=== PATIENT | female | born 1940 | race Hispanic/Latino ===

== ENCOUNTER → 2017-08-22 | Day surgery (SDC) | payer OTHER ==
[~2017-08-22] MED LIST: NA CHLORIDE 0.9% 500 ML ONE
--- NOTE | 2017-08-22 13:12 | RAD REPORT ---
EXAM DESCRIPTION: US - Breast Core BX w/US Guidance - 08/22/2017 10:50 am CLINICAL HISTORY: ICD N63.14. COMPARISON: August 16, 2017 ultrasound. TECHNIQUE: The risks, benefits and alternatives to the procedure were explained to the patient and i nformed consent obtained. The skin and subcutaneous tissues were anesthetized with Lidocaine. Under sonographic guidance, three 14-gauge vacuum assisted core biopsies of the 18 mm mass within the upper inner right breast was per formed. 2 cm core specimens were obtained and given to pathology. Subsequently a localizing clip was placed into the mass. The patient experienced no immediate complication. IMPRESSION: Vacuum assisted core biopsies of a right breast mass.
== END ==
LOC: DS 09:59
PROVIDERS: ATTEND Surgery
DX: C50.911 Malignant neoplasm of unspecified site of right female breast (principal); Z17.0 Estrogen receptor positive status [ER+]
CPT/HCPCS: 19083; 88305

== ENCOUNTER 2017-09-04 08:00 | Day surgery (SDC) | payer OTHER ==
--- NOTE | 2017-09-03 16:11 | RAD REPORT ---
EXAM DESCRIPTION: RAD - Chest Pa And Lat (2 Views) - 09/03/2017 4:06 pm CLINICAL HISTORY: Preop chest, pending breast surgery COMPARISON: None. TECHNIQUE: PA and lateral views of the chest were obtained. FINDINGS: The lungs are fibrotic but clear of a focal infiltrate, mass or failure. Heart size is n ormal and central vasculature is within normal limits. No pleural effusion or pneumothorax seen. No acute bony finding noted. No aortic abnormality. IMPRESSION: Fibrotic lung change with no acute cardiopulmonary finding.
[2017-09-03 17:02] LABS: Absolute Lymphocytes (CBC) 2.2 K/uL (0.7-4.9); Absolute Monocytes 0.5 K/uL (0.1-1.3); Absolute Neutrophil 5.2 K/uL (1.8-8.0); Basophils % 0.5 % (0-1.3); Eosinophils % 1.8 % (0-4.4); Hematocrit 37.8 % (36.0-45.0); Lymphocytes % 26.8 % (15.3-44.8); MCH 31.3 pg (27.0-35.0); MCV 92.2 fL (80-100); MPV 10.6 fL (7.6-11.3); Monocytes % 6.6 % (3.3-12.3)
[2017-09-03 17:30] LABS: Potassium 3.5 mEq/L (3.6-5.0)
--- NOTE | 2017-09-03 22:36 | EKG ---
Test Date: 2017-09-03 Test Time: 15:54:46 Membership Advisor: SPIKE MEASUREMENT RESULTS: Intervals: Rate: 57 KS: 202 QRSD: 84 QT: 440 QTc: 428 [place]: P: 57 KS: 202 QRS: -2 T: 45 INTERPRETIVE STATEMENTS: Sinus bradycardia Otherwise normal ECG Compared to ECG 08/31/2016 11:42:24 No significant changes Electronically Signed On 09-03-17 22:35:54 CDT by Timi Farley
--- OUTSIDE RECORDS SUMMARY | 2017-09-04 08:02 | XMS REPORT ---
:1940 Author Organization [employer] Care Team Providers Name Role Phone Mary Goyal Provider Role Unavailable Allergies, Adverse Reactions, Alerts Substance Reaction Event Type MORPHINE hallucinations Drug Allergy Phenergan vomiting Drug Allergy Problems Problem Type Condition Code Onset Dates Condition Status Assessment Hypertension, unspecified type I10 Active Problem Hypertension, unspecified type I10 Active Problem Breast lump N63.0 Active Problem Depression F32.9 Active Problem Cancer C80.1 Active Problem Hypertension I10 Active Problem History of endometrial cancer Z85.42 Active Problem Insomnia, unspecified type G47.00 Active Problem Vaginal dryness N89.8 Active Problem Depression, unspecified depression F32.9 Active type Assessment Depression, unspecified depression F32.9 Active type Assessment Insomnia, unspecified type G47.00 Active Assessment History of endometrial cancer Z85.42 Active Medications Medication Code System Code Instructions Start Date End Date Status Dosage Zoloft [facility] 58551655594 50 MG Orally Once August 29, Active 1 tablet a day 2017 Lisinopril [facility] 25607654829 10 MG Orally Once Active 1 tablet a day Vitamin C [facility] 13717429603 1000 MG Orally Active 1 tablet Once a day Results No Known Results Summary Purpose [employer] Submission
--- OUTSIDE RECORDS SUMMARY | 2017-09-04 08:02 | XMS REPORT ---
:1940 Author Organization [employer] Care Team Providers Name Role Phone Mary Goyal Provider Role Unavailable Allergies No Known Allergies Problems Problem Type Condition Code Onset Dates Condition Status Problem Hypertension, unspecified type I10 Active Problem Breast lump N63.0 Active Problem Depression F32.9 Active Problem Cancer C80.1 Active Problem Hypertension I10 Active Problem History of endometrial cancer Z85.42 Active Problem Insomnia, unspecified type G47.00 Active Problem Vaginal dryness N89.8 Active Problem Depression, unspecified depression F32.9 Active type Medications No Known Medications Results No Known Results Summary Purpose [employer] Submission
[2017-09-04] MEDS ORDERED: Ringers Lactate 1,000 ML IV ONE ×2 (08:08→13:42)
[2017-09-04] MEDS ORDERED: CEFAZOLIN/SWI 1gm 1 GM/10 ML SYR ONE (08:08)
[2017-09-04] MEDS ORDERED: SCOPOLAMINE HYDROBROMIDE PATCH TD ONE (08:15)
[2017-09-04] MEDS ORDERED: PROPOFOL 200 MG/20 ML VIAL IV ONE (10:02)
[2017-09-04] MEDS ORDERED: MIDAZOLAM HCL 2 MG/2 ML INJ ONE (10:03)
[2017-09-04] MEDS ORDERED: LIDOCAINE 2% MPF 5 ML VIAL ONE (10:03)
[2017-09-04] MEDS ORDERED: ROCURONIUM 50 MG/5 ML VIAL IV ONE (10:04)
[2017-09-04] MEDS ORDERED: FENTANYL CITR 100 MCG/2 ML ONE ×2 (10:04→11:38)
[2017-09-04] MEDS ORDERED: ONDANSETRON 4 MG/2 ML VIAL ONE (10:04)
[2017-09-04] MEDS ORDERED: METHYLENE BLUE 0.5% 10 ML AMP ONE (10:10)
[2017-09-04] MEDS ORDERED: GLYCOPYRROLATE 0.2 MG/ML SYR ONE (11:26)
[2017-09-04] MEDS: MEPERIDINE HCL 50 MG/ML AMP ONE ×3 (13:10→13:28)
--- NOTE | 2017-09-04 13:31 | P.BOP ---
Preoperative diagnosis: right breast cancer Postoperative diagnosis: same Primary procedure: 1. Right mastectomy Secondary procedure: 2. right axillary sentinel lymphnode biopsy Cycle Analyst: [place] (Gregorio) Estimated blood loss: <100cc Specimen: breast, sentinel lymphnode Findings: sentinel Lymphnode neg per DR Whitaker Anesthesia: General Complications: None Drain(s): RICHARD drain Transferred to: Recovery Room Condition: Good
--- NOTE | 2017-09-08 19:01 | OP ---
Date of Procedure: 09/04/2017 Surgeon: Felix Daniels MD Nature Photographer: ERIC Solis Preoperative Diagnosis: Right breast cancer. Postoperative Diagnosis: Right breast cancer. Procedures: 1.Right mastectomy. 2.Right axillary sentinel lymph node biopsy. Estimated Blood Loss: Less than 100 cc. Specimen: Breast, sentinel lymph nodes. Findings: [place] lymph nodes negative for cancer by Dr. Tilley. Anesthesia: General. Intraoperative lymphatic mapping of the right axillary basin lymph node showed skin count of 2800, in vivo of 781, and ex vivo 815. Ex Vivo 908, background 0, and blue node yes. This is the case of a 77-year-old patient with a history of breast cancer on core biopsy. The benefi ts, alternatives, and risks of multiple options including breast conservative treatments, modified ra dical mastectomies, axillary dissection, sentinel lymph node, lumpectomies, and radiation fully expla ined to the patient with benefits, alternatives, and risks of each one of them. The family was prese nt. After considering all her options, she has elected right mastectomy with right axillary sentinel lymph node biopsy, possible axillary dissection, with benefits, alternatives, and risks fully explai [place] to the patient, which include but are not limited to infection, bleeding, damage to adjacent stru ctures, anesthesia complications, failure of the flap, failure to identify sentinel lymph node and th eir recurrence, flap failure, [place], or even . She also understands this may not relieve any sympt oms, she many need more than one surgical intervention. She also understands the chance of lymphedem a. She understands the importance of following up in the future with the Oncology. She signed a con sent. The patient went this morning and had a lymphoscintigram. After that, the patient came to the OR. Description Of Procedure: Then, the patient was brought into the OR. The right breast and axillary area were prepped and draped in the usual sterile fashion. We proceeded to outline the area of the b reast to be excised. At the same time, we made an incision in the inferior axillary fine. Before th at, we injected a blue over the area near the periareolar region and mass and massaged the area f or about 15 minutes. After the time-out was complete, we proceeded then to use a hand-held gamma pro be to identify the location of the hottest spot in the axilla. One incision was made. We obtained t he counts as described above. We noticed the lymph node to be positive for also for blue dye. The r ight axillary basin shows skin 2800, in vivo 781, and ex vivo 815. An ex vivo 10-second count is 908 with a background of none, and blue node to be of blue. The lymph node was sent to lee Velez, who confirmed the sentinel lymph node is negative for any cancer. At that moment, we proce eded to continue with the right mastectomy. The incision was made to encompass the nipple areolar co mplex and previous biopsy site. The flaps were raised into the vascular plane between the subcutaneo us tissue and the breast tissue from superiorly up to the clavicle, medially up to the sternum, anter ior rectus sheath inferiorly, and passing the lateral border of the pectoralis major muscle laterally and latissimus dorsi. After that, we proceeded to remove the breast issue with the fascia of the mu scle. We marked the area of orientation. We even marked the area over where the tumor is. I did no t see the tumor to the fatty tissue, but I took some extra tissue just underneath the skin since this tumor, although it is not touching the skin, is near by. Also, in the lower point in the area near the muscle, we took also an extra margin from that region, even though we do not see any tumor coming through, but it is not that far away. This was sent to the pathologist. The area was profusely irr igated. After that, I proceeded then to leave 2 RICHARD drains exiting through different sites and secure d in place with 3-0 nylon. Once again, checked for hemostasis. The flap looks intact with no cyanos is. Actually, the area looks intact too. At that moment, I proceeded then to close the subcutaneous tissue with 0 chromic and then the skin with isidro and sterile dressings on the top. Sponge count and instrument counts were correct. The patient tolerated the procedure well. The patient was sent to recovery in stable condition. At the end of the case, there was no swelling of the arm and there were good peripheral pulses. DISCHARGE SUMMARY Diagnosis: Right breast cancer. Procedure: Right mastectomy with right axillary sentinel lymph node biopsy. Disposition: Home. Activity: As tolerated. No heavy lifting. Followup: Follow up in my office in 1 week. Call for appointment at [phone]. Keep the dressings i ntact if possible. Also, family was explained on how to drain the RICHARD drain and record output q.24 ho urs. Discharge Medications: See orders. QUINCY/CRISTOPHER Voice ID: [id number] Report ID: [id number]
== END 2017-09-04 16:15 | disposition home or self-care (01) ==
LOC: OR 08:00
PROVIDERS: ATTEND Surgery
PROC: 07B50ZX Excision of Right Axillary Lymphatic, Open Approach, Diagnostic (ICD-10-PCS; 2017-09-04)
PROC: 0HTT0ZZ Resection of Right Breast, Open Approach (ICD-10-PCS; principal; 2017-09-04 11:15)
DX: C50.911 Malignant neoplasm of unspecified site of right female breast (principal)
CPT/HCPCS: 19303; 36415; 38525; 71046; 80048; 85025; 88305; 88307 ×2; 88333; 93005; J0690; J2175; J2250; J2405; J3010 ×2

== ENCOUNTER 2019-09-20 15:59 | Emergency (ER) | payer OTHER ==
--- OUTSIDE RECORDS SUMMARY | 2019-09-20 16:02 | XMS REPORT ---
:1940 Author Organization [facility] t Address [address] [place] [address] Care Team Providers Name Role Phone Dave Hou MD Attending Clinician Payers Payer Name Policy Type Policy Number Effective Date Expiration Date S ource Problems Condition Condition Condition Status Onset Resolution Last Treating Co mments Source Name Details Category Date Date Treatment Clinician Date Hypertensi Hypertensi Problem Active [facility] on, on, [facility]ie unspecifie Me moria d type d type [facility] Breast Breast Problem Active [facility] lump lump [facility]ics Depression Depression Problem Active [facility] , , [facility] - unspecifie unspecifie Me moria d d l depression depression Ou tpati type type ent Clinics History of History of Problem Active [facility] endometria endometria Yun kes - l cancer l cancer [facility] Insomnia, Insomnia, Problem Active [facility] unspecifie unspecifie Yun kes - d type d type [facility] Vaginal Vaginal Problem Active [facility] dryness dryness [facility] Malignant Malignant Problem Active [facility] neoplasm neoplasm [facility] - of right of right Memori a female female l breast, breast, Outpati unspecifie unspecifie en t d estrogen d estrogen Cl inics receptor receptor status, status, unspecifie unspecifie d site of d site of breast breast S/P right S/P right Problem Active [facility] mastectomy mastectomy Yun kes - [facility] Routine Routine Problem Active [facility] eye exam eye exam [facility] Vaginal Vaginal Problem Active [facility] pessary in pessary in Yun kes - situ situ [facility] Osteopenia Osteopenia Problem Active [facility] of of [facility] - multiple multiple Memori a sites sites [facility] History of History of Problem Active [facility] breast breast [facility] - cancer cancer [facility] Pain in Pain in Problem Active [facility] left left [facility] - shoulder shoulder Memori a l [facility] Pain in Pain in Problem Active [facility] right right [facility] - shoulder shoulder Memori a l [facility] Pain in Pain in Problem Active [facility] left [facility] Right hip Right hip Problem Active [facility] pain pain kes - [facility] Status Status Problem Active [facility] post fall post fall Luke s - [facility] Right knee Right knee Problem Active [facility] pain, pain, [facility] - unspecifie unspecifie Me moria d d l chronicity chronicity [facility] Skin Skin Problem Active [facility] irritation irritation [facility] Right leg Right leg Problem Active [facility] pain pain [facility] Allergies, Adverse Reactions, Alerts Allergy Allergy Status Severity Reaction(s) Onset Inactive Treating Comm ents Source Name Type Date Date Clinician promethcody DA Active HI 2011-05 [facility] zine HCl 05-17 [place] 00:00: d 00 [facility] Center some DA Active U 2011-05 [facility] antibiot 05-17 [place] ic 00:00: d 00 [facility] MORPHINE Adverse Active hallucinatio C [facility] Reaction ns [facility] Tramadol Adverse Active Hallucinatio C HI [facility] HCl Reaction ns [facility] Phenerga Adverse Active vomiting [facility] t n Reaction [facility] Medications Ordered Filled Start Stop Current Ordering Indication Dosage Frequency Signature Comments Components Source Medication Medication Date Date Medication? Clinician (SIG) Name Name Tylenol # 3 Tylenol # 3 2020- Yes Mary [address] [facility] 3-11 03-25 Mill[place] as needed Luke s - 00:00: 00:00 for pain; Memoria 00 :00 take with l food Outpati ent Clinics Alendronate Alendronate 2020- No Mary [address] [facility] Sodium Sodium 1-15 -06 Millender [facility] - 00:00: 00:00 Memoria 00 :00 l Outpati ent Clinics Zoloft Zoloft Yes Mary [address] [facility] 5-23 Millender [facility] - 00:[facility]: Memoria 00 l Outpati ent Clinics Zoloft Zoloft Yes Mary [address] [facility] 4-26 Millender [facility] - 00:[facility]: [facility]oria 00 l Outpati ent Clinics Lisinopril Lisinopril Yes Mary [address] [facility] Millender [facility] Vitamin D Vitamin D Yes Mary [address] [facility] [address] Millender (OTC) [facility] Vitamin C Vitamin C Yes Mary [address] [facility] Millender [facility] Calcium Calcium Yes Mary 500 mg--[address] [facility] Millender gummies [facility] - (OTC) [facility] l Outpati ent Clinics Procedures This patient has no known procedures. Encounters Start End Encounter Admission Attending Care Care Encounter Source Date/Time Date/Time Type Type Clinicians Facility Department ID 2019-07-15 2019-07-15 Outpatient Lucrecia Eng [id number] [facility] 15:00:00 15:00:00 [facility] Medicine Medicine Outpati ent [facility] 2019-07-14 2019-07-14 Office HouDavina [facility] [id number] 14:24:44 15:18:57 Visit Dave Beck [id number] Shailesh [id number] Zari [id number] [address] 2019-01-29 2019-01-29 Outpatient Lucrecia Eng [id number] [facility] 14:40:00 14:40:00 [facility] Medicine Medicine Outpati ent [facility] 2018-09-15 2018-09-15 [facility] [id number] 14:25:00 14:25:00 t [facility] Medicine Medicine Outpati ent Clinics 2018-09-15 2018-09-15 [facility] [id number] 11:40:00 11:40:00 t [facility] Medicine Outpati ent Clinics 2018-08-14 2018-08-14 [facility] [id number] [address] 15:00:00 15:00:00 t [facility] Medicine l Medicine Outpati ent Clinics 2018-05-20 2018-05-20 [facility] [id number] [facility] 16:00:00 16:00:00 [facility] Medicine Medicine Outpati ent Clinics 2018-02-03 2018-02-03 [facility] [id number] [address] 11:36:00 11:36:00 t [facility] Medicine Medicine Outpati ent Clinics 2018-02-03 2018-02-03 [facility] [id number] [address] 11:00:00 11:00:00 [facility] Medicine Medicine Outpati ent Clinics 2018 2018 [facility] [id number] 16:27:00 16:27:00 [facility] Medicine Medicine Outpati ent Clinics 2017-12-25 2017-12-25 [facility] [id number] [address] 15:22:00 15:22:00 t [facility] Medicine Medicine Outpati ent Clinics 2017-12-23 2017-12-23 [facility] [id number] [address] 23:12:00 23:12:00 [facility] Medicine Medicine Outpati ent Clinics 2017-12-23 2017-12-23 [facility] [id number] [address] 11:00:00 11:00:00 [facility] Medicine l Medicine Outpati ent Clinics 2017-11-19 2017-11-19 Outpatient Lucrecia Eng [id number] 10:30:00 10:30:00 [facility] 2017-09-24 2017-09-24 Outpatient Lucrecia Eng [id number] [address] 14:21:00 14:21:00 [facility] ent Clinics 2017-09-02 2017-09-02 Outpatient Lucrecia Velardehildajoanna [id number] 11:32:00 11:32:00 [facility] 2017-08-29 2017-08-29 Outpatient Lucrecia Velardehildajoanna [id number] 14:30:00 14:30:00 [facility] ent [facility] Results Test Description Test Time Test Comments Results Result Comments Source COMPREHENSIVE METABOLIC PANEL 2018-08-01 16:01:00 Test Item Value Reference Range Interpretation Comme nts SODIUM (test code = NA) 143 mmol/l 134.0-147.0 N POTASSIUM (test code = K) 3.4 mmol/L 3.6-5.2 L CHLORIDE (test code = CL) 106 mmol/l 98.0-107.0 N CARBON DIOXIDE (test code = CO2) 31.6 mmol/l 21.0-33.0 N ANION GAP (test code = GAP) 8.8 0-20 N GLUCOSE (test code = GLU) 131 mg/dl 70.0-110.0 H BLOOD UREA NITROGEN (test code = BUN) 20 mg/dl 7.0-18.0 H CREATININE (test code = CREAT) 0.75 mg/dL 0.60-1.30 N GFR NON BLACK (test code = GFRNONBLACK) 79 mL/min 70-80 N GFR BLACK (test code = GFRBLACK) 95 mL/min 85-97 N TOTAL PROTEIN (test code = PROT) 8.7 gm/dL 6.4-8.2 H ALBUMIN (test code = ALB) 3.6 gm/dl 3.2-4.7 N CALCIUM (test code = CA) 9.8 mg/dl 8.0-10.5 N BILIRUBIN TOTAL (test code = BILT) 0.4 mg/dl 0.0-1.0 N SGOT/AST (test code = AST) 24 Units/L 15.0-37.0 N SGPT/ALT (test code = ALT) 21 Units/L 12.0-78.0 N ALKALINE PHOSPHATASE TOTAL (test code = ALKP) 85 Units/L 50.0-136 .0 N [id number] 16:01:00 Test Item Value Reference Range Interpretation Comments TROPONIN-I (test <0.02 NG/ML 0.00-0.06 N REFERENCE R MALCOLM code = TROPI) TROPONIN I HEA LTHY INDIVIDUALS: < 0.06 ng/mL R/O ISCHE GREGORIO: 0.07 - 0.60 ng/ mL CUT-OFF RANGE F OR AMI: 0.60 - 1.5 ng/m L COMPREHENSIVE METABOLIC [id number] 15:50:00 Test Item Value Reference Range Interpretation Comments SODIUM (test code = NA) 143 mmol/l 134.0-147.0 N POTASSIUM (test code = K) 3.4 mmol/L 3.6-5.2 L CHLORIDE (test code = CL) 106 mmol/l 98.0-107.0 N CARBON DIOXIDE (test code = CO2) 31.6 mmol/l 21.0-33.0 N ANION GAP (test code = GAP) 8.8 0-20 N GLUCOSE (test code = GLU) mg/dl 70.0-110.0 BLOOD UREA NITROGEN (test code = mg/dl 7.0-18.0 BUN) CREATININE (test code = CREAT) mg/dL 0.60-1.30 GFR NON BLACK (test code = mL/min 70-80 GFRNONBLACK) GFR BLACK (test code = GFRBLACK) mL/min 85-97 TOTAL PROTEIN (test code = PROT) gm/dL 6.4-8.2 ALBUMIN (test code = ALB) gm/dl 3.2-4.7 CALCIUM (test code = CA) mg/dl 8.0-10.5 BILIRUBIN TOTAL (test code = mg/dl 0.0-1.0 BILT) SGOT/AST (test code = AST) Units/L 15.0-37.0 SGPT/ALT (test code = ALT) Units/L 12.0-78.0 ALKALINE PHOSPHATASE TOTAL (test Units/L 50.0-136.0 code = ALKP) [id number] 15:50:00 Test Item Value Reference Range Interpretation Comments TROPONIN-I (test code = TROPI) NG/ML 0.00-0.06 CBC W/AUTO [id number] 15:46:00 Test Item Value Reference Range Interpretation Comments WHITE BLOOD CELL (test code = 8.2 K/mm3 4.5-11.0 N WBC) RED BLOOD CELL (test code = 4.03 M/mm3 3.80-5.20 N RBC) HEMOGLOBIN (test code = HGB) 12.2 gm/dL 12.0-16.0 N HEMATOCRIT (test code = HCT) 38.8 % 36.0-48.0 N MEAN CELL VOLUME (test code = 96.3 UM3 82.0-99.0 N MCV) MEAN CELL HGB (test code = MCH) 30.3 UUG 25.5-32.5 N MEAN CELL HGB CONCETRATION 31.4 gm/dL 29.0-35.5 N (test code = MCHC) RED CELL DISTRIBUTION WIDTH 12.9 % 11.5-15.0 N (test code = RDW) RED CELL DISTRIBUTION WIDTH SD 45.4 fL 34.8-50.2 N (test code = RDW-SD) PLATELET COUNT (test code = 263 K/mm3 150-400 N PLT) MEAN PLATELET VOLUME (test code 11.2 fl 7.4-10.4 H = MPV) NEUTROPHIL % (test code = NT%) 66.7 % 49.0-76.0 N IMMATURE GRANULOCYTE % (test 0.5 % 0.0-0.4 H code = IG%) LYMPHOCYTE % (test code = LY%) 22.2 % 23.0-38.0 L MONOCYTE % (test code = MO%) 7.9 % 1.0-10.0 N EOSINOPHIL % (test code = EO%) 2.3 % 1.0-5.0 N BASOPHIL % (test code = BA%) 0.4 % 0.0-1.0 N NEUTROPHIL # (test code = NT#) 5.5 K/mm3 2.4-6.3 N IMMATURE GRANULOCYTE # (test 0.04 x10 3/uL 0.00-0.07 N code = IG#) LYMPHOCYTE # (test code = LY#) 1.8 K/mm3 1.2-4.0 N MONOCYTE # (test code = MO#) 0.7 K/mm3 0.0-0.6 H EOSINOPHIL # (test code = EO#) 0.2 K/MM3 0.0-0.7 N BASOPHIL # (test code = BA#) 0.0 K/mm3 0.0-0.2 N - XR ELBOW 3+V [id number] 15:44:00 FAX: Art Rodriguez MD [place]: St: REG Name: ERNESTO BALDWIN [facility] : 1940 Age/S: 78/F [address] [facility] Unit#: [id number] Loc: [place], [place]: [place] [address] Acct: [id number] Dis Date: Status: REG ER PHONE #: [phone] Exam Date: 08/01/2018 1526 FAX #: [phone] Reason: FALL - ELBOW INJURY EXAMS: CPT CODE: [id number] XR ELBOW 3+V [place] [address] Location: U19. RIGHT ELBOW 3 VIEWSHISTORY: FALL - ELBOW INJURY FINDINGS: No fracture, dislocation, soft tis alma swelling or joint effusion. Calcification seen along the lateral epicondyle. IMPRESSION: No fracture or dislocation. at 8493 Reported and signed by: Vincenzo Peters M.D. CC: Art Rodriguez MD Technologist: KODY MARIN Trnscrd Date/Time/By: 08/01/2018 (9449) : By: [email or web address] PAGE 1 Signed Report FAX: Art Rodriguez MD [place]: St: REG -- Name: ERNESTO BALDWIN [facility] : 1940 Age/S: 78/F[address] [facility] Unit #: [id number] Loc: [place], [place]: [place] [address] Acct: [id number] Dis Date: Status: REG ER PHONE #: [phone] Exam Date: 08/01/2018 [facility] FAX #: [phone] Reason: FALL - ELBOW INJURY EXAMS: CPT CODE: [id number] XR ELBOW 3+V RT 73370 <Continued> Orig Print D/T: S: 08/01/2018 (1547) PAGE 2 Signed Report- XR HAND 3 + V [id number] 15:33:00 FAX: Art Rodriguez MD [place]: St: REG Name: ERNESTO BALDWIN [facility] : 1940 Age/S: 78/F [address] [facility] Unit#: [id number] Loc: [place], [place]: [place] [address] Acct: [id number] Dis Date: Status: REG ER PHONE #: [phone] Exam Date: 08/01/2018 1526 FAX #: [phone] Reason: FALL HAND INJURY EXAMS: CPT CODE: [id number] XR HAND 3 + V LT 18787 LOCATION: T18 EXAM: LEFT HAND 3 VIEWS INDICATION: Left hand injury COMPARISON: None. TECHNIQUE: PA, lateral and oblique radiographs of the left hand FINDINGS: No acute fractures identified. Carpal bones are normal in alignment. Peripheral soft tissues are normal. IMPRESSION: No acute bony abnormality. at 1533 Reported and signed by: Jeffery Quintana M.D.CC: Art Rodriguez MD Technologist: [facility]IN [facility] Date/Time/By: 08/01/2018 (1533) : By: [email or web address] PAGE 1 Signed Report FAX: Art Rodriguez MD [place]: St: REG -- Name: DENNYERNESTO MONTEIRO [facility] : 1940 Age/S: 78/F [address] [facility] Unit #: [id number] Loc: [place], [place]: [place] [address] Acct: [id number] Dis Date: Status: REG ER PHONE #: [phone] Exam Date: 08/01/2018 1526 FAX #: [phone] Reason: FALL HANDINJURY EXAMS: CPT CODE: [id number] XR HAND 3 + [place] [address] <Continued> Orig Print D/T: S: 08/01/2018 (1532) PAGE 2 Signed Report- XR CHEST 1 V 2018-08-01 15:31:00 FAX: Art Rodriguez MD [place]: St: REG Name: ERNESTO BALDWIN [facility] : 1940 Age/S: 78/F [address] [facility] Unit#: [id number] Loc: [place], [place]: [place] [address] Acct: [id number] Dis Date: Status: REG ER PHONE #: [phone] Exam Date: 08/01/2018 1526 FAX #: [phone] Reason: FALL EXAMS: CPT CODE: [id number] XR CHEST 1 V 21571 LOCATION: T18 EXAM: CHEST 1 VIEW INDICATION: FALL COMPARISON: Chest x-ray February 28, 2013 TECHNIQUE: AP chest radiograph. FINDINGS: Lungs are clear bilaterally without effusion. Heart and mediastinum are normal in size and contour. Bones and peripheral soft tissues are unchanged. IMPRESSION: Lungs are clear. No acute abnormality. at 1531 Reported and signed by: Jeffery Quintana M.D. CC: Art Rodriguez MD Technologist: KODY MARIN Trnncrd Date/Time/By: 08/01/2018 (1531) : By: [email or web address] PAGE 1 Signed Report FAX: Art Rodriguez MD [place]: St: REG Name: ERNESTO BALDWIN [facility] : 1940 Age/S: 78/F [address] [facility] Unit #: [id number] Loc: [place], [place]: [place] [address] Acct: [id number] Dis Date: Status: REG ER PHONE #: [phone] Exam Date: 08/01/2018 1526 FAX #: [phone] Reason: FALL EXAMS: CPT CODE: [id number] XR CHEST 1 V 92424 <Continued> Orig Print D/T: S: 08/01/2018 (9874) PAGE 2 Signed Report- CT MAXIFAC W/O [id number] 15:20:00 FAX: Art Rodriguez MD [place]: St: REG Name: ERNESTO BALDWIN [facility] : 1940 Age/S: 78/F [address] [facility] Unit: [id number] Loc: [place], [place]: [place] [address] Acct: [id number] Dis Date: Status: REG ER PHONE #: [phone] Exam Date: 08/01/2018 145 FAX #: [phone] Reason: FALL - FACIAL INJURY EXAMS: CPT CODE: [id number] CT MAXIFAC W/O CONTRAST 93187 CT maxillofacial bones without contrast Location Code: B2 Clinical history: FALL - FACIAL INJURY Technique: Helical CT of the facial bones was performed without contrast. Thin section axial, coronal, and sagittal images were obtained. No prior study is available for comparison. Findings: The sinuses and orbits are intact. The globes are unremarkable. There is no retrobulbar hematoma. The temporo mandibular joints are intact. Mild soft tissue swelling is noted at the lower lip. Impression: No acute fracture or subluxation. at 1520 Reported and signed by: Alvarado Estrada M.D. CC: Art Rodriguez MD Technologist: ARSENIO VILLANUEVA Trnscrd Dt/Tm: 08/01/2018 (1520) [email or web address] Orig Print D/T: S: 08/01/2018 (1523 PAGE 1 Signed Report- CT C-SPINE W/O [id number] 15:18:00 FAX: Art Rodriguez MD [place]: St: REG Name: ERNESTO BALDWIN [facility] : 1940 Age/S: 78/F [address] [facility] Unit: [id number] Loc: [place], [place]: [place] [address] Acct: [id number] Dis Date: Status: REG ER PHONE #: [phone] Exam Date: 08/01/2018 1457 FAX #: [phone] Reason: FALL - HEAD INJURY EXAMS: CPT CODE: [id number] CT C-SPINE W/O CONT 05342 CT CERVICAL SPINE WITHOUT CONTRAST; SAGITTAL AND CORONAL REFORMATTED VIEWS. HISTORY: FALL - HEAD INJURY COMPARISON :None. TECHNIQUE: Axial CT images of the cervical spine were obtained with coronal and sagittal reformatted views. Automated exposure control, iterative reconstruction technique, and/or adjustment of mA and/or kV according to patient's size was utilized for radiation dose reduction. IV CONTRAST: None. Location: U19. FINDINGS: The cervical alignment is straightened. No evidence of a cervical spine fracture or subluxation. No prevertebral soft tissue swelling. Mild degenerative changes affect the cervical spine with facet 6-C7 with small anterior posterior osteophytes. Atherosclerotic calcifications affect both carotid bulbs. IMPRESSION: No cervical spine fracture or subluxation. at 1518 Reported and signed by: Vincenzo Peters M.D. CC: Art Rodriguez MD Technologist: ARSENIO VILLANUEVA Trnscrd Dt/Tm: 08/01/2018 (1518) [email or web address] Orig Print D/T: S: 08/01/2018 (1521 PAGE 1 Sign ed Report- CT HEAD/BRAIN W/O [id number] 15:14:00 FAX: Art Rodriguez MD [place]: St: REG Name: ERNESTO BALDWIN [facility] : 1940 Age/S: 78/F [address] [facility] Unit: [id number] Loc: [place], [place]: [place] [address] Acct: [id number] Dis Date: Status: REG ER PHONE #: [phone] Exam Date: 08/01/2018 1457 FAX #: [phone] Reason: FALL - HEAD INJURY EXAMS: CPT CODE: [id number] CT HEAD/BRAIN W/O CONT 46158 EXAM: CT Head without contrast Location code:J9 HISTORY: Trauma COMPARISON: None available. TECHNIQUE: Mult iple transaxial images of the brain were obtained without intravenous contrast using 5mm slices. FINDINGS: There is no acute intracranial hemorrhage. No midline shift.A CSF signal chronic appearing extra axial collection is noted in the bilateral frontal lobes measuring up to 16 mm. Brain parenchymal volume and ventricular caliber are within normal limits. Reaves-white differentiation is maintained. There is no evidence for acute major vesselinfarct. Paranasal sinuses, mastoid air cells and visualized orbital contents are within normal limits. Osseous structures are within normal limits. IMPRESSION: 1. No acute findings. 2. Chronic appearing fluid attenuation subdural collection is noted superior to the frontal lobes. at 6612 Reported and signed by: Alvarado Estrada M.D. CC: Art Rodriguez MD Technologist: ARSENIO VILLANUEVA Trnscrd Dt/Tm: 08/01/2018 (151) [email or web address] Orig Print D/T: S: 08/01/2018 (1518 PAGE1 Signed Report- XR KNEE 3 V [id number] 14:49:00 FAX: Art Rodriguez MD [place]: St: PRE Name: ERNESTO BALDWIN [facility] : 1940 Age/S: 78/F [address] [facility] Unit[facility] [id number] Loc: [place], [place]: [place] [address] Acct: [id number] Dis Date: Status: PRE ER PHONE #: [phone] Exam Date: 08/01/2018 1443 FAX #: [phone] Reason: KNEE PAIN EXAMS: CPT CODE: [id number] XR KNEE 3 [place] [address] Location: U19. RIGHT KNEE 3 VIEWS HISTORY: Right knee pain FINDINGS: Anterior soft tissue swelling. No fracture or dislocation. Mild osteophyte formation seen in the patellofemoral compartment. Vascular calcifications. No fracture or dislocation. IMPRESSION: Anterior soft tissue swelling without a fracture or dislocation. at 4582 Reported and signed by: Vincenzo Peters M.D. CC: Art Rodriguez MD Technologist: SHAN GAN Trnscrd Date/Time/By: 08/01/2018 (8429) : By: [email or web address] PAGE 1 Signed Report FAX: Art Rodriguez MD [place]: St: PRE -- Name: ERNESTO BALDWIN [facility] : 1940 Age/S: 78/F [address] [facility] Unit #: [id number] Loc: [place], [place]: [place] [address] Acct: [id number] Dis Date: Status: PRE ER PHONE #: [phone] Exam Date: 08/01/2018 1443 FAX #: [phone] Reason: KNEE PAIN EXAMS: CPT CODE: [id number] XR KNEE 3 V RT 55709 <Continued> Orig PrintD/T: S: 08/01/2018 (0172) PAGE 2 Signed Report
--- OUTSIDE RECORDS SUMMARY | 2019-09-20 16:02 | XMS REPORT ---
:1940 Author Organization eClinicalWorks Care Team Providers Name Role Phone Mary Goyal Provider Role Unavailable Allergies, Adverse Reactions, Alerts Substance Reaction Event Type MORPHINE hallucinations Drug Allergy Tramadol HCl Hallucinations Drug Allergy Phenergan vomiting Drug Allergy Problems Problem Type Condition Code Onset Dates Condition Statu s Assessment Depression F32.9 Active Assessment S/P right mastectomy Z90.11 Active Assessment History of breast cancer Z85.3 Act alfonso Assessment Right knee pain, unspecified M25.561 Active chronicity Assessment Osteopenia of multiple sites M85.89 Active Problem History of breast cancer Z85.3 Act alfonso Assessment Skin irritation R23.8 Active Problem 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 C50.911 Active breast, unspecified estrogen receptor status, unspecified site of breast Assessment Diarrhea, unspecified type R19.7 A ctive Problem S/P right mastectomy Z90.11 Active Problem Routine eye exam Z01.00 Active Problem Vaginal pessary in situ Z92.89 Acti ve Problem Pain in right hip M25.551 Active Problem Pain in right shoulder M25.511 Activ e Assessment Hypertension, unspecified type I10 Active Problem Skin irritation R23.8 Active Assessment Non-intractable vomiting with R11.2 Active nausea, unspecified vomiting type Problem Status post fall Z91.81 Active Problem Right knee pain, unspecified M25.561 Active chronicity Problem Pain in left shoulder M25.512 Active Problem Pain in left hip M25.552 Active Problem Breast lump N63.0 Active Problem Hypertension, unspecified type I10 Active Problem Osteopenia of multiple sites M85.89 Active Problem Depression F32.9 Active Problem Depression, unspecified depression F32.9 Active type Problem Vaginal dryness N89.8 Active Problem History of endometrial cancer Z85.42 Active Problem Insomnia, unspecified type G47.00 A ctive Medications Medication Code Code Instructions Start End Status Dosage System Date Date Alendronate [facility] 75177538230 35 MG Orally Active 1 t ablet Sodium Once a week for the bones Lisinopril ND 05856129721 10 MG Orally Active 1 ta blet Once a day Vitamin C [facility] 35436585004 1000 MG Orally Active 1 t ablet Once a day Zoloft [facility] 16849726186 25 mg Orally Active 1 table t Once a day Zoloft [facility] 29785997011 50 MG Orally Maryam Active 1 table t Once a day 2017 Vitamin D [facility] 39913893291 1000 UNIT Orally Active 2 gummies Once daily (OTC) Calcium NDC 0 Orally Once Active 500 mg--2 daily gummies (OTC) Results No Known Results Summary Purpose eClinicalWorks Submission
--- OUTSIDE RECORDS SUMMARY | 2019-09-20 16:03 | XMS REPORT | Summary of Care ---
:1940 Author Organization [facility] Address [address] [place] [address] Care Team Providers Name Role Phone Mary Goyal Primary Care Provider Reason for Visit Reason Comments New Medication Encounter Details Date Type Department Care Team Description 07/17/2019 Case Management [facility] Women's Davina Hou MD New Medication Healthcare- [address], [facility] [address] [place] [address] [address] [place] [address] [phone] Allergies Active Allergy Reactions Severity Noted Date Comments Promethazine Hcl Unknown - See comments 05/27/2006 S ees things per pt. Sulfatrim Ds Dizziness, Nausea and/or Medium 10/01/2012 Vomiting Tramadol Hallucinations 02/13/2018 documented as of this encounter (statuses as of 07/17/2019) Medications Medication Sig Dispensed Refills Start Date End Date Status ASPIRIN 81 MG ORAL 1 daily 0 01/12/2007 Active CHEW lisinopril 10 mg Take 1 tablet 30 tablet 6 11/09/2016 Active tabletIndications: by mouth daily. Essential hypertension, benign Cyanocobalamin Place 1 tablet 0 11/09/2016 Active (VITAMIN B-12) 1,000 under the mcg sublingual tongue daily. tabletIndications: Vitamin B12 deficiency multivit with Take by mouth. 0 Active minerals/lutein (MULTIVITAMIN 50 PLUS ORAL) ascorbate calcium Take by mouth. 0 Active (VITAMIN C ORAL) anastrozole 1 mg Take 1 mg by 0 Active tablet mouth daily. SERTraline (ZOLOFT) 25 Take 25 mg by 0 Active mg tablet mouth daily. alendronate 35 mg TK 1 T PO ONCE 0 04/23/2019 Active tablet A WEEK FOR THE BONES. Nitrofurantoin&Nit. Take 1 capsule 14 capsule 0 07/17/2019 Active Macrocryst (MACROBID) by mouth 2 100 mg (two) times capsuleIndications: daily for 7 Acute cystitis without days. hematuria documented as of this encounter (statuses as of 07/17/2019) Active Problems Patient Care Coordination Note Hypertension (High Blood Pressure) Plan of Care My Hypertension Goals are the following: ? Strive for a normal blood pressure of less than 140/90 ? Cholesterol- LDL ( Bad cholesterol )- less than 130 (if I have diabetes and heart disease goal is less than 70) ? Total Cholesterol- less than 200 ? Lose weight if overweight or obese and follow the Weight Loss Care Plan ? Stop smoking and avoid second hand smo ke My Hypertension Care Plan includes the f ollowing: ? Check and record blood pressure at [address] once a week and write results on blood pressure log ? Exercise at least 30 minutes a day 5 d ays a week. This can be in three 10 minute intervals ? Maintain a healthy weight ? Follow a DASH diet (Dietary Approaches to Stop Hypertension) o Eat a diet rich in fruits, vegetables, and low fat dairy products and low in saturated and total fat o Reduce dietary sodium to below 1500mg per day o Limit alcohol to two drinks per day fo r most men and one drink per day for most women and technology support analyst weight men ? If I am a smoker, stop smoking ? Manage stress by identifying three way s to reduce stress ? [employer] (www.[facility]/[employer]) is an online tool that will allow me to review lab results and portions of my health record, and to communicate with healthcare providers as needed. 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 HLD (hyperlipidemia) 06/13/2009 Overview: ICD10 Diagnosis Term Button Sewer Hand Utility Varicose vein of leg 06/10/2009 Symptomatic menopausal or female climacteric states Tobacco use disorder 06/23/2008 Chronic depressive personality disorder Generalized osteoarthrosis, unspecified site Insomnia Overview: ICD10 Diagnosis Term Button Sewer Hand Utility Esophageal reflux Essential hypertension, benign Recurrent UTI documented as of this encounter (statuses as of 07/17/2019) Resolved Problems Problem Noted Date Resolved Date Urinary tract infection, site not specified 07/22/2012 01/06/2013 Pain in limb 06/10/2009 01/06/2013 Influenza with respiratory manifestation other than 06/23/19 09 01/06/2013 pneumonia Overview: ICD10 Diagnosis Term Button Sewer Hand Utility Encounter for screening for osteoporosis 06/23/2008 01/06/2013 Overview: ICD10 Diagnosis Term Button Sewer Hand Utility 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 08/23/2013 Impaired glucose tolerance test 04/06/20 14 documented as of this encounter (statuses as of 07/17/2019) Immunizations Name Administration Dates Next Due Influenza High Dose 03/25/2015, 03/25/2014, 02/08/2012 Influenza Virus Vaccine 02/28/2013, 06/26/2010, 03/20/2008, 03/14/2007, 03/02/2006 Pneumococcal Polysaccharide, PPSV23 03/27/2004 (PNEUMOVAX) Tdap 08/29/2011 documented as of this encounter Social History Tobacco Use Types Packs/Day Years Used Date Current Every Day Smoker Cigarettes 0.5 40 Smokeless Tobacco: Never Used Comments: Has cut down from 1PPD in past Alcohol Use Drinks/Week oz/Week Comments Yes 0 Standard drinks or equivalent 0.0 occasional use Sex Assigned at Date Recorded Not on file Job Start Date Occupation Industry Not on file Not on file Not on file Travel History Travel Start Travel End No recent travel history available. documented as of this encounter Last Filed Vital Signs Not on filedocumented in this encounter Plan of Treatment Date Type Specialty Care Team Description 10/12/2019 Office Visit Obstetrics & Gynecology Eagle Hou MD [address] [place] [address] DR. Townsend [address] [place] [address] [phone] Health Maintenance Due Date Last Done Comments Zoster Recombinant Vaccine 1989 (SHINGRIX) (1 of 2) LUNG CANCER SCREEN: 1994 Recommended for age 55-80 with 30 + pack year history Medicare Wellness Visit 01/22/2004 INFLUENZA VACCINE (#1) 2019 03/25/2015, 03/25/2014, 02/28/2013, Additional history exists Osteoporosis Screening 02/29/2020 02/28/2010 DTaP,Tdap,and Td Vaccines 08/28/2021 08/29/2011 (2 - Td) PNEUMOCOCCAL VACCINES 65+ Addressed 07/22/2015 (Declined), Overridden with the 03/27/2004 intention of not completing the t opic documented as of this encounter Results Not on filedocumented in this encounter Visit Diagnoses Diagnosis Acute cystitis without hematuria - Prima ry Acute cystitis documented in this encounter Insurance Payer Benefit Plan / Subscriber ID Effective Dates Phone Addre ss Type Group MEDICARE MEDICARE PART xxxxxxxxxxx 2004-Sunil 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
--- OUTSIDE RECORDS SUMMARY | 2019-09-20 16:03 | XMS REPORT | Summary of Care ---
:1939 Author Organization [facility] - [facility] Address [address] [place] [address] Care Team Providers Name Role Phone Mary Goyal Primary Care Provider Reason for Visit Reason Comments Pessary No maintanance in over 1 yea r Encounter Details Date Type Department Care Team Description 07/14/2019 Office Visit [facility] Women's Cammy Xiao PA-C [address] [phone] Pessary maintenance (Primary Dx); Healthcare- Dyess Davina Hou MD [address] [place] [address]. [facility] [address] [place], [place] [id number] Dysuria [address] [facility], [address] [place] [address] Allergies Active Allergy Reactions Severity Noted Date Comments Promethazine Hcl Unknown - See comments 05/27/2006 S ees things per pt. Sulfatrim Ds Dizziness, Nausea and/or Medium 10/01/2012 Vomiting Tramadol Hallucinations 02/13/2018 documented as of this encounter (statuses as of 07/23/2019) Medications Medication Sig Dispensed Refills Start Date End Date Status ASPIRIN 81 MG ORAL CHEW 1 daily 0 01/12/2007 Active lisinopril 10 mg Take 1 tablet by 30 tablet 6 11/09/2016 Active tabletIndications: mouth daily. Essential hypertension, benign Cyanocobalamin (VITAMIN Place 1 tablet 0 11/09/2016 Active B-12) 1,000 mcg under the tongue sublingual daily. tabletIndications: Vitamin B12 deficiency multivit with Take by mouth. 0 Active minerals/lutein (MULTIVITAMIN 50 PLUS ORAL) ascorbate calcium Take by mouth. 0 Active (VITAMIN C ORAL) anastrozole 1 mg tablet Take 1 mg by 0 Active mouth daily. SERTraline (ZOLOFT) 25 Take 25 mg by 0 Active mg tablet mouth daily. alendronate 35 mg tablet TK 1 T PO ONCE A 0 04/23/20 19 Active WEEK FOR THE BONES. documented as of this encounter (statuses as of 07/23/2019) Active Problems Patient Care Coordination Note Hypertension [...] My Hypertension Care Plan includes the f александрing: ? Check and record blood pressure at [...] drink per day for most women and traveling engineer weight men ? If I am a smoker, stop smoking ? Manage stress by identifying three way s to reduce stress ? [employer] (www.[facility]/[employer]) is an online tool that will allow me to review lab results and portions of my health record, and to communicate with healthcare providers as needed. 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 HLD (hyperlipidemia) 06/13/2009 Overview: ICD10 Diagnosis Term Spareribs Trimmer Utility Varicose vein of leg 06/10/2009 Symptomatic menopausal or female climacteric states Tobacco use disorder 06/23/2008 Chronic depressive personality disorder Generalized osteoarthrosis, unspecified site Insomnia Overview: ICD10 Diagnosis Term Spareribs Trimmer Utility Esophageal reflux Essential hypertension, benign Recurrent UTI documented as of this encounter (statuses as of 07/23/2019) Resolved Problems Problem Noted Date Resolved Date Urinary tract infection, site not specified 07/22/2012 01/06/2013 Pain in limb 06/10/2009 01/06/2013 Influenza with respiratory manifestation other than 06/23/19 09 01/06/2013 pneumonia Overview: ICD10 Diagnosis Term Spareribs Trimmer Utility Encounter for screening for osteoporosis 06/23/2008 01/06/2013 Overview: ICD10 Diagnosis Term Spareribs Trimmer Utility 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 08/23/2013 Impaired glucose tolerance test 04/06/20 14 documented as of this encounter (statuses as of 07/23/2019) Immunizations Name Administration Dates Next Due Influenza [...] of this encounter Last Filed Vital Signs Vital Sign Reading Time Taken Comments Blood Pressure 121/63 07/14/2019 2:57 PM CDT Pulse 58 07/14/2019 2:57 PM CDT Temperature 36.4 C (97.5 F) 07/14/2019 2:57 PM CDT Respiratory Rate 18 07/14/2019 2:57 PM CDT Oxygen Saturation - - Inhaled Oxygen Concentration - - Weight 59.1 kg (130 lb 6.4 oz) 07/14/2019 2:57 PM CDT Height 160 cm (5' 3") 07/14/2019 2:57 PM CDT Body Mass Index 23.1 07/14/2019 2:57 PM CDT documented in this encounter Patient Instructions Patient InstructionsPiel, Dawood D - 07/14/2019 2:30 PM CDT Using a Hand Tree Trimmer Helper [id number]-Csm[employer] [place] reviewed this educational content on 09/30/201419993178-2722 [employer]. [address] [place] [address]. All rights reserved. This information is not intended as a substitute for professional medical care. Always follow your healthcare professional's instructions. Iqtn-bb-Gxiv: [employer] [place] reviewed this educational content on 02/03/201719995848-5825 [employer]. [address] [place] [address]. All rights reserved. This information is not intended as a substitute for professional medical care. Always follow your healthcare professional's instructions. documented in this encounter Progress Notes Davina Hou MD - 07/14/2019 2:30 PM CDT Pessary Recheck BP 121/63 (BP Location: Left arm, Patient Position: Sitting, BP CUFF SIZE: Adult Medium) | Pulse 58 | Temp 36.4 C (97.5 F) (Oral) | Resp 18 | Ht 5' 3" (1.6 m) | Wt 130 lb 6.4 oz (59.1 kg) | BMI 23.10 kg/m OB History Para Term AB Living 6 4 4 0 2 4 SAB TAB Ectopic Multiple Live Births 1 1 0 0 # Outcome Date GA Lbr Ruiz/2nd Weight Sex Delivery Anes PTL Lv 6 Term 5 Term 4 Term 3 Term 2 TAB 1 SAB Subjective: This 79 year old female is being followed with a # 6 ring with support pessary. She reports specifically: Difficulty with urination: No but has dysuria Bleeding: No Foul odor: No Her current regimen includes: Hormone / estrogen replacement therapy: No Vaginal estrogen twice weekly: No Douching twice weekly: No Objective: The pessary was removed and cleaned with soap and water. A speculum was placed in the vagina to allow inspection. There were not lacerations or abrasions noted. Assessment: Pessary maintenance (primary encounter diagnosis) Comment: Patient is accompanied by her daughter. Patient has not been seen for pessary check since 06/23/2018. Daughter was not aware that Patient has not return for follow-up. Educate importance of keeping follow-up appointment and daughter states she understands Plan: POCT URINALYSIS W/O SPECIFIC GRAVITY Dysuria Plan: URINE CULTURE Pelvic relaxation, well controlled with # 6 ring with support pessary. No significant problems, vaginal infection or trauma. Patient wishes to continue same. Patient instructions Plan: Continue the above regimen. Plan return visit in 3 months for recheck. Davina Hou MD 07/23/2019 2:58 PM documented in this encounter Plan of Treatment Date Type Specialty Care Team Description 10/12/2019 Office Visit Obstetrics & Gynecology Eagle Hou MD [address] [place] [address] [place] [address] [phone] Health Maintenance Due Date Last Done Comments [...] t opic documented as of this encounter Procedures Procedure Name Priority Date/Time Associated Diagnosis Comme nts URINE CULTURE Routine 07/14/2019 3:12 Dysuria Results fo r this PM CDT procedure are i n the results section. POCT URINALYSIS W/O Routine 07/14/2019 Pessary maintenance R esults for this SPECIFIC GRAVITY procedure a re in the results section. documented in this encounter Results URINE CULTURE (07/14/2019 3:12 PM CDT) Pathologist Sig nature URINE CULTURE >100,000 CFU/mL [facility] Klebsiella SERVICES pneumoniae Specimen Urine - URINE, CLEAN CATCH Organism Antibiotic Method Susceptibility Klebsiella Amoxacillin/Clavulanic SUSCEPTIBILITY TESTING <= 2: Susceptible pneumoniae acid Klebsiella Ampicillin SUSCEPTIBILITY TESTING >=32: Res istant pneumoniae Klebsiella Ampicillin/Sulbactam SUSCEPTIBILITY TESTING 4: S usceptible pneumoniae Klebsiella Cefazolin SUSCEPTIBILITY TESTING <=4: Susc eptible pneumoniae Klebsiella Ceftriaxone SUSCEPTIBILITY TESTING <=1: Susc eptible pneumoniae Klebsiella Ciprofloxacin SUSCEPTIBILITY TESTING <=0.25: S usceptible pneumoniae Klebsiella Ertapenem SUSCEPTIBILITY TESTING <=0.5: Drake sceptible pneumoniae Klebsiella Gentamicin SUSCEPTIBILITY TESTING <=1: Susc eptible pneumoniae Klebsiella Levofloxacin SUSCEPTIBILITY TESTING <=0.12: S usceptible pneumoniae Klebsiella Nitrofurantoin SUSCEPTIBILITY TESTING 32: Susce ptible pneumoniae Klebsiella Piperacillin/Tazobactam SUSCEPTIBILITY TESTING < =4: Susceptible pneumoniae Klebsiella Trimethoprim/Sulfametho SUSCEPTIBILITY TESTING > =320: Resistant pneumoniae xazole Comment: Nitrofurantoin is not recommended for us e in treating pyelonephritis or systemic disease. Performing Organization Address City/State/Zipcode Phone Number [facility] CLIA: [id number], [address] [place], [place] [address] [facility] POCT URINALYSIS W/O SPECIFIC GRAVITY (07/14/2019) Pathologist Sig nature POCT PH U 6 5 - 8 mg/dl POCT U LEUK EST 1+ Negative - Negative POCT U NIT positive Negative - Negative POCT U PROT neg Negative - Negative POCT U GLU neg Negative - Negative POCT U KETONE neg Negative - Negative POCT U BLD trace Negative - Negative Specimen Urine - URINE, CLEAN CATCH documented in this encounter Visit Diagnoses Diagnosis Pessary maintenance - Primary Fitting and adjustment of other device Dysuria documented in this encounter Insurance Payer Benefit Plan / Subscriber ID Effective Dates Phone Addre ss Type Group MEDICARE MEDICARE PART xxxxxxxxxxx 2004-Sunil 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
--- OUTSIDE RECORDS SUMMARY | 2019-09-20 16:03 | XMS REPORT | Summary of Care ---
:1939 Author Organization [facility] - Health Address [address] [place] [address] Care Team Providers Name Role Phone Mary Goyal Primary Care Provider Encounter Details Date Type Department Care Team Description 07/14/2019 Orders Only [facility] Doctor Unassigned, No [address] [facility] [place] [address] [address] [place] [address] Allergies Active Allergy Reactions Severity Noted Date Comments Promethazine Hcl Unknown - See comments 05/27/2006 S ees things per pt. Sulfatrim Ds Dizziness, Nausea and/or Medium 10/01/2012 Vomiting Tramadol Hallucinations 02/13/2018 documented as of this encounter (statuses as of 07/14/2019) Medications Medication Sig Dispensed Refills Start Date [...] by 0 Active mg tablet mouth daily. documented as of this encounter (statuses as of 07/14/2019) Active Problems Patient Care Coordination Note Hypertension [...] My Hypertension Care Plan includes the f freda: ? Check and record blood pressure at [...] drink per day for most women and assistant dean weight men ? If I am a smoker, stop smoking ? Manage stress by identifying three way s to reduce stress ? [employer] (www.[facility]/[employer]) is an online tool that will allow me to review lab results and portions of my health record, and to communicate with healthcare providers as needed. 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 HLD (hyperlipidemia) 06/13/2009 Overview: ICD10 Diagnosis Term Tobacco Sieve Operator Utility Varicose vein of leg 06/10/2009 Symptomatic menopausal or female climacteric states Tobacco use disorder 06/23/2008 Chronic depressive personality disorder Generalized osteoarthrosis, unspecified site Insomnia Overview: ICD10 Diagnosis Term Tobacco Sieve Operator Utility Esophageal reflux Essential hypertension, benign Recurrent UTI documented as of this encounter (statuses as of 07/14/2019) Resolved Problems Problem Noted Date Resolved Date Urinary tract infection, site not specified 07/22/2012 01/06/2013 Pain in limb 06/10/2009 01/06/2013 Influenza with respiratory manifestation other than 06/23/1901/06/2013 pneumonia Overview: ICD10 Diagnosis Term Tobacco Sieve Operator Utility Encounter for screening for osteoporosis 06/23/2008 01/06/2013 Overview: ICD10 Diagnosis Term Tobacco Sieve Operator Utility 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 08/23/2013 Impaired glucose tolerance test 12/02/20 14 documented as of this encounter (statuses as of 07/14/2019) Immunizations Name Administration Dates Next Due Influenza [...] Treatment Date Type Specialty Care Team Description 07/14/2019 Office Visit Obstetrics & Gynecology Rivka Xiao PA-C [address] [place] [address] [phone] Health Maintenance Due Date Last Done Comments [...] Name Priority Date/Time Associated Diagnosis Comme nts ASSIGNMENT OF BENEFITS Routine 07/14/2019 2:24 PM CDT documented in this encounter Results Not on filedocumented in this encounter Insurance Payer Benefit Plan / Subscriber ID Effective Dates Phone Addre ss Type Group MEDICARE MEDICARE PART xxxxxxxxxxx 2004-Sunil [phone] Medicare A & B t 2 [id number] [place] [id number] documented as of this encounter Advance Directives Type Date Recorded Patient Collections Officer Explanati on Advance Directives and Living 02/02/2013 8:00 AM Will Power of Compliance Coordinator 10/01/2012 12:23 PM
--- OUTSIDE RECORDS SUMMARY | 2019-09-20 16:04 | XMS REPORT | Summary of Care ---
:1940 Author Organization [facility] - Health Address [address] [place] [id number] Care Team Providers Name Role Phone Mary Goyal Primary Care Provider Reason for Visit Reason Comments Pessary No maintanance in over 1 yea r Encounter Details Date Type Department Care Team Description 07/14/2019 Office Visit [facility] Women's Cammy Xiao PA-C [address] [phone] Pessary maintenance (Primary Dx); [facility] [place] Davina Hou MD [address] [place] [address]. [facility] [address] [place], [place] [id number] Dysuria [address] [facility], [address] [place] [address] Allergies Active Allergy Reactions Severity [...] drink per day for most women and car chaser weight men ? If I am a smoker, stop smoking ? Manage stress by identifying three way s to reduce stress ? [employer] ([email or web address]) is an online tool that will allow me to review lab results and portions of my health record, and to communicate with healthcare providers as needed. If I do not have a [employer] account, I will discuss this wi th my healthcare team Problem Noted Date Vitamin B12 deficiency 07/22/2015 Prediabetes 04/06/2014 Vaginal atrophy 06/11/2011 Prolapse of vaginal vault after hysterectomy 1 HLD (hyperlipidemia) 06/13/2009 Overview: ICD10 Diagnosis Term Psychiatry Physician Utility Varicose vein of leg 06/10/2009 Symptomatic menopausal or female climacteric states Tobacco use disorder 06/23/2008 Chronic depressive personality disorder Generalized osteoarthrosis, unspecified site Insomnia Overview: ICD10 Diagnosis Term Psychiatry Physician Utility Esophageal reflux Essential hypertension, benign Recurrent UTI documented as of this encounter (statuses as of 07/23/2019) Resolved Problems Problem Noted Date Resolved Date Urinary tract infection, site not specified 07/22/2012 01/06/2013 Pain in limb 06/10/2009 01/06/2013 Influenza with respiratory manifestation other than 06/23/19 09 01/06/2013 pneumonia Overview: ICD10 Diagnosis Term Psychiatry Physician Utility Encounter for screening for osteoporosis 06/23/2008 01/06/2013 Overview: ICD10 Diagnosis Term Psychiatry Physician Utility Genetic susceptibility to malignant neoplasm of [...] 07/14/2019 2:30 PM CDT Using a Hand Hearing Aid Fitter [employer] [place] reviewed this educational content on 09/30/201419996404-5569 [employer]. [address] [place] [address]. All rights reserved. This information is not intended as a substitute for professional medical care. Always follow your healthcare professional's instructions. [employer]wlh[employer]lj[employer]: Washing Your Hands [employer] [place] reviewed this educational content on 02/03/201719992710-6366 [employer]. [address] [address]. All rights reserved. This information is not [...] Visit Obstetrics & Gynecology Eagle Hou MD [address] [place] [address] [place] [address] [phone] Health Maintenance Due Date Last Done Comments [...] Pathologist Sig nature URINE CULTURE >100,000 CFU/mL [facility] Klebsiella SERVICES pneumoniae Specimen Urine - [...] disease. 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
--- OUTSIDE RECORDS SUMMARY | 2019-09-20 16:04 | XMS REPORT ---
[...] of breast cancer Z85.3 Act alfonso Assessment Osteopenia of multiple sites M85.89 Active Problem 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 C50.911 Active breast, unspecified estrogen receptor status, unspecified site of breast Assessment Right hip pain M25.551 Active Problem S/P right mastectomy Z90.11 Active Assessment Right leg pain M79.604 Active Problem Vaginal pessary in situ Z92.89 Acti ve Problem Status post fall Z91.81 Active Problem Routine eye exam Z01.00 Active Problem Right hip pain M25.551 Active Problem Skin irritation R23.8 Active Problem Osteopenia of multiple sites M85.89 Active Problem Right leg pain M79.604 Active Assessment Hypertension, unspecified type I10 Active Problem Pain in left hip M25.552 Active Problem Right knee pain, unspecified M25.561 Active chronicity Problem Pain in right shoulder M25.511 Activ e Problem Pain in left shoulder M25.512 Active Problem Depression F32.9 Active Problem Depression, unspecified depression F32.9 Active type Problem Breast lump N63.0 Active Problem Hypertension, unspecified type I10 Active Problem Vaginal dryness N89.8 Active Problem History of breast cancer Z85.3 Act alfonso Problem History of endometrial cancer Z85.42 Active Problem Insomnia, unspecified type G47.00 A ctive Medications Medication Code Code Instructions Start End Date Status Dosage System Date Zoloft ND 84434876903 50 MG Orally August Active 1 table t Once a day 2017 Zoloft ND 27217485684 25 mg Orally Active 1 table t Once a day Lisinopril ND 34264782968 10 MG Orally Active 1 ta blet Once a day Tylenol # 3 NDC 0 300/30mg Orally July Active 1 ta blet Twice daily 2019 as needed for pain; take with food Alendronate [facility] 60908204258 35 MG Orally Active 1 t ablet Sodium Once a week for the bones Vitamin D [facility] 02193344551 1000 UNIT Active 2 gummie s Orally Once (OTC) daily Calcium NDC 0 Orally Once Active 500 mg--2 daily gummies (OTC) Vitamin C [facility] 93793822730 1000 MG Orally Active 1 t ablet Once a day Results No Known Results Summary Purpose eClinicalWorks Submission
[2019-09-20 16:27] LABS: Basophils % 0.7 % (0-1.3); Lymphocytes % 12.9 % (15.3-44.8); MPV 9.7 fL (7.6-11.3); RBC Red Blood Cell Count 4.09 M/uL (3.86-4.86)
[2019-09-20 16:45] LABS: Albumin 3.4 g/dL (3.4-5.0); Bilirubin Direct 0.1 mg/dL (0-0.2); Bilirubin Total 0.5 mg/dL (0.2-1.0); Potassium 3.7 mmol/L (3.5-5.1); Protein, Total 8.7 g/dL (6.4-8.2)
[2019-09-20] MEDS ORDERED: MEPERIDINE HCL 25 MG/0.5 ML ONE (16:48)
[2019-09-20] MEDS ORDERED: ONDANSETRON 4 MG/2 ML VIAL ONE (16:48)
--- NOTE | 2019-09-20 17:12 | RAD REPORT ---
EXAM DESCRIPTION: CT - Abdomen Pelvis W Contrast - 09/20/2019 4:50 pm CLINICAL HISTORY: Abdominal pain/back pain COMPARISON: none. TECHNIQUE: Computed axial tomography of the abdomen pelvis was obtained. 100 cc Isovue-300 was admin istered intravenously. Oral contrast was not requested which limits evaluation of bowel. All CT scans are performed using dose optimization technique as appropriate and may include automated exposure control or mA/KV adjustment according to patient size. FINDINGS: The liver, spleen, pancreas, adrenal and kidneys appear unremarkable. 4.4 centimeter a diverticulum stems from the third portion of the duodenum. Right posterolateral bladder diverticulum. A pessary is present within the pelvis. Large number of probably sigmoid diverticulum without evidence of diverticulitis A right ventral hernia contains fat within the pelvis. The neck measures 2 centimeters. The herniated sac measures 8.4 centimeters IMPRESSION: A right ventral hernia within the pelvis Diverticulosis without diverticulitis
[2019-09-20] MEDS ORDERED: NA CHLORIDE 0.9% 500 ML ONE (18:03)
--- NOTE | 2019-09-20 18:21 | EDPHYS ---
Physician Documentation [facility] Name: Marilin Leblanc Age: 79 yrs Sex: Female : 1940 Arrival Date: 09/20/2019 Time: 16:03 Bed 8 Private MD: ED Physician Alvarado Calvo HPI: 09/19 16:13 This 79 yrs old Female presents to ER via Unassigned with complaints of Back rn Pain. 16:13 The patient presents with pain that is acute. The symptoms are located in the low back. rn Onset: The symptoms/episode began/occurred just prior to arrival. The pain does not radiate. Modifying factors: The patient symptoms are alleviated by remaining still, the patient symptoms are aggravated by any movement, bending. Severity of symptoms: At their worst the symptoms were moderate, in the emergency department the symptoms are unchanged. The patient has not experienced similar symptoms in the past. Reports dropped something, bent over to pick it up, had immediate lower back pain, hurts to twist and move, better when laying still but still hurts. reports felt fine prior to this happening, no fever, no urinary symptoms. Does report mild suprapubic pain with palpation. Reports feels like having cramps of back and right posterior leg. . Historical: - Allergies: 16:00 Morphine; rb1 16:00 Promethazine; rb1 16:00 Sulfa (Sulfonamide Antibiotics); rb1 17:15 Tramadol HCl; rb1 - Home Meds: 16:00 sertraline 25 mg oral tab 1 tab once daily [Active]; Vitamin D3 oral oral [Active]; rb1 lisinopril 10 mg Oral tab 1 tab once daily [Active]; anastrozole 1 mg oral tab 1 tab once daily [Active]; - PMHx: 16:00 Hypertension; Breast Cancer Right side; rb1 - PSHx: 16:00 Hysterectomy; rb1 - Immunization history:: Adult Immunizations up to date. - Social history:: Smoking status: Patient reports the use of cigarette tobacco products, smokes one pack cigarettes per day. - Family history:: not pertinent. - Hospitalizations: : No recent hospitalization is reported. ROS: 16:13 Constitutional: Negative for fever, chills, and weight loss, Neck: Negative for injury, rn pain, and swelling, Cardiovascular: Negative for chest pain, palpitations, and edema, Respiratory: Negative for shortness of breath, cough, wheezing, and pleuritic chest pain, Abdomen/GI: Negative for nausea, vomiting, diarrhea, and constipation, Back: Negative for injury MS/Extremity: Negative for injury and deformity, Skin: Negative for injury, rash, and discoloration, Neuro: Negative for headache, weakness, numbness, tingling, and seizure. Exam: 16:13 Constitutional: This is a well developed, well nourished patient who is awake, alert, rn crying Head/Face: Normocephalic, atraumatic. ENT: dry MM Cardiovascular: Regular rate and rhythm. No pulse deficits. Respiratory: No increased work of breathing, no retractions or nasal flaring. Abdomen/GI: Soft, mild suprapubic tenderness, no rebound or masses, no pulsatile masses Back: No spinal tenderness. MS/ Extremity: Pulses equal, no cyanosis. Neurovascular intact. Painful leg elevation RLE, mild pain when lifting LLE. Neuro: Awake and alert, GCS 15, oriented to person, place, time, and situation. Cranial nerves II-XII grossly intact. Motor strength 5/5 in all extremities. Sensory grossly intact. Vital Signs: 16:00 BP 150 / 69; Pulse 63; Resp 17; Temp 98.6; Pulse Ox 100% ; Weight 59.42 kg (R); Height rb1 5 ft. 2 in. (157.48 cm) (R); Pain 10/10; 17:00 BP 150 / 69; Pulse 62; Resp 16; Pulse Ox 99% on R/A; rb1 18:00 BP 143 / 70; Pulse 66; Resp 17; Pulse Ox 100% ; Pain 5/10; rb1 19:00 BP 161 / 77; Pulse 72; Resp 16; Pulse Ox 100% ; rb1 16:00 Body Mass Index 23.96 (59.42 kg, 157.48 cm) rb1 MDM: 16:03 Patient medically screened. rn 18:19 Differential diagnosis: muscle spasm, UTI, disc bulge, muscle strain. Data reviewed: rn vital signs, nurses notes, lab test result(s), radiologic studies, CT scan, and as a result, I will discharge patient. Counseling: I had a detailed discussion with the patient and/or guardian regarding: the historical points, exam findings, and any diagnostic results supporting the discharge/admit diagnosis, lab results, radiology results, the need for outpatient follow up, to return to the emergency department if symptoms worsen or persist or if there are any questions or concerns that arise at home. Response to treatment: the patient's symptoms have mildly improved after treatment, and as a result, I will admit patient. Admission orders: after a detailed discussion of the patient's condition and case, the admit orders are written by me. Special discussion: I discussed with the patient/guardian in detail that at this point there is no indication for admission to the hospital. It is understood, however, that if the symptoms persist or worsen the patient needs to return immediately for re-evaluation. ED course: No acute findings on Ct abdomen/pelvis, + UTI, feels better, states pain is gone, will dc home with abx and return precautions.. 09/19 16:04 Order name: Basic Metabolic Panel; Complete Time: 16:57 09/19 16:04 Order name: CBC with Diff; Complete Time: 16:31 09/19 16:04 Order name: Hepatic Function; Complete Time: 16:57 09/19 16:04 Order name: Lipase; Complete Time: 16:57 09/19 16:54 Order name: CREATININE WHOLE BLOOD; Complete Time: 16:57 [facility] 09/19 18:07 Order name: Urine Dipstick--Ancillary (enter results) tt3 09/19 16:04 Order name: CT Abd/Pelvis - IV Contrast Only; Complete Time: 17:18 09/19 18:23 Order name: Urine Microscopic Only 09/19 18:23 Order name: Urine Culture 09/19 18:24 Order name: Urine Microscopic Only [facility] 09/19 16:04 Order name: IV Saline Lock; Complete Time: 18:12 rn 09/19 16:04 Order name: Labs collected and sent; Complete Time: 18:12 09/19 17:06 Order name: Urine Dipstick-Ancillary (obtain specimen); Complete Time: 18:11 rn Administered Medications: 16:06 CANCELLED (Duplicate Order): Demerol 25 mg IVP once; RASS on ADMIN: Combtv4, Very rn Agttd3, Agttd2, Rstlss1, AlertClm0, Drwsy-1, Lt Sdtn-2, Mod Sdtn-3, Dp Sdtn-4, UnArsble-5 17:05 Drug: Zofran (Ondansetron) 4 mg Route: IVP; Site: left antecubital; ca1 17:19 Follow up: Response: No adverse reaction rb1 17:07 Drug: Demerol - Meperidine 12.5 mg {Note: RASS - 0\E\.} Route: IVP; Site: left ca1 antecubital; 17:19 Follow up: Response: No adverse reaction; Pain is decreased rb1 17:56 Drug: NS 0.9% 500 ml Route: IV; Rate: bolus; Site: left antecubital; rb1 18:43 Follow up: Response: No adverse reaction; IV Status: Completed infusion ca1 19:00 Drug: Macrobid 100 mg Route: PO; ca1 19:27 Follow up: Response: No adverse reaction; Medication administered at discharge. ca1 Disposition: 09/20/19 18:21 Discharged to Home. Impression: Low back pain, Muscle spasm of back, Urinary tract infection, site not specified. - Condition is Stable. - Discharge Instructions: Back Pain, Adult, Muscle Cramps and Spasms, Urinary Tract Infection, Adult. - Prescriptions for Macrobid 100 mg Oral Capsule - take 1 capsule by ORAL route every 12 hours for 10 days; 20 capsule. Cyclobenzaprine 5 mg Oral Tablet - take 1 tablet by ORAL route 3 times per day As needed; 15 tablet. - Medication Reconciliation Form, Thank You Letter, Antibiotic Education, Prescription Opioid Use form. - Follow up: Private Physician; When: As needed; Reason: Recheck today's complaints, Re-evaluation by your physician. - Problem is new. - Symptoms have improved. Signatures: Dispatcher [employer] EDMS Alvarado Calvo MD MD rn Barber, Rebecca RN RN rb1 Aubrey Nuñez RN RN mg2 Yarely Tariq RN RN ca1 Corrections: (The following items were deleted from the chart) 16:06 16:05 Demerol 25 mg IVP once; RASS on ADMIN: Combtv4, Very Agttd3, Agttd2, Rstlss1, rn AlertClm0, Drwsy-1, Lt Sdtn-2, Mod Sdtn-3, Dp Sdtn-4, UnArsble-5 ordered. rn 19:32 18:21 09/20/2019 18:21 Discharged to Home. Impression: Low back pain; Muscle spasm of mg2 back; Urinary tract infection, site not specified. Condition is Stable. Forms are Medication Reconciliation Form, Thank You Letter, Antibiotic Education, Prescription Opioid Use. Follow up: Private Physician; When: As needed; Reason: Recheck today's complaints, Re-evaluation by your physician. Problem is new. Symptoms have improved. rn
--- NOTE | 2019-09-20 18:21 | ER ---
Nurse's Notes [facility] Name: Marilin Leblanc Age: 79 yrs Sex: Female : 1940 Arrival Date: 09/20/2019 Time: 16:03 Bed 8 Private MD: Diagnosis: Low back pain;Muscle spasm of back;Urinary tract infection, site not specified Presentation: 09/19 16:00 Chief complaint: EMS states: Pt. A \T\ O x 4, bent over to pick something up off the rb1 floor when she felt a tearing sensation in her back. Pain 10/10, pt is crying because she is scared. History of breast cancer on the right side. BP 160/80, P 66, O2 98% BS 119. Coronavirus screen: Proceed with normal triage. Ebola Screen: Patient denies travel to an Ebola-affected area in the 21 days before illness onset. Initial Sepsis Screen: Does the patient meet any 2 criteria? No. Patient's initial sepsis screen is negative. Does the patient have a suspected source of infection? No. Patient's initial sepsis screen is negative. Risk Assessment: Do you want to hurt yourself or someone else? Patient reports no desire to harm self or others. Onset of symptoms was September 20, 2019 at 15:30. 16:00 Method Of Arrival: EMS: [facility] rb1 16:00 Acuity: BUNNY 3 rb1 Triage Assessment: 16:00 General: Appears distressed, uncomfortable, Behavior is crying, Denies fever, feeling rb1 ill. Pain: Complains of pain in low back Pain does not radiate. Pain currently is 10 out of 10 on a pain scale. Neuro: Level of Consciousness is awake, alert, obeys commands, Oriented to person, place, time, situation. Cardiovascular: Capillary refill < 3 seconds is brisk in bilateral fingers. Respiratory: Airway is patent Respiratory effort is even, unlabored, Respiratory pattern is regular, symmetrical. GI: No signs and/or symptoms were reported involving the gastrointestinal system. : No signs and/or symptoms were reported regarding the genitourinary system. Derm: Skin is pink, warm \T\ dry. Musculoskeletal: Range of motion: intact in all extremities. Historical: - Allergies: 16:00 Morphine; rb1 16:00 Promethazine; rb1 16:00 Sulfa (Sulfonamide Antibiotics); rb1 17:15 Tramadol HCl; rb1 - Home Meds: 16:00 sertraline 25 mg oral tab 1 tab once daily [Active]; Vitamin D3 oral oral [Active]; rb1 lisinopril 10 mg Oral tab 1 tab once daily [Active]; anastrozole 1 mg oral tab 1 tab once daily [Active]; - PMHx: 16:00 Hypertension; Breast Cancer Right side; rb1 - PSHx: 16:00 Hysterectomy; rb1 - Immunization history:: Adult Immunizations up to date. - Social history:: Smoking status: Patient reports the use of cigarette tobacco products, smokes one pack cigarettes per day. - Family history:: not pertinent. - Hospitalizations: : No recent hospitalization is reported. Screenin:00 Abuse screen: Denies threats or abuse. Nutritional screening: No deficits noted. rb1 Tuberculosis screening: No symptoms or risk factors identified. Fall Risk None identified. Assessment: 16:00 General: See triage assessment. rb1 17:00 Reassessment: Patient appears in no apparent distress at this time. Patient and/or rb1 family updated on plan of care and expected duration. Pain level reassessed. Patient is alert, oriented x 3, equal unlabored respirations, skin warm/dry/pink. 18:00 Reassessment: Patient appears in no apparent distress at this time. Patient states rb1 feeling better. Patient states symptoms have improved. 18:48 Reassessment: Son's numberBlake Jaimes [phone]. He is waiting outside. ca1 19:00 Reassessment: Patient appears in no apparent distress at this time. Patient and/or rb1 family updated on plan of care and expected duration. Pain level reassessed. Patient is alert, oriented x 3, equal unlabored respirations, skin warm/dry/pink. Pt. ambulated to the bathroom without difficulty. Vital Signs: 16:00 BP 150 / 69; Pulse 63; Resp 17; Temp 98.6; Pulse Ox 100% ; Weight 59.42 kg (R); Height rb1 5 ft. 2 in. (157.48 cm) (R); Pain 10/10; 17:00 BP 150 / 69; Pulse 62; Resp 16; Pulse Ox 99% on R/A; rb1 18:00 BP 143 / 70; Pulse 66; Resp 17; Pulse Ox 100% ; Pain 5/10; rb1 19:00 BP 161 / 77; Pulse 72; Resp 16; Pulse Ox 100% ; rb1 16:00 Body Mass Index 23.96 (59.42 kg, 157.48 cm) rb1 ED Course: 16:00 Arm band placed on right wrist. rb1 16:00 Patient has correct armband on for positive identification. Bed in low position. Call rb1 light in reach. Side rails up X 1. Pulse ox on. NIBP on. Warm blanket given. 16:03 Patient arrived in ED. rn 16:03 Alvarado Calvo MD is Attending Physician. rn 16:09 Justine Sanchez, SUNDEEP is Primary Nurse. rb1 16:50 CT completed. Patient moved back from CT. mw3 16:51 CT Abd/Pelvis - IV Contrast Only In Process Unspecified. EDMS 17:03 daughter Lashay called and left her number [phone]/ to call with any question or eb updates/ also to make sure tramadol and sulfa was added to her allergy list/ nurse notified. 17:40 Inserted saline lock: 20 gauge in left antecubital area, using aseptic technique. dh4 18:18 Triage completed. rb1 19:31 No provider procedures requiring assistance completed. IV discontinued, intact, mg2 bleeding controlled, No redness/swelling at site. Pressure dressing applied. Administered Medications: 16:06 CANCELLED (Duplicate Order): Demerol 25 mg IVP once; RASS on ADMIN: Combtv4, Very rn Agttd3, Agttd2, Rstlss1, AlertClm0, Drwsy-1, Lt Sdtn-2, Mod Sdtn-3, Dp Sdtn-4, UnArsble-5 17:05 Drug: Zofran (Ondansetron) 4 mg Route: IVP; Site: left antecubital; ca1 17:19 Follow up: Response: No adverse reaction rb1 17:07 Drug: Demerol - Meperidine 12.5 mg {Note: RASS - 0\E\.} Route: IVP; Site: left ca1 antecubital; 17:19 Follow up: Response: No adverse reaction; Pain is decreased rb1 17:56 Drug: NS 0.9% 500 ml Route: IV; Rate: bolus; Site: left antecubital; rb1 18:43 Follow up: Response: No adverse reaction; IV Status: Completed infusion ca1 19:00 Drug: Macrobid 100 mg Route: PO; ca1 19:27 Follow up: Response: No adverse reaction; Medication administered at discharge. ca1 Outcome: 18:21 Discharge ordered by . rn 19:31 Discharged to home via wheelchair. mg2 19:31 Condition: stable 19:31 Discharge instructions given to patient, Instructed on discharge instructions, follow up and referral plans. medication usage, Demonstrated understanding of instructions, follow-up care, medications, Prescriptions given X 2. 19:32 Patient left the ED. mg2 Signatures: Dispatcher [employer] EDMS Alvarado Calvo MD MD rn Barber, Rebecca RN RN rb1 Neeta Guzman Michele, RN RN mg2 Ashley Lopez 3 Yarely Tariq RN RN ca1 Harrison Wild 4
[2019-09-20 18:24] LABS: Urine Blood NEGATIVE (NEG); Urine Glucose NEGATIVE (NEG); Urine Protein NEGATIVE (NEG); Urine Specific Gravity 1.015 (1.005-1.030)
[2019-09-20 18:46] LABS: Urine Bacteria >50 /HPF (<20); Urine RBC NONE SEEN /HPF (NONE SEEN)
[2019-09-20 18:47] LABS: Urine Culture Reflex Order NOT NEEDED
[2019-09-20] MEDS ORDERED: NITROFURAN MACRO 100 MG CAP PO ONE (19:13)
[2019-09-20 19:40] VITALS: TEMP 98.6
[2019-09-20 19:44] VITALS: O2SAT 100
[2019-09-20 19:45] VITALS: BP 161/77
== END 2019-09-20 19:32 | disposition home or self-care (01) ==
LOC: ER 15:59
DX: M62.830 Muscle spasm of back (principal); N39.0 Urinary tract infection, site not specified; I10 Essential (primary) hypertension; F17.210 Nicotine dependence, cigarettes, uncomplicated; Z85.3 Personal history of malignant neoplasm of breast; Z88.2 Allergy status to sulfonamides; Z88.5 Allergy status to narcotic agent; Z88.6 Allergy status to analgesic agent; Z88.8 Allergy status to other drugs, medicaments and biological substances
CPT/HCPCS: 96361; 87088; 85025; 87086; 80048; 36415; 82565; 80076; 87077; 87186; 83690; 74177; 96375; 96374; 99284; Q9967; J2175; J7040; J2405; 81003; 81015

== ENCOUNTER 2020-01-11 20:49 | Emergency (ER) | payer OTHER ==
--- OUTSIDE RECORDS SUMMARY | 2020-01-11 21:13 | XMS REPORT | Continuity of Care Document ---
:1940 Author Organization [facility] t Address [address] [place] [address] Care Team Providers Name Role Phone Davon MCDONNELLP Attending Clinician Lab, Fam Pob I Attending Clinician Unavailable Ameya PATTON, Cam Attending Clinician Payers Payer Name Policy Type Policy Number Effective Date Expiration Date S ource Problems Condition Condition Condition Status Onset Resolution Last Treating Co mments Source Name Details Category Date Date Treatment Clinician Date Hypertensi Hypertensi Problem Active [facility], on, [facility]ifie Me moria d type [facility] Breast Breast Problem Active [facility] lump [facility] Depression Depression Problem Active [facility] , , [facility] unspecifie unspecifie Me moria d d l depression depression Ou tpati type type ent Clinics History of History of Problem Active [facility] endometria endometria [facility] - l cancer l cancer [facility] Insomnia, Insomnia, Problem Active [facility] unspecifie unspecifie [facility] - d type d type [facility] Vaginal Vaginal Problem Active [facility] dryness dryness [facility] Malignant Malignant Problem [...] St mastectomy mastectomy [facility] - [facility] Routine Routine Problem Active [facility] eye exam eye exam [facility] Vaginal Vaginal Problem Active [facility] pessary in pessary in [facility] - situ situ [facility] Osteopenia Osteopenia Problem Active [facility] of of [facility] multiple multiple [facility] sites sites [facility] History of History of Problem Active [facility] breast breast [facility] - cancer cancer [facility] Clin[facility] Pain in Pain in Problem Active [facility] left left [facility] shoulder shoulder [facility] Pain in Pain in Problem Active [facility] right right [facility] shoulder [facility] Pain in Pain in Problem Active [facility] left hip left hip [facility] Right hip Right hip Problem Active [facility] pain pain [facility] Status Status Problem Active [facility] post fall post fall [facility] Right knee Right knee Problem Active [facility] pain, pain, [facility] unspecifie unspecifie Me moria d d l chronicity chronicity Ou [facility] Clin[facility] Skin Skin Problem Active [facility] irritation irritation [facility] - [facility] Right leg Right leg Problem Active [facility] pain pain [facility] Other Other Problem Active [facility] chronic chronic [facility] pain pain [facility] Low back Low back Problem Active [facility] Allergic Allergic Problem Active [facility] rhinitis rhinitis [facility] Allergies, Adverse Reactions, Alerts Allergy Allergy Status Severity Reaction(s) Onset Inactive Treating Comm ents Source Name Type Date Date Clinician prometha DA Active [place] 2011-05 [facility] zine HCl 05-17 [facility] some DA Active U 2011-05 [facility] antibiot 05-17 [facility] MORPHINE Adverse Active hallucinatio C [facility] Reaction ns [facility] Tramadol Adverse Active Hallucinatio C HI [facility] HCl Reaction ns [facility] Phenerga Adverse Active vomiting [facility] n Reaction [facility] Medications Ordered Filled Start Stop Current Ordering Indication Dosage Frequency Signature Comments Components Source Medication Medication Date Date Medication? Clinician (SIG) Name Name Augmentin Augmentin 2020- Yes Mary [address] [facility] 10-28 07- Millender [facility] Ciprofloxac Ciprofloxac 2019- No Mary [address] in HCl in HCl 09-15 05- Millender [facility] 00:[facility]: 00:00 [facility] 00 :00 [facility] ent Clinics Procedures This patient has no known procedures. Encounters Start End Encounter Admission Attending Care Care Encounter Source Date/Time Date/Time Type Type Clinicians Facility Department ID 2019-12-03 2019-12-03 Outpatient Lucrecia Eng [id number] [facility]:10[facility]00 [facility] 2019-11-25 2019-11-25 Telephone Anene, [facility] [id number] 00:00:00 00:00:00 [facility] [id number] [place] [id number] Professio [phone] nal 044 Office [address] One 2019-11-24 2019-11-24 Laboratory Lab, [facility] [id number] 16:22:36 16:42:36 Only Fam Pob I Health [id number] [place] [id number] Professio [phone] nal 044 Office [address] One 2019-10-30 2019-10-30 Outpatient Lucrecia Eng [id number] [address] 17:45:00 17:45:00 POINT 3 [employer] [facility] 2019-10-29 2019-10-29 Outpatient Lucrecia Eng [id number] [address] 11:01:00 11:01:00 [facility] Medicine Outpati ent Clinics 2019-10-16 2019-10-16 [facility] [id number] [address] 11:00:00 11:00:00 [facility] Medicine Outpati ent Clinics 2019-09-29 2019-09-29 [facility] [id number] [address] 16:42:00 16:42:00 [facility] Medicine Outpati ent Clinics 2019-07-15 2019-07-15 [facility] [id number] [facility] 15:00:00 15:00:00 [facility] Medicine Outpati ent Clinics 2019-07-14 2019-07-14 Office Davina Hou [facility] [id number] 14:24:44 15:18:57 Visit Dave Beck [id number] [place] 4.2.7.2.686 [facility] [id number] [address] 2019-01-29 2019-01-29 [facility] [id number] [address] 14:40:00 14:40:00 [facility] Medicine Outpati ent Clinics 2018-09-15 2018-09-15 [facility] [id number] [facility] [address] 14:25:00 14:25:00 [facility] Medicine Outpati ent Clinics 2018-09-15 2018-09-15 [facility] [id number] 11:40:00 11:40:00 [facility] Medicine Outpati ent Clinics 2018-08-14 2018-08-14 [facility] [id number] [facility] [address] 15:00:00 15:00:00 [facility] Medicine Outpati ent Clinics 2018-05-20 2018-05-20 [facility] [id number] [facility] 16:00:00 16:00:00 [facility] Medicine Outpati ent Clinics 2018-02-03 2018-02-03 [facility] [id number] 11:36:00 11:36:00 t [facility] Medicine l Medicine Outpati ent Clinics 2018-02-03 2018-02-03 [facility] [id number] 11:00:00 11:00:00 t [facility] Medicine l Medicine Outpati ent Clinics 2018 2018 [facility] [id number] 16:27:00 16:27:00 t [facility] Medicine l Medicine Outpati ent Clinics 2017-12-25 2017-12-25 [facility] [id number] 15:22:00 15:22:00 t [facility] Medicine l Medicine Outpati ent Clinics 2017-12-23 2017-12-23 [facility] [id number] 23:12:00 23:12:00 t [facility] Medicine l Medicine Outpati ent Clinics 2017-12-23 2017-12-23 [facility] [id number] [address] 11:00:00 11:00:00 t [facility] Medicine l Medicine Outpati ent Clinics 2017-11-19 2017-11-19 [facility] [id number] 10:30:00 10:30:00 t [facility] Medicine l Medicine Outpati ent Clinics 2017-09-24 2017-09-24 [facility] [id number] 14:21:00 14:21:00 t [facility] Medicine l Medicine Outpati ent Clinics 2017-09-02 2017-09-02 [facility] [id number] 11:32:00 11:32:00 t [facility] Medicine l Medicine Outpati ent Clinics 2017-08-29 2017-08-29 [facility] [id number] 14:30:00 14:30:00 [facility] Medicine Outpat[facility] Clinics Results Test Description Test Time Test Comments [...] = ALKP) 85 Units/L 50.0-136 .0 N [id number] 16:01:00 Test Item Value Reference Range Interpretation Comments TROPONIN-I (test <0.02 NG/ML 0.00-0.06 N REFERENCE R MALCOLM code = TROPI) TROPONIN I HEA LTHY INDIVIDUALS: < 0.06 ng/mL R/O ISCHE GREGORIO: 0.07 - 0.60 ng/ mL CUT-OFF RANGE F OR AMI: 0.60 - 1.5 ng/m L COMPREHENSIVE METABOLIC [id number] 15:50:00 Test Item Value Reference Range Interpretation [...] TOTAL (test Units/L 50.0-136.0 code = ALKP) [id number] 15:50:00 Test Item Value Reference Range Interpretation Comments TROPONIN-I (test code = TROPI) NG/ML 0.00-0.06 CBC W/AUTO [id number] 15:46:00 Test Item Value Reference Range Interpretation [...] K/mm3 0.0-0.2 N - XR ELBOW 3+V [id number] 15:44:00 FAX: Art Rodriguez MD Hugo: SUE St: [facility] 1940 Age[facility]S: 78[facility]F [address] [facility] Unit[facility] [id number] Loc: [place], [place]: [place] [address] Acct: [id number] Dis Date: Status: REG ER PHONE #: [phone] Exam Date: 08/01/2018 1526 FAX #: [phone] Reason: FALL - ELBOW INJURY EXAMS: CPT CODE: [id number] XR ELBOW 3+V RT [address] Location: U19. RIGHT ELBOW 3 VIEWSHISTORY: FALL - ELBOW INJURY FINDINGS: No fracture, dislocation, soft tis alma swelling or joint effusion. Calcification seen along the lateral epicondyle. IMPRESSION: No fracture or dislocation. at 9679 Reported and signed by: Vincenzo Peters M.D. CC: Art Rodriguez MD Technologist: KODY MARIN Trnrird Date/Time/By: 08/01/2018 (1545) : By: [email or web address] PAGE 1 Signed Report FAX: Art Rodriguez MD [place]: St: REG -- [facility] 1940 Age/S: 78/F[address] [facility] Unit #: [id number] Loc: [place], [place]: [place] [address] Acct: [id number] Dis Date: Status: REG ER PHONE #: [phone] Exam Date: 08/01/2018 1526 FAX #: [phone] Reason: FALL - ELBOW INJURY EXAMS: CPT CODE: [id number] XR ELBOW 3+V RT 45751 <Continued> Orig Print D/T: S: 08/01/2018 (1547) PAGE 2 Signed Report- XR HAND 3 + V [id number] 15:33:00 FAX: Art Rodriguez MD [place]: St: REG Name: ERNESTO BALDWIN [facility] : 1940 Age/S: 78/F [address] [facility] Unit#: [id number] Loc: [place], [place]: [place] [address] Acct: [id number] Dis Date: Status: REG ER PHONE #: [phone] Exam Date: 08/01/2018 1526 FAX #: [phone] Reason: FALL HAND INJURY EXAMS: CPT CODE: [id number] XR HAND 3 + [place] [address] LOCATION: T18 EXAM: LEFT HAND 3 VIEWS INDICATION: Left hand injury COMPARISON: None. TECHNIQUE: PA, lateral and oblique radiographs of the left hand FINDINGS: No acute fractures identified. Carpal bones are normal in alignment. Peripheral soft tissues are normal. IMPRESSION: No acute bony abnormality. at 1533 Reported and signed by: Jeffery Quintana M.D.CC: Art Rodriguez MD Technologist: KODY MARIN Trnscrd Date/Time/By: 08/01/2018 (1533) : By: [email or web address] PAGE 1 Signed Report FAX: Art Rodriguez MD [place]: St: REG -- Name: ERNESTO BALDWIN [facility] : 1940 Age/S: 78/F [address] [facility] [employer] Unit #: [id number] Loc: [place], [place]: [place] [address] Acct: [id number] Dis Date: Status: REG ER PHONE #: [phone] Exam Date: 08/01/2018 1526 FAX #: [phone] Reason: FALL HANDINJURY EXAMS: CPT CODE: [id number] XR HAND 3 + [place] [address] <Continued> Orig Print D/T: S: 08/01/2018 (1536) PAGE 2 Signed Report- XR CHEST 1 V 2018-08-01 15:31:00 FAX: Art Rodriguez MD [place]: St: REG Name: ERNESTO BALDWIN [facility] : 1940 Age/S: 78/F [address] [facility] Unit#: [id number] Loc: [place], [place]: [place] [address] Acct: [id number] Dis Date: Status: REG ER PHONE #: [phone] Exam Date: 08/01/2018 1526 FAX #: [phone] Reason: FALL EXAMS: CPT CODE: [id number] XR CHEST 1 V 63762 LOCATION: T18 EXAM: CHEST 1 VIEW INDICATION: FALL COMPARISON: Chest x-ray February 28, 2013 TECHNIQUE: AP chest radiograph. FINDINGS: Lungs are clear bilaterally without effusion. Heart and mediastinum are normal in size and contour. Bones and peripheral soft tissues are unchanged. IMPRESSION: Lungs are clear. No acute abnormality. at 1531 Reported and signed by: Jeffery Quintana M.D. CC: Atr Rodriguez MD Technologist: KODY Price Date/Time/By: 08/01/2018 (9441) : By: [email or web address] PAGE 1 Signed Report FAX: Art Rodriguez MD [place]: St: REG Name: ERNESTO BALDWIN [facility] : 1940 Age/S: 78/F [address] Unit #: [id number] Loc: [place], [place]: [place] [address] Acct: [id number] Dis Date: Status: REG ER PHONE #: [phone] Exam Date: 08/01/2018 1526 FAX #: [phone] Reason: FALL EXAMS: CPT CODE: [id number] XR CHEST 1 V 77856 <Continued> Orig Print D/T: S: 08/01/2018 (2867) PAGE 2 Signed Report- CT MAXIFAC W/O [id number] 15:20:00 FAX: Art Rodriguez MD [place]: St: REG Name: ERNESTO BALDWIN [facility] : 1940 Age/S: 78/F [address] Unit: [id number] Loc: [place], [place]: [place] [address] Acct: [id number] Dis Date: Status: REG ER PHONE #: [phone] Exam Date: 08/01/2018 1457 FAX #: [phone] Reason: FALL - FACIAL INJURY EXAMS: CPT CODE: [id number] CT MAXIFAC W/O CONTRAST 24577 CT maxillofacial bones without contrast Location Code: [...] Technologist: ARSENIO VILLANUEVA Trnscrd Dt/Tm: 08/01/2018 (1520) [email or web address] Orig Print D/T: S: 08/01/2018 (1523 PAGE 1 Signed Report- CT C-SPINE W/O [id number] 15:18:00 FAX: Art Rodriguez MD [place]: St: REG Name: ERNESTO BALDWIN [facility] : 1940 Age/S: 78/F [address] [facility] Unit: [id number] Loc: [place], [place]: [place] [address] Acct: [id number] Dis Date: Status: REG ER PHONE #: [phone] Exam Date: 08/01/2018 1457 FAX #: [phone] Reason: FALL - HEAD INJURY EXAMS: CPT CODE: [id number] CT C-SPINE W/O CONT 13798 CT CERVICAL SPINE WITHOUT CONTRAST; SAGITTAL AND [...] Technologist: ARSENIO VILLANUEVA Trnscrd Dt/Tm: 08/01/2018 (1518) [email or web address] Orig Print D/T: S: 08/01/2018 (1521 PAGE 1 Sign ed Report- CT HEAD/BRAIN W/O [id number] 15:14:00 FAX: Art Rodriguez MD [place]: St: REG Name: ERNESTO BALDWIN [facility] : 1940 Age/S: 78/F [address] [facility] [address] Unit: [id number] Loc: [place], [place]: [place] [address] Acct: [id number] Dis Date: Status: REG ER PHONE #: [phone] Exam Date: 08/01/2018 1457 FAX #: [phone] Reason: FALL - HEAD INJURY EXAMS: CPT CODE: [id number] CT HEAD/BRAIN W/O CONT 52455 EXAM: CT Head without contrast Location code:J9 [...] noted superior to the frontal lobes. at 3114 Reported and signed by: Alvarado Estrada M.D. CC: Art Rodriguez MD Technologist: ARSENIO VILLANUEVA Trnscrd Dt/Tm: 08/01/2018 (1511) [email or web address] Orig Print D/T: S: 08/01/2018 (1518 PAGE1 Signed Report- XR KNEE 3 V [id number] 14:49:00 FAX: Art Rodriguez MD [place]: St: PRE Name: ERNESTO BALDWIN [facility] : 1940 Age/S: 78/F [address] [facility] Unit#: [id number] Loc: [place], [place]: [place] [address] Acct: [id number] Dis Date: Status: PRE ER PHONE #: [phone] Exam Date: 08/01/2018 1443 FAX #: [phone] Reason: KNEE PAIN EXAMS: CPT CODE: [id number] XR KNEE 3 V RT 93066 Location: U19. RIGHT KNEE 3 VIEWS HISTORY: Right knee pain FINDINGS: Anterior soft tissue swelling. No fracture or dislocation. Mild osteophyte formation seen in the patellofemoral compartment. Vascular calcifications. No fracture or dislocation. IMPRESSION: Anterior soft tissue swelling without a fracture or dislocation. at 3307 Reported and signed by: Vincenzo Peters M.D. CC: Art Rodriguez MD Technologist: SHAN GAN Trnscrd Date/Time/By: 08/01/2018 (8341) : By: [email or web address] PAGE 1 Signed Report FAX: Art Rodriguez MD Hugo: St: PRE -- Name: ERNESTO BALDWIN [facility] : 1940 Age/S: 78/F [address] [facility] Unit #: [id number] Loc: [place], [place] [address] Acct: [id number] Dis Date: Status: PRE ER PHONE #: [phone] Exam Date: 08/01/2018 1443 FAX #: [phone] Reason: KNEE PAIN EXAMS: CPT CODE: [id number] XR KNEE 3 V RT 69942 <Continued> Orig PrintD/T: S: 08/01/2018 (0911) PAGE 2 Signed Report
--- OUTSIDE RECORDS SUMMARY | 2020-01-11 21:13 | XMS REPORT ---
:1940 Author Organization [employer] Care Team Providers Name Role Phone Mary Goyal Provider Role Unavailable Allergies No Known Allergies Problems Problem Type Condition Code Onset Dates Condition Statu s Assessment Acute urinary tract infection N39.0 Active Problem Osteopenia of multiple sites M85.89 Active Problem Right knee pain, unspecified M25.561 Active chronicity Problem Status post fall Z91.81 Active Problem Breast lump N63.0 Active Problem Pain in left hip M25.552 Active Problem Pain in right shoulder M25.511 Activ e Problem Pain in left shoulder M25.512 Active Problem Hypertension I10 Active Problem Low back pain M54.5 Active Problem Depression F32.9 Active Problem History of endometrial cancer Z85.42 Active Problem Allergic rhinitis J30.9 Active Problem Hypertension, unspecified type I10 Active Problem Right hip pain M25.551 Active Problem Skin irritation R23.8 Active Problem Other chronic pain G89.29 Active Problem Right leg pain M79.604 Active Problem Vaginal dryness N89.8 Active Problem History of breast cancer Z85.3 Act alfonso Problem Insomnia, unspecified type G47.00 A ctive Problem Depression, unspecified depression F32.9 Active type Problem Vaginal pessary in situ Z92.89 Acti ve Problem Routine eye exam Z01.00 Active Problem 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 C50.911 Active breast, unspecified estrogen receptor status, unspecified site of breast Problem S/P right mastectomy Z90.11 Active Medications Medication Code Code Instructions Start End Status Dosage System Date Date Ciprofloxacin ND 54356109097 500 MG Orally September 15September 22, Active 1 tablet HCl every 12 hrs 2018 2018 Augmentin [facility] 30073896375 500-125 MG October 28November Inactive 1 tab let Orally bid 2019 Results No Known Results Summary Purpose eClinicalWorks Submission
--- OUTSIDE RECORDS SUMMARY | 2020-01-11 21:13 | XMS REPORT ---
:1940 Author Organization [employer] Care Team Providers Name Role Phone Mary Goyal Provider Role Unavailable Allergies, Adverse Reactions, Alerts Substance Reaction Event Type MORPHINE hallucinations Drug Allergy Tramadol HCl Hallucinations Drug Allergy Phenergan vomiting Drug Allergy Problems Problem Type Condition Code Onset Dates Condition Statu s Assessment Follow-up exam Z09 Active Assessment Right leg pain M79.604 Active Assessment Other chronic pain G89.29 Active Assessment Low back pain M54.5 Active Assessment Generalized abdominal pain R10.84 A ctive Assessment Acute UTI N39.0 Active Problem Osteopenia of multiple sites [...] Start End Status Dosage System Date Date Zoloft [facility] 76127785121 25 mg Orally Active 1 table t Once a day Alendronate [facility] 52503883722 35 MG Orally Active 1 t ablet Sodium Once a week for the bones Vitamin D [facility] 29637109534 1000 UNIT Orally Active 2 gummies Once daily (OTC) Calcium NDC 0 Orally Once Active 500 mg--2 daily gummies (OTC) Vitamin C [facility] 48493191672 1000 MG Orally Active 1 t ablet Once a day Zoloft ND 15129905171 50 MG Orally August table t Once a day 2017 Lisinopril [facility] 24989446783 10 MG Orally Active 1 ta blet Once a day Tylenol # 3 NDC 0 300/30mg Orally July Active 1 ta blet Twice daily 2019, as needed 2019 for pain; take with food Results Name Result Date Reference Range Unit Abnormali ty Flag Urine Dip Stick ----Appearance Yellow & Cloudy 20191016 ----SP. Gr 1.015 20191016 ----pH 5.5 20191016 ----Ketone Negative 20191016 ----Glucose Negative 20191016 ----Blood 1+ 20191016 ----Protein Negative 20191016 ----Nitrite Negative 20191016 ----Leukocytes 2+ 20191016 Summary Purpose eClinicalWorks Submission
--- OUTSIDE RECORDS SUMMARY | 2020-01-11 21:13 | XMS REPORT ---
:1940 Author Organization [employer] Care Team Providers Name Role Phone Mary Goyal Provider Role Unavailable Allergies No Known Allergies Problems Problem Type Condition Code Onset Dates Condition Statu s Problem Osteopenia of multiple sites M85.89 Active [...] right mastectomy Z90.11 Active Medications Medication Code System Code Instructions Start Date End Date Status Dosage Augmentin [facility] 35148563543 500-125 MG Orally October 28November 07, Active 1 tablet bid 2019 2019 Results No Known Results Summary Purpose eClinicalWorks Submission
--- OUTSIDE RECORDS SUMMARY | 2020-01-11 21:14 | XMS REPORT | Summary of Care ---
:1940 Author Organization [facility] Address [address] [place] [id number] Care Team Providers Name Role Phone Mary Goyal Primary Care Provider Reason for Visit Reason Comments Results Encounter Details Date Type Department Care Team Description 11/25/2019 Telephone [facility] Family Medicine Maryann Fan FNP Results - [address] alfonso Townsend[address] [place] [id number] [address] [place] [address] [phone] Allergies Active Allergy Reactions Severity Noted Date Comments Promethazine Hcl Unknown - See comments 05/27/2006 S ees things per pt. 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 If I am a smoker, stop smoking ? Manage stress by identifying three way s to reduce stress ? [employer] ([email or web address]) is an online tool that will allow me to review lab results and portions of my health record, and to communicate with healthcare providers as needed. If I do not have a [employer] account, I will discuss this wi th my healthcare team Problem Noted Date Vitamin B12 deficiency 07/22/2015 Prediabetes 04/06/2014 Vaginal atrophy 06/11/2011 Prolapse of vaginal vault after hysterectomy 1 HLD (hyperlipidemia) 06/13/2009 Overview: ICD10 Diagnosis Term Outpatient Admitting Clerk Utility Varicose vein of leg 06/10/2009 Symptomatic menopausal or female climacteric states Tobacco use disorder 06/23/2008 Chronic depressive personality disorder Generalized osteoarthrosis, unspecified site Insomnia Overview: ICD10 Diagnosis Term Outpatient Admitting Clerk Utility Esophageal reflux Essential hypertension, benign Recurrent UTI documented as of this encounter (statuses as of 11/25/2019) Resolved Problems Problem Noted Date Resolved Date Urinary tract infection, site not specified 07/22/2012 01/06/2013 Pain in limb 06/10/2009 01/06/2013 Influenza with respiratory manifestation other than 06/23/19 09 01/06/2013 pneumonia Overview: ICD10 Diagnosis Term Outpatient Admitting Clerk Utility Encounter for screening for osteoporosis 06/23/2008 01/06/2013 Overview: ICD10 Diagnosis Term Outpatient Admitting Clerk Utility 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 08/23/2013 Impaired glucose tolerance test 04/06/20 14 documented as of this encounter (statuses as of 11/25/2019) Immunizations Name Administration Dates Next Due Influenza High Dose 03/25/2015, 03/25/2014, 02/08/2012 Influenza Virus Vaccine 02/28/2013, 06/26/2010, 03/20/2008, 03/14/2007, 03/02/2006 Pneumococcal Polysaccharide, PPSV23 03/27/2004 (PNEUMOVAX) TDAP 08/29/2011 documented as of this encounter Social [...] filedocumented in this encounter Plan of Treatment Health Maintenance Due Date Last Done Comments Depression Screening 1952 Zoster Recombinant Vaccine 1989 (SHINGRIX) (1 of 2) LUNG CANCER SCREEN: 1994 Recommended for age 55-80 with 30 + pack year history Medicare Wellness Visit 01/22/2004 INFLUENZA VACCINE (#1) 2020 03/25/2015, 03/25/2014, 02/28/2013, Additional history exists Osteoporosis Screening 02/29/2020 02/28/2010 DTaP,Tdap,and Td Vaccines 08/28/2021 08/29/2011 (2 - Td) PNEUMOCOCCAL VACCINES 65+ Addressed 07/22/2015 (Declined), Overridden with the 03/27/2004 intention of not completing the t opic documented as of this encounter Results Not on filedocumented in this encounter Additional Health Concerns Infection Onset Date Last Indicated Resolved Time COVID-19 Rule Out 11/24/2019 11/24/2019 11/25/2019 4: 30 PM CDT COVID-19 Confirmed 11/24/2019 11/24/2019 documented as of this encounter Insurance Payer Benefit Plan / Subscriber ID Effective Dates Phone Addre ss Type Group MEDICARE MEDICARE PART xxxxxxxxxxx 2004-Sunil [phone] Medicare A & B t 2 [id number] WU OLIVO [phone] documented as of this encounter Advance Directives Type Date Recorded Patient Case Supervisor Explanati on Advance Directives and Living 02/02/2013 8:00 AM Will Power of Police Judge 10/01/2012 12:23 PM
--- OUTSIDE RECORDS SUMMARY | 2020-01-11 21:14 | XMS REPORT | Summary of Care ---
:1940 Author Organization [facility] - Health Address [address] [place] [address] Care Team Providers Name Role Phone Mary Goyal Primary Care Provider Reason for Visit Reason Comments Exposure Encounter Details Date Type Department Care Team Description 11/24/2019 Laboratory Only [facility] Family Joe Mays, BEREAVEMENT PROGRAM COORDINATOR [address] [place] [id number] Suspected Covid-19 Medicine - [facility], Adc Fam Pob I Virus Infection [address] [place] [address] (Primary D x) [place] [address] Allergies Active Allergy Reactions Severity Noted Date Comments Promethazine Hcl Unknown - See comments 05/27/2006 S ees things per pt. Sulfatrim Ds Dizziness, Nausea and/or Medium 10/01/2012 Vomiting Tramadol Hallucinations 02/13/2018 documented as of this encounter (statuses as of 11/24/2019) Medications Medication Sig Dispensed Refills Start Date [...] as of this encounter (statuses as of 11/24/2019) Active Problems Patient Care Coordination Note Hypertension [...] My Hypertension Care Plan includes the f glorialowing: ? 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 If I am a smoker, stop smoking ? Manage stress by identifying three way s to reduce stress ? [employer] ([email or web address]) is an online tool that will allow me to review lab results and portions of my health record, and to communicate with healthcare providers as needed. 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 Esophageal reflux Essential hypertension, benign Recurrent UTI documented as of this encounter (statuses as of 11/24/2019) Resolved Problems Problem Noted Date Resolved Date Urinary tract infection, site not specified 07/22/2012 01/06/2013 Pain in limb 06/10/2009 01/06/2013 Influenza with respiratory manifestation other than 06/23/1901/06/2013 pneumonia Overview: ICD10 Diagnosis 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 Utility Encounter for screening for osteoporosis 06/23/2008 01/06/2013 Overview: ICD10 Diagnosis 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 Utility 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 08/23/2013 Impaired glucose tolerance test 04/06/20 14 documented as of this encounter (statuses as of 11/24/2019) Immunizations Name Administration Dates Next Due Influenza [...] filedocumented in this encounter Plan of Treatment Name Type Priority Associated Diagnoses Order S chedule COVID-19 (PCR MOLECULAR LAB Routine Suspected Covid-1 9 Virus Expected: 11/24/2019, TESTING) Infection Expires: 2020 Health Maintenance Due Date Last Done Comments [...] filedocumented in this encounter Visit Diagnoses Diagnosis Suspected Covid-19 Virus Infection - Fanta florentino documented in this encounter Additional Health Concerns Infection Onset Date Last Indicated Resolved Time COVID-19 Rule Out 11/24/2019 11/24/2019 documented as of this encounter Insurance Payer Benefit Plan / Subscriber ID Effective Dates Phone Addre ss Type Group MEDICARE MEDICARE PART xxxxxxxxxxx 2004-Sunil 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
--- OUTSIDE RECORDS SUMMARY | 2020-01-11 21:14 | XMS REPORT ---
[...] Problem S/P right mastectomy Z90.11 Active Medications No Known Medications Results No Known Results Summary Purpose [employer] Submission
[2020-01-11] MEDS ORDERED: FENTANYL CITR 100 MCG/2 ML ONE (22:22)
[2020-01-11] MEDS ORDERED: ONDANSETRON 4 MG/2 ML VIAL ONE (22:29)
[2020-01-11 23:16] LABS: Absolute Lymphocytes (CBC) 1.8 K/uL (0.7-4.9); Basophils % 0.4 % (0-1.3); Hematocrit 36.3 % (36.0-45.0); Lymphocytes % 17.1 % (15.3-44.8); MPV 10.2 fL (7.6-11.3); RBC Red Blood Cell Count 3.97 M/uL (3.86-4.86)
[2020-01-11 23:24] LABS: Albumin 3.4 g/dL (3.4-5.0); Bilirubin Total 0.5 mg/dL (0.2-1.0); Potassium 4.1 mmol/L (3.5-5.1); Protein, Total 8.4 g/dL (6.4-8.2)
[2020-01-12] MEDS ORDERED: FENTANYL CITR 100 MCG/2 ML ONE ×2 (00:03→01:15)
--- NOTE | 2020-01-12 00:13 | ER ---
Nurse's Notes [facility] Name: Marilin Leblanc Age: 79 yrs Sex: Female : 1940 Arrival Date: 01/11/2020 Time: 20:52 Bed 3 Private MD: Diagnosis: Displaced fracture of base of neck of left femur Presentation: 01/10 20:50 Chief complaint: EMS states: complaining of pain on her back of the head, left shoulder rr5 and left leg area tender on palpation. she slipped and fell down from standing position at home. negative LOC , dizziness, and blood thinner. 20:50 Coronavirus screen: Client denies travel out of the [place] in the last 14 days. At this rr5 time, the client does not indicate any symptoms associated with coronavirus-19. Client reports previous positive COVID test result. Date of collection: November 2019. Ebola Screen: Patient negative for fever greater than or equal to 101.5 degrees Fahrenheit, and additional compatible Ebola Virus Disease symptoms Patient denies exposure to infectious person. Patient denies travel to an Ebola-affected area in the 21 days before illness onset. Initial Sepsis Screen: Does the patient meet any 2 criteria? No. Patient's initial sepsis screen is negative. Does the patient have a suspected source of infection? No. Patient's initial sepsis screen is negative. Risk Assessment: Do you want to hurt yourself or someone else? Patient reports no desire to harm self or others. Onset of symptoms was January 11, 2020. 20:50 Method Of Arrival: EMS: [facility] rr5 20:50 Acuity: BUNNY 2 rr5 20:50 Care prior to arrival: None. Mechanism of Injury: Fall from standing position. Trauma rr5 event details: Injury occurred in the [facility], Injury occurred: at home. Injury occurred: January 11, 2020. Trauma Activation: Alert Physician: ED Physician; Name: dr. hoffman; Notified At: 19:50; Arrived At: 20:00 Physician: General Surgeon; Name: ; Notified At: ; Arrived At: Physician: Radiology; Name: radiology staff came; Notified At: 19:50; Arrived At: 19:57 Physician: Respiratory; Name: ; Notified At: ; Arrived At: Physician: Lab; Name: ; Notified At: ; Arrived At: Historical: - Allergies: 20:54 Morphine; mt2 20:54 Promethazine; mt2 20:54 Sulfa (Sulfonamide Antibiotics); mt2 20:54 Tramadol HCl; mt2 - Home Meds: 20:54 lisinopril 10 mg Oral tab 1 tab once daily for Hypertension [Active]; mt2 - PMHx: 20:54 Breast Cancer Right side; Hypertension; mt2 - Social history:: Smoking status: Patient reports the use of cigarette tobacco products, smokes two packs cigarettes per day. - Immunization history: Last tetanus immunization: unknown. Screenin:00 Fall Risk Fall in past 12 months (25 points). IV access (20 points). Gait- Impaired (20 rr5 pts.). Total Moore Fall Scale indicates High Risk Score (45 or more points). Fall prevention measures have been instituted. Side Rails Up X 2 Placed Close to Nursing Station Frequent Obs/Assessments Occuring As available patient and family educated on Fall Prevention Program and Strategies. 21:01 Abuse screen: Denies threats or abuse. Denies injuries from another. Nutritional rr5 screening: No deficits noted. Tuberculosis screening: No symptoms or risk factors identified. Fall risk At risk due to injury, age, immobility, Intervention for positive screen: ED Physician notified, side rails up. Primary Survey: 20:54 NO uncontrolled hemorrhage observed. A: The patient is alert. Airway: patent, No rr5 supplemental oxygen in use on arrival. Oral cavity: clear, gag reflex present, Trachea midline. Breathing/Chest: Respiratory pattern: regular, Respiratory effort: spontaneous, unlabored, Breath sounds: clear, bilaterally. Chest inspection: symmetrical rise and fall of the chest. Circulation: Pulses: palpable right radial artery and left radial artery. Skin temperature: warm, dry. Disability Alert. Exposure/Environment: All clothing and personal items were removed. There is no evidence of uncontrolled external bleeding. No obvious injuries are noted at this time. A warming method has been applied: A warm blanket has been provided to the patient. 22:00 Reassessment Airway Airway Patent Breathing/Chest Respiratory pattern Regular rr5 Respiratory effort Spontaneous Unlabored Breath sounds Clear Chest inspection Symmetrical Circulation Heart tones Present Pulses Palpable Color Alleman Temperature Warm Dry Disability Alert. Secondary Survey: 20:54 HEENT: Head Other pain back of the head left side. Gastrointestinal: Abdomen is soft. rr5 : No signs and/or symptoms were reported regarding the genitourinary system. Musculoskeletal: Capillary refill < 3 seconds, Reports pain in scalp, pelvis, left arm and left leg. Assessment: 21:00 General: Appears in no apparent distress. uncomfortable, Behavior is calm, cooperative, rr5 appropriate for age. 21:00 Pain: Complains of pain in left leg and left arm and pelvis and scalp Pain currently is rr5 10 out of 10 on a pain scale. Quality of pain is described as aching, Pain began suddenly, Is intermittent. Neuro: Level of Consciousness is awake, alert, obeys commands, Oriented to person, place. Cardiovascular: Capillary refill < 3 seconds Patient's skin is warm and dry. Respiratory: Airway is patent Respiratory effort is even, unlabored, Respiratory pattern is regular, symmetrical. GI: No signs and/or symptoms were reported involving the gastrointestinal system. : No signs and/or symptoms were reported regarding the genitourinary system. EENT: No signs and/or symptoms were reported regarding the EENT system. Derm: Skin is fragile, is thin, Skin temperature is warm. Musculoskeletal: Circulation, motion, and sensation intact. Capillary refill < 3 seconds, Reports pain in scalp, pelvis, left arm and left leg. 22:35 Reassessment: Patient appears in no apparent distress at this time. back from CT scan. rr5 22:42 Reassessment: Patient appears in no apparent distress at this time. Neuro: Level of rr5 Consciousness is awake, alert, Oriented to person, place. 23:55 Reassessment: Patient and/or family updated on plan of care and expected duration. Pain mt2 level reassessed. Patient is alert, oriented x 3, equal unlabored respirations, skin warm/dry/pink. General: Appears uncomfortable. 01/11 00:15 Reassessment: Melanie URBANO updated the family member thru phone that she is going to be rr5 transfer to [facility]. 00:20 Reassessment: REPORT GIVEN TO BOOM GIRON RN AT [facility]. mt2 01:05 Reassessment: Patient appears in no apparent distress at this time. Patient is alert, rr5 oriented x 3, equal unlabored respirations, skin warm/dry/pink. report given to MIGUELITO awake alert not in distress, fentanyl 25mcg/IV given as stat dose prior to transfer ordered by ED provider. Vital Signs: 01/10 20:50 BP 169 / 70; Pulse 62; Resp 16; Temp 98; Pulse Ox 99% ; Weight 51.71 kg; Height 5 ft. 3 rr5 in. (160.02 cm); Pain 10/10; 21:00 BP 157 / 94; Pulse 56; Resp 16; Pulse Ox 97% on R/A; Pain 8/10; mt2 22:00 BP 148 / 62; Pulse 65; Resp 19; Pulse Ox 99% ; rr5 22:00 BP 164 / 92; Pulse 57; Resp 16; Pulse Ox 98% on R/A; Pain 4/10; mt2 23:55 BP 167 / 67; Pulse 65; Resp 16; Pulse Ox 100% ; Pain 10/10; mt2 01/11 00:20 BP 142 / 58; Pulse 65; Resp 19; Pulse Ox 98% ; rr5 01:00 BP 148 / 62; Pulse 60; Resp 17; Pulse Ox 100% ; rr5 01/10 20:50 Body Mass Index 20.19 (51.71 kg, 160.02 cm) rr5 Ivet Coma Score: 01/10 20:54 Eye Response: spontaneous(4). Verbal Response: oriented(5). Motor Response: obeys rr5 commands(6). Total: 15. 22:00 Eye Response: spontaneous(4). Verbal Response: oriented(5). Motor Response: obeys rr5 commands(6). Total: 15. Trauma Score (Adult): 21:01 Eye Response: spontaneous(1); Verbal Response: oriented(1); Motor Response: obeys rr5 commands(2); Systolic BP: > 89 mm Hg(4); Respiratory Rate: 10 to 29 per min(4); Ivet Score: 15; Trauma Score: 12 22:00 Eye Response: spontaneous(1); Verbal Response: oriented(1); Motor Response: obeys rr5 commands(2); Systolic BP: > 89 mm Hg(4); Respiratory Rate: 10 to 29 per min(4); Ivet Score: 15; Trauma Score: 12 ED Course: 20:52 Patient arrived in ED. mt2 20:52 Melanie Laura, SUNDEEP is Primary Nurse. mt2 20:54 Arm band placed on right wrist. rr5 20:57 You Hoffman MD is Attending Physician. tw4 20:59 Triage completed. rr5 21:00 Patient maintains SpO2 saturation greater than 95% on room air. rr5 21:01 Patient has correct armband on for positive identification. Placed in gown. Bed in low rr5 position. Call light in reach. Side rails up X2. Pulse ox on. NIBP on. 21:05 Thermoregulation: warm blanket given to patient. rr5 21:36 Hip Left 2 View XRAY In Process Unspecified. EDMS 21:36 Shoulder Left (2 View) XRAY In Process Unspecified. EDMS 21:51 CT Head Brain wo Cont In Process Unspecified. EDMS 22:00 No provider procedures requiring assistance completed. Inserted saline lock: 20 gauge rr5 in left antecubital area, using aseptic technique. ,using aseptic technique. inserted by melanie URBANO Blood collected. 22:46 CT Pelvis wo Cont In Process Unspecified. EDMS 23:37 initiated a transfer with Jc Hooker to [facility]. [facility] 01/11 00:02 administrative approval given by Jc Hooker/ patient has been accepted to [address] Emergency Department/ Dr. Ervin accepted the patient in transfer/ report to be call to [phone]. 01:12 Patient transferred, IV remains in place. intact, No redness/swelling at site. rr5 Administered Medications: 01/10 22:14 Drug: fentaNYL (PF) 25 mcg Route: IVP; Site: left antecubital; mt2 22:56 Follow up: Response: No adverse reaction; Pain is decreased mt2 22:20 Drug: Zofran (Ondansetron) 4 mg Route: IVP; Site: left forearm; rr5 22:55 Follow up: Response: No adverse reaction; Pain is decreased mt2 23:54 Drug: fentaNYL (PF) 25 mcg Route: IVP; Site: left antecubital; mt2 01/11 00:15 Follow up: Response: No adverse reaction; Pain is decreased mt2 01:07 Drug: fentaNYL (PF) 25 mcg {Note: rass 0.} Route: IVP; Site: left antecubital; rr5 01:13 Follow up: medication administered upon transfer rr5 Intake: 01/10 22:48 PO: 0ml; Total: 0ml. mt2 Outcome: 23:[address] pelvis procedurePatient's length of stay extended due to rr5 01/11 00:12 ER care complete, transfer ordered by . tw4 01:12 Transferred by ground EMS to [facility], Transfer form completed. rr5 01:12 Condition: stable 01:12 Instructed on the need for transfer. 01:14 Patient left the ED. rr5 Signatures: Dispatcher [employer] You Bah MD MD tw4 Lyle Rossi mw2 Abdiel Ji RN RN rr5 Melanie Laura RN RN mt2
--- NOTE | 2020-01-12 00:13 | EDPHYS ---
Physician Documentation [facility] [place] Name: Marilin Leblanc Age: 79 yrs Sex: Female : 1940 Arrival Date: 01/11/2020 Time: 20:52 Bed 3 Private MD: ED Physician You Allen HPI: 01/11 01:06 This 79 yrs old Female presents to ER via EMS with complaints of Fall Injury. tw4 01:06 Details of fall: The patient fell from an upright position. Onset: The symptoms/episode tw4 began/occurred today. Associated injuries: The patient sustained left upper thigh, obvious fracture. Severity of symptoms: At their worst the symptoms were moderate. The patient has not experienced similar symptoms in the past. Historical: - Allergies: 01/10 20:54 Morphine; mt2 20:54 Promethazine; mt2 20:54 Sulfa (Sulfonamide Antibiotics); mt2 20:54 Tramadol HCl; mt2 - Home Meds: 20:54 lisinopril 10 mg Oral tab 1 tab once daily for Hypertension [Active]; mt2 - PMHx: 20:54 Breast Cancer Right side; Hypertension; mt2 - Social history:: Smoking status: Patient reports the use of cigarette tobacco products, smokes two packs cigarettes per day. - Immunization history: Last tetanus immunization: unknown. ROS: 01/11 01:06 Constitutional: Negative for fever, chills, and weight loss, Eyes: Negative for injury, tw4 pain, redness, and discharge, Cardiovascular: Negative for chest pain, palpitations, and edema, Respiratory: Negative for shortness of breath, cough, wheezing, and pleuritic chest pain, Abdomen/GI: Negative for abdominal pain, nausea, vomiting, diarrhea, and constipation, Back: Negative for injury and pain, Skin: Negative for injury, rash, and discoloration. MS/extremity: Positive for injury or acute deformity, decreased range of motion, pain, swelling, tenderness, of the left upper thigh. Exam: 01:06 Constitutional: This is a well developed, well nourished patient who is awake, alert, tw4 and in no acute distress. Head/Face: Normocephalic, atraumatic. Chest/axilla: Normal chest wall appearance and motion. Nontender with no deformity. No lesions are appreciated. Cardiovascular: Regular rate and rhythm with a normal S1 and S2. No gallops, murmurs, or rubs. Normal PMI, no JVD. No pulse deficits. Respiratory: Lungs have equal breath sounds bilaterally, clear to auscultation and percussion. No rales, rhonchi or wheezes noted. No increased work of breathing, no retractions or nasal flaring. Abdomen/GI: Soft, non-tender, with normal bowel sounds. No distension or tympany. No guarding or rebound. No evidence of tenderness throughout. Back: No spinal tenderness. No costovertebral tenderness. Full range of motion. MS/ Extremity: Pulses equal, no cyanosis. Neurovascular intact. Full, normal range of motion. Neuro: Awake and alert, GCS 15, oriented to person, place, time, and situation. Cranial nerves II-XII grossly intact. Motor strength 5/5 in all extremities. Sensory grossly intact. Cerebellar exam normal. Normal gait. Vital Signs: 01/10 20:50 BP 169 / 70; Pulse 62; Resp 16; Temp 98; Pulse Ox 99% ; Weight 51.71 kg; Height 5 ft. 3 rr5 in. (160.02 cm); Pain 10/10; 21:00 BP 157 / 94; Pulse 56; Resp 16; Pulse Ox 97% on R/A; Pain 8/10; mt2 22:00 BP 148 / 62; Pulse 65; Resp 19; Pulse Ox 99% ; rr5 22:00 BP 164 / 92; Pulse 57; Resp 16; Pulse Ox 98% on R/A; Pain 4/10; mt2 23:55 BP 167 / 67; Pulse 65; Resp 16; Pulse Ox 100% ; Pain 10/10; mt2 01/11 00:20 BP 142 / 58; Pulse 65; Resp 19; Pulse Ox 98% ; rr5 01:00 BP 148 / 62; Pulse 60; Resp 17; Pulse Ox 100% ; rr5 01/10 20:50 Body Mass Index 20.19 (51.71 kg, 160.02 cm) rr5 Ivet Coma Score: 01/10 20:54 Eye Response: spontaneous(4). Verbal Response: oriented(5). Motor Response: obeys rr5 commands(6). Total: 15. 22:00 Eye Response: spontaneous(4). Verbal Response: oriented(5). Motor Response: obeys rr5 commands(6). Total: 15. Trauma Score (Adult): 21:01 Eye Response: spontaneous(1); Verbal Response: oriented(1); Motor Response: obeys rr5 commands(2); Systolic BP: > 89 mm Hg(4); Respiratory Rate: 10 to 29 per min(4); Katy Score: 15; Trauma Score: 12 22:00 Eye Response: spontaneous(1); Verbal Response: oriented(1); Motor Response: obeys rr5 commands(2); Systolic BP: > 89 mm Hg(4); Respiratory Rate: 10 to 29 per min(4); Katy Score: 15; Trauma Score: 12 MDM: 21:12 Patient medically screened. 01/11 01:06 Data reviewed: vital signs, nurses notes. Data reviewed: lab test result(s), CBC, tw4 electrolytes, radiologic studies, CT scan, plain films. Data interpreted: Pulse oximetry: Interpretation:. Test interpretation: by ED physician or midlevel provider: plain radiologic studies. Counseling: I had a detailed discussion with the patient and/or guardian regarding: the historical points, exam findings, and any diagnostic results supporting the discharge/admit diagnosis, lab results. 01/10 22:10 Order name: CBC with Diff; Complete Time: 01:05 01/11 01:05 Interpretation: Normal except: ERLINDA% 75.1. 01/10 22:10 Order name: CMP; Complete Time: 01:05 01/11 01:05 Interpretation: Normal except: BUN 19; GFR 59. 01/10 21:15 Order name: CT Head Brain wo Cont 4 01/10 21:15 Order name: Hip Left 2 View XRAY 01/10 21:15 Order name: Shoulder Left (2 View) XRAY 01/10 22:01 Order name: CT Pelvis wo Cont tw4 Administered Medications: 01/10 22:14 Drug: fentaNYL (PF) 25 mcg Route: IVP; Site: left antecubital; mt2 22:56 Follow up: Response: No adverse reaction; Pain is decreased mt2 22:20 Drug: Zofran (Ondansetron) 4 mg Route: IVP; Site: left forearm; rr5 22:55 Follow up: Response: No adverse reaction; Pain is decreased mt2 23:54 Drug: fentaNYL (PF) 25 mcg Route: IVP; Site: left antecubital; mt2 01/11 00:15 Follow up: Response: No adverse reaction; Pain is decreased mt2 01:07 Drug: fentaNYL (PF) 25 mcg {Note: rass 0.} Route: IVP; Site: left antecubital; rr5 01:13 Follow up: medication administered upon transfer rr5 Disposition: 01/12/20 00:12 Transfer ordered to [facility]. Diagnosis is Displaced fracture of base of neck of left femur. - Reason for transfer: Higher level of care. - Accepting physician is Dr Ann. - Condition is Stable. - Problem is new. - Symptoms are unchanged. Signatures: Dispatcher [employer] You Bah MD MD tw4 Abdiel Ji, RN RN rr5 Melanie Laura RN RN mt2 Corrections: (The following items were deleted from the chart) 01:14 00:12 01/12/2020 00:12 Transfer ordered to [facility]. Diagnosis is rr5 Displaced fracture of base of neck of left femur. Reason for transfer: Higher level of care. Accepting physician is Dr Ann. Condition is Stable. Problem is new. Symptoms are unchanged. tw4
--- NOTE | 2020-01-12 08:26 | RAD REPORT ---
EXAM DESCRIPTION: RAD - Hip Left 2 View - 01/11/2020 9:39 pm CLINICAL HISTORY: PAIN COMPARISON: Pelvis Wo Cont dated 01/11/2020 FINDINGS: Subcapital fracture of the proximal left femur is seen with valgus angulation. No dislocat ion evident.
--- NOTE | 2020-01-12 08:31 | RAD REPORT ---
EXAM DESCRIPTION: RAD - Shoulder Left 2 View - 01/11/2020 9:37 pm CLINICAL HISTORY: PAIN Fall, trauma, pain COMPARISON: No comparisons FINDINGS: No acute fracture or dislocation is seen.
--- NOTE | 2020-01-12 10:40 | RAD REPORT ---
EXAM DESCRIPTION: CT HEAD WITHOUT IV CONTRAST CLINICAL HISTORY: TRAUMA TECHNIQUE: Contiguous axial CT images obtained through the brain without IV contrast. Coronal and sa gittal reformatted images were provided. This exam was performed according to our departmental dose-optimization program, which includes autom ated exposure control, adjustment of the mA and/or kV according to patient size and/or use of iterati ve reconstruction technique. COMPARISON: 05/22/2017 FINDINGS: Brain: Mild cerebral atrophy and mild bilateral periventricular and subcortical white kristen er low-attenuation most compatible with chronic microvascular angiopathy without significant interval change. No focal mass effect. Reaves-white matter differentiation is within normal limits. No hemorrha ge. Ventricles: No ventriculomegaly or midline shift. Extra-axial spaces: No extra-axial collection or hemorrhage. Paranasal sinuses and mastoid air cells: Mild bilateral ethmoid sinus mucosal thickening. Vessels: There is atherosclerotic disease of the internal carotid arteries bilaterally. Bones: Unremarkable Soft tissues: Unremarkable IMPRESSION: 1. No acute intracranial or extra-axial abnormality. 2. Other findings as above. Electronically signed by: Ethan Nelson MD 01/11/2020 9:59 PM CDT Due to temporary technical issues with the PACS/Fluency reporting system, reports are being signed by the in house radiologist without review as a courtesy to ensure prompt reporting. The interpreting r adiologist is fully responsible for the content of the report.
--- NOTE | 2020-01-12 10:41 | RAD REPORT ---
EXAM DESCRIPTION: Pelvis Wo Cont CLINICAL HISTORY: Fall TECHNIQUE: Contiguous axial images obtained through the pelvis without IV contrast. Sagittal and cor onal reformatted images were provided. This exam was performed according to our departmental dose-optimization program, which includes autom ated exposure control, adjustment of the mA and/or kV according to patient size and/or use of iterati ve reconstruction technique. COMPARISON: None available for comparison. FINDINGS: Bone: Osseous structures are diffusely osteopenic. Mildly impacted, mildly angulated left femoral neck fracture. Probable right femoral head bone island. Joints: No dislocation. Mild degenerative changes at the hip joints bilaterally. Moderate degenerativ e changes at the lower lumbar spine. Soft tissues: Lobulated hematoma within the lateral subcutaneous soft tissues on the left measuring a pproximately 7.3 x 4 x 5.4 cm. Bowel: Moderate stool. Colonic diverticula without adjacent inflammatory change. Urinary bladder: Distended Reproductive: Prior hysterectomy. Vaginal pessary in place. Vessels: Mild atherosclerotic disease. Abdominal wall: Small to moderate fat-containing right ventral abdominal wall hernia. IMPRESSION: Left femoral neck fracture. Subcutaneous soft tissue hematoma along the lateral aspect o f the left hip. Electronically signed by: Ethan Nelson MD 01/11/2020 10:58 PM CDT Due to temporary technical issues with the PACS/Fluency reporting system, reports are being signed by the in house radiologist without review as a courtesy to ensure prompt reporting. The interpreting r adiologist is fully responsible for the content of the report.
[2020-01-12 11:37] VITALS: TEMP 98
[2020-01-12 11:44] VITALS: BP 148/62; O2SAT 100
== END 2020-01-12 01:14 | disposition short-term general hospital (02) ==
LOC: ER 20:49
DX: S72.042A Displaced fracture of base of neck of left femur, initial encounter for closed fracture (principal); W19.XXXA Unspecified fall, initial encounter; Y93.9 Activity, unspecified; Y92.9 Unspecified place or not applicable; I10 Essential (primary) hypertension; F17.210 Nicotine dependence, cigarettes, uncomplicated; Z85.3 Personal history of malignant neoplasm of breast; Z88.2 Allergy status to sulfonamides; Z88.5 Allergy status to narcotic agent; Z88.6 Allergy status to analgesic agent; Z88.8 Allergy status to other drugs, medicaments and biological substances
CPT/HCPCS: 85025; 36415; 80053; 70450; 72192; 73502; 73030; 99285; J3010 ×2; J2405; G0390

== ENCOUNTER 2020-02-17 14:03 | Emergency (ER) | payer OTHER ==
--- OUTSIDE RECORDS SUMMARY | 2020-02-17 14:08 | XMS REPORT | Continuity of Care Document ---
:1940 Author Organization [facility] t Address [address] [place] [address] Care Team Providers Name Role Phone Davon KRUEGER Attending Clinician Lab, Fam Pob I Attending Clinician Unavailable Ameya PATTON, Dave Attending Clinician Payers Payer Name Policy Type Policy Number Effective Date Expiration Date S ource Problems This patient has no known problems. Allergies, Adverse Reactions, Alerts Allergy Allergy Status Severity Reaction(s) Onset Inactive Treating Comm ents Source Name Type Date Date Clinician morphine DA Active U 2019- [facility] 9[facility]12 Clear 00:00: Niño 00 [facility] oxycodon DA [place] [facility] e 9-12 Clear 00:00: Niño 00 [facility] tramadol DA Active [place] [facility] 9-12 Clear 00:00: Niño 00 [facility] prometha DA Active [place] 2011-05 [facility] zine HCl 1-12 Clear 00:00: Niño 00 [facility] some DA Active U 2011-05 [facility] antibiot 1-12 Clear ic 00:00: Niño 00 [facility] MORPHINE Adverse Active hallucinatio C HI St Reaction ns [facility] ent Clinics Tramadol Adverse Active Hallucinatio C HI St HCl Reaction ns [facility] Phenerga Adverse Active vomiting [facility] Reaction [facility] ent Clinics Medications Ordered Filled Start Stop Current Ordering Indication Dosage Frequency Signature Comments Components Source Medication Medication Date Date Medication? Clinician (SIG) Name Name Augmentin Augmentin 2019- Mary [address] [facility] 10-28 07-05 [facility] - 00:00: 00:00 Memoria 00 :00 [facility] ent Clinics Ciprofloxac Ciprofloxac 2018- No Mary [address] [facility] in HCl in HCl 09-15 05-20 [facility] - 00:00: 00:00 Memoria 00 :00 [facility] ent [facility] Procedures This patient has no known procedures. Encounters Start End Encounter Admission Attending Care Care Encounter Source Date/Time Date/Time Type Type Clinicians Facility Department ID 2020-02-09 2020-02-09 Outpatient [facility] [id number] [facility]00 [facility] ent [facility] 2019-12-03 2019-12-03 [facility] [id number] [facility] 14:10:00 14:10:00 [facility] Medicine [facility] 2019-11-25 2019-11-25 Telephone Davon, [facility] [id number] 00:00:00 00:00:00 [facility] [id number] [place] [id number] Professio [phone] nal 0[address] 2019-11-24 2019-11-24 Laboratory Lab, Adc [facility] [id number] 16:22:36 16:42:36 Only Fam Pob I Health [id number] [place] [id number] Professio [phone] nal 044 [address] 2019-10-30 2019-10-30 [facility] [id number] 17:45:00 17:45:[address] Luke s - Drive [facility] Medicine Outpati ent Clinics 2019-10-29 2019-10-29 [facility] [id number] 11:01:00 11:01:00 [facility] Medicine Outpati ent Clinics 2019-10-16 2019-10-16 [facility] [id number] 11:00:00 11:00:00 [facility] Medicine Outpati ent Clinics 2019-09-29 2019-09-29 [facility] [id number] [facility] 16:42:00 16:42:00 [facility] Medicine Outpati ent Clinics 2019-07-15 2019-07-15 [facility] [id number] [facility] 15:00:00 15:00:00 [facility] Medicine Outpati ent Clinics 2019-07-14 2019-07-14 Office Ameya Davina [facility] [id number] 14:24:44 15:18:57 Visit Dave Beck [id number] [place] [id number] [facility] [phone] [address] 2019-01-29 2019-01-29 [facility] [id number] [facility] 14:40:00 14:40:00 [facility] Medicine Outpati ent Clinics 2018-09-15 2018-09-15 [facility] [id number] [facility] 14:25:00 14:25:00 [facility] Medicine Outpati ent Clinics 2018-09-15 2018-09-15 [facility] [id number] [facility] 11:40:00 11:40:00 [facility] Medicine Outpati ent Clinics 2018-08-14 2018-08-14 [facility] [id number] [address] 15:00:00 15:00:00 [facility] Medicine Outpati ent Clinics 2018-05-20 2018-05-20 [facility] [id number] [facility] 16:00:00 16:00:00 t [facility] Medicine l Medicine Outpati ent Clinics 2018-02-03 2018-02-03 [facility] [id number] 11:36:00 11:36:00 t [facility] Medicine l Medicine Outpati ent Clinics 2018-02-03 2018-02-03 [facility] [id number] 11:00:00 11:00:00 t [facility] Medicine l Medicine Outpati ent Clinics 2018 2018 [facility] [id number] [address] 16:27:00 16:27:00 t [facility] Medicine l Medicine Outpati ent Clinics 2017-12-25 2017-12-25 [facility] [id number] [facility] 15:22:00 15:22:00 t [facility] Medicine l Medicine Outpati ent Clinics 2017-12-23 2017-12-23 [facility] [id number] [facility] 23:12:00 23:12:00 t [facility] Medicine l Medicine Outpati ent Clinics 2017-12-23 2017-12-23 [facility] [id number] [facility] 11:00:00 11:00:00 t [facility] Medicine l Medicine Outpati ent Clinics 2017-11-19 2017-11-19 [facility] [id number] 10:30:00 10:30:00 t [facility] Medicine l Medicine Outpati ent Clinics 2017-09-24 2017-09-24 [facility] [id number] [facility] 14:21:00 14:21:00 t [facility] Medicine Medicine Outpati ent Clinics 2017-09-02 2017-09-02 [facility] [id number] 11:32:00 11:32:00 t [facility] ent [facility] 2017-08-29 2017-08-29 [facility] [id number] 14:30:00 14:30:00 [facility] ent Clinics Results Test Description Test Time Test Comments Results Result Comments Source COMPREHENSIVE METABOLIC PANEL 2020-02-01 08:42:00 Test Item Value Reference Range Interpretation Comme nts SODIUM (test code = NA) 139 mmol/l 134.0-147.0 N POTASSIUM (test code = K) 3.9 mmol/L 3.6-5.2 N CHLORIDE (test code = CL) 105 mmol/l 98.0-107.0 N CARBON DIOXIDE (test code = CO2) 24.7 mmol/l 21.0-33.0 N ANION GAP (test code = GAP) 13.2 0-20 N GLUCOSE (test code = GLU) 89 mg/dl 70.0-110.0 N BLOOD UREA NITROGEN (test code = BUN) 25 mg/dl 7.0-18.0 H CREATININE (test code = CREAT) 0.70 mg/dL 0.60-1.30 N GFR NON BLACK (test code = GFRNONBLACK) 85 mL/min 70-80 H GFR BLACK (test code = GFRBLACK) 103 mL/min 85-97 H TOTAL PROTEIN (test code = PROT) 8.0 gm/dL 6.4-8.2 N ALBUMIN (test code = ALB) 2.8 gm/dl 3.2-4.7 L CALCIUM (test code = CA) 8.8 mg/dl 8.0-10.5 N BILIRUBIN TOTAL (test code = BILT) 0.4 mg/dl 0.0-1.0 N SGOT/AST (test code = AST) 18 Units/L 15.0-37.0 N SGPT/ALT (test code = ALT) 19 Units/L 12.0-78.0 N ALKALINE PHOSPHATASE TOTAL (test code = ALKP) 85 Units/L 50.0-136 .0 N [id number] 08:42:00 Test Item Value Reference Range Interpretation Comments MAGNESIUM (test code = MAG) 2.4 mg/dl 1.8-2.4 N CBC W/AUTO [id number] 08:11:00 Test Item Value Reference Range Interpretation Comments WHITE BLOOD CELL (test code = 8.8 K/mm3 4.5-11.0 N WBC) RED BLOOD CELL (test code = 3.01 M/mm3 3.80-5.20 L RBC) HEMOGLOBIN (test code = HGB) 9.0 gm/dL 12.0-16.0 L HEMATOCRIT (test code = HCT) 28.7 % 36.0-48.0 L MEAN CELL VOLUME (test code = 95.3 UM3 82.0-99.0 N MCV) MEAN CELL HGB (test code = MCH) 29.9 UUG 25.5-32.5 N MEAN CELL HGB CONCETRATION 31.4 gm/dL 29.0-35.5 N (test code = MCHC) RED CELL DISTRIBUTION WIDTH 13.4 % 11.5-15.0 N (test code = RDW) RED CELL DISTRIBUTION WIDTH SD 46.9 fL 34.8-50.2 N (test code = RDW-SD) PLATELET COUNT (test code = 476 K/mm3 150-400 H PLT) MEAN PLATELET VOLUME (test code 9.8 fl 7.4-10.4 N = MPV) NEUTROPHIL % (test code = NT%) 65.8 % 49.0-76.0 N IMMATURE GRANULOCYTE % (test 0.3 % 0.0-0.4 N code = IG%) LYMPHOCYTE % (test code = LY%) 22.2 % 23.0-38.0 L MONOCYTE % (test code = MO%) 8.1 % 1.0-10.0 N EOSINOPHIL % (test code = EO%) 3.4 % 1.0-5.0 N BASOPHIL % (test code = BA%) 0.2 % 0.0-1.0 N NUCLEATED RBC % (test code = 0.0 % 0.0-0.1 N NRBC%) NEUTROPHIL # (test code = NT#) 5.8 K/mm3 2.4-6.3 N IMMATURE GRANULOCYTE # (test 0.03 x10 3/uL 0.00-0.07 N code = IG#) LYMPHOCYTE # (test code = LY#) 1.9 K/mm3 1.2-4.0 N MONOCYTE # (test code = MO#) 0.7 K/mm3 0.0-0.6 H EOSINOPHIL # (test code = EO#) 0.3 K/MM3 0.0-0.7 N BASOPHIL # (test code = BA#) 0.0 K/mm3 0.0-0.2 N NUCLEATED RBC # (test code = 0.00 X10 3uL 0.00-0.01 N NRBC#) UA RFLX MICR CULT IF [id number] 10:19:00 Test Item Value Reference Range Interpretation Comments UA GLUCOSE DIPSTICK NORMAL mg/dl NORMAL (test code = DGLUU) UA BILIRUBIN DIPSTICK NEGATIVE mg/dL NEGATIVE (test code = BILU) UA KETONE DIPSTICK NEGATIVE mg/dl NEGATIVE (test code = KETU) UA SPECIFIC GRAVITY 1.010 1.000-1.030 (test code = SGU) UA BLOOD DIPSTICK 25 [place]/micL NEGATIVE A (test code = NASEEM) Bonifacio/micL UA PH DIPSTICK (test 7.0 5.0-9.0 code = CHRISTINA) UA PROTEIN DIPSTICK 15 mg/dl mg/dl NEGATIVE A (test code = PROU) UA UROBILINIOGEN 4.0 mg/dl mg/dl NORMAL A DIPSTICK (test code = URO) UA NITRITE DIPSTICK NEGATIVE NEGATIVE (test code = LIZZIE) UA LEUKOCYTE ESTERASE 500 [place]/micL NEGATIVE A DIPSTICK (test code = Mary[place]/micL LEUU) UA WBC (test code = 10-15 WBC/HPF NONE A WBCU) UA CULTURE NEEDED? YES,WBC>10 & Culture Chk Criteria met, (test code = UACULT) EPI<=15 Criteria Uri ne Culture in-process. Indication for culture: Delirium-if no other srcSpecimen Description: CLEAN CATCHUA RFLX MICR CULT IF [id number] 10:15:00 Test Item Value Reference Range Interpretation Comments UA GLUCOSE DIPSTICK (test NORMAL mg/dl NORMAL code = DGLUU) UA BILIRUBIN DIPSTICK NEGATIVE mg/dL NEGATIVE (test code = BILU) UA KETONE DIPSTICK (test NEGATIVE mg/dl NEGATIVE code = KETU) UA SPECIFIC GRAVITY (test 1.010 1.000-1.030 code = SGU) UA BLOOD DIPSTICK (test 25 [place]/micL Bonifacio/micL NEGATIVE A code = NASEEM) UA PH DIPSTICK (test code 7.0 5.0-9.0 = CHRISTINA) UA PROTEIN DIPSTICK (test 15 mg/dl mg/dl NEGATIVE A code = PROU) UA UROBILINIOGEN DIPSTICK 4.0 mg/dl mg/dl NORMAL A (test code = URO) UA NITRITE DIPSTICK (test NEGATIVE NEGATIVE code = LIZZIE) UA LEUKOCYTE ESTERASE 500 [place]/micL NEGATIVE A DIPSTICK (test code = Mary[place]/micL LEUU) UA WBC (test code = WBCU) WBC/HPF NONE UA CULTURE NEEDED? (test Criteria Culture Chk code = UACULT) Indication for culture: Delirium-if no other srcSpecimen Description: CLEAN CATCHCBC W/O [id number] 07:08:00 Test Item Value Reference Range Interpretation Comments WHITE BLOOD CELL (test code = WBC) 9.6 K/mm3 4.5-11.0 N RED BLOOD CELL (test code = RBC) 2.83 M/mm3 3.80-5.20 L HEMOGLOBIN (test code = HGB) 8.8 gm/dL 12.0-16.0 L HEMATOCRIT (test code = HCT) 27.4 % 36.0-48.0 L MEAN CELL VOLUME (test code = MCV) 96.8 UM3 82.0-99.0 N MEAN CELL HGB (test code = MCH) 31.1 UUG 25.5-32.5 N MEAN CELL HGB CONCETRATION (test 32.1 gm/dL 29.0-35.5 N code = MCHC) RED CELL DISTRIBUTION WIDTH (test 13.0 % 11.5-15.0 N code = RDW) PLATELET COUNT (test code = PLT) 515 K/mm3 150-400 H MEAN PLATELET VOLUME (test code = 10.2 fl 7.4-10.4 N MPV) CBC W/AUTO [id number] 00:43:00 Test Item Value Reference Range Interpretation Comments WHITE BLOOD CELL (test code = 13.0 K/mm3 4.5-11.0 H WBC) RED BLOOD CELL (test code = 3.06 M/mm3 3.80-5.20 L RBC) HEMOGLOBIN (test code = HGB) 9.4 gm/dL 12.0-16.0 L HEMATOCRIT (test code = HCT) 29.6 % 36.0-48.0 L MEAN CELL VOLUME (test code = 96.7 UM3 82.0-99.0 N MCV) MEAN CELL HGB (test code = MCH) 30.7 UUG 25.5-32.5 N MEAN CELL HGB CONCETRATION 31.8 gm/dL 29.0-35.5 N (test code = MCHC) RED CELL DISTRIBUTION WIDTH 13.0 % 11.5-15.0 N (test code = RDW) RED CELL DISTRIBUTION WIDTH SD 46.3 fL 34.8-50.2 N (test code = RDW-SD) PLATELET COUNT (test code = 583 K/mm3 150-400 H PLT) MEAN PLATELET VOLUME (test code 9.8 fl 7.4-10.4 N = MPV) NEUTROPHIL % (test code = NT%) 74.1 % 49.0-76.0 N IMMATURE GRANULOCYTE % (test 0.6 % 0.0-0.4 H code = IG%) LYMPHOCYTE % (test code = LY%) 17.2 % 23.0-38.0 L MONOCYTE % (test code = MO%) 6.9 % 1.0-10.0 N EOSINOPHIL % (test code = EO%) 1.0 % 1.0-5.0 N BASOPHIL % (test code = BA%) 0.2 % 0.0-1.0 N NUCLEATED RBC % (test code = 0.0 % 0.0-0.1 N NRBC%) NEUTROPHIL # (test code = NT#) 9.6 K/mm3 2.4-6.3 H IMMATURE GRANULOCYTE # (test 0.08 x10 3/uL 0.00-0.07 H code = IG#) LYMPHOCYTE # (test code = LY#) 2.2 K/mm3 1.2-4.0 N MONOCYTE # (test code = MO#) 0.9 K/mm3 0.0-0.6 H EOSINOPHIL # (test code = EO#) 0.1 K/MM3 0.0-0.7 N BASOPHIL # (test code = BA#) 0.0 K/mm3 0.0-0.2 N NUCLEATED RBC # (test code = 0.00 X10 3uL 0.00-0.01 N NRBC#) MORPHOLOGY COMMENT (test code = NM MOC) PLATELET ESTIMATE (test code = INCREASED PLTEST) BASIC METABOLIC [id number] 19:31:00 Test Item Value Reference Range Interpretation Comments SODIUM (test code = NA) 134 mmol/l 134.0-147.0 N POTASSIUM (test code = K) 4.2 mmol/L 3.6-5.2 N CHLORIDE (test code = CL) 99 mmol/l 98.0-107.0 N CARBON DIOXIDE (test code = CO2) 28.2 mmol/l 21.0-33.0 N ANION GAP (test code = GAP) 11.0 0-20 N GLUCOSE (test code = GLU) 122 mg/dl 70.0-110.0 H BLOOD UREA NITROGEN (test code = 21 mg/dl 7.0-18.0 H BUN) CREATININE (test code = CREAT) 0.85 mg/dL 0.60-1.30 N GFR NON BLACK (test code = 68 mL/min 70-80 L GFRNONBLACK) GFR BLACK (test code = GFRBLACK) 82 mL/min 85-97 L CALCIUM (test code = CA) 8.7 mg/dl 8.0-10.5 N CBC W/AUTO [id number] 19:21:00 Test Item Value Reference Range Interpretation Comments WHITE BLOOD CELL (test code = 13.0 K/mm3 4.5-11.0 H WBC) RED BLOOD CELL (test code = 3.06 M/mm3 3.80-5.20 L RBC) HEMOGLOBIN (test code = HGB) 9.4 gm/dL 12.0-16.0 L HEMATOCRIT (test code = HCT) 29.6 % 36.0-48.0 L MEAN CELL VOLUME (test code = 96.7 UM3 82.0-99.0 N MCV) MEAN CELL HGB (test code = MCH) 30.7 UUG 25.5-32.5 N MEAN CELL HGB CONCETRATION 31.8 gm/dL 29.0-35.5 N (test code = MCHC) RED CELL DISTRIBUTION WIDTH 13.0 % 11.5-15.0 N (test code = RDW) RED CELL DISTRIBUTION WIDTH SD 46.3 fL 34.8-50.2 N (test code = RDW-SD) PLATELET COUNT (test code = 583 K/mm3 150-400 H PLT) MEAN PLATELET VOLUME (test code 9.8 fl 7.4-10.4 N = MPV) NEUTROPHIL % (test code = NT%) 74.1 % 49.0-76.0 N IMMATURE GRANULOCYTE % (test 0.6 % 0.0-0.4 H code = IG%) LYMPHOCYTE % (test code = LY%) 17.2 % 23.0-38.0 L MONOCYTE % (test code = MO%) 6.9 % 1.0-10.0 N EOSINOPHIL % (test code = EO%) 1.0 % 1.0-5.0 N BASOPHIL % (test code = BA%) 0.2 % 0.0-1.0 N NUCLEATED RBC % (test code = 0.0 % 0.0-0.1 N NRBC%) NEUTROPHIL # (test code = NT#) 9.6 K/mm3 2.4-6.3 H IMMATURE GRANULOCYTE # (test 0.08 x10 3/uL 0.00-0.07 H code = IG#) LYMPHOCYTE # (test code = LY#) 2.2 K/mm3 1.2-4.0 N MONOCYTE # (test code = MO#) 0.9 K/mm3 0.0-0.6 H EOSINOPHIL # (test code = EO#) 0.1 K/MM3 0.0-0.7 N BASOPHIL # (test code = BA#) 0.0 K/mm3 0.0-0.2 N NUCLEATED RBC # (test code = 0.00 X10 3uL 0.00-0.01 N NRBC#) CBC W/AUTO [id number] 07:44:00 Test Item Value Reference Range Interpretation Comments WHITE BLOOD CELL (test code = 9.1 K/mm3 4.5-11.0 N WBC) RED BLOOD CELL (test code = 3.03 M/mm3 3.80-5.20 L RBC) HEMOGLOBIN (test code = HGB) 9.5 gm/dL 12.0-16.0 L HEMATOCRIT (test code = HCT) 29.5 % 36.0-48.0 L MEAN CELL VOLUME (test code = 97.4 UM3 82.0-99.0 N MCV) MEAN CELL HGB (test code = MCH) 31.4 UUG 25.5-32.5 N MEAN CELL HGB CONCETRATION 32.2 gm/dL 29.0-35.5 N (test code = MCHC) RED CELL DISTRIBUTION WIDTH 13.0 % 11.5-15.0 N (test code = RDW) RED CELL DISTRIBUTION WIDTH SD 46.5 fL 34.8-50.2 N (test code = RDW-SD) PLATELET COUNT (test code = 384 K/mm3 150-400 N PLT) MEAN PLATELET VOLUME (test code 10.5 fl 7.4-10.4 H = MPV) NEUTROPHIL % (test code = NT%) 74.5 % 49.0-76.0 N IMMATURE GRANULOCYTE % (test 0.9 % 0.0-0.4 H code = IG%) LYMPHOCYTE % (test code = LY%) 11.8 % 23.0-38.0 L MONOCYTE % (test code = MO%) 10.5 % 1.0-10.0 H EOSINOPHIL % (test code = EO%) 2.0 % 1.0-5.0 N BASOPHIL % (test code = BA%) 0.3 % 0.0-1.0 N NUCLEATED RBC % (test code = 0.0 % 0.0-0.1 N NRBC%) NEUTROPHIL # (test code = NT#) 6.8 K/mm3 2.4-6.3 H IMMATURE GRANULOCYTE # (test 0.08 x10 3/uL 0.00-0.07 H code = IG#) LYMPHOCYTE # (test code = LY#) 1.1 K/mm3 1.2-4.0 L MONOCYTE # (test code = MO#) 1.0 K/mm3 0.0-0.6 H EOSINOPHIL # (test code = EO#) 0.2 K/MM3 0.0-0.7 N BASOPHIL # (test code = BA#) 0.0 K/mm3 0.0-0.2 N NUCLEATED RBC # (test code = 0.00 X10 3uL 0.00-0.01 N NRBC#) COMPREHENSIVE METABOLIC [id number] 07:18:00 Test Item Value Reference Range Interpretation Comments SODIUM (test code = NA) 137 mmol/l 134.0-147.0 N POTASSIUM (test code = K) 4.8 mmol/L 3.6-5.2 N CHLORIDE (test code = CL) 100 mmol/l 98.0-107.0 N CARBON DIOXIDE (test code = CO2) 30.9 mmol/l 21.0-33.0 N ANION GAP (test code = GAP) 10.9 0-20 N GLUCOSE (test code = GLU) 115 mg/dl 70.0-110.0 H BLOOD UREA NITROGEN (test code = 17 mg/dl 7.0-18.0 N BUN) CREATININE (test code = CREAT) 0.65 mg/dL 0.60-1.30 N GFR NON BLACK (test code = 93 mL/min 70-80 H GFRNONBLACK) GFR BLACK (test code = GFRBLACK) 112 mL/min 85-97 H TOTAL PROTEIN (test code = PROT) 7.2 GM/DL 6.0-8.1 N ALBUMIN (test code = ALB) 2.2 gm/dL 3.2-4.7 L CALCIUM (test code = CA) 8.8 mg/dl 8.0-10.5 N BILIRUBIN TOTAL (test code = 0.7 mg/dl 0.0-1.0 N BILT) SGOT/AST (test code = AST) 24 Units/L 15.0-37.0 N SGPT/ALT (test code = ALT) 19 Units/L 12.0-78.0 N ALKALINE PHOSPHATASE TOTAL (test 87 Units/L 50.0-136.0 N code = ALKP) [id number] 00:49:00 Test Item Value Reference Range Interpretation Comments GLUBED (test code = GLUBED) 145 mg/dL 70-110 H VITAMIN [id number] 08:28:00 Test Item Value Reference Range Interpretation Comments VITAMIN B12 (test code = VITB12) 393 pg/mL 193-986 N THYROID STIMULATING [id number] 08:28:00 Test Item Value Reference Range Interpretation Comments THYROID STIMULATING 1.39 IU/ML 0.47-5.01 N Result i s in HORMONE (test code = Interna tional TSH) Units/millilite r COMPREHENSIVE METABOLIC [id number] 07:59:00 Test Item Value Reference Range Interpretation Comments SODIUM (test code = NA) 137 mmol/l 134.0-147.0 N POTASSIUM (test code = K) 3.3 mmol/L 3.6-5.2 L CHLORIDE (test code = CL) 102 mmol/l 98.0-107.0 N CARBON DIOXIDE (test code = CO2) 23.8 mmol/l 21.0-33.0 N ANION GAP (test code = GAP) 14.5 0-20 N GLUCOSE (test code = GLU) 82 mg/dl 70.0-110.0 N BLOOD UREA NITROGEN (test code = 13 mg/dl 7.0-18.0 N BUN) CREATININE (test code = CREAT) 0.72 mg/dL 0.60-1.30 N GFR NON BLACK (test code = 82 mL/min 70-80 H GFRNONBLACK) GFR BLACK (test code = GFRBLACK) 100 mL/min 85-97 H TOTAL PROTEIN (test code = PROT) 6.9 gm/dL 6.4-8.2 N ALBUMIN (test code = ALB) 2.2 gm/dl 3.2-4.7 L CALCIUM (test code = CA) 8.3 mg/dl 8.0-10.5 N BILIRUBIN TOTAL (test code = 1.3 mg/dl 0.0-1.0 H BILT) SGOT/AST (test code = AST) 35 Units/L 15.0-37.0 N SGPT/ALT (test code = ALT) 18 Units/L 12.0-78.0 N ALKALINE PHOSPHATASE TOTAL (test 70 Units/L 50.0-136.0 N code = ALKP) Specimen comments: .[id number] 07:59:00 Test Item Value Reference Range Interpretation Comments MAGNESIUM (test code = MAG) 2.2 mg/dl 1.8-2.4 N Specimen comments: .[id number] 07:49:00 Test Item Value Reference Range Interpretation Comments AMMONIA (test code = AMM) 7.0 MCMOL/L 11.0-32.0 L CBC W/AUTO [id number] 07:26:00 Test Item Value Reference Range Interpretation Comments WHITE BLOOD CELL (test code = 10.7 K/mm3 4.5-11.0 N WBC) RED BLOOD CELL (test code = 3.11 M/mm3 3.80-5.20 L RBC) HEMOGLOBIN (test code = HGB) 9.8 gm/dL 12.0-16.0 L HEMATOCRIT (test code = HCT) 29.9 % 36.0-48.0 L MEAN CELL VOLUME (test code = 96.1 UM3 82.0-99.0 N MCV) MEAN CELL HGB (test code = MCH) 31.5 UUG 25.5-32.5 N MEAN CELL HGB CONCETRATION 32.8 gm/dL 29.0-35.5 N (test code = MCHC) RED CELL DISTRIBUTION WIDTH 13.1 % 11.5-15.0 N (test code = RDW) RED CELL DISTRIBUTION WIDTH SD 45.9 fL 34.8-50.2 N (test code = RDW-SD) PLATELET COUNT (test code = 234 K/mm3 150-400 N PLT) MEAN PLATELET VOLUME (test code 11.1 fl 7.4-10.4 H = MPV) NEUTROPHIL % (test code = NT%) 80.9 % 49.0-76.0 H IMMATURE GRANULOCYTE % (test 0.7 % 0.0-0.4 H code = IG%) LYMPHOCYTE % (test code = LY%) 8.1 % 23.0-38.0 L MONOCYTE % (test code = MO%) 8.6 % 1.0-10.0 N EOSINOPHIL % (test code = EO%) 1.4 % 1.0-5.0 N BASOPHIL % (test code = BA%) 0.3 % 0.0-1.0 N NUCLEATED RBC % (test code = 0.0 % 0.0-0.1 N NRBC%) NEUTROPHIL # (test code = NT#) 8.7 K/mm3 2.4-6.3 H IMMATURE GRANULOCYTE # (test 0.07 x10 3/uL 0.00-0.07 N code = IG#) LYMPHOCYTE # (test code = LY#) 0.9 K/mm3 1.2-4.0 L MONOCYTE # (test code = MO#) 0.9 K/mm3 0.0-0.6 H EOSINOPHIL # (test code = EO#) 0.2 K/MM3 0.0-0.7 N BASOPHIL # (test code = BA#) 0.0 K/mm3 0.0-0.2 N NUCLEATED RBC # (test code = 0.00 X10 3uL 0.00-0.01 N NRBC#) URINALYSIS [id number] 23:44:00 Test Item Value Reference Range Interpretation Comments UA COLOR (test code = YELLOW COLU) UA APPEARANCE (test code HAZY = APPU) UA GLUCOSE DIPSTICK (test NORMAL mg/dl NORMAL code = DGLUU) UA BILIRUBIN DIPSTICK NEGATIVE mg/dL NEGATIVE (test code = BILU) UA KETONE DIPSTICK (test 15 mg/dl mg/dl NEGATIVE A code = KETU) UA SPECIFIC GRAVITY (test 1.015 1.000-1.030 code = SGU) UA BLOOD DIPSTICK (test 150 Bonifacio/micL NEGATIVE A code = NASEEM) Bonfiacio/micL UA PH DIPSTICK (test code 5.0 5.0-9.0 = CHRISTINA) UA PROTEIN DIPSTICK (test 30 mg/dl NEGATIVE A code = PROU) UA UROBILINIOGEN DIPSTICK 1.0 mg/dl mg/dl NORMAL A (test code = URO) UA NITRITE DIPSTICK (test NEGATIVE NEGATIVE code = LIZZIE) UA LEUKOCYTE ESTERASE 100 Marysol/micL NEGATIVE A DIPSTICK (test code = Marysol/micL LEUU) UA WBC (test code = WBCU) 10-15 WBC/HPF NONE A UA RBC (test code = RBCU) 25-50 RBC/HPF 0-3 A UA EPITHELIAL CELLS (test 15-25 EPI/HPF 0-3 A code = EPIU) UA BACTERIA (test code = MANY NONE A BACU) UA RENAL CELLS (test code FEW = CHELSEA) UA MUCUS (test code = 1+ MUCU) UA AMORPHOUS SEDIMENT FEW NONE (test code = AMORU) Specimen comments: Straight cath if unable to obtain Clean CatchURINALYSIS [id number] 23:20:00 Test Item Value Reference Range Interpretation Comments UA COLOR (test code = YELLOW COLU) UA APPEARANCE (test code HAZY = APPU) UA GLUCOSE DIPSTICK (test NORMAL mg/dl NORMAL code = DGLUU) UA BILIRUBIN DIPSTICK NEGATIVE mg/dL NEGATIVE (test code = BILU) UA KETONE DIPSTICK (test 15 mg/dl mg/dl NEGATIVE A code = KETU) UA SPECIFIC GRAVITY (test 1.015 1.000-1.030 code = SGU) UA BLOOD DIPSTICK (test 150 Bonifacio/micL NEGATIVE A code = NASEEM) Bonifacio/micL UA PH DIPSTICK (test code 5.0 5.0-9.0 = CHRISTINA) UA PROTEIN DIPSTICK (test 30 mg/dl NEGATIVE A code = PROU) UA UROBILINIOGEN DIPSTICK 1.0 mg/dl mg/dl NORMAL A (test code = URO) UA NITRITE DIPSTICK (test NEGATIVE NEGATIVE code = LIZZIE) UA LEUKOCYTE ESTERASE 100 Marysol/micL NEGATIVE A DIPSTICK (test code = Marysol/micL LEUU) UA WBC (test code = WBCU) WBC/HPF NONE UA RBC (test code = RBCU) RBC/HPF 0-3 UA EPITHELIAL CELLS (test EPI/HPF 0-3 code = EPIU) UA BACTERIA (test code = NONE BACU) Specimen comments: Straight cath if unable to obtain Clean CatchCOMPREHENSIVE METABOLIC [id number] 16:01:00 Test Item Value Reference Range Interpretation [...] H BLOOD UREA NITROGEN (test code = 20 mg/dl 7.0-18.0 H BUN) CREATININE (test code = CREAT) 0.75 mg/dL 0.60-1.30 N GFR NON BLACK (test code = 79 mL/min 70-80 N GFRNONBLACK) GFR BLACK (test code = GFRBLACK) 95 mL/min 85-97 N TOTAL PROTEIN (test code = PROT) 8.7 gm/dL 6.4-8.2 H ALBUMIN (test code = ALB) 3.6 gm/dl 3.2-4.7 N CALCIUM (test code = CA) 9.8 mg/dl 8.0-10.5 N BILIRUBIN TOTAL (test code = 0.4 mg/dl 0.0-1.0 N BILT) SGOT/AST (test code = AST) 24 Units/L 15.0-37.0 N SGPT/ALT (test code = ALT) 21 Units/L 12.0-78.0 N ALKALINE PHOSPHATASE TOTAL (test 85 Units/L 50.0-136.0 N code = ALKP) [id number] 16:01:00 Test Item Value Reference Range Interpretation Comments TROPONIN-I (test <0.02 NG/ML 0.00-0.06 N REFERENCE R MALCOLM code = TROPI) TROPONIN I HEA LTHY INDIVIDUALS: < 0.06 ng/mL R/O ISCHE GREGORIO: 0.07 - 0.60 ng/ mL CUT-OFF RANGE F OR AMI: 0.60 - 1.5 ng/m L COMPREHENSIVE METABOLIC [id number] 15:50:00 Test Item Value Reference Range Interpretation [...] TOTAL (test Units/L 50.0-136.0 code = ALKP) [id number] 15:50:00 Test Item Value Reference Range Interpretation Comments TROPONIN-I (test code = TROPI) NG/ML 0.00-0.06 CBC W/AUTO [id number] 15:46:00 Test Item Value Reference Range Interpretation [...] K/mm3 0.0-0.2 N - XR ELBOW 3+V [id number] 15:44:00 FAX: Art Rodriguez MD [place]: St: REG Name: ERNESTO BALDWIN [facility] : 1940 Age/S: 78/F [address] [facility] Unit#: [id number] Loc: [place], [place]: [place] [address] Acct: [id number] Dis Date: Status: REG ER PHONE #: [phone] Exam Date: 08/01/2018 1526 FAX #: [phone] Reason: FALL - ELBOW INJURY EXAMS: CPT CODE: [id number] XR ELBOW 3+V RT [address] Location: U19. RIGHT ELBOW 3 VIEWSHISTORY: FALL - ELBOW INJURY FINDINGS: No fracture, dislocation, soft tis alma swelling or joint effusion. Calcification seen along the lateral epicondyle. IMPRESSION: No fracture or dislocation. at 8180 Reported and signed by: Vincenzo Peters M.D. CC: Art Rodriguez MD Technologist: KODY MARIN Trnscrd Date/Time/By: 08/01/2018 (154) : By: [email or web address] PAGE 1 Signed Report FAX: Art Rodriguez MD [place]: St: REG -- Name: ERNESTO BALDWIN [facility] 1940 Age/S: 78/F[address] [facility] Unit #: [id number] Loc: [place], [place] Phys: [place] [address] Acct: [id number] Dis Date: Status: REG ER PHONE #: [phone] Exam Date: 08/01/2018 1526 FAX #: [phone] Reason: FALL - ELBOW INJURY EXAMS: CPT CODE: [id number] XR ELBOW 3+V RT 0[address]42 <Continued> Orig Print D/T: S: 08/01/2018 (0838) PAGE 2 Signed Report- XR HAND 3 + V [id number] 15:33:00 FAX: Art Rodriguez MD [place]: St: REG Name: ERNESTO BALDWIN [facility] : 1940 Age/S: 78/F [address] [facility] Unit[facility] [id number] Loc: [place], [place] Phys: [place] [address] Acct: [id number] Dis Date: Status: REG ER PHONE #: [phone] Exam Date: 08/01/2018 1526 FAX #: [phone] Reason: FALL HAND INJURY EXAMS: CPT CODE: [id number] XR HAND 3 + [place] [address] LOCATION: T18 EXAM: LEFT HAND 3 VIEWS INDICATION: Left hand injury COMPARISON: None. TECHNIQUE: PA, lateral and oblique radiographs of the left hand FINDINGS: No acute fractures identified. Carpal bones are normal in alignment. Peripheral soft tissues are normal. IMPRESSION: No acute bony abnormality. at 1533 Reported and signed by: Jeffery Quintana M.D.CC: Art Rodriguez MD Technologist: KODY Cottohird Date/Time/By: 08/01/2018 (1538) : By: [email or web address] PAGE 1 Signed Report FAX: Art Rodriguez MD [place]: St: REG -- Name: ERNESTO BALDWIN [facility] : 1940 Age/S: 78/F [address] [employer] Unit #: [id number] Loc: [place], [place]: [place] [address] Acct: [id number] Dis Date: Status: REG ER PHONE #: [phone] Exam Date: 08/01/2018 [facility] FAX #: [phone] Reason: FALL HANDINJURY EXAMS: CPT CODE: [id number] XR HAND 3 + V LT [address]44 <Continued> Orig Print D/T: S: 08/01/2018 (1533) PAGE 2 Signed Report- XR CHEST 1 V 2018-08-01 15:31:00 FAX: Art Rodriguez MD [place]: St: REG Name: ERNESTO BALDWIN [facility] : 1940 Age/S: 78/F [address] [employer] Unit#: [id number] Loc: [place], [place]: [place] [address] Acct: [id number] Dis Date: Status: REG ER PHONE #: [phone] Exam Date: 08/01/2018 1526 FAX #: [phone] Reason: FALL EXAMS: CPT CODE: [id number] XR CHEST 1 V 30881 LOCATION: T18 EXAM: CHEST 1 VIEW INDICATION: [...] CC: Art Rodriguez MD Technologist: [facility]ODY MARIN [facility] Date/Time/By: 08/01/2018 (7877) : By: [email or web address] PAGE 1 Signed Report FAX: Art Rodriguez MD [place]: St: REG Name: ERNESTO BALDWIN [facility] : 1940 Age/S: 78/F [address] [facility] Unit #: [id number] Loc: [place], [place]: [place] [address] Acct: [id number] Dis Date: Status: REG ER PHONE #: [phone] Exam Date: 08/01/2018 1526 FAX #: [phone] Reason: FALL EXAMS: CPT CODE: [id number] XR CHEST 1 V 54068 <Continued> Orig Print D/T: S: 08/01/2018 (7416) PAGE 2 Signed Report- CT MAXIFAC W/O [id number] 15:20:00 FAX: Art Rodriguez MD [place]: St: REG Name: ERNESTO BALDWIN [facility] : 1940 Age/S: 78/F [address] [facility] [address] Unit: [id number] Loc: [place], [place]: [place] [address] Acct: [id number] Dis Date: Status: REG ER PHONE #: [phone] Exam Date: 08/01/2018 5872 FAX #: [phone] Reason: FALL - FACIAL INJURY EXAMS: CPT CODE: [id number] CT MAXIFAC W/O CONTRAST 48594 CT maxillofacial bones without contrast Location Code: [...] Technologist: ARSENIO VILLANUEVA Trnscrd Dt/Tm: 08/01/2018 (1520) [email or web address] Orig Print D/T: S: 08/01/2018 (1523 PAGE 1 Signed Report- CT C-SPINE W/O [id number] 15:18:00 FAX: Art Rodriguez MD [place]: St: REG Name: ERNESTO BALDWIN [facility] : 1940 Age/S: 78/F [address] [facility] [address] Unit: [id number] Loc: [place], [place]: [place] [address] Acct: [id number] Dis Date: Status: REG ER PHONE #: [phone] Exam Date: 08/01/2018 1455 FAX #: [phone] Reason: FALL - HEAD INJURY EXAMS: CPT CODE: [id number] CT C-SPINE W/O CONT 21148 CT CERVICAL SPINE WITHOUT CONTRAST; SAGITTAL AND [...] Technologist: ARSENIO VILLANUEVA Trnscrd Dt/Tm: 08/01/2018 (1518) [email or web address] Orig Print D/T: S: 08/01/2018 (1521 PAGE 1 Sign ed Report- CT HEAD/BRAIN W/O [id number] 15:14:00 FAX: Art Rodriguez MD [place]: St: REG Name: ERNESTO BALDWIN [facility] : 1940 Age/S: 78/F [address] Unit: [id number] Loc: [place], [place] Phys: [place] [address] Acct: [id number] Dis Date: Status: REG ER PHONE #: [phone] Exam Date: 08/01/2018 1457 FAX #: [phone] Reason: FALL - HEAD INJURY EXAMS: CPT CODE: [id number] CT HEAD/BRAIN W/O CONT 03872 EXAM: CT Head without contrast Location code:J9 [...] noted superior to the frontal lobes. at 1514 Reported and signed by: Alvarado Estrada M.D. CC: Art Rodriguez MD Technologist: ARSENIO VILLANUEVA Trnscrd Dt/Tm: 08/01/2018 (1514) [email or web address] Orig Print D/T: S: 08/01/2018 (1518 PAGE1 Signed Report- XR KNEE 3 V [id number] 14:49:00 FAX: Art Rodriguez MD [place]: St: PRE Name: ERNESTO BALDWIN [facility] : 1940 Age/S: 78/F [address] [facility] [email or web address] Unit#: [id number] Loc: [place], [place]: [place] [address] Acct: [id number] Dis Date: Status: PRE ER PHONE #: [phone] Exam Date: 08/01/2018 1443 FAX #: [phone] Reason: KNEE PAIN EXAMS: CPT CODE: [id number] XR KNEE 3 V RT 89347 Location: U19. RIGHT KNEE 3 VIEWS HISTORY: Right knee pain FINDINGS: Anterior soft tissue swelling. No fracture or dislocation. Mild osteophyte formation seen in the patellofemoral compartment. Vascular calcifications. No fracture or dislocation. IMPRESSION: Anterior soft tissue swelling without a fracture or dislocation. at 1449 Reported and signed by: Vincenzo Peters M.D. CC: Art Rodriguez MD Technologist: SHAN GAN Trnhird Date/Time/By: 08/01/2018 (2392) : By: [email or web address] PAGE 1 Signed Report FAX: Art Rodriguez MD [place]: St: PRE -- Name: ERNESTO BALDWIN [facility] : 1940 Age/S: 78/F [address] [facility] [email or web address] Unit #: [id number] Loc: [place], [place]: [place] [address] Acct: [id number] Dis Date: Status: PRE ER PHONE #: [phone] Exam Date: 08/01/2018 9727 FAX #: [phone] Reason: KNEE PAIN EXAMS: CPT CODE: [id number] XR KNEE 3 V RT 67481 <Continued> Orig PrintD/T: S: 08/01/2018 (1563) PAGE 2 Signed Report
--- OUTSIDE RECORDS SUMMARY | 2020-02-17 14:09 | XMS REPORT ---
[...] Medications Results No Known Results Summary Purpose [facility] Submission
--- OUTSIDE RECORDS SUMMARY | 2020-02-17 14:09 | XMS REPORT ---
:1940 Author Organization [facility] Address [address] [place] [address] Care Team Providers Name Role Phone Julio Unavailable [phone] PROBLEMS Type Condition ICD9-CM MQN37-DS Onset Condition SNOMED Code Notes Code Code Dates Status Problem Osteopenia of M85.89 Active 153124385 multiple sites Problem Hypertension, I10 Active 42717546 unspecified type Problem Breast lump N63.0 Active 08722159 Problem Depression, F32.9 Active 35297347 unspecified depression type Problem History of Z85.42 Active 571658758 endometrial cancer Problem Pain in right M25.511 Active 19918983 shoulder Problem Pain in left M25.512 Active 19039446 shoulder Problem Malignant C50.911 Active 975259041 neoplasm of right female breast, unspecified estrogen receptor status, unspecified site of breast Problem History of Z85.3 Active 630946547 breast cancer Problem Vaginal Z92.89 Active 8779947223954 pessary in situ Problem S/P right Z90.11 Active 780409316 mastectomy Problem Right knee M25.561 Active 60057849 Acute of pain, chronic. unspecified chronicity Problem Routine eye Z01.00 Active 043067769 exam Problem Pain in left M25.552 Active 05730220 hip Problem Status post Z91.81 Active 246134259 1 week ago . fall Problem Skin R23.8 Active 129569060 With irritation itching located at right mastectomy scar. Problem Right hip pain M25.551 Active 464751795534375 Problem Right leg pain M79.604 Active 140946942 Problem Status post Z96.642 Active 199554783 left hip replacement Problem Depression F32.9 Active 193569882 Problem Dementia with F03.91 Active 9316426140188 behavioral disturbance, unspecified dementia type Problem Insomnia, G47.00 Active 377639268 unspecified type Problem Vaginal N89.8 Active 04141548 dryness Problem Other chronic G89.29 Active 48545024 pain Problem Low back pain M54.5 Active 225360380 Problem Hypertension I10 Active 75401850 Problem Allergic J30.9 Active 24099421 rhinitis ALLERGIES Allergen (clinical Drug/Non Drug Reaction Allergy Type Onset Date S tatus drug ingredient) Allergy documented on EMR tramadol Tramadol HCl([facility] Hallucinations Drug Allergy Ac tive Code:[address]-90 ) promethazine Phenergan([facility] vomiting Drug Allergy Active Code:[address]-38 ) morphine MORPHINE hallucinations Drug Allergy Active ENCOUNTERS from 1940 to 2020-02-09 Encounter Location Date Provider Diagnosis [facility] [address] [facility] [address] 06 Feb, 2020 Alberto Julio Dementia with Family [place] [address] disturbance, unspecified dem entia type F03.91 ; F all, subsequent enco unter W19.XXXD ; Stat us post left hip replac ement Z96.[address] ght loss R63.4 IMMUNIZATIONS Vaccine Route Administration Date Status FLUZONE HIGH DOSE OVER 65 IM Intramuscular Feb 27, 2018 Admin istered SOCIAL HISTORY Tobacco Use: Social History Observation Description Date Details (start date - stop date) Current Smoker Sex Assigned At : Social History Observation Description Sex Assigned At Unknown PHQ9 Question Answer Notes Little interest or pleasure in doing things Several days Feeling down, depressed, or hopeless Several days Trouble falling or staying asleep or sleeping too much Sever al days Feeling tired or having little energy More than half the day s Poor appetite or overeating More than half the days Feeling bad about yourself, or that you are a failure, Sever al days or have let yourself or your family down Trouble concentrating on things, such as reading the Not at all newspaper or watching television Moving or speaking so slowly that other people could Not at all have noticed; or the opposite, being so fidgety or restless that you have been moving around a lot more than usual Total Score 8 Interpretation Mild Depression Thoughts that you would be better off or of Not at all hurting yourself in some way Alcohol Screen Question Answer Notes Did you have a drink containing alcohol in the past year? No Points 0 Interpretation Negative Tobacco Use/Smoking Question Answer Notes Additional Findings: Tobacco User Moderate cigarette smoker (10-19 cigs/day) Are you a current smoker How many cigarettes a day do you smoke? 11-20 How soon after you wake up do you smoke 6-30 minutes your first cigarette? How often do you smoke cigarettes? every day REASON FOR REFERRAL No Information VITAL SIGNS Height 62 in Feb, Weight 112 lbs Feb, BMI 20.48 kg/m2 Feb, Blood pressure systolic 112 mm Hg Feb, Blood pressure diastolic 66 mm Hg Feb, MEDICATIONS Medication SIG (Take, Route, Start Date End Date Status Frequency, Duration) Vitamin D 1000 UNIT 5 gummies (OTC) Orally Once Active daily Alendronate Sodium 35 MG 1 tablet Orally Once a week Active for the bones for 90 days Zoloft 25 mg 1 tablet Orally Once a day A ctive for 90 days Calcium 500 mg--2 gummies (OTC) Not- Taking Orally Once daily Anastrozole 1 MG 1 tablet Orally Once a day Active Vitamin C 1000 MG 1 tablet Orally Once a day Not-Taking Zoloft 50 MG 1 tablet Orally Once a day Aug, N ot-Taking for 30 day(s) PROCEDURES No Information RESULTS No Results REASON FOR VISIT [facility] pt-Hosp f/u, broken hip MEDICAL (GENERAL) HISTORY Type Description Date Medical History Allergic rhinitis Medical History Hypertension Medical History History of endometrial cancer Medical History Depression, unspecified depression type Medical History Insomnia, unspecified type Medical History Breast lump Medical History Vaginal dryness Medical History S/P right mastectomy Medical History 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 breas t, unspecified estrogen receptor status, unspecified site of breast Surgical History Appendectomy 1950 or 1951 Surgical History hysterectomy with ovaries removed second vanesa to 2005 endometrial cancer Surgical History Pessary placement per [facility] in [facility] Surgical History Right breast bx. prior to right mastecto 2017 Surgical History Right mastectomy per general sx. Dr. Hattie riggs 09/2017 Surgical History neck of left femur fracture repair (left 01/2020 hemiarthroplasty) s/p fall at [facility] in [place], [place] Hospitalization History neck of left femur fracture repair s /p fall at 01/2020 [facility] in [place], [place] Goals Section No Information Health Concerns No Information MEDICAL EQUIPMENT No Information MENTAL STATUS No Information FUNCTIONAL STATUS No Information ASSESSMENTS Encounter Date Diagnosis Notes Feb, Weight loss (ICD-10 - R63.4) Feb, Fall, subsequent encounter (ICD-10 - W19 .XXXD) Feb, Dementia with behavioral disturbance, un specified dementia type (ICD-10 - F03.91) Feb, Status post left hip replacement (ICD-10 - Z96.642) PLAN OF TREATMENT Treatment Notes Assessment Notes Clinical Notes Dementia with behavioral 80 F hx breast ca sp masectomy, disturbance, unspecified dementia dementia, left hip fx sp l eft hip type replacement presents for hospital f/u following d/c from [facility] last week. Pt requires 24 hour care from family members given fall risk and dementia. Pt needs assistance with ADL and fall precautions at home. currently receiving PT, OT and visiting nurse. ortho f/u tomorrow.-will refer for home health aide for dementia and gait instability with hx of fall, however requiring face to face visit with PCM. Referral entered, however likely need visit with PCM.-f/u with pcm Weight loss daughter reports weight loss of about 15-20 Lb since july. pt currently eating 3 meals a day with assistance, but low intake. Unclear if 2/2 recent hospitalization vs depression vs worsening of dementia. Daughter however hasn't notice affect changes or changes in sleep pattern. Will monitor weight with 1 mo f/u for weight check given likely weight loss 2/2 recent hospitalization and surgery.-f/u 1 mo for weight check. Treatment Notes Test Name Order Date ADMIT TO HOME HEALTH 2020-02-09 Next Appt Details 4 Weeks Reason:weight Follow Up:4 Weeksweight Insurance Providers Payer Name Payer Address Payer Insured Patient Coverage Cover age Phone Name Relationship to Start Date End Date Insured MEDICARE Attn Part B [id number] Curtis Leblanc self 2005 [employer] Claims [address] [facility] [address] [place] [address]
--- NOTE | 2020-02-17 15:02 | RAD REPORT ---
EXAM DESCRIPTION: USExtrem Venous W Compress Bil02/17/2020 2:53 pm CLINICAL HISTORY: Bilateral leg swelling COMPARISON: none FINDINGS: The common femoral, superficial femoral, popliteal and posterior tibial veins bilaterally are compressible and demonstrate augmentation. Doppler demonstrates good flow. IMPRESSION: No evidence of deep venous thrombosis involving either lower extremity.
[2020-02-17 15:25] LABS: Absolute Lymphocytes (CBC) 2.1 K/uL (0.7-4.9); Basophils % 0.7 % (0-1.3); Hematocrit 28.4 % (36.0-45.0); Lymphocytes % 28.7 % (15.3-44.8); MPV 9.1 fL (7.6-11.3); RBC Red Blood Cell Count 3.13 M/uL (3.86-4.86)
--- NOTE | 2020-02-17 16:01 | EDPHYS ---
Physician Documentation [facility] Name: Marilin Leblanc Age: 80 yrs Sex: Female : 1940 Arrival Date: 02/17/2020 Time: 14:08 Bed 20 Private MD: Mary Goyal ED Physician Patel Ortiz HPI: 02/16 14:36 This 80 yrs old Female presents to ER via Wheelchair with complaints of Leg cp Swelling. 14:36 The patient presents with swelling. The complaints affect the left leg. Onset: The cp symptoms/episode began/occurred yesterday, and improved today. Associated signs and symptoms: Pertinent negatives calf tenderness, numbness, warmth, weakness, chest pain, shortness of breath. Treatment prior to arrival includes: no previous treatment. 14:36 Granddaughter reports patient had left hip replacement surgery approximately 3 weeks cp ago without complications. Swelling was noted to left leg yesterday and has improved today. Patient reportedly had walked more than usual prior to noticing swelling. Historical: - Allergies: 14:36 Morphine; ca1 14:36 Promethazine; ca1 14:36 Sulfa (Sulfonamide Antibiotics); ca1 14:36 Tramadol HCl; ca1 14:36 Vicodin; ca1 14:36 Oxycodone HCl; ca1 - Home Meds: 14:36 lisinopril 10 mg Oral tab 1 tab once daily for Hypertension [Active]; Tylenol #3 Oral ca1 [Active]; anastrozole 1 mg oral tab 1 tab once daily [Active]; sertraline 25 mg oral tab 1 tab once daily [Active]; - PMHx: 14:36 Breast Cancer Right side; Hypertension; Dementia; Alzheimers; ca1 - PSHx: 14:36 L hip raplacement; Mastectomy, Right; ca1 - Immunization history:: Adult Immunizations up to date. - Social history:: Smoking status: Patient reports the use of cigarette tobacco products, denies chronic smoking, but will smoke occasionally. ROS: 14:40 Constitutional: Negative for body aches, chills, fever, poor PO intake. cp 14:40 Eyes: Negative for injury, pain, redness, and discharge. cp 14:40 ENT: Negative for ear pain, sore throat, difficulty swallowing, difficulty handling secretions. 14:40 Cardiovascular: Negative for chest pain, palpitations. 14:40 Respiratory: Negative for cough, dyspnea on exertion, shortness of breath, wheezing. 14:40 Abdomen/GI: Negative for abdominal pain, nausea, vomiting, and diarrhea. 14:40 Back: Negative for pain at rest, pain with movement. 14:40 MS/extremity: Positive for swelling, of the left leg, Negative for pain, paresthesias, tenderness, warmth. 14:40 Skin: Negative for rash. 14:40 Neuro: Negative for altered mental status, dizziness, syncope, weakness. 14:40 All other systems are negative. Exam: 14:45 Constitutional: The patient appears in no acute distress, alert, awake, cp non-diaphoretic, non-toxic, well developed, well nourished. 14:45 Head/Face: Normocephalic, atraumatic. cp 14:45 Eyes: Periorbital structures: appear normal, Conjunctiva: normal, no exudate, no injection, Sclera: no appreciated abnormality, Lids and lashes: appear normal, bilaterally. 14:45 ENT: External ear(s): are unremarkable, Nose: is normal, Posterior pharynx: Airway: no evidence of obstruction, patent. 14:45 Chest/axilla: Inspection: normal, Palpation: is normal, no crepitus, no tenderness. 14:45 Cardiovascular: Rate: normal, Rhythm: regular, Edema: pedal edema, that is mild, ankle edema, that is mild. 14:45 Respiratory: the patient does not display signs of respiratory distress, Respirations: normal, no use of accessory muscles, no retractions, labored breathing, is not present, Breath sounds: are clear throughout, no decreased breath sounds, no stridor, no wheezing. 14:45 Abdomen/GI: Inspection: abdomen appears normal, Palpation: abdomen is soft and non-tender, in all quadrants. 14:45 Back: pain, is absent, ROM is normal. 14:45 Skin: left hip surgical scar appears to be healing well with no erythema or dehiscence . 14:45 Neuro: Orientation: to person, place \T\ time. Mentation: is normal, Motor: moves all fours, strength is normal, Sensation: no obvious gross deficits. 15:10 ECG was reviewed by the Attending Physician. cp Vital Signs: 14:30 BP 137 / 65; Pulse 70; Resp 17 S; Temp 98.1(TE); Pulse Ox 100% on R/A; Weight 54.43 kg ca1 (R); Height 5 ft. 3 in. (160.02 cm) (R); Pain 0/10; 15:00 BP 121 / 62 LA (auto/reg); Pulse 63; Pulse Ox 100% on R/A; jp3 16:00 BP 126 / 52; Pulse 63; Resp 13; Pulse Ox 99% on R/A; em 14:30 Body Mass Index 21.26 (54.43 kg, 160.02 cm) ca1 MDM: 14:24 Patient medically screened. cp 15:00 Differential diagnosis: cellulitis, infected surgical wound, DVT. cp 15:03 ED course: US tech reports US negative for DVT. cp 16:00 Data reviewed: vital signs, nurses notes, lab test result(s), EKG, radiologic studies, cp ultrasound. 16:00 Test interpretation: by ED physician or midlevel provider: ECG. Counseling: I had a cp detailed discussion with the patient and/or guardian regarding: the historical points, exam findings, and any diagnostic results supporting the discharge/admit diagnosis, lab results, radiology results, to return to the emergency department if symptoms worsen or persist or if there are any questions or concerns that arise at home. 16:01 ED course: Spoke with DR Lema orthopedist who performed left hip replacement, as cp requested by family to inform him of exam, labs and results of negative US. Will discharge patient to home for continued monitoring. 02/16 14:44 Order name: CBC with Diff; Complete Time: 15:39 cp 02/16 15:39 Interpretation: Normal except: RBC 3.13; HGB 9.4; HCT 28.4; EOSINOPHIL % 4.6. cp 02/16 14:44 Order name: BMP; Complete Time: 15:52 cp 02/16 15:52 Interpretation: Normal except: GLUC 108; GFR 78. cp 02/16 14:29 Order name: US Extremity Venous W Compression Mariano; Complete Time: 15:06 cp 02/16 15:06 Interpretation: Report reviewed. cp 02/16 14:44 Order name: EKG; Complete Time: 14:45 cp 02/16 14:44 Order name: EKG - Nurse/Tech; Complete Time: 15:12 cp 02/16 14:44 Order name: BNP; Complete Time: 15:52 cp 02/16 15:52 Interpretation: NT PRO-BNP 470; Reviewed. cp EC:10 Rate is 64 beats/min. Rhythm is regular. PA interval is normal. QRS interval is normal. cp QT interval is normal. Interpreted by me. Reviewed by me. Administered Medications: No medications were administered Disposition: 16:28 Co-signature as Attending Physician, Patel Ortiz MD I agree with the assessment and kdr plan of care. Disposition: 02/17/20 16:01 Discharged to Home. Impression: Edema, unspecified - left lower extremity, Anemia. - Condition is Stable. - Discharge Instructions: Anemia, Nonspecific, Edema. - Medication Reconciliation Form, Thank You Letter, Antibiotic Education, Prescription Opioid Use form. - Follow up: Private Physician; When: 2 - 3 days; Reason: Recheck today's complaints. - Problem is new. - Symptoms have improved. Signatures: Dispatcher [employer] EDPatel Perera MD MD [facility] Uriel Trevino RN RN em Jimmy Medina PA PA Yarely Tariq RN RN ca1 Corrections: (The following items were deleted from the chart) 16:13 16:01 02/17/2020 16:01 Discharged to Home. Impression: Edema, unspecified - left lower em extremity; Anemia. Condition is Stable. Forms are Medication Reconciliation Form, Thank You Letter, Antibiotic Education, Prescription Opioid Use. Follow up: Private Physician; When: 2 - 3 days; Reason: Recheck today's complaints. Problem is new. Symptoms have improved. cp
--- NOTE | 2020-02-17 16:01 | ER ---
Nurse's Notes [facility] Name: Marilin Leblanc Age: 80 yrs Sex: Female : 1940 Arrival Date: 02/17/2020 Time: 14:08 Bed 20 Private MD: Mary Goyal Diagnosis: Edema, unspecified-left lower extremity;Anemia Presentation: 02/16 14:30 Chief complaint: Patient's son or daughter states: Grand daughter: She had L hip ca1 replacement 2-3 weeks ago, then yesterday he L leg was swollen from thigh to foot. Swelling has resolved at this time. Denies pain. Denies SOB. Denies CP. Coronavirus screen: Client denies travel out of the [place] in the last 14 days. At this time, the client does not indicate any symptoms associated with coronavirus-19. Ebola Screen: Patient negative for fever greater than or equal to 101.5 degrees Fahrenheit, and additional compatible Ebola Virus Disease symptoms Patient denies exposure to infectious person. Patient denies travel to an Ebola-affected area in the 21 days before illness onset. No symptoms or risks identified at this time. Initial Sepsis Screen: Does the patient meet any 2 criteria? No. Patient's initial sepsis screen is negative. Does the patient have a suspected source of infection? No. Patient's initial sepsis screen is negative. Risk Assessment: Do you want to hurt yourself or someone else? Patient reports no desire to harm self or others. Onset of symptoms was February 17, 2020. 14:30 Method Of Arrival: Wheelchair ca1 14:30 Acuity: BUNNY 3 ca1 Historical: - Allergies: 14:36 Morphine; ca1 14:36 Promethazine; ca1 14:36 Sulfa (Sulfonamide Antibiotics); ca1 14:36 Tramadol HCl; ca1 14:36 Vicodin; ca1 14:36 Oxycodone HCl; ca1 - Home Meds: 14:36 lisinopril 10 mg Oral tab 1 tab once daily for Hypertension [Active]; Tylenol #3 Oral ca1 [Active]; anastrozole 1 mg oral tab 1 tab once daily [Active]; sertraline 25 mg oral tab 1 tab once daily [Active]; - PMHx: 14:36 Breast Cancer Right side; Hypertension; Dementia; Alzheimers; ca1 - PSHx: 14:36 L hip raplacement; Mastectomy, Right; ca1 - Immunization history:: Adult Immunizations up to date. - Social history:: Smoking status: Patient reports the use of cigarette tobacco products, denies chronic smoking, but will smoke occasionally. Screenin:02 Abuse screen: Denies threats or abuse. Nutritional screening: No deficits noted. em Tuberculosis screening: No symptoms or risk factors identified. Fall Risk None identified. Assessment: 15:05 General: Appears in no apparent distress. comfortable, Behavior is calm, cooperative, em appropriate for age, Denies fever. Pain: Denies pain. Neuro: Level of Consciousness is awake, alert, obeys commands, Oriented to person, place, time, situation, Appropriate for age. Cardiovascular: Capillary refill < 3 seconds Patient's skin is warm and dry. Respiratory: Airway is patent Respiratory effort is even, unlabored, Respiratory pattern is regular, symmetrical. GI: Abdomen is flat, Patient currently denies nausea, vomiting. Derm: Skin is intact, is healthy with good turgor, Skin is pink, warm \T\ dry. Musculoskeletal: Capillary refill < 3 seconds, Range of motion: intact in all extremities, Swelling present in left leg. Vital Signs: 14:30 BP 137 / 65; Pulse 70; Resp 17 S; Temp 98.1(TE); Pulse Ox 100% on R/A; Weight 54.43 kg ca1 (R); Height 5 ft. 3 in. (160.02 cm) (R); Pain 0/10; 15:00 BP 121 / 62 LA (auto/reg); Pulse 63; Pulse Ox 100% on R/A; jp3 16:00 BP 126 / 52; Pulse 63; Resp 13; Pulse Ox 99% on R/A; em 14:30 Body Mass Index 21.26 (54.43 kg, 160.02 cm) ca1 ED Course: 14:08 Patient arrived in ED. mr 14:09 Mary Goyal MD is Private Physician. mr 14:16 Jimmy Medina PA is PHCP. cp 14:16 Patel Ortiz MD is Attending Physician. cp 14:19 Jackie Mccormack, SUNDEEP is Primary Nurse. ss 14:20 Warm blanket given. Pillow given. Verbal reassurance given. jp3 14:33 Triage completed. ca1 14:36 Arm band placed on right wrist. ca1 14:53 US Extremity Venous W Compression Mariano In Process Unspecified. EDMS 15:02 Patient has correct armband on for positive identification. Placed in gown. Bed in low em position. Call light in reach. Pulse ox on. NIBP on. 15:10 Inserted saline lock: 20 gauge in left antecubital area, using aseptic technique. Blood em collected. 15:11 EKG done, by ED staff, reviewed by Jimmy WASHBURN. Patient maintains SpO2 saturation jp3 greater than 95% on room air. 16:11 No provider procedures requiring assistance completed. IV discontinued, intact, em bleeding controlled, No redness/swelling at site. Pressure dressing applied. Administered Medications: No medications were administered Outcome: 16:01 Discharge ordered by . cp 16:11 Discharged to home via wheelchair, with family. em 16:11 Condition: good 16:11 Discharge instructions given to patient, family, Instructed on discharge instructions, follow up and referral plans. medication usage, Demonstrated understanding of instructions, follow-up care. 16:13 Patient left the ED. em Signatures: Dispatcher [employer] EDAL Shaniqua Fernando Uriel Trevino, RN RN em Jackie Mccormack RN RN Jimmy Villarreal PA PA cp Pisarski, Jacob jp3 Yarely Tariq RN RN ca1
[2020-02-17 16:43] VITALS: TEMP 98.1
[2020-02-17 16:46] VITALS: BP 126/52; O2SAT 99
--- NOTE | 2020-02-18 07:05 | EKG ---
Test Date: 2020-02-17 Test Time: 15:07:08 Draw Furnace Tender: RASHID MEASUREMENT RESULTS: Intervals: Rate: 64 [place]: 180 QRSD: 74 QT: 420 QTc: 433 [place]: P: 41 [place]: 180 QRS: 24 T: 48 INTERPRETIVE STATEMENTS: Normal sinus rhythm Normal ECG Compared to ECG 09/03/2017 15:54:46 Sinus bradycardia no longer present Electronically Signed On 02-18-20 07:03:54 CDT by Junior Rajan
== END 2020-02-17 16:13 | disposition home or self-care (01) ==
LOC: ER 14:03
DX: D64.9 Anemia, unspecified (principal); I10 Essential (primary) hypertension; G30.9 Alzheimer's disease, unspecified; F02.80 Dementia in other diseases classified elsewhere, unspecified severity, without behavioral disturbance, psychotic disturbance, mood disturbance, and anxiety; F17.210 Nicotine dependence, cigarettes, uncomplicated; Z85.3 Personal history of malignant neoplasm of breast; Z88.2 Allergy status to sulfonamides; Z88.5 Allergy status to narcotic agent; Z88.8 Allergy status to other drugs, medicaments and biological substances
CPT/HCPCS: 36415; 80048; 83880; 85025; 93005; 93970; 99284

== ENCOUNTER 2020-02-29 12:55 | Emergency (ER) | payer OTHER ==
--- OUTSIDE RECORDS SUMMARY | 2020-02-29 12:59 | XMS REPORT | Continuity of Care Document ---
:1940 Author Organization [facility] t Address [address] [place] [address] Care Team Providers Name Role Phone Davon [...] 2019- [facility] 9-12 Clear 00:00: Niño 00 [facility] oxycodon DA Active [place] [facility] e 9-12 Clear 00:00: [facility]ño [facility] tramadol DA Active [place] [facility] 9-12 Clear 00:00: Niño 00 [facility] prometha DA Active [place] 2011-05 [facility] zine HCl 1-12 Clear 00:00: Niño [facility] some DA Active U 2011-05 [facility] antibiot 1-12 Clear ic 00:00: [facility] MORPHINE Adverse Active hallucinatio C [facility] Reaction [facility] Tramadol Adverse Active Hallucinatio C HI St HCl Reaction ns [facility] Phenerga Adverse Active vomiting [facility] Medications Ordered Filled Start Stop Current Ordering Indication Dosage Frequency Signature Comments Components Source Medication Medication Date Date Medication? Clinician (SIG) Name Name Augmentin Augmentin 2019- Mary [address] [facility] 10-28 07-05 [facility] Ciprofloxac Ciprofloxac 2018- No Mary [address] [facility] in HCl in HCl 09-15 05- [facility]00 [facility] Procedures This patient has no known procedures. Encounters Start End Encounter Admission Attending Care Care Encounter Source Date/Time Date/Time Type Type Clinicians Facility Department ID 2020-02-17 2020-02-17 [facility] [id number] 2020-02-09 2020-02-09 Outpatient [facility] [id number] [facility] 2019-12-03 2019-12-03 [facility] [id number] 14:10:00 14:10:00 [facility] Medicine [facility] 2019-11-25 2019-11-25 Telephone Davon, [facility] 1..[id number] 00:00:00 00:00:00 [facility] [id number] [place] 4.2.7.2.686 Professio [phone] nal 0[address] One 2019-11-24 2019-11-24 Laboratory Lab, [facility] [id number] 16:22:36 16:42:36 Only Fam Pob I Health [id number] [place] 4.2.7.2.686 Professio [phone] nal 044 Office [address] One 2019-10-30 2019-10-30 [facility] [id number] 17:45:00 17:45:[address] [place] [address] - Drive [facility] Medicine Outpati ent Clinics 2019-10-29 2019-10-29 [facility] [id number] 11:01:00 11:01:00 [facility] Medicine Outpati ent Clinics 2019-10-16 2019-10-16 [facility] [id number] 11:00:00 11:00:00 [facility] Medicine Outpati ent Clinics 2019-09-29 2019-09-29 [facility] [id number] 16:42:00 16:42:00 [facility] Medicine Outpati ent Clinics 2019-07-15 2019-07-15 [facility] [id number] 15:00:00 15:00:00 [facility] Medicine Outpati ent Clinics 2019-07-14 2019-07-14 Office Davina Hou [facility] [id number] 14:24:44 15:18:57 Visit Dave Beck 350.1.13.10 [place] 4.2.7.2.686 Zari [phone] [address] 2019-01-29 2019-01-29 [facility] [id number] 14:40:00 14:40:00 t [facility] Medicine Outpati ent Clinics 2018-09-15 2018-09-15 [facility] [id number] 14:25:00 14:25:00 t [facility] Medicine Outpati ent Clinics 2018-09-15 2018-09-15 [facility] [id number] 11:40:00 11:40:00 t [facility] Medicine Outpati ent Clinics 2018-08-14 2018-08-14 [facility] [id number] 15:00:00 15:00:00 t [facility] Medicine Medicine Outpati ent Clinics 2018-05-20 2018-05-20 [facility] [id number] [address] 16:00:00 16:00:00 t [facility] Medicine Medicine Outpati ent Clinics 2018-02-03 2018-02-03 [facility] [id number] 11:36:00 11:36:00 t [facility] Medicine l Medicine Outpati ent Clinics 2018-02-03 2018-02-03 [facility] [id number] 11:00:00 11:00:00 [facility] Medicine Medicine Outpati ent Clinics 2018 2018 [facility] [id number] 16:27:00 16:27:00 [facility] Medicine Medicine Outpati ent Clinics 2017-12-25 2017-12-25 [facility] [id number] 15:22:00 15:22:00 t [facility] Medicine Medicine Outpati ent Clinics 2017-12-23 2017-12-23 [facility] [id number] 23:12:00 23:12:00 [facility] Medicine Medicine Outpati ent Clinics 2017-12-23 2017-12-23 [facility] [id number] 11:00:00 11:00:00 [facility] Medicine Medicine Outpati ent Clinics 2017-11-19 2017-11-19 [facility] [id number] 10:30:00 10:30:00 [facility] Medicine l Medicine Outpati ent Clinics 2017-09-24 2017-09-24 [facility] [id number] 14:21:00 14:21:00 t [facility] 2017-09-02 2017-09-02 Outpatient Lucrecia Eng [id number] 11:32:00 11:32:00 [facility] 2017-08-29 2017-08-29 Outpatient Lucrecia Eng [id number] 14:30:00 14:30:00 [facility] Results Test Description Test Time Test Comments [...] = ALKP) 85 Units/L 50.0-136 .0 N [id number] 08:42:00 Test Item Value Reference Range Interpretation Comments MAGNESIUM (test code = MAG) 2.4 mg/dl 1.8-2.4 N CBC W/AUTO [id number] 08:11:00 Test Item Value Reference Range Interpretation [...] N NRBC#) UA RFLX MICR CULT IF [id number] 10:19:00 Test Item Value Reference Range Interpretation [...] Description: CLEAN CATCHUA RFLX MICR CULT IF [id number] 10:15:00 Test Item Value Reference Range Interpretation [...] no other srcSpecimen Description: CLEAN CATCHCBC W/O [id number] 07:08:00 Test Item Value Reference Range Interpretation [...] 10.2 fl 7.4-10.4 N MPV) CBC W/AUTO [id number] 00:43:00 Test Item Value Reference Range Interpretation [...] (test code = INCREASED PLTEST) BASIC METABOLIC [id number] 19:31:00 Test Item Value Reference Range Interpretation [...] CA) 8.7 mg/dl 8.0-10.5 N CBC W/AUTO [id number] 19:21:00 Test Item Value Reference Range Interpretation [...] X10 3uL 0.00-0.01 N NRBC#) CBC W/AUTO [id number] 07:44:00 Test Item Value Reference Range Interpretation [...] X10 3uL 0.00-0.01 N NRBC#) COMPREHENSIVE METABOLIC [id number] 07:18:00 Test Item Value Reference Range Interpretation [...] 87 Units/L 50.0-136.0 N code = ALKP) [id number] 00:49:00 Test Item Value Reference Range Interpretation Comments GLUBED (test code = GLUBED) 145 mg/dL 70-110 H VITAMIN [id number] 08:28:00 Test Item Value Reference Range Interpretation Comments VITAMIN B12 (test code = VITB12) 393 pg/mL 193-986 N THYROID STIMULATING [id number] 08:28:00 Test Item Value Reference Range Interpretation Comments THYROID STIMULATING 1.39 IU/ML 0.47-5.01 N Result i s in HORMONE (test code = Interna tional TSH) Units/millilite r COMPREHENSIVE METABOLIC [id number] 07:59:00 Test Item Value Reference Range Interpretation [...] 50.0-136.0 N code = ALKP) Specimen comments: .[id number] 07:59:00 Test Item Value Reference Range Interpretation Comments MAGNESIUM (test code = MAG) 2.2 mg/dl 1.8-2.4 N Specimen comments: .[id number] 07:49:00 Test Item Value Reference Range Interpretation Comments AMMONIA (test code = AMM) 7.0 MCMOL/L 11.0-32.0 L CBC W/AUTO [id number] 07:26:00 Test Item Value Reference Range Interpretation [...] 0.00 X10 3uL 0.00-0.01 N NRBC#) URINALYSIS [id number] 23:44:00 Test Item Value Reference Range Interpretation [...] cath if unable to obtain Clean CatchURINALYSIS [id number] 23:20:00 Test Item Value Reference Range Interpretation [...] if unable to obtain Clean CatchCOMPREHENSIVE METABOLIC [id number] 16:01:00 Test Item Value Reference Range Interpretation [...] 85 Units/L 50.0-136.0 N code = ALKP) [id number] 16:01:00 Test Item Value Reference Range Interpretation Comments TROPONIN-I (test <0.02 NG/ML 0.00-0.06 N REFERENCE R MALCOLM code = TROPI) TROPONIN I HEA LTHY INDIVIDUALS: < 0.06 ng/mL R/O ISCHE GREGORIO: 0.07 - 0.60 ng/ mL CUT-OFF RANGE F OR AMI: 0.60 - 1.5 ng/m L COMPREHENSIVE METABOLIC [id number] 15:50:00 Test Item Value Reference Range Interpretation [...] TOTAL (test Units/L 50.0-136.0 code = ALKP) [id number] 15:50:00 Test Item Value Reference Range Interpretation Comments TROPONIN-I (test code = TROPI) NG/ML 0.00-0.06 CBC W/AUTO [id number] 15:46:00 Test Item Value Reference Range Interpretation [...] K/mm3 0.0-0.2 N - XR ELBOW 3+V [id number] 15:44:00 FAX: Art Rodriguez MD [place]: St: REG Name: ERNESTO [facility]DWIN [facility] : 1940 Age/S: 78/F [address] [facility] Unit#: [id number] Loc: [place], [place]: [place] [address] Acct: [id number] Dis Date: Status: REG ER PHONE #: [phone] Exam Date: 08/01/2018 1526 FAX #: [phone] Reason: FALL - ELBOW INJURY EXAMS: CPT CODE: [id number] XR ELBOW 3+[place] [address] Location: U19. RIGHT ELBOW 3 VIEWSHISTORY: FALL - ELBOW INJURY FINDINGS: No fracture, dislocation, soft tis alma swelling or joint effusion. Calcification seen along the lateral epicondyle. IMPRESSION: No fracture or dislocation. at 1544 Reported and signed by: Vincenzo Peters M.D. CC: Art Rodriguez MD Technologist: KODY MARIN Trnscrd Date/Time/By: 08/01/2018 (1547) : By: [email or web address] PAGE 1 Signed Report FAX: Art Rodriguez MD [place]: St: REG -- Name: ERNESTO BALDWIN [facility] : 1940 Age/S: 78/F[address] Unit #: [id number] Loc: [place], [place]: [place] [address] Acct: [id number] Dis Date: Status: REG ER PHONE #: [phone] Exam Date: 08/01/2018 1526 FAX #: [phone] Reason: FALL - ELBOW INJURY EXAMS: CPT CODE: [id number] XR ELBOW 3+V [place] [address] <Continued> Orig Print D/T: S: 08/01/2018 (1545) PAGE 2 Signed Report- XR HAND 3 + V [id number] 15:33:00 FAX: Art Rodriguez MD [place]: St: REG Name: ERNESTO BALDWIN [facility] : 1940 Age/S: 78/F [address] Unit#: [id number] Loc: [place], [place]: [place] [address] Acct: [id number] Dis Date: Status: REG ER PHONE #: [phone] Exam Date: 08/01/2018 1526 FAX #: [phone] Reason: FALL HAND INJURY EXAMS: CPT CODE: [id number] XR HAND 3 + V LT [address] LOCATION: T18 EXAM: LEFT HAND 3 VIEWS INDICATION: Left hand injury COMPARISON: None. TECHNIQUE: PA, lateral and oblique radiographs of the left hand FINDINGS: No acute fractures identified. Carpal bones are normal in alignment. Peripheral soft tissues are normal. IMPRESSION: No acute bony abnormality. at 1533 Reported and signed by: Jeffery Quintana M.D.CC: Art Rodriguez MD Technologist: KODY Castillord Date/Time/By: 08/01/2018 (1533) : By: [email or web address] PAGE 1 Signed Report FAX: Art Rodriguez MD [place]: St: REG -- Name: ERNESTO BALDWIN [facility] : 1940 Age/S: 78/F [address] Unit #: [id number] Loc: [place], [place]: [place] [address] Acct: [id number] Dis Date: Status: REG ER PHONE #: [phone] Exam Date: 08/01/2018 [facility] FAX #: [phone] Reason: FALL HANDINJURY EXAMS: CPT CODE: [id number] XR HAND 3 + V LT [address]18 <Continued> Orig Print D/T: S: 08/01/2018 (7734) PAGE 2 Signed Report- XR CHEST 1 V 2018-08-01 15:31:00 FAX: Art Rodriguez MD [place]: St: REG Name: ERNESTO BALDWIN [facility] : 1940 Age/S: 78/F [address] Unit#: [id number] Loc: [place], [place]: [place] [address] Acct: [id number] Dis Date: Status: REG ER PHONE #: [phone] Exam Date: 08/01/2018 1526 FAX #: [phone] Reason: FALL EXAMS: CPT CODE: [id number] XR CHEST 1 V 40322 LOCATION: T18 EXAM: CHEST 1 VIEW INDICATION: [...] CC: Art Rodriguez MD Technologist: KODY MARIN [facility] Date/Time/By: 08/01/2018 (6961) : By: [email or web address] PAGE 1 Signed Report FAX: Art Rodirguez MD [place]: St: REG Name: ERNESTO BALDWIN [facility] : 1940 Age/S: 78/F [address] Unit #: [id number] Loc: [place], [place]: [place] [address] Acct: [id number] Dis Date: Status: REG ER PHONE #: [phone] Exam Date: 08/01/2018 1526 FAX #: [phone] Reason: FALL EXAMS: CPT CODE: [id number] XR CHEST 1 V 78446 <Continued> Orig Print D/T: S: 08/01/2018 (4558) PAGE 2 Signed Report- CT MAXIFAC W/O [id number] 15:20:00 FAX: Art Rodriguez MD [place]: St: REG Name: ERNESTO BALDWIN [facility] : 1940 Age/S: 78/F [address] Unit: [id number] Loc: [place], [place]: [place] [address] Acct: [id number] Dis Date: Status: REG ER PHONE #: [phone] Exam Date: 08/01/2018 2711 FAX #: [phone] Reason: FALL - FACIAL INJURY EXAMS: CPT CODE: [id number] CT MAXIFAC W/O CONTRAST 406[address] CT maxillofacial bones without contrast Location Code: [...] Technologist: ARSENIO VILLANUEVA Trnscrd Dt/Tm: 08/01/2018 (1520) [email or web address] Orig Print D/T: S: 08/01/2018 (1523 PAGE 1 Signed Report- CT C-SPINE W/O [id number] 15:18:00 FAX: Art Rodriguez MD [place]: St: REG Name: ERNESTO BALDWIN [facility] : 1940 Age/S: 78/F [address] [facility] [address] Unit: [id number] Loc: [place], [place]: [place] [address] Acct: [id number] Dis Date: Status: REG ER PHONE #: [phone] Exam Date: 08/01/2018 1459 FAX #: [phone] Reason: FALL - HEAD INJURY EXAMS: CPT CODE: [id number] CT C-SPINE W/O CONT 57886 CT CERVICAL SPINE WITHOUT CONTRAST; SAGITTAL AND [...] 1 Sign ed Report- CT HEAD/BRAIN W/O [id number] 15:14:00 FAX: Art oRdriguez MD [place]: St: REG Name: ERNESTO BALDWIN [facility] : 1940 Age/S: 78/F [address] [facility] [address] Unit: [id number] Loc: [place], [place]: [place] [address] Acct: [id number] Dis Date: Status: REG ER PHONE #: [phone] Exam Date: 08/01/2018 1457 FAX #: [phone] Reason: FALL - HEAD INJURY EXAMS: CPT CODE: [id number] CT HEAD/BRAIN W/O CONT 97858 EXAM: CT Head without contrast Location code:J9 [...] Technologist: ARSENIO VILLANUEVA Trnscrd Dt/Tm: 08/01/2018 (1514) [email or web address] Orig Print D/T: S: 08/01/2018 (1518 PAGE1 Signed Report- XR KNEE 3 V [id number] 14:49:00 FAX: Art Rodriguez MD [place]: St: PRE Name: ERNESTO BALDWIN [facility] : 1940 Age/S: 78/F [address] [facility] [address] Unit#: [id number] Loc: [place], [place]: [place] [address] Acct: [id number] Dis Date: Status: PRE ER PHONE #: [phone] Exam Date: 08/01/2018 1443 FAX #: [phone] Reason: KNEE PAIN EXAMS: CPT CODE: [id number] XR KNEE 3 [place] [address] Location: U19. RIGHT KNEE 3 VIEWS HISTORY: Right knee pain FINDINGS: Anterior soft tissue swelling. No fracture or dislocation. Mild osteophyte formation seen in the patellofemoral compartment. Vascular calcifications. No fracture or dislocation. IMPRESSION: Anterior soft tissue swelling without a fracture or dislocation. at 1449 Reported and signed by: Vincenzo Peters M.D. CC: Art Rodriguez MD Technologist: SHAN GAN Trnscrd Date/Time/By: 08/01/2018 (3407) : By: [email or web address] PAGE 1 Signed Report FAX: Art Rodriguez MD [place]: St: PRE -- Name: ERNESTO BALDWIN [facility] : 1940 Age/S: 78/F [address] [facility] ERN Unit #: [id number] Loc: [place], [place]: [place] [address] Acct: [id number] Dis Date: Status: PRE ER PHONE #: [phone] Exam Date: 08/01/2018 1443 FAX #: [phone] Reason: KNEE PAIN EXAMS: CPT CODE: [id number] XR KNEE 3 V RT 6[address]40 <Continued> Orig PrintD/T: S: 08/01/2018 (0522) PAGE 2 Signed Report
--- OUTSIDE RECORDS SUMMARY | 2020-02-29 12:59 | XMS REPORT ---
:1940 Author Organization [facility] Address [address] [facility] [address] [place] [address] Care Team Providers Name Role Phone Julio Unavailable [phone] PROBLEMS Type Condition ICD9-CM ZEN89-VI Onset Condition SNOMED Code Notes Code Code Dates Status Problem Osteopenia of M85.89 Active 094050674 multiple sites Problem Hypertension, I10 Active 02442419 unspecified type Problem Breast lump N63.0 Active 77088124 Problem Depression, F32.9 Active 03865031 unspecified depression type Problem History of Z85.42 Active 182044506 endometrial cancer Problem Pain in right M25.511 Active 19775907 shoulder Problem Pain in left M25.512 Active 11809014 shoulder Problem Malignant C50.911 Active 657975249 neoplasm of right female breast, unspecified estrogen receptor status, unspecified site of breast Problem History of Z85.3 Active 274198945 breast cancer Problem Vaginal Z92.89 Active 7653065493541 pessary in situ Problem S/P right Z90.11 Active 384785203 mastectomy Problem Right knee M25.561 Active 63215390 Acute of pain, chronic. unspecified chronicity Problem Routine eye Z01.00 Active 412534181 exam Problem Pain in left M25.552 Active 37617482 hip Problem Status post Z91.81 Active 855159521 1 week ago . fall Problem Skin R23.8 Active 732683155 With irritation itching located at right mastectomy scar. 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 53718422 rhinitis ALLERGIES Allergen (clinical Drug/Non Drug Reaction Allergy Type Onset Date S tatus drug ingredient) Allergy documented on EMR tramadol Tramadol HCl([facility][NOTE 3] Hallucinations Drug Allergy Ac tive Code:[address]-32 ) promethazine Phenergan([facility][NOTE 3] vomiting Drug Allergy Active Code:[address]-27 ) morphine MORPHINE hallucinations Drug Allergy Active ENCOUNTERS from 1940 to 2020-02-09 Encounter Location Date Provider Diagnosis [facility] [address] [facility] [address] 06 Feb, 2020 Alberto Julio Dementia with Family Medicine [place] [address] disturbance, unspecified dem entia type F03.91 ; [...] endometrial cancer Surgical History Pessary placement per [employer] [facility]ISTANT [facility] in [facility] Surgical History Right breast bx. prior to right mastecto 2017 Surgical History Right mastectomy per general sx. Dr. Hattie riggs 09/2017 Surgical History neck of left femur fracture repair (left 01/2020 hemiarthroplasty) s/p fall at [facility] in [place], [place] Hospitalization History neck of left femur fracture repair s /p fall at 01/2020 [facility] in [place], [place] Goals Section No Information Health Concerns No [...] presents for hospital f/u following d/c from [facility] last week. Pt requires 24 hour [...] self 2004 [employer] Claims [address] [facility] [address] [place] [address]
--- OUTSIDE RECORDS SUMMARY | 2020-02-29 12:59 | XMS REPORT ---
[...] Medications Results No Known Results Summary Purpose Box JumpinicalProduce Run Submission
--- OUTSIDE RECORDS SUMMARY | 2020-02-29 13:00 | XMS REPORT ---
:1940 Author Organization [facility] Address [address] [facility] [place] [address] Care Team Providers Name Role Phone Millender Unavailable [phone] PROBLEMS Type Condition ICD9-CM [id number] Onset Condition SNOMED Code Notes Code Code Dates Status Problem Osteopenia of M85.89 Active 014441807 multiple sites Problem Hypertension, I10 Active 21139009 unspecified type Problem Breast lump N63.0 Active 98390690 Problem Depression, F32.9 Active 46407506 unspecified depression type Problem History of Z85.42 Active 611013751 endometrial cancer Problem Pain in right M25.511 Active 84438174 shoulder Problem Pain in left M25.512 Active 99021697 shoulder Problem Malignant C50.911 Active 346880676 neoplasm of right female breast, unspecified estrogen receptor status, unspecified site of breast Problem History of Z85.3 Active 234707295 breast cancer Problem Vaginal Z92.89 Active 5456559332713 pessary in situ Problem S/P right Z90.11 Active 913201644 mastectomy Problem Right knee M25.561 Active 99569621 Acute of pain, chronic. unspecified chronicity Problem Routine eye Z01.00 Active 807594620 exam Problem Pain in left M25.552 Active 42634175 hip Problem Status post Z91.81 Active 929941964 1 week ago . fall Problem Skin R23.8 Active 712286828 With irritation itching located at right mastectomy scar. 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 93749150 rhinitis ALLERGIES Allergen (clinical Drug/Non Drug Reaction Allergy Type Onset Date S tatus drug ingredient) Allergy documented on EMR morphine MORPHINE hallucinations Drug Allergy Active promethazine Phenergan(MAC vomiting Drug Allergy Active Code:[address]-19 ) tramadol Tramadol HCl([facility] Hallucinations Drug Allergy Ac tive Code:[address]-31 ) ENCOUNTERS from 1940 to 2020-02-19 Encounter Location Date Provider Diagnosis [place] [address] Feb, 2020 [facility] [address] IMMUNIZATIONS Vaccine Route Administration Date Status FLUZONE [...] REASON FOR REFERRAL No Information VITAL SIGNS No information MEDICATIONS Medication SIG (Take, Route, Start Date End Date Status Frequency, Duration) Calcium 500 mg--2 gummies (OTC) Not- Taking Orally Once daily Zoloft 50 MG 1 tablet Orally Once a day Aug, N ot-Taking for 30 day(s) Anastrozole 1 MG 1 tablet Orally Once a day Active Vitamin C 1000 MG 1 tablet Orally Once a day Not-Taking Vitamin D 1000 UNIT 5 gummies (OTC) Orally Once Active daily Zoloft 25 mg 1 tablet Orally Once a day A ctive for 90 days Alendronate Sodium 35 MG 1 tablet Orally Once a week Active for the bones for 90 days PROCEDURES No Information RESULTS No Results REASON FOR VISIT FYI - Leg is still swelling MEDICAL (GENERAL) HISTORY Type Description Date Medical [...] endometrial cancer Surgical History Pessary placement per [facility] [address] [facility] Surgical History Right breast bx. prior to right mastecto my 2017 Surgical History Right mastectomy per general sx. Dr. Hattie riggs 09/2017 Surgical History neck of left femur fracture repair (left 01/2020 hemiarthroplasty) s/p fall at [facility] in [place], [place] Hospitalization History neck of left femur fracture repair s /p fall at 01/2020 [facility] in [place], [place] Goals Section No Information Health Concerns No Information MEDICAL EQUIPMENT No Information MENTAL STATUS No Information FUNCTIONAL STATUS No Information ASSESSMENTS No Information PLAN OF TREATMENT No Information Insurance Providers Payer Name Payer Address Payer Insured Patient Coverage Cover age Phone Name Relationship to Start Date End Date Insured MEDICARE Attn Part B [id number] Curtis Leblanc self 2004 [employer] Claims [id number] [facility] [address]
[2020-02-29] MEDS ORDERED: TETANUS & DIPHTHERIA TOX,ADULT 0.5 ML VIAL ONE (13:32)
--- NOTE | 2020-02-29 13:55 | RAD REPORT ---
EXAM DESCRIPTION: CT - CTHCSPWOC - 02/29/2020 1:40 pm CLINICAL HISTORY: Fall Injury, headache, head and neck injury, facial injury COMPARISON: Head C Spine Mpr Wo Con dated 05/22/2017; Head Brain Wo Cont dated 01/11/2020 TECHNIQUE: Axial 5 mm thick images of the head were obtained. Axial 2 mm thick images of the cervic al spine were obtained with sagittal and coronal reconstruction images generated and reviewed. All CT scans are performed using dose optimization technique as appropriate and may include automated exposure control or mA/KV adjustment according to patient size. FINDINGS: No intracranial hemorrhage, mass, edema or acute intracranial finding. No suspicion for ac [place] infarction. No cortical edema or sulcal effacement. The bifrontal increased CSF matches the debra rison. Atrophy and chronic ischemic changes are mild and stable. Ventricles are normal. Mastoid air c ells are clear. Globes, sinuses and facial bones are separately detailed. Cervical body height and alignment are normal. C6-7 disc space narrowing with endplate spurring noted . No fracture or acute bony abnormality. Central canal detail is inherently limited. No paraspinal mass or hematoma. IMPRESSION: Negative CT head examination for acute or significant finding. No change from January 10. Negative CT cervical spine examination for acute finding. C6-7 degenerative disc disease present. Fi ndings are stable from May 2017. Facial bones, orbits and sinuses are separately detailed.
--- NOTE | 2020-02-29 13:58 | RAD REPORT ---
EXAM DESCRIPTION: CT - Facial Bones W/ Mpr - 02/29/2020 1:40 pm CLINICAL HISTORY: Trip and fall, facial trauma COMPARISON: CT May 2017 TECHNIQUE: Axial 2 millimeter thick images of the facial bones were obtained with sagittal and coron al reconstruction imaging. All CT scans are performed using dose optimization technique as appropriate and may include automated exposure control or mA/KV adjustment according to patient size. FINDINGS: Intracranial findings are detailed on separate CT head report. No globe or orbital content abnormality. Mastoid air cells are clear. Minimally depressed fractures are present along the right side of the nasal bone. 1.5 millimeter depression of a right-sided nasal bone fracture fragments seen . No fracture of the nasal septum which remains midline. Soft tissue edema and contusion changes are present along right side of the nose and frontal nasal junction. No other facial fracture identified. Maxillary sinuses and sphenoid sinus clear. There is patchy mucosal thickening in the anterior aspect of each of the ethmoid air cells. Frontal sinus is clear. IMPRESSION: Minimally depressed right-sided nasal bone fracture. Overlying contusion and edema mustafa es are present.
--- NOTE | 2020-02-29 14:11 | EDPHYS ---
Physician Documentation [facility] Name: Marilin Leblanc Age: 80 yrs Sex: Female : 1940 Arrival Date: 02/29/2020 Time: 12:57 Bed 20 Private MD: ED Physician Jimmy Ness HPI: 02/28 13:11 This 80 yrs old Female presents to ER via EMS with complaints of Fall Injury. pm1 13:11 Details of fall: The patient fell from an upright position, while walking. Onset: The pm1 symptoms/episode began/occurred just prior to arrival. Associated injuries: The patient sustained injury to the head, pain, back of head and nose. The patient has not experienced similar symptoms in the past. Patient was walking to her house and tripped on the edge of the ramp and she fell forward. Presenting with pain to bridge of her nose on the right side and headache to the back of her head. No neck pain present. No LOC. Historical: - Allergies: 13:02 Morphine; bp 13:02 Oxycodone HCl; bp 13:02 Promethazine; bp 13:02 Sulfa (Sulfonamide Antibiotics); bp 13:02 Tramadol HCl; bp 13:02 Vicodin; bp - Home Meds: 13:02 anastrozole 1 mg Oral tab 1 tab once daily [Active]; lisinopril 10 mg Oral tab 1 tab bp once daily for Hypertension [Active]; sertraline 25 mg Oral tab 1 tab once daily [Active]; acetaminophen-codeine 300-30 mg oral tab 1 tab every 4-6 hours [Active]; - PMHx: 13:02 Alzheimers; Breast Cancer Right side; Dementia; Hypertension; bp - Immunization history:: Adult Immunizations up to date. - Social history:: Smoking status: Patient denies any tobacco usage or history of. ROS: 13:11 Constitutional: Negative for fever, chills, and weight loss, Eyes: Negative for injury, pm1 pain, redness, and discharge, Neck: Negative for injury, pain, and swelling. 13:11 Cardiovascular: Negative for chest pain, palpitations, and edema, Respiratory: Negative for shortness of breath, cough, wheezing, and pleuritic chest pain, Abdomen/GI: Negative for abdominal pain, nausea, vomiting, diarrhea, and constipation, Back: Negative for injury and pain, MS/Extremity: Negative for injury and deformity. 13:11 Neuro: Negative for headache, weakness, numbness, tingling, and seizure. 13:11 ENT: Positive for Nose bled that has resolved and nasal pain, Negative for sinus congestion, sinus pain. 13:11 Skin: Positive for abrasion(s), of the bridge of nose, Negative for laceration(s). Exam: 13:11 Constitutional: This is a well developed, well nourished patient who is awake, alert, pm1 and in no acute distress. 13:11 Neck: Trachea midline, no thyromegaly or masses palpated, and no cervical lymphadenopathy. Supple, full range of motion without nuchal rigidity, or vertebral point tenderness. No Meningismus. Chest/axilla: Normal chest wall appearance and motion. Nontender with no deformity. No lesions are appreciated. 13:11 Back: No spinal tenderness. No costovertebral tenderness. Full range of motion. Skin: Warm, dry with normal turgor. Normal color with no rashes, no lesions, and no evidence of cellulitis. MS/ Extremity: Pulses equal, no cyanosis. Neurovascular intact. Full, normal range of motion. 13:11 Head/face: Exam is negative for deformity, Noted is no obvious of injury or deformity except abrasion(s), that are mild, swelling, of the bridge of nose. 13:11 Cardiovascular: Exam negative for acute changes, Rate: normal, Rhythm: regular, Pulses: no pulse deficits are appreciated. 13:11 Respiratory: Exam negative for acute changes, respiratory distress, shortness of breath. 13:11 Abdomen/GI: Exam negative for acute changes, Inspection: abdomen appears normal, Palpation: abdomen is soft and non-tender, in all quadrants, mass, is not appreciated, rebound tenderness, is not appreciated. 13:11 Neuro: Exam negative for acute changes, Orientation: is normal, Mentation: is normal, Motor: is normal, moves all fours, Sensation: is normal, no obvious gross deficits. Vital Signs: 12:57 BP 150 / 70; Pulse 62; Resp 17; Temp 98; Pulse Ox 100% ; bp 13:33 BP 157 / 68; Pulse 60; Resp 16; Pulse Ox 100% ; bp 14:29 BP 150 / 70; Pulse 60; Resp 16; Temp 98; Pulse Ox 100% ; bp MDM: 13:05 Patient medically screened. [facility] 14:08 Data reviewed: vital signs. Data interpreted: Pulse oximetry: on room air is 100 %. pm1 Interpretation: normal. Counseling: I had a detailed discussion with the patient and/or guardian regarding: the historical points, exam findings, and any diagnostic results supporting the discharge/admit diagnosis, radiology results, the need for outpatient follow up, for definitive care, an ENT specialist, a plastic surgeon, to return to the emergency department if symptoms worsen or persist or if there are any questions or concerns that arise at home. 14:08 ED course: Nasal fracture present with patchy mucosal thickening in bilateral ethmoid pm1 sinuses. Will discharge home with antibiotic therapy. 02/28 13:11 Order name: CT Head C Spine; Complete Time: 14:07 pm1 02/28 13:11 Order name: Facial Bones W/O Con CT; Complete Time: 14:07 pm1 02/28 13:11 Order name: Ice pack; Complete Time: 13:13 pm1 Administered Medications: 13:15 Drug: Tetanus-Diphtheria Toxoid Adult 0.5 ml {[employer]: [employer]. Exp: bp 07/17/2021. Lot #: [id number]. } Route: IM; Site: right deltoid; 13:35 Follow up: Response: No adverse reaction bp Disposition: 15:58 Co-signature as Attending Physician, Jimmy Ness MD I agree with the assessment and [facility] plan of care. Disposition: 02/29/20 14:10 Discharged to Home. Impression: Fracture of nasal bones. - Condition is Stable. - Discharge Instructions: Nasal Fracture. - Prescriptions for Augmentin 875- 125 mg Oral Tablet - take 1 tablet by ORAL route every 12 hours for 10 days; 20 tablet. - Medication Reconciliation Form, Thank You Letter, Antibiotic Education, Prescription Opioid Use form. - Follow up: Emergency Department; When: As needed; Reason: Worsening of condition. Follow up: Sis Lorenzo MD; When: 2 - 3 days; Reason: Recheck today's complaints, Continuance of care, Re-evaluation by your physician. Follow up: Clint Bennett MD; When: 2 - 3 days; Reason: Recheck today's complaints, Continuance of care, Re-evaluation by your physician. - Problem is new. - Symptoms have improved. Signatures: Dispatcher [employer] EDMS Jimmy Ness MD MD cha Marinas, Patrick, RENEWABLE ENERGY CONSULTANT RENEWABLE ENERGY CONSULTANT pm1 Kennedy Dumont, RN RN bp Corrections: (The following items were deleted from the chart) 14:10 14:10 02/29/2020 14:10 Discharged to Home. Impression: Fracture of nasal bones. pm1 Condition is Stable. Forms are Medication Reconciliation Form, Thank You Letter, Antibiotic Education, Prescription Opioid Use. Follow up: Emergency Department; When: As needed; Reason: Worsening of condition. Follow up: Sis Lorenzo; When: 2 - 3 days; Reason: Recheck today's complaints, Continuance of care, Re-evaluation by your physician. Follow up: Clint Bennett; When: 2 - 3 days; Reason: Recheck today's complaints, Continuance of care, Re-evaluation by your physician. pm1 14:34 14:10 02/29/2020 14:10 Discharged to Home. Impression: Fracture of nasal bones. bp Condition is Stable. Forms are Medication Reconciliation Form, Thank You Letter, Antibiotic Education, Prescription Opioid Use. Follow up: Emergency Department; When: As needed; Reason: Worsening of condition. Follow up: Sis Lorenzo; When: 2 - 3 days; Reason: Recheck today's complaints, Continuance of care, Re-evaluation by your physician. Follow up: Clint Bennett; When: 2 - 3 days; Reason: Recheck today's complaints, Continuance of care, Re-evaluation by your physician. Problem is new. Symptoms have improved. pm1
--- NOTE | 2020-02-29 14:11 | ER ---
Nurse's Notes [facility] Name: Marilin Leblanc Age: 80 yrs Sex: Female : 1940 Arrival Date: 02/29/2020 Time: 12:57 Bed 20 Private MD: Diagnosis: Fracture of nasal bones Presentation: 02/28 12:57 Chief complaint: EMS states: MECHANICAL TRIP AND FALL AT HOME, NO LOC. Coronavirus bp screen: At this time, the client does not indicate any symptoms associated with coronavirus-19. Ebola Screen: No symptoms or risks identified at this time. Initial Sepsis Screen: Does the patient meet any 2 criteria? No. Patient's initial sepsis screen is negative. Does the patient have a suspected source of infection? No. Patient's initial sepsis screen is negative. Risk Assessment: Do you want to hurt yourself or someone else? Patient reports no desire to harm self or others. Onset of symptoms was February 29, 2020 at 12:00. 12:57 Method Of Arrival: EMS: [facility] bp 12:57 Acuity: BUNNY 3 bp Triage Assessment: 13:02 General: Appears in no apparent distress. uncomfortable, Behavior is cooperative, bp anxious. Pain: Complains of pain in face Pain does not radiate. EENT: Parent/caregiver reports the patient having blurred vision NASAL SWELLING/PAIN. Neuro: Level of Consciousness is awake, alert, obeys commands, Oriented to person, place, time, situation, Appropriate for age. Cardiovascular: No deficits noted. Respiratory: Airway is patent Respiratory effort is even, unlabored, Respiratory pattern is regular, symmetrical. GI: No signs and/or symptoms were reported involving the gastrointestinal system. : No signs and/or symptoms were reported regarding the genitourinary system. Derm: No deficits noted. Musculoskeletal: Circulation, motion, and sensation intact. Range of motion: intact in all extremities. Historical: - Allergies: 13:02 Morphine; bp 13:02 Oxycodone HCl; bp 13:02 Promethazine; bp 13:02 Sulfa (Sulfonamide Antibiotics); bp 13:02 Tramadol HCl; bp 13:02 Vicodin; bp - Home Meds: 13:02 anastrozole 1 mg Oral tab 1 tab once daily [Active]; lisinopril 10 mg Oral tab 1 tab bp once daily for Hypertension [Active]; sertraline 25 mg Oral tab 1 tab once daily [Active]; acetaminophen-codeine 300-30 mg oral tab 1 tab every 4-6 hours [Active]; - PMHx: 13:02 Alzheimers; Breast Cancer Right side; Dementia; Hypertension; bp - Immunization history:: Adult Immunizations up to date. - Social history:: Smoking status: Patient denies any tobacco usage or history of. Screenin:03 Abuse screen: Denies threats or abuse. Denies injuries from another. Nutritional bp screening: No deficits noted. Tuberculosis screening: No symptoms or risk factors identified. Fall Risk Fall in past 12 months (25 points). Secondary diagnosis (15 points) Alzheimer's, No IV (0 pts). Ambulatory Aid- None/Bed Rest/Nurse Assist (0 pts). Gait- Normal/Bed Rest/Wheelchair (0 pts) Mental Status- Oriented to own ability (0 pts). Total Moore Fall Scale indicates Low Risk Score (25-44 pts). Fall prevention measures have been instituted. Side Rails Up X 2 Placed close to Nursing Station Frequent Obs/Assesments occuring As available Patient and Family Educated on Fall Prevention Program and strategies. Assessment: 13:03 General: SEE TRIAGE NOTE. bp 13:34 Reassessment: Patient appears in no apparent distress at this time. No changes from bp previously documented assessment. PT TO CT. 14:29 Reassessment: PT D/C HOME AMBULATORY WITH FAMILY, DX WITH NASAL BONE FX. bp Vital Signs: 12:57 BP 150 / 70; Pulse 62; Resp 17; Temp 98; Pulse Ox 100% ; bp 13:33 BP 157 / 68; Pulse 60; Resp 16; Pulse Ox 100% ; bp 14:29 BP 150 / 70; Pulse 60; Resp 16; Temp 98; Pulse Ox 100% ; bp ED Course: 12:57 Patient arrived in ED. bp 13:01 Triage completed. bp 13:02 Arm band placed on. bp 13:03 Patient has correct armband on for positive identification. Bed in low position. Call bp light in reach. Side rails up X2. 13:04 Antonio Monge NP is PHCP. pm1 13:04 Jimmy Ness MD is Attending Physician. pm1 13:13 Kennedy Dumont, SUNDEEP is Primary Nurse. bp 13:40 CT Head C Spine In Process Unspecified. EDMS 13:40 Facial Bones W/O Con CT In Process Unspecified. EDMS 14:09 Sis Lorenzo MD is Referral Physician. pm1 14:10 Clint Bennett MD is Referral Physician. pm1 14:30 No provider procedures requiring assistance completed. Patient did not have IV access bp during this emergency room visit. Administered Medications: 13:15 Drug: Tetanus-Diphtheria Toxoid Adult 0.5 ml {Pathology Collector: [employer]. Exp: bp 07/17/2021. Lot #: [id number]. } Route: IM; Site: right deltoid; 13:35 Follow up: Response: No adverse reaction bp Outcome: 14:10 Discharge ordered by MD. pm1 14:30 Discharged to home ambulatory, with family. bp 14:30 Condition: stable 14:30 Discharge instructions given to patient, Instructed on discharge instructions, follow up and referral plans. medication usage, Demonstrated understanding of instructions, follow-up care, medications, Prescriptions given X 1. 14:34 Patient left the ED. bp Signatures: Dispatcher [employer] EDRI Antonio Monge, MARBLE SETTER HELPER MARBLE SETTER HELPER pm1 Kennedy Dumont, RN RN bp
[2020-02-29 14:56] VITALS: TEMP 98; O2SAT 100
[2020-02-29 14:59] VITALS: BP 150/70
== END 2020-02-29 14:34 | disposition home or self-care (01) ==
LOC: ER 12:55
DX: S02.2XXA Fracture of nasal bones, initial encounter for closed fracture (principal); W01.0XXA Fall on same level from slipping, tripping and stumbling without subsequent striking against object, initial encounter; Y93.01 Activity, walking, marching and hiking; Y92.009 Unspecified place in unspecified non-institutional (private) residence as the place of occurrence of the external cause; Z23 Encounter for immunization; Z85.3 Personal history of malignant neoplasm of breast; Z88.2 Allergy status to sulfonamides; Z88.5 Allergy status to narcotic agent; I10 Essential (primary) hypertension; G30.9 Alzheimer's disease, unspecified; F02.80 Dementia in other diseases classified elsewhere, unspecified severity, without behavioral disturbance, psychotic disturbance, mood disturbance, and anxiety
CPT/HCPCS: 70450; 70486; 72125; 76377; 90471; 90714; 99284

== ENCOUNTER 2021-04-08 10:53 | Emergency (ER) | payer OTHER ==
--- OUTSIDE RECORDS SUMMARY | 2021-04-08 10:57 | XMS REPORT | Continuity of Care Document ---
:1940 Author Organization [facility] t Address [address] [place] [address] Care Team Providers Name Role Phone Curtis SHARPE Primary Care Physician Unavailable Eulalio Pollack Attending Clinician Unavailable Curtis ALBERT Attending Clinician Unavailable PATRICK ROBLERO Attending Clinician Unavailable Patrick Roblero MD Attending Clinician AIRAM Attending Clinician Unavailable Davon KRUEGER Attending Clinician Lab, Fam Pob I Attending Clinician Unavailable DAVON Attending Clinician Unavailable BLAINE Attending Clinician Unavailable Curtis Sharpe Admitting Clinician Unavailable Eulalio Pollack Admitting Clinician Unavailable Payers Payer Name Policy Type Policy Number Effective Date Expiration Date S bryce MEDICARE PART A [id number] 2004 \T\ B 00:00:00 Problems Condition Condition Condition Status Onset Resolution Last Treating Co mments Source Name Details Category Date Date Treatment Clinician Date Vitamin Vitamin Disease Active Univers B12 B12 3-18 ity of deficiency [place] [facility] Prediabete Prediabete Disease Active 2013-05 U nivers s s 2-02 ity of 00:00: [place] [address] [place] [address] Branch Vaginal Vaginal Disease Active Univers atrophy atrophy 2-06 ity of 00:00: [place] [facility] 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 Varicose Varicose Disease Active Unive rs vein of vein of 2-05 ity of leg leg 00:00: [place] [facility] Symptomati Symptomati Disease Active U nivers c c 3-20 ity of menopausal menopausal 00:[place] or female or female 00 Medi nely climacteri climacteri Br anch c states c states Tobacco Tobacco Disease Active Univers use use 2-18 ity of disorder disorder 00:00: [place] [facility] Pain of Pain of Problem Active Univers left femur left femur it y of [place] [facility] ans Closed Closed Problem Active Univers fracture fracture ity of of neck of [place] of [place] left left Physici femur, femur, ans initial initial encounter encounter Chronic Chronic Disease Active Univers depressive depressive it y of personalit personalit [place] y disorder y disorder Me dical Branch Generalize Generalize Disease Active U nivers d d ity of osteoarthr osteoarthr [place] osis, osis, Medical unspecifie unspecifie Br anch d site d site Insomnia Insomnia Disease Active Overview: Un chevy Formattin ity of g of this [place] note Medical might be Branch different from the original. 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 Esophageal Esophageal Disease Active U nivers reflux reflux ity of [facility] Essential Essential Disease Active Uni vers hypertensi hypertensi it y of on, benign on, benign [place] [facility] Recurrent Recurrent Disease Active Uni vers UTI UTI ity of [facility] Allergies, Adverse Reactions, Alerts Allergy Allergy Status Severity Reaction(s) Onset Inactive Treating Comm ents Source Name Type Date Date Clinician morphine DA Active U [facility] 912 Clear 00:00: Niño [facility] oxycodon DA Active SD [facility] e 9-12 Clear 00:00: Niño 00 [facility] tramadol DA Active SD 0 [facility] 9-12 Clear 00:00: Niño 00 [facility] morphine DA Active U DELIRIUM 2019- [facility] 9-12 Clear 00:00: Niño 00 [facility] oxycodon DA Active SD DELIRIUM 0 [facility] e 9-12 Clear 00:00: Niño 00 [facility] tramadol DA Active SD DELIRIUM [facility] 9-12 Clear 00:00: Niño 00 [facility] Tramadol Propensi Active Hallucinatio 2017-05 Univers ty to ns 0-11 ity of adverse 00:00: [place] reaction 00 Medical s Branch TRAMADOL DRUG Active Hallucinates 2017-05 Un chevy INGREDI 0-11 ity of 00:00: [place] [facility] Sulfatri Propensi Active Nausea 0 Univer s m Ds ty to and/or 10-01 ity of adverse Vomiting 00:00: [place] reaction Medical to Branch drug SULFATRI DRUG Active Med Dizziness Unive rs M DS 5- ity of 00:00: [place] 00 Medical Branch prometha DA Active SD 2011-05 [facility] zine HCl 1-12 Clear 00:00: Niño 00 [facility] some DA Active U lips swell 2011-05 [facility] antibiot 1-12 Clear ic 00:00: Niño 00 [facility] prometha DA Active SD AMS 2011-05 [facility] zine HCl 1-12 Clear 00:00: Niño 00 [facility] Prometha Propensi Active Unknown - Sees Uni vers zine Hcl ty to See comments 1-22 things it y of adverse 00:00: per pt. [place] reaction 00 Medical s Branch PROMETHA DRUG Active Unknown-Cmnt Un chevy ZINE HCL INGREDI - ity of 00:00: [place] 00 Medical Branch MORPHINE Adverse Active hallucinatio C [facility] Reaction [facility] Tramadol Adverse Active Hallucinatio C [facility] HCl Reaction ns [facility] Phenerga Adverse Active vomiting [facility] Social History Social Habit Start Date Stop Date Quantity Comments Source Exposure to Not sure University SARS-CoV-2 [place] [facility] (event) Branch History of Cigarette Smoker Universi ty of tobacco use [place] [facility] History [facility] University o f Alcohol Frequency [place] [facility] ed[facility] History [facility] o f Alcohol Std [place] Medical Drinks Branch History [facility] o f Alcohol Binge [place] [facility] al [facility] Alcohol intake 2021-03-02 2021-03-02 0 /d University of 00:00:00 00:00:00 [facility] Tobacco Comment 2006-05-27 2006-05-27 Has cut down from Un iversity of 00:00:00 00:00:00 1PPD in past [place] [facility] l [facility] Alcohol Comment 2006-05-27 2006-05-27 occasional use Unive rsity of 00:00:00 00:00:00 [facility] Sex [birth year] At [birth year] Universit y of 00:00:00 00:00:00 [facility] Smoking Status Start Date Stop Date Source Current every day smoker 2020-09-01 00:00:00 Uni versity of [facility] Medications Ordered Filled Start Stop Current Ordering Indication Dosage Frequency Signature Comments Components Source Medication Medication Date Date Medication? Clinician (SIG) Name Name SERTraline 2020-05 Yes 25mg Take 25 mg U nivers (ZOLOFT) 25 0-28 by mouth ity of mg tablet 10:49: daily. [address] SERTraline 2020-05 Yes 25mg Take 25 mg U nivers (ZOLOFT) 25 0-28 by mouth ity of mg tablet 10:49: daily. [address] Nitrofurant 2020- No [id number] 100mg Take 1 Univers oin&Nit. 5-03 10-28 capsule by ity of Macrocryst 00:00: 00:00 mouth 2 Sanya as (MACROBID) 00 :00 (two) Medical 100 mg times Branch capsule daily. Nitrofurant 2020- No [id number] 100mg Take 1 Univers oin&Nit. 5-03 10-28 capsule by ity of Macrocryst 00:00: 00:00 mouth 2 Sanya as (MACROBID) 00 :00 (two) Medical 100 mg times Branch capsule daily. memantine Yes 10mg Take 10 mg Un chevy HCl 4-29 by mouth 2 ity of (NAMENDA 16:39: (two) [place] ORAL) 15 times Medical daily. Branch quetiapine Yes 75mg Take 75 mg U nivers fumarate 4-29 by mouth ity of (SEROQUEL 16:39: at [place] ORAL) 15 bedtime. Medical Branch memantine Yes 10mg Take 10 mg Un chevy HCl 4-29 by mouth 2 ity of (NAMENDA 16:39: (two) [place] ORAL) 15 times Medical daily. Branch quetiapine Yes 75mg Take 75 mg U nivers fumarate 4-29 by mouth ity of (SEROQUEL 16:39: at [place] ORAL) 15 bedtime. Medical Branch Augmentin Augmentin 2020- No Mary [address] [facility] 6 07-05 [facility] multivit Yes Take by Unive rs with 3-10 mouth. ity of minerals/sanket 14:58: [place] teny 20 Medical (MULTIVITAM Branch IN 50 PLUS ORAL) ascorbate 0 Yes Take by Univ ers calcium 3-10 mouth. ity of (VITAMIN C 14:58: [place] ORAL) 20 Medical Branch anastrozole Yes 1mg Take 1 mg U nivers 1 mg tablet 3-10 by mouth ity of 14:58: daily. [place] [address] Medical Branch multivit Yes Take by Unive rs with 3-10 mouth. ity of minerals/sanket 14:58: [place] tein 20 Medical (MULTIVITAM Branch IN 50 PLUS ORAL) ascorbate 2019-0 Yes Take by Univ ers calcium 3-10 mouth. ity of (VITAMIN C 14:58: [place] ORAL) 20 Medical Branch anastrozole Yes 1mg Take 1 mg U nivers 1 mg tablet 3-10 by mouth ity of 14:58: daily. [place] [address] Medical Branch alendronate 2018-05 Yes TK 1 T PO U nivers 35 mg 2-19 ONCE A ity of tablet 00:00: WEEK FOR [place] [employer]ONES. Medical Branch alendronate 2018-05 Yes TK 1 T PO U nivers 35 mg 2-19 ONCE A ity of tablet 00:00: WEEK FOR [place] THE BONES. Medical Branch Ciprofloxac Ciprofloxac 2019- No Mary [address] in HCl in HCl 5-13 05-20 [facility] lisinopril Yes [id number] 10mg Take 1 Un chevy 10 mg 7-07 tablet by ity of tablet 00:00: mouth daily. [facility] Cyanocobala Yes [id number] 1{tbl} Place 1 Univers min 7-07 tablet ity of (VITAMIN 00:00: under the [employer] B-12) 1,000 00 tongue Medica l mcg daily. Branch sublingual tablet lisinopril Yes [id number] 10mg Take 1 Un chevy 10 mg 7-07 tablet by ity of tablet 00:00: mouth daily. [facility] Cyanocobala Yes [id number] 1{tbl} Place 1 Univers min 7-07 tablet ity of (VITAMIN 00:00: under the [employer] B-12) 1,000 00 tongue Medica l mcg daily. Branch sublingual tablet ASPIRIN 81 Yes 1 daily Univ ers MG ORAL 9-09 ity of CHEW 00:00: [facility] ASPIRIN 81 Yes 1 daily Univ ers MG ORAL 9-09 ity of CHEW 00:00: [place] [facility] Immunizations Ordered Filled Immunization Date Status Comments [facility] e Immunization Name Name Influenza High Dose 2015-03-25 Completed Unive rsity of 00:00:00 [facility] Influenza High Dose 2015-03-25 Completed Unive rsity of 00:00:00 [facility] Influenza High Dose 2014-03-25 Completed Unive rsity of 00:00:00 [facility] Influenza High Dose 2014-03-25 Completed Unive rsity of 00:00:00 [facility] Influenza Virus 2013-02-28 Completed Universit y of Vaccine 00:00:00 [facility] Influenza Virus 2013-02-28 Completed Universit y of Vaccine 00:00:00 [facility] Influenza High Dose 2012-02-08 Completed Unive rsity of 00:00:00 [facility] Influenza High Dose 2012-02-08 Completed Unive rsity of 00:00:00 [facility] TDAP 2011-08-29 Completed University of 00:00:00 [facility] TDAP 2011-08-29 Completed University of 00:00:00 [facility] Influenza Virus 2010-06-26 Completed Universit y of Vaccine 00:00:00 [facility] Influenza Virus 2010-06-26 Completed Universit y of Vaccine 00:00:00 [facility] Influenza Virus 2008-03-20 Completed Universit y of Vaccine 00:00:00 [facility] Influenza Virus 2008-03-20 Completed Universit y of Vaccine 00:00:00 [facility] Influenza Virus 2007-03-14 Completed Universit y of Vaccine 00:00:00 [facility] Influenza Virus 2007-03-14 Completed Universit y of Vaccine 00:00:00 [facility] Influenza Virus 2006-03-02 Completed Universit y of Vaccine 00:00:00 [facility] Influenza Virus 2006-03-02 Completed Universit y of Vaccine 00:00:00 [facility] Pneumococcal 2004-03-27 Completed University o f Polysaccharide, 00:00:00 [place] [facility] ical PPSV23 (PNEUMOVAX) [place] Pneumococcal 2004-03-27 Completed University o f Polysaccharide, 00:00:00 [place] Med ical PPSV23 (PNEUMOVAX) [place] Vital Signs Vital Name Observation Time Observation Value Comments Source Systolic blood 2021-03-02 17:06:00 152 mm[Hg] Univer sity of pressure [facility] Diastolic blood 2021-03-02 17:06:00 81 mm[Hg] Unive rsity of pressure [facility] Heart rate 2021-03-02 17:06:00 54 /min [facility] Body temperature 2021-03-02 15:42:00 37 Loni [facility] Respiratory rate 2021-03-02 15:42:00 16 /min [facility] Body weight 2021-03-02 15:42:00 53.933 kg [facility] BMI 2021-03-02 15:42:00 21.06 kg/m2 [facility] Procedures Procedure Date / Time Performed Performing Clinician Ronald johnson [id number] 2020-01-16 00:00:00 WHEED [facility] [id number] 2020-01-16 00:00:00 WHEED [facility] [id number] 2020-01-16 00:00:00 WHEED [facility] Encounters Start End Encounter Admission Attending Care Care Encounter Source Date/Time Date/Time Type Type Clinicians Facility Department ID 2020-01-30 Inpatient PRASHANT Pollack [facility] 08:45:00 Edward [id number] [facility] 2020-01-15 Inpatient RICH AbbottMN REHA [id number] [facility] 18:07:00 Edward [id number] [facility] 2021-03-03 2021-03-03 Outpatient R BETY [facility] [id number] Univers 14:00:00 14:00:00 REBEKAH [id number] [facility] 2021-03-03 2021-03-03 Outpatient Ezekiel ALBERT [facility] [id number] Univers 14:00:00 14:00:00 REBEKAH [facility] 2021-03-02 2021-03-02 Outpatient R RADHAMES ROBLERO [facility] [id number] Univers 10:30:00 12:10:59 [facility] 2021-03-02 2021-03-02 [facility] [id number] Univers 10:01:22 12:10:59 Visit Patrick VAN [id number] i ty [facility] [id number] Adolfo kapadia PROFESSIO [phone] Ca dical [address] 2021-03-02 2021-03-02 Outpatient RADHAMES DURAN [facility] [id number] Univers 10:30:00 10:30:00 [id number] [facility] 2020-11-17 2020-11-17 Outpatient STLMLC [facility] [id number] [facility]00 [facility] 2020-09-01 2020-09-01 Outpatient Ezekiel ALBERT [facility] [id number] Univers 15:30:00 15:30:00 REBEKAH [id number] [facility] 2020-09-01 2020-09-01 Outpatient Ezekiel ALBERT [facility] [id number] Univers 15:30:00 15:30:00 REBEKAH [facility] 2020-08-15 2020-08-15 Outpatient [facility]LMLC [facility] [id number] [facility] 2020-07-07 2020-07-07 Outpatient Ezekiel ROBLERO RADHAMES [facility] [id number] Univers 08:00:00 08:00:00 [facility] 2020-07-07 2020-07-07 Outpatient Ezekiel ROBLERO [facility] [id number] Univers 08:00:00 08:00:00 [id number] [facility] 2020-07-05 2020-07-05 Outpatient [facility] [id number] [facility] 2020-04-08 2020-04-08 Outpatient STLMLC [facility] [id number] [facility] 2020-04-08 2020-04-08 Outpatient [facility] [id number] [facility] 2020-03-25 2020-03-25 Outpatient [facility] [id number] [facility] 2020-03-10 2020-03-10 Outpatient [facility]LMLC [facility] [id number] [facility] 2020-03-02 2020-03-02 Outpatient [facility]LMLC [facility] [id number] [facility] 2020-02-26 2020-02-26 Outpatient [facility] [id number] [facility] 2020-02-17 2020-02-17 Outpatient [facility] [id number] [facility] 2020-02-11 2020-02-11 ALIA Zavala [id number] Univers 13:15:00 13:15:00 t; JUAN ALEGRIA it y of [place], M.D. [place] M.D. Physici ans 2020-02-09 2020-02-09 Outpatient [facility] [id number] [facility] 00:[facility]:00 [facility] 2020-01-16 2020-01-16 Outpatient JORGE Pollack [id number] [facility] 18:44:00 18:44:00 Ewing [id number] [facility] 2020-01-13 2020-01-13 Appointmen ALIA ALEGRIA [id number] Univers 12:30:00 12:30:00 t; JUAN ALEGRIA it y of [place], M.D. [place] M.D. Physici ans 2019-12-03 2019-12-03 [facility] [id number] [facility] 14:10:00 14:10:00 [facility] ent [facility] 2019-11-25 2019-11-25 [facility] [id number] 00:00:00 00:00:00 [facility] [id number] [place] [id number] Professio [phone] nal [facility] Office [address] [facility] 2019-11-24 2019-11-24 Laboratory Lab, [place] [id number] 16:22:36 16:42:36 Only Fam Pob I Health [id number] [place] [id number] Professio [phone] nal [facility] Office [facility] 2019-11-24 2019-11-24 Outpatient R DAVON [facility] [id number] Univers 16:40:00 16:40:00 MARYANN nikky [facility] 2019-11-24 2019-11-24 Outpatient R [facility] [id number] Univers 11:00:00 11:00:00 [id number] ity [facility] 2019-10-30 2019-10-30 [facility] [id number] 17:45:00 17:45:00 [facility] ent Clinics 2019-10-29 2019-10-29 [facility] [id number] 11:01:00 11:01:00 [facility] Outpati ent Clinics 2019-10-16 2019-10-16 [facility] [id number] 11:00:00 11:00:00 [facility] Outpati ent Clinics 2019-10-12 2019-10-12 Outpatient R RADHAMES ROBLERO [facility] [id number] Univers 09:30:00 09:30:00 [id number] [facility] 2019-10-12 2019-10-12 Outpatient R OSBALDO RADHAMES [facility] [id number] Univers 09:30:00 09:30:00 [facility] 2019-09-29 2019-09-29 [facility] [id number] [facility] 16:42:00 16:42:00 [facility] Outpati ent Clinics 2019-07-15 2019-07-15 [facility] [id number] [facility] 15:00:00 15:00:00 [facility] Outpati ent [facility] 2019-07-14 2019-07-14 Office Radhames Roblero [facility] [id number] 14:24:44 15:18:57 Visit Patrick Van [id number] [employer] [id number] [facility] [id number] [address] 2019-07-14 2019-07-14 Outpatient Ezekiel VALLADARES [facility] [id number] Univers 14:30:00 14:30:00 PANCHO [facility] 2019-01-29 2019-01-29 [facility] [id number] [facility] 14:40:00 14:40:00 [facility] Medicine Outpati ent Clinics 2018-09-15 2018-09-15 [facility] [id number] [facility] 14:25:00 14:25:00 t [facility] Medicine Outpati ent Clinics 2018-09-15 2018-09-15 [facility] [id number] 11:40:00 11:40:00 t [facility] Medicine Outpati ent Clinics 2018-08-14 2018-08-14 [facility] [id number] [facility] 15:00:00 15:00:00 t [facility] Medicine Outpati ent Clinics 2018-05-20 2018-05-20 [facility] [id number] 16:00:00 16:00:00 t [facility] Medicine Outpati ent Clinics 2018-02-03 2018-02-03 [facility] [id number] [facility] 11:36:00 11:36:00 t [facility] Medicine Outpati ent Clinics 2018-02-03 2018-02-03 [facility] [id number] [facility] 11:00:00 11:00:00 t [facility] Medicine Medicine Outpati ent Clinics 2018 2018 [facility] [id number] [facility] 16:27:00 16:27:00 t [facility] Medicine Outpati ent Clinics 2017-12-25 2017-12-25 [facility] [id number] [facility] 15:22:00 15:22:00 t [facility] Medicine Medicine Outpati ent Clinics 2017-12-23 2017-12-23 [facility] [id number] [facility] 23:12:00 23:12:00 t [facility] Medicine Outpati ent Clinics 2017-12-23 2017-12-23 [facility] [id number] 11:00:00 11:00:00 [facility] Medicine Outpati ent Clinics 2017-11-19 2017-11-19 [facility] [id number] 10:30:00 10:30:00 [facility] ent [facility] 2017-09-24 2017-09-24 Outpatient Lucrecia Albertina [id number] [facility] 14:21:00 14:21:00 [facility] ent [facility] 2017-09-02 2017-09-02 Outpatient Prachihilda Albertina [id number] [facility] 11:32:00 11:32:00 [facility] 2017-08-29 2017-08-29 Outpatient Prachihilda Albertina [id number] 14:30:00 14:30:00 [facility] ent [facility] Results Test [...] = ALKP) 85 Units/L 50.0-136 .0 N [id number] 08:42:00 Test Item Value Reference Range Interpretation Comments MAGNESIUM (test code = MAG) 2.4 mg/dl 1.8-2.4 N CBC W/AUTO [id number] 08:11:00 Test Item Value Reference Range Interpretation [...] N NRBC#) UA RFLX MICR CULT IF [id number] 10:19:00 Test Item Value Reference Range Interpretation [...] Description: CLEAN CATCHUA RFLX MICR CULT IF [id number] 10:15:00 Test Item Value Reference Range Interpretation [...] no other srcSpecimen Description: CLEAN CATCHCBC W/O [id number] 07:08:00 Test Item Value Reference Range Interpretation [...] 10.2 fl 7.4-10.4 N MPV) CBC W/AUTO [id number] 00:43:00 Test Item Value Reference Range Interpretation [...] (test code = INCREASED PLTEST) BASIC METABOLIC [id number] 19:31:00 Test Item Value Reference Range Interpretation [...] CA) 8.7 mg/dl 8.0-10.5 N CBC W/AUTO [id number] 19:21:00 Test Item Value Reference Range Interpretation [...] X10 3uL 0.00-0.01 N NRBC#) CBC W/AUTO [id number] 07:44:00 Test Item Value Reference Range Interpretation [...] X10 3uL 0.00-0.01 N NRBC#) COMPREHENSIVE METABOLIC [id number] 07:18:00 Test Item Value Reference Range Interpretation [...] 87 Units/L 50.0-136.0 N code = ALKP) [id number] 00:49:00 Test Item Value Reference Range Interpretation Comments GLUBED (test code = GLUBED) 145 mg/dL 70-110 H VITAMIN [id number] 08:28:00 Test Item Value Reference Range Interpretation Comments VITAMIN B12 (test code = VITB12) 393 pg/mL 193-986 N THYROID STIMULATING [id number] 08:28:00 Test Item Value Reference Range Interpretation Comments THYROID STIMULATING 1.39 IU/ML 0.47-5.01 N Result i s in HORMONE (test code = Interna tional TSH) Units/millilite r COMPREHENSIVE METABOLIC [id number] 07:59:00 Test Item Value Reference Range Interpretation [...] 50.0-136.0 N code = ALKP) Specimen comments: .[id number] 07:59:00 Test Item Value Reference Range Interpretation Comments MAGNESIUM (test code = MAG) 2.2 mg/dl 1.8-2.4 N Specimen comments: .[id number] 07:49:00 Test Item Value Reference Range Interpretation Comments AMMONIA (test code = AMM) 7.0 MCMOL/L 11.0-32.0 L CBC W/AUTO [id number] 07:26:00 Test Item Value Reference Range Interpretation [...] 0.00 X10 3uL 0.00-0.01 N NRBC#) URINALYSIS [id number] 23:44:00 Test Item Value Reference Range Interpretation [...] cath if unable to obtain Clean CatchURINALYSIS [id number] 23:20:00 Test Item Value Reference Range Interpretation [...] if unable to obtain Clean CatchCOMPREHENSIVE METABOLIC [id number] 16:01:00 Test Item Value Reference Range Interpretation [...] 85 Units/L 50.0-136.0 N code = ALKP) [id number] 16:01:00 Test Item Value Reference Range Interpretation Comments TROPONIN-I (test <0.02 NG/ML 0.00-0.06 N REFERENCE R MALCOLM code = TROPI) TROPONIN I HEA LTHY INDIVIDUALS: < 0.06 ng/mL R/O ISCHE GREGORIO: 0.07 - 0.60 ng/ mL CUT-OFF RANGE F OR AMI: 0.60 - 1.5 ng/m L COMPREHENSIVE METABOLIC [id number] 15:50:00 Test Item Value Reference Range Interpretation [...] TOTAL (test Units/L 50.0-136.0 code = ALKP) [id number] 15:50:00 Test Item Value Reference Range Interpretation Comments TROPONIN-I (test code = TROPI) NG/ML 0.00-0.06 CBC W/AUTO [id number] 15:46:00 Test Item Value Reference Range Interpretation [...] K/mm3 0.0-0.2 N - XR ELBOW 3+V [id number] 15:44:00 FAX: Art Rodriguez MD [place]: St: REG Name: ERNESTO BALDWIN [facility] : 1940 Age/S: 78/F [address] [facility] Unit#: [id number] Loc: [place], [place]: [place] [address] Acct: [id number] Dis Date: Status: REG ER PHONE #: [phone] Exam Date: 08/01/2018 1526 FAX #: [phone] Reason: FALL - ELBOW INJURY EXAMS: CPT CODE: [id number] XR ELBOW 3+V RT 9[address] Location: U19. RIGHT ELBOW 3 VIEWSHISTORY: FALL - ELBOW INJURY FINDINGS: No fracture, dislocation, soft tis alma swelling or joint effusion. Calcification seen along the lateral epicondyle. IMPRESSION: No fracture or dislocation. at 1544 Reported and signed by: Vincenzo Peters M.D. CC: Art Rodriguez MD Technologist: KODY MARIN [facility] Date/Time/By: 08/01/2018 (1544) : By: [email or web address] PAGE 1 Signed Report FAX: Art Rodriguez MD [place]: St: REG -- Name: ERNESTO BALDWIN [facility] : 1940 Age/S: 78/F[address] Unit #: [id number] Loc: [place], [place]: [place] [address] Acct: [id number] Dis Date: Status: REG ER PHONE #: [phone] Exam Date: 08/01/2018 152 FAX #: [phone] Reason: FALL - ELBOW INJURY EXAMS: CPT CODE: [id number] XR ELBOW 3+V RT 31713 <Continued> Orig Print D/T: S: 08/01/2018 (9594) PAGE 2 Signed Report- XR HAND 3 + V [id number] 15:33:00 FAX: Art Rodriguez MD [place]: St: REG Name: ERNESTO BALDWIN [facility] : 1940 Age/S: 78/F [address] Unit#: [id number] Loc: [place], [place]: [place] [address] Acct: [id number] Dis Date: Status: REG ER PHONE #: [phone] Exam Date: 08/01/2018 1526 FAX #: [phone] Reason: FALL HAND INJURY EXAMS: CPT CODE: [id number] XR HAND 3 + [place] [address] LOCATION: T18 EXAM: LEFT HAND 3 VIEWS [...] MARIN Trnscrd Date/Time/By: 08/01/2018 (1533) : By: [email or web address] PAGE 1 Signed Report FAX: Art Rodriguez MD [place]: St: REG -- Name: ERNESTO BALDWIN [facility] : 1940 Age/S: 78/F [address] [facility] Unit #: [id number] Loc: [place], [place]: [place] [address] Acct: [id number] Dis Date: Status: REG ER PHONE #: [phone] Exam Date: 08/01/2018 1526 FAX #: [phone] Reason: FALL HANDINJURY EXAMS: CPT CODE: [id number] XR HAND 3 + V LT [address] <Continued> Orig Print D/T: S: 08/01/2018 (6765) PAGE 2 Signed Report- XR CHEST 1 V 2018-08-01 15:31:00 FAX: Art Rodriguez MD [place]: St: REG [facility] 1940 Age/S: 78/F [address] [facility] Unit#: [id number] Loc: [place], [place]: [place] [address] Acct: [id number] Dis Date: Status: REG ER PHONE #: [phone] Exam Date: 08/01/2018 1526 FAX #: [phone] Reason: FALL EXAMS: CPT CODE: [id number] XR CHEST 1 V 02850 LOCATION: T18 EXAM: CHEST 1 VIEW INDICATION: [...] CC: Art Rodriguez MD Technologist: KODY MARIN [facility] Date/Time/By: 08/01/2018 (1531) : By: [email or web address] PAGE 1 Signed Report FAX: Art Rodriguez MD [place]: St: REG [facility] 1940 Age/S: 78/F [address] [facility] Unit #: [id number] Loc: [place], [place]: [place] [address] Acct: [id number] Dis Date: Status: REG ER PHONE #: [phone] Exam Date: 08/01/2018 1526 FAX #: [phone] Reason: FALL EXAMS: CPT CODE: [id number] XR CHEST 1 V 42142 <Continued> Orig Print D/T: S: 08/01/2018 (5910) PAGE 2 Signed Report- CT MAXIFAC W/O [id number] 15:20:00 FAX: Art Rodriguez MD [place]: St: REG Name: ERNESTO BALDWIN [facility] : 1940 Age/S: 78/F [address] [facility] [address] Unit: [id number] Loc: [place], [place]: [place] [address] Acct: [id number] Dis Date: Status: REG E R PHONE #: [phone] Exam Date: 08/01/2018 1457 FAX #: [phone] Reason: FALL - FACIAL INJURY EXAMS: CPT CODE: [id number] CT MAXIFAC W/O CONTRAST 19287 CT maxillofacial bones without contrast Location Code: [...] MD Technologist: ARSENIO VILLANUEVA Trnscrd Dt/Tm: 08/01/2018 (2116) [email or web address] Orig Print D/T: S: 08/01/2018 (1523 PAGE 1 Signed Report- CT C-SPINE W/O [id number] 15:18:00 FAX: Art Rodriguez MD [place]: St: REG Name: ERNESTO BALDWIN [facility] : 1940 Age/S: 78/F [address] [facility] Unit: [id number] Loc: [place], [place]: [place] [address] Acct: [id number] Dis Date: Status: REG E R PHONE #: [phone] Exam Date: 08/01/2018 1457 FAX #: [phone] Reason: FALL - HEAD INJURY EXAMS: CPT CODE: [id number] CT C-SPINE W/O CONT 59363 CT CERVICAL SPINE WITHOUT CONTRAST; SAGITTAL AND [...] CC: Art Rodriguez MD Technologist: ARSENIO VILLANUEVA Trndavidson Dt/Tm: 08/01/2018 (1514) [email or web address] Orig Print D/T: S: 08/01/2018 (1521 PAGE 1 Sign ed Report- CT HEAD/BRAIN W/O [id number] 15:14:00 FAX: Art Rodriguez MD [place]: St: REG Name: ERNESTO BALDWIN [facility] : 1940 Age/S: 78/F [address] [facility] Unit: [id number] Loc: [place], [place]: [place] [address] Acct: [id number] Dis Date: Status: REG E R PHONE #: [phone] Exam Date: 08/01/2018 1457 FAX #: [phone] Reason: FALL - HEAD INJURY EXAMS: CPT CODE: [id number] CT HEAD/BRAIN W/O CONT 65515 EXAM: CT Head without contrast Location code:J9 HISTORY: Trauma COMPARISON: None available. TECHNIQUE: Multiple transaxial images of the brain were obtained [...] Alvarado Estrada M.D. CC: Art Rodriguez MD Techno logist: ARSENIO VILLANUEVA Trndavidson Dt/Tm: 08/01/2018 (1514) [email or web address] Orig Print D/T: S: 08/01/2018 (1518 PAGE1 Signed Report- XR KNEE 3 V [id number] 14:49:00 FAX: Art Rodriguez MD [place]: St: PRE Name: ERNESTO BALDWIN [facility] : 1940 Age/S: 78/F [address] [facility] [id number] Loc: [place], [place]: [place] [address] Acct: [id number] Dis Date: Status: PRE ER PHONE #: [phone] Exam Date: 08/01/2018 1443 FAX #: [phone] Reason: KNEE PAIN EXAMS: CPT CODE: [id number] XR KNEE 3 V RT 66791 Location: U19. RIGHT KNEE 3 VIEWS HISTORY: Right knee pain FINDINGS: Anterior soft tissue swelling. No fracture or dislocation. Mild osteophyte formation seen in the patellofemoral compartment. Vascular calcifications. No fracture or dislocation. IMPRESSION: Anterior soft tissue swelling without a fracture or dislocation. at 1449 Reported and signed by: Vincenzo Peters M.D. CC: Art Rodriguez MD Technologist: SHAN GAN Trnscrd Date/Time/By: 08/01/2018 (0995) : By: [email or web address] PAGE 1 Signed Report FAX: Art Rodriguez MD [place]: St: PRE -- Name: ERNESTO BALDWIN [facility] : 1940 Age/S: 78/F [address] [facility] Unit #: [id number] Loc: [place], [place]: [place] [address] Acct: [id number] Dis Date: Status: PRE ER PHONE #: [phone] Exam Date: 08/01/2018 1443 FAX #: [phone] Reason: KNEE PAIN EXAMS: CPT CODE: [id number] XR KNEE 3 V RT 57415 <Continued> Orig PrintD/T: S: 08/01/2018 (3451) PAGE 2 Signed Report
[2021-04-08] MEDS ORDERED: FENTANYL CITR 100 MCG/2 ML ONE ×3 (11:30→17:26)
--- NOTE | 2021-04-08 11:37 | RAD REPORT ---
EXAM DESCRIPTION: CT - Head C Spine Mpr Wo Con - 04/08/2021 11:12 am CLINICAL HISTORY: Head and neck injury status post fall. Head and neck pain COMPARISON: 2019 TECHNIQUE: Computed axial tomography of the head and cervical spine was obtained. Sagittal and coronal reconstruction was performed. All CT scans are performed using dose optimization technique as appropriate and may include automated exposure control or mA/KV adjustment according to patient size. FINDINGS: A left frontal scalp hematoma. An intracranial bleed is not seen. The ventricles are normal in caliber. An extra-axial fluid collect ion is not noted. A cervical fracture is not visualized. No dislocation is noted. IMPRESSION: No acute intracranial abnormality is seen. A cervical fracture is not visualized. If the patient continues to have symptoms to suggest intracra nial /spinal cord pathology then MRI would be recommended
--- NOTE | 2021-04-08 11:40 | RAD REPORT ---
EXAM DESCRIPTION: CT - Facial Bones W/ Mpr - 04/08/2021 11:12 am CLINICAL HISTORY: Facial injury COMPARISON: 2018 TECHNIQUE: Computed axial tomography of the face was obtained. Coronal and sagittal reconstruction w as performed. All CT scans are performed using dose optimization technique as appropriate and may include automated exposure control or mA/KV adjustment according to patient size. FINDINGS: Left supraorbital hematoma. A fracture is not seen. A TMJ dislocation is not noted. The globes are intact. Fluid within the sinuses is not seen. IMPRESSION: Negative for a facial fracture.
[2021-04-08 11:53] LABS: Absolute Lymphocytes (CBC) 2.1 K/uL (0.7-4.9); Basophils % 0.6 % (0-1.3); Hematocrit 39.3 % (36.0-45.0); MPV 9.8 fL (7.6-11.3); RBC Red Blood Cell Count 4.16 M/uL (3.86-4.86)
[2021-04-08 11:58] LABS: Protime INR 0.94
[2021-04-08 12:19] LABS: ALT/SGPT 17 U/L (12-78); AST/SGOT 21 U/L (15-37); Albumin 3.4 g/dL (3.4-5.0); Alkaline Phosphatase 65 U/L (45-117); BUN Blood Urea Nitrogen 13 mg/dL (7-18); Bicarbonate 29 mmol/L (21-32); Bilirubin Direct 0.2 mg/dL (0-0.2); Bilirubin Total 0.6 mg/dL (0.2-1.0); Glucose Level 95 mg/dL (74-106); Magnesium 2.5 mg/dL (1.8-2.4); NT PRO-BNP 337 pg/mL (<450); Potassium 3.9 mmol/L (3.5-5.1); Protein, Total 8.6 g/dL (6.4-8.2); Sodium Level 143 mmol/L (136-145); Troponin (Emerg Dept Use Only) < 0.02 ng/mL (0.0-0.045)
--- NOTE | 2021-04-08 12:38 | RAD REPORT ---
EXAM DESCRIPTION: Marcie Single View04/08/2021 12:16 pm CLINICAL HISTORY: Chest pain COMPARISON: 2017 FINDINGS: The lungs appear clear of acute infiltrate. The heart is normal size IMPRESSION: No acute abnormalities displayed
--- NOTE | 2021-04-08 12:40 | RAD REPORT ---
EXAM DESCRIPTION: RAD - Knee Right 3 View - 04/08/2021 12:17 pm CLINICAL HISTORY: Right knee pain status post injury FINDINGS: No fracture or dislocation is seen.
[2021-04-08] MEDS ORDERED: lisinopriL 10 MG TAB ONE (13:32)
--- NOTE | 2021-04-08 15:23 | EDPHYS ---
Physician Documentation [facility] Name: Marilin Leblanc Age: 81 yrs Sex: Female : 1940 Arrival Date: 04/08/2021 Time: 10:55 Bed 5 Private MD: ED Physician Alvarado Calvo HPI: 04/08 12:41 This 81 yrs old Female presents to ER via EMS with complaints of Fall Injury. kb 12:41 Details of fall: The patient fell from an upright position, while walking. Onset: The kb symptoms/episode began/occurred just prior to arrival. Associated injuries: The patient sustained injury to the head, hematoma, pain, neck injury, pain. Severity of symptoms: At their worst the symptoms were moderate, in the emergency department the symptoms are unchanged. The patient has not experienced similar symptoms in the past. The patient has not recently seen a physician. Pt tripped and fell hitting head on the hardwood floor. Denies loc. Family reports pt was able to answer date of correctly at home. Pt unable to recall , events, year. Pt oriented to name and able to follow commands. EMS reports pt kept repeating herself in the ambulance . Historical: - Allergies: 11:09 Morphine; jl7 11:09 Oxycodone HCl; jl7 11:09 Promethazine; jl7 11:09 Sulfa (Sulfonamide Antibiotics); jl7 11:09 Tramadol HCl; jl7 11:09 Vicodin; jl7 - PMHx: 11:09 Alzheimers; Breast Cancer Right side; Dementia; Hypertension; jl7 - Immunization history:: Adult Immunizations unknown. - Social history:: Smoking status: unknown. - Immunization history: Last tetanus immunization: unknown. ROS: 12:40 Constitutional: Negative for fever, chills, and weight loss. kb 12:40 Neck: Positive for pain with movement, pain at rest. 12:40 Skin: Positive for hematoma, of the left side of forehead. 12:40 Neuro: Positive for altered mental status, headache. 12:40 All other systems are negative. Exam: 12:39 ECG was reviewed by the Attending Physician. kb 12:39 Constitutional: This is a well developed, well nourished patient who is awake, alert, kb and in no acute distress. ENT: Moist Mucous membranes Neck: Trachea midline, no thyromegaly or masses palpated, and no cervical lymphadenopathy. Supple, full range of motion without nuchal rigidity, or vertebral point tenderness. No Meningismus. Cardiovascular: Regular rate and rhythm with a normal S1 and S2. No gallops, murmurs, or rubs. No pulse deficits. Respiratory: Respirations even and unlabored. No increased work of breathing, no retractions or nasal flaring. MS/ Extremity: Pulses equal, no cyanosis. Neurovascular intact. Full, normal range of motion. Psych: Awake, alert, with orientation to person, place and time. Behavior, mood, and affect are within normal limits. 12:39 Skin: large hematoma to left forehead. 12:39 Neuro: Orientation: to person, place, Not oriented to time, situation, Mentation: able to follow commands, Motor: moves all fours. Vital Signs: 10:55 BP 190 / 73; Pulse 60; Resp 15 S; Temp 97.8(TE); Pulse Ox 98% on R/A; Weight 58.97 kg; jl7 11:30 BP 191 / 79; Pulse 62; Resp 15; Pulse Ox 99% ; jl7 12:15 BP 188 / 70; Pulse 61; Resp 17; Pulse Ox 99% ; jl7 12:58 BP 196 / 80; Pulse 60; Resp 15; Pulse Ox 100% ; jl7 13:45 BP 191 / 82; Pulse 59; Resp 14; Pulse Ox 99% ; jl7 14:30 BP 181 / 71; Pulse 61; Resp 14; Pulse Ox 100% ; jl7 15:05 BP 166 / 76; Pulse 61; Resp 14; Pulse Ox 99% ; jl7 16:00 BP 167 / 72; Pulse 62; Resp 15; Pulse Ox 100% ; jl7 16:45 BP 159 / 75; Pulse 66; Resp 16; Pulse Ox 99% ; jl7 17:30 BP 141 / 60; Pulse 68; Resp 15; Pulse Ox 98% ; jl7 [place] Coma Score: 10:55 Eye Response: spontaneous(4). Verbal Response: confused(4). Motor Response: obeys jl7 commands(6). Total: 14. 11:30 Eye Response: spontaneous(4). Verbal Response: confused(4). Motor Response: obeys jl7 commands(6). Total: 14. 12:15 Eye Response: spontaneous(4). Verbal Response: oriented(5). Motor Response: obeys jl7 commands(6). Total: 15. 12:58 Eye Response: spontaneous(4). Verbal Response: oriented(5). Motor Response: obeys jl7 commands(6). Total: 15. 13:45 Eye Response: spontaneous(4). Verbal Response: confused(4). Motor Response: obeys jl7 commands(6). Total: 14. 14:30 Eye Response: spontaneous(4). Verbal Response: oriented(5). Motor Response: obeys jl7 commands(6). Total: 15. 15:05 Eye Response: spontaneous(4). Verbal Response: oriented(5). Motor Response: obeys jl7 commands(6). Total: 15. 16:00 Eye Response: spontaneous(4). Verbal Response: oriented(5). Motor Response: obeys jl7 commands(6). Total: 15. 16:45 Eye Response: spontaneous(4). Verbal Response: oriented(5). Motor Response: obeys jl7 commands(6). Total: 15. 17:30 Eye Response: spontaneous(4). Verbal Response: oriented(5). Motor Response: obeys jl7 commands(6). Total: 15. Trauma Score (Adult): 10:55 Eye Response: spontaneous(1); Verbal Response: confused(1); Motor Response: obeys jl7 commands(2); Systolic BP: > 89 mm Hg(4); Respiratory Rate: 10 to 29 per min(4); Ivet Score: 14; Trauma Score: 12 MDM: 10:59 Patient medically screened. 12:39 Data reviewed: vital signs, nurses notes. Data interpreted: Pulse oximetry: on room air kb is 98 %. Interpretation: normal. 13:31 Data reviewed: I have discussed the patient's presentation/case with the attending Emergency Department Physician;. Counseling: I had a detailed discussion with the patient and/or guardian regarding: the historical points, exam findings, and any diagnostic results supporting the discharge/admit diagnosis, lab results, radiology results, the need for outpatient follow up, a family practitioner, to return to the emergency department if symptoms worsen or persist or if there are any questions or concerns that arise at home. ED course: Daughters report pt is acting normally. Pt follows all commands, holding conversation with family. Family given strict return precautions and educated on outpatient follow up. Verbal understanding received. . 13:59 ED course: Pt got up to bedside commode with max assist. Family states pt normally gets kb up and does ADLs on her own. Family requests admission/transfer for observation. 14:01 ED course: Dr Kline contacted about admission. Requests transfer for head injury. kb States if pt needs any intervention she needs to be at a facility that has specialists to do those interventions. . 15:20 ED course: Pt accepted for consult by neuro at [facility]. Pt accepted for transfer by hospitalist, Dr weiss, at [facility]. 12 11:04 Order name: Basic Metabolic Panel; Complete Time: 12:21 kb 04/08 11:04 Order name: CBC with Diff; Complete Time: 11:55 kb 04/08 11:04 Order name: LFT's; Complete Time: 12:21 kb 04/08 11:04 Order name: Magnesium; Complete Time: 12:21 kb 04/08 11:04 Order name: NT PRO-BNP; Complete Time: 12:21 kb 04/08 11:04 Order name: PT-INR; Complete Time: 12:04 kb 04/08 10:59 Order name: CT Head C Spine; Complete Time: 11:37 kb 04/08 10:59 Order name: CT Facial Bones W/O Con; Complete Time: 11:40 kb 04/08 11:04 Order name: Troponin (emerg Dept Use Only); Complete Time: 12:21 kb 04/08 11:04 Order name: XRAY Chest (1 view); Complete Time: 12:45 kb 04/08 11:36 Order name: COVID-19 SARS RT PCR (Document "Date of Onset" if Symptomatic); Complete kb Time: 13:22 12 16:01 Order name: Urine Dipstick-Ancillary; Complete Time: 16:04 EDMS 04/08 16:04 Order name: Urine Microscopic Only; Complete Time: 16:32 kb 04/08 16:33 Order name: Urine Culture EDMS 04/08 11:04 Order name: EKG; Complete Time: 11:05 kb 04/08 11:04 Order name: Cardiac monitoring; Complete Time: 11:11 kb 04/08 11:04 Order name: EKG - Nurse/Tech; Complete Time: 12:06 kb 04/08 11:04 Order name: IV Saline Lock; Complete Time: 11:11 kb 04/08 11:04 Order name: Labs collected and sent; Complete Time: 11:59 kb 04/08 11:04 Order name: O2 Per Protocol; Complete Time: 11:11 kb 04/08 11:04 Order name: O2 Sat Monitoring; Complete Time: 11:11 kb 04/08 11:25 Order name: Knee Right 3 View XRAY; Complete Time: 12:45 kb 04/08 14:41 Order name: Urine Dipstick-Ancillary (obtain specimen); Complete Time: 17:34 ss EC:39 Rate is 60 beats/min. Rhythm is regular. QRS [place] is Normal. ME interval is normal at kb 180 msec. QRS interval is normal at 72 msec. QT interval is normal at 452 msec. Administered Medications: 11:40 Drug: fentaNYL (PF) 25 mcg Route: IVP; Site: left hand; jl7 12:00 Follow up: Response: No adverse reaction; Pain is decreased jl7 13:41 Drug: fentaNYL (PF) 25 mcg Route: IVP; Site: left hand; jl7 14:00 Follow up: Response: No adverse reaction; Pain is decreased jl7 13:41 Drug: Lisinopril 10 mg Route: PO; jl7 15:06 Follow up: Response: No adverse reaction; Blood pressure is lowered jl7 17:25 Drug: fentaNYL (PF) 25 mcg Route: IVP; Site: left hand; ll3 17:34 Follow up: Response: Medication administered at discharge. ll3 Disposition: 17:58 Co-signature as Attending Physician, Alvarado Calvo MD. Co-signature as Attending rn Physician, Alvarado Calvo MD I agree with the assessment and plan of care. Attestation: The patient's history, exam findings, diagnostics, and a summary of any interventions or procedures was reviewed in detail with Mandy HINES. Disposition Summary: 04/08/21 15:22 Transfer Ordered Transfer Location: [facility] kb Reason: Higher level of care kb Condition: Stable kb Problem: new kb Symptoms: are unchanged kb Accepting Physician: Dr Weiss(04/08/21 17:41) jl7 Diagnosis - Unspecified injury of head, initial encounter kb - Altered mental status, unspecified kb Forms: - Medication Reconciliation Form kb - SBAR form Signatures: Dispatcher [employer] EDMandy Olvera, DESIGNER ARCHITECT-C DESIGNER ARCHITECT-CkAlvarado Ramos MD MD rn Smirch, Shelby RN RN ss Thomas Smith RN RN jl7 Temo Ugalde RN RN ll3 Corrections: (The following items were deleted from the chart) 13:32 12:39 Counseling: I had a detailed discussion with the patient and/or guardian roly regarding: the historical points, exam findings, and any diagnostic results supporting the discharge/admit diagnosis, lab results, radiology results, the need for further work-up and treatment in the hospital, 17:41 15:22 Dr Yan dunham jl7
--- NOTE | 2021-04-08 15:23 | ER ---
Nurse's Notes [facility] Name: Marilin Leblanc Age: 81 yrs Sex: Female : 1940 Arrival Date: 04/08/2021 Time: 10:55 Bed 5 Private MD: Diagnosis: Unspecified injury of head, initial encounter;Altered mental status, unspecified Presentation: 04/08 10:55 Chief complaint: EMS states: Pt walking, tripped and fell, hitting head on hardwood jl7 floor. Baseball sized hematoma noted to left side of forehead, pt oriented to self and place, reports inability to remember what happened. 10:55 Care prior to arrival: Cervical collar in place. Placed on backboard. Mechanism of jl7 Injury: Fall from standing position. Trauma event details: Injury occurred in the [facility], Injury occurred: at home. Injury occurred: April 08, 2021 Injury occurred at: 10:10. 10:55 Acuity: BUNNY 2 jl7 10:55 Method Of Arrival: EMS: [facility] jl7 11:08 Coronavirus screen: At this time, the client does not indicate any symptoms associated jl7 with coronavirus-19. Ebola Screen: No symptoms or risks identified at this time. Initial Sepsis Screen: Does the patient meet any 2 criteria? No. Patient's initial sepsis screen is negative. Does the patient have a suspected source of infection? No. Patient's initial sepsis screen is negative. Risk Assessment: Do you want to hurt yourself or someone else? Patient reports no desire to harm self or others. Onset of symptoms was April 08, 2021 at 10:10. Trauma Activation: Alert Physician: ED Physician; Name: Lubna; Notified At: 10:55; Arrived At: 10:55 Physician: General Surgeon; Name: ; Notified At: 10:55; Arrived At: Physician: Radiology; Name: Kristine; Notified At: 10:55; Arrived At: 10:58 Physician: Respiratory; Name: ; Notified At: 10:55; Arrived At: Physician: Lab; Name: ; Notified At: 10:55; Arrived At: Historical: - Allergies: 11:09 Morphine; jl7 11:09 Oxycodone HCl; jl7 11:09 Promethazine; jl7 11:09 Sulfa (Sulfonamide Antibiotics); jl7 11:09 Tramadol HCl; jl7 11:09 Vicodin; jl7 - PMHx: 11:09 Alzheimers; Breast Cancer Right side; Dementia; Hypertension; jl7 - Immunization history:: Adult Immunizations unknown. - Social history:: Smoking status: unknown. - Immunization history: Last tetanus immunization: unknown. Screenin:55 Abuse screen: Denies threats or abuse. Denies injuries from another. Tuberculosis jl7 screening: No symptoms or risk factors identified. 11:11 Nutritional screening: No deficits noted. Fall Risk Fall in past 12 months (25 points). jl7 Secondary diagnosis (15 points) Alzheimer's, dementia, IV access (20 points). Ambulatory Aid- Furniture (30 pts.). Gait- Weak (10 pts.). Mental Status- Overestimates/Forgets Limitations (15 pts.). Total Moore Fall Scale indicates High Risk Score (45 or more points). Fall prevention measures have been instituted. Side Rails Up X 2 Placed Close to Nursing Station Frequent Obs/Assessments Occuring Family Present and informed to notify staff if the need to leave the bedside As available patient and family educated on Fall Prevention Program and Strategies. Primary Survey: 10:55 NO uncontrolled hemorrhage observed. A: The patient is alert. Airway: patent, No jl7 supplemental oxygen in use on arrival. Breathing/Chest: Respiratory pattern: regular, Respiratory effort: spontaneous, unlabored, Breath sounds: clear, bilaterally. Chest inspection: symmetrical rise and fall of the chest. Circulation: Cardiac rhythm: sinus rhythm Heart tones present. Pulses: palpable right radial artery, right dorsalis pedis artery, left radial artery and left dorsalis pedis artery. Skin color: pink, Skin temperature: warm. Disability Alert. Exposure/Environment: There is no evidence of uncontrolled external bleeding. Obvious injury(ies) are noted at this time: Baseball sized hematoma noted to forehead A warming method has been applied: A warm blanket has been provided to the patient. 11:30 Reassessment Airway Airway Patent Breathing/Chest Respiratory pattern Regular jl7 Respiratory effort Spontaneous Unlabored Chest inspection Symmetrical Circulation Color [place] Temperature Warm Disability Alert. Secondary Survey: 10:55 HEENT: Head Other Hematoma noted to left side of forehead. jl7 10:55 Musculoskeletal: Swelling present in bilateral knees Bruising to bilateral knees. jl7 Assessment: 11:00 General: Appears in no apparent distress. uncomfortable, Behavior is calm, cooperative, jl7 appropriate for age. Pain: Complains of pain in left side of forehead Pain currently is 8 out of 10 on a pain scale. Quality of pain is described as throbbing. Neuro: Level of Consciousness is awake, alert, obeys commands, confused, Oriented to person, place, situation. Cardiovascular: Patient's skin is warm and dry. Respiratory: Airway is patent Respiratory effort is even, unlabored, Respiratory pattern is regular, symmetrical. Derm: Skin is pink, warm \T\ dry. Bruising that is dark purple, on bilateral knees. Musculoskeletal: Swelling present in right knee and left knee and left side of forehead. 11:06 Reassessment: Pt to CT via stretcher with MERISSA Carmona. jl7 11:30 Reassessment: Pt's daughter's at bedside. jl7 13:00 Reassessment: Patient appears in no apparent distress at this time. No changes from jl7 previously documented assessment. Patient and/or family updated on plan of care and expected duration. Pain level reassessed. Patient is alert, oriented x 3, equal unlabored respirations, skin warm/dry/pink. 14:00 Reassessment: Patient appears in no apparent distress at this time. No changes from jl7 previously documented assessment. Patient and/or family updated on plan of care and expected duration. Pain level reassessed. Patient is alert, oriented x 3, equal unlabored respirations, skin warm/dry/pink. 15:05 Reassessment: Patient appears in no apparent distress at this time. No changes from jl7 previously documented assessment. Patient and/or family updated on plan of care and expected duration. Pain level reassessed. Patient is alert, oriented x 3, equal unlabored respirations, skin warm/dry/pink. Awaiting transfer. Vital Signs: 10:55 BP 190 / 73; Pulse 60; Resp 15 S; Temp 97.8(TE); Pulse Ox 98% on R/A; Weight 58.97 kg; jl7 11:30 BP 191 / 79; Pulse 62; Resp 15; Pulse Ox 99% ; jl7 12:15 BP 188 / 70; Pulse 61; Resp 17; Pulse Ox 99% ; jl7 12:58 BP 196 / 80; Pulse 60; Resp 15; Pulse Ox 100% ; jl7 13:45 BP 191 / 82; Pulse 59; Resp 14; Pulse Ox 99% ; jl7 14:30 BP 181 / 71; Pulse 61; Resp 14; Pulse Ox 100% ; jl7 15:05 BP 166 / 76; Pulse 61; Resp 14; Pulse Ox 99% ; jl7 16:00 BP 167 / 72; Pulse 62; Resp 15; Pulse Ox 100% ; jl7 16:45 BP 159 / 75; Pulse 66; Resp 16; Pulse Ox 99% ; jl7 17:30 BP 141 / 60; Pulse 68; Resp 15; Pulse Ox 98% ; jl7 Ivet Coma Score: 10:55 Eye Response: spontaneous(4). Verbal Response: confused(4). Motor Response: obeys jl7 commands(6). Total: 14. 11:30 Eye Response: spontaneous(4). Verbal Response: confused(4). Motor Response: obeys jl7 commands(6). Total: 14. 12:15 Eye Response: spontaneous(4). Verbal Response: oriented(5). Motor Response: obeys jl7 commands(6). Total: 15. 12:58 Eye Response: spontaneous(4). Verbal Response: oriented(5). Motor Response: obeys jl7 commands(6). Total: 15. 13:45 Eye Response: spontaneous(4). Verbal Response: confused(4). Motor Response: obeys jl7 commands(6). Total: 14. 14:30 Eye Response: spontaneous(4). Verbal Response: oriented(5). Motor Response: obeys jl7 commands(6). Total: 15. 15:05 Eye Response: spontaneous(4). Verbal Response: oriented(5). Motor Response: obeys jl7 commands(6). Total: 15. 16:00 Eye Response: spontaneous(4). Verbal Response: oriented(5). Motor Response: obeys jl7 commands(6). Total: 15. 16:45 Eye Response: spontaneous(4). Verbal Response: oriented(5). Motor Response: obeys jl7 commands(6). Total: 15. 17:30 Eye Response: spontaneous(4). Verbal Response: oriented(5). Motor Response: obeys jl7 commands(6). Total: 15. Trauma Score (Adult): 10:55 Eye Response: spontaneous(1); Verbal Response: confused(1); Motor Response: obeys jl7 commands(2); Systolic BP: > 89 mm Hg(4); Respiratory Rate: 10 to 29 per min(4); Ivet Score: 14; Trauma Score: 12 ED Course: 10:55 Patient arrived in ED. eb 10:55 Patient has correct armband on for positive identification. Bed in low position. Call jl7 light in reach. Side rails up X2. 10:55 fuel cell builder on. Pulse ox on. NIBP on. jl7 10:55 Patient maintains SpO2 saturation greater than 95% on room air. Thermoregulation: warm jl7 blanket given to patient. 10:59 Mandy Sung FNP-C [facility]. kb 10:59 Alvarado Calvo MD is Attending Physician. kb 11:02 Thomas Smith RN is Primary Nurse. jl7 11:05 Triage completed. jl7 11:09 Arm band placed on right wrist. jl7 11:11 CT Head C Spine In Process Unspecified. EDMS 11:11 CT Facial Bones W/O Con In Process Unspecified. EDMS 11:40 Initial lab(s) drawn, by de, sent to lab. Inserted saline lock: 22 gauge in left hand, jl7 using aseptic technique. Blood collected. 12:06 EKG done, by ED staff, reviewed by Mandy HINES. [facility] 12:09 COVID swab sent to lab. jl7 12:16 XRAY Chest (1 view) In Process Unspecified. EDMS 12:16 Knee Right 3 View XRAY In Process Unspecified. EDMS 14:26 initiated a transfer with Casandra from the [facility] at the eb request of the family. 14:42 connected the trauma team human resources professional for [facility] with Mandy Brooke fo patient eb transfer consultation. 14:58 per Casandra from the [facility] Transfer [place] they will have to decline the eb patient in transfer due to being at capacity. 15:01 initiated a transfer with BOAZ Valentin from the [facility]. eb 15:[address] Barksdale the neuro human resources professional for [facility] with Mandy Tucking Machine Operator for patient eb transfer consultation. 15:[address] Mayfield the hospitalist human resources professional for [facility] with Mandy Tucking Machine Operator for eb patient transfer consultation. 16:07 administrative approval given by BOAZ Valentin/ patient has been accepted to [facility] eb 9t RM 915/ Dr. Edyta Heredia has accepted the patient in transfer/ report to be called to the transfer center at [phone]. 17:39 No provider procedures requiring assistance completed. jl7 17:40 Patient transferred, IV remains in place. intact, No redness/swelling at site. jl7 Administered Medications: 11:40 Drug: fentaNYL (PF) 25 mcg Route: IVP; Site: left hand; jl7 12:00 Follow up: Response: No adverse reaction; Pain is decreased jl7 13:41 Drug: fentaNYL (PF) 25 mcg Route: IVP; Site: left hand; jl7 14:00 Follow up: Response: No adverse reaction; Pain is decreased jl7 13:41 Drug: Lisinopril 10 mg Route: PO; jl7 15:06 Follow up: Response: No adverse reaction; Blood pressure is lowered jl7 17:25 Drug: fentaNYL (PF) 25 mcg Route: IVP; Site: left hand; ll3 17:34 Follow up: Response: Medication administered at discharge. ll3 Intake: 17:30 PO: 50ml; Total: 50ml. jl7 Output: 17:30 Urine: 400ml (Voided); Total: 400ml. jl7 Outcome: 15:22 ER care complete, transfer ordered by MD. dunham 17:30 Transferred by ground EMS to [facility], Transfer form completed. jl7 X-rays sent w/ patient. 17:30 Condition: stable 17:30 Patient's length of stay was not longer than 2 hours. 17:41 Patient left the ED. jl7 Signatures: Dispatcher [employer] EDMS Mandy Sung, FLORA KRUEGER-Isha Montejo [facility] Thomas Smith RN RN jl7 Neeta Guzman Lynsea, RN RN 3
[2021-04-08 16:01] LABS: Urine Blood Trace-intact (Negative); Urine Glucose Negative (Negative); Urine Protein Negative (Negative); Urine Specific Gravity 1.025 (1.005-1.030)
[2021-04-08 16:30] LABS: Urine Bacteria 20-50 /HPF (<20); Urine RBC <5 /HPF (NONE SEEN)
[2021-04-08 17:49] VITALS: TEMP 97.8
[2021-04-08 18:02] VITALS: BP 141/60; O2SAT 98
== END 2021-04-08 17:41 | disposition short-term general hospital (02) ==
LOC: ER 10:53
DX: S00.03XA Contusion of scalp, initial encounter (principal); I10 Essential (primary) hypertension; G30.9 Alzheimer's disease, unspecified; F02.80 Dementia in other diseases classified elsewhere, unspecified severity, without behavioral disturbance, psychotic disturbance, mood disturbance, and anxiety; W01.0XXA Fall on same level from slipping, tripping and stumbling without subsequent striking against object, initial encounter; Y92.009 Unspecified place in unspecified non-institutional (private) residence as the place of occurrence of the external cause; Z85.3 Personal history of malignant neoplasm of breast; Z88.2 Allergy status to sulfonamides; Z20.822 Contact with and (suspected) exposure to COVID-19
CPT/HCPCS: 93005; 87088; 85025; 87086; 80048; 36415; 83735; 85610; 80076; 84484; 83880; 70450; 72125; 70486; 76377; 71045; 73562; 96374; 99285; U0003; J3010 ×2; 81003; 81015

== ENCOUNTER 2021-09-13 18:18 | Emergency (ER) | payer OTHER ==
--- OUTSIDE RECORDS SUMMARY | 2021-09-13 18:22 | XMS REPORT | Continuity of Care Document ---
:[address] [facility] t Address [address] [place] [address] Care Team Providers Name Role Phone Curtis SHARPE Primary Care Physician Unavailable [id number] Attending Clinician Unavailable Kortney Attending Clinician Unavailable Sumanth Attending Clinician Unavailable Jay Jay Attending Clinician Unavailable Eulalio Pollack Attending Clinician Unavailable Patrick Roblero MD Attending Clinician PATRICK ROBLERO Attending Clinician Unavailable MUSA KEARNEY Attending Clinician Unavailable ADENIKE Attending Clinician Unavailable AIRAM Attending Clinician Unavailable Davon KRUEGER Attending Clinician Lab, Fam Pob I Attending Clinician Unavailable [id number] Admitting Clinician Unavailable Curtis Sharpe Admitting Clinician Unavailable Eulalio Pollack Admitting Clinician Unavailable ELLIOT NASH Admitting Clinician Unavailable Payers Payer Name Policy Type Policy Number Effective Date Expiration Date S bryce [facility] [id number] MEDICARE A B [id number] 2004 00:00:00 Problems Condition Condition Condition Status Onset Resolution Last Treating Co mments Source Name Details Category Date Date Treatment Clinician Date Vitamin Vitamin Disease Active Univers B12 B12 3-18 ity of deficiency [place] [facility] Prediabete Prediabete Disease Active 2013-05 U nivers s s 2-02 ity of 00:00: [place] [facility] 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 Varicose Varicose Disease Active Unive rs vein of vein of 2-05 ity of leg leg 00:00: [place] [facility] Symptomati Symptomati Disease Active U nivers c c 3-20 ity of menopausal menopausal [place] female or female 00 Medi nely climacteri climacteri Br anch c states c states Tobacco Tobacco Disease Active Univers use use 2-18 ity of disorder disorder 00:00: [place] [facility] Chronic Chronic Disease Active Univers depressive depressive it y of personalit personalit [place] y disorder y disorder Me dical Branch Generalize Generalize Disease Active U nivers d d ity of osteoarthr osteoarthr [place] osis, osis, Medical unspecifie unspecifie Br anch d site d site Insomnia Insomnia Disease Active Overview: Un chevy Formattin ity of g of this [place] note Medical might be Branch different from the original. 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 Essential Essential Disease Active Uni vers hypertensi hypertensi it y of on, benign on, benign [place] [facility] Recurrent Recurrent Disease Active Uni vers UTI UTI ity of [facility] Pain of Pain of Problem Active [place] left femur left femur Ph ysici ans Closed Closed Problem Active [place] fracture fracture Physic i of neck of of neck of an s left left femur, femur, initial initial encounter encounter Allergies, Adverse Reactions, Alerts Allergy Allergy Status Severity Reaction(s) Onset Inactive Treating Comm ents Source Name Type Date Date Clinician MORPHINE Allergy Active Med Other 2020-05 [facility] 2-04 00:00: 00 TRAMADOL Allergy Active Med Photosens 2020-05 [facility] 2-04 00:00: 00 PROMETHA Allergy Active Med Other 2020-05 [facility] ZINE HCL 2-04 00:00: 00 SULFA Allergy Active Med Itching 2020-05 [facility] (SULFONA 2-04 MIDE 00:00: ANTIBIOT 00 ICS) morphine DA Active U 2020-0 [facility] 9-12 Clear 00:00: Niño 00 [facility] oxycodon DA Active ND 2020-0 [facility] e 9-12 Clear 00:00: Niño 00 [facility] tramadol DA Active ND 2020-0 [facility] 9-12 Clear 00:00: Niño 00 [facility] morphine DA Active U DELIRIUM 2019-0 [facility] 9-12 Clear 00:00: Niño 00 [facility] oxycodon DA Active ND DELIRIUM 2019-0 [facility] e 9-12 Clear 00:00: Niño 00 [facility] tramadol DA Active ND DELIRIUM 2019-0 [facility] 9-12 Clear 00:00: Niño 00 [facility] Tramadol Propensi Active Hallucinatio 2017-05 Univers ty to ns 0-11 ity of adverse 00:00: [place] reaction 00 Medical s Branch TRAMADOL DRUG Active Hallucinates 2017-05 Un chevy INGREDI 0-11 ity of 00:00: [place] 00 Medical Branch Sulfatri Propensi Active Nausea 0 Univer s m Ds ty to and/or 5-29 ity of adverse Vomiting 00:00: [place] reaction 00 Medical s to Branch drug SULFATRI DRUG Active Med Dizziness 0 Unive rs M DS 5-29 ity of 00:00: [place] 00 Medical Branch prometha DA Active ND 2011-05 [facility] zine HCl 1-12 Clear 00:00: Niño 00 [facility] some DA Active U lips swell 2011-05 [facility] antibiot 1-12 Clear ic 00:00: Niño 00 [facility] prometha DA Active ND AMS 2011-05 [facility] zine HCl 1-12 Clear 00:00: Niño 00 [facility] Prometha Propensi Active Unknown - 2006- Sees Uni vers zine Hcl ty to See comments 1-22 things it y of adverse 00:00: per pt. [place] reaction 00 Medical s Branch PROMETHA DRUG Active Unknown-Cmnt Un chevy ZINE HCL INGRED05-27 ity of 00:00: [address] MORPHINE Adverse Active hallucinatio C ommon Reaction ns [facility] Tramadol Adverse Active Hallucinatio C ommon HCl Reaction ns [facility] Phenerga Adverse Active vomiting Commo n n Reaction [facility] Social History Social Habit Start Date Stop Date Quantity Comments Source History of Cigarette Smoker Universi ty of tobacco use [place] [facility] [place] History SDOH University o f Alcohol Frequency [facility] edical Branch History [facility] o f Alcohol Std [place] [facility] Drinks Branch History [facility] o f Alcohol Binge [place] [facility] [place] Alcohol intake 2021-08-31 2021-08-31 0 /d University of 00:00:00 00:00:00 [facility] Tobacco Comment 2006-05-27 2006-05-27 Has cut down from Un iversity of 00:00:00 00:00:00 1PPD in past [facility] [place] Alcohol Comment 2006-05-27 2006-05-27 occasional use Unive rsity of 00:00:00 00:00:00 [facility] Sex [birth year] Universit y of 00:00:00 00:00:00 [facility] Smoking Status Start Date Stop Date Source Current every day smoker 2020-09-01 00:00:00 Uni versity of [facility] Medications Ordered Filled Start Stop Current Ordering Indication Dosage Frequency Signature Comments Components Source Medication Medication Date Date Medication? Clinician (SIG) Name Name SERTraline 2020-05 Yes 25mg Take 25 mg U nivers (ZOLOFT) 25 0-28 by mouth ity of mg tablet 10:49: daily. [address] SERTraline 2020-05 Yes 25mg Take 25 mg U nivers (ZOLOFT) 25 0-28 by mouth ity of mg tablet 10:49: daily. [address] memantine Yes 10mg Take 10 mg Un chevy HCl -29 by mouth 2 ity of (NAMENDA 16:39: [...] Augmentin Augmentin 2020- No Mary 1 tablet Common 10-28 07-05 [facility] 00:00: 00:00 - [facility] 00 :00 [facility] ascorbate Yes Take by Univ ers calcium 3-10 mouth. ity of (VITAMIN C 14:58: [place] ORAL) 20 Medical Branch anastrozole Yes 1mg Take 1 mg U nivers 1 mg tablet 3-10 by mouth ity of 14:58: daily. Medical Branch multivit Yes Take by Unive rs with 3-10 mouth. ity of minerals/sanket 14:58: [place] tein 20 Medical (MULTIVITAM Branch IN 50 PLUS ORAL) ascorbate Yes Take by Univ ers calcium 3-10 mouth. ity of (VITAMIN C 14:58: [place] ORAL) 20 Medical Branch anastrozole Yes 1mg Take 1 mg U nivers 1 mg tablet 3-10 by mouth ity of 14:58: daily. [place] [facility] multivit Yes Take by Unive rs with 3-10 mouth. ity of minerals/sanket 14:58: [place] tein 20 Medical (MULTIVITAM Branch IN 50 PLUS ORAL) alendronate 2018-05 Yes TK 1 T PO U nivers 35 mg 2-19 ONCE A ity of tablet 00:00: WEEK FOR [place] [facility]. Medical Branch alendronate 2018-05 Yes TK 1 T PO U nivers 35 mg 2-19 ONCE A ity of tablet 00:00: WEEK FOR [place]. Medical Branch Ciprofloxac Ciprofloxac 2019- No Mary 1 tablet Common in HCl in HCl 5-13 05-20 [facility] t 00:00: 00:00 - [facility]I 00 :00 [facility] lisinopril 2017-0 Yes [id number] 10mg Take 1 Un chevy 10 mg 7-07 tablet by ity of tablet 00:00: mouth 00 daily. Medical Branch Cyanocobala Yes [id number] 1{tbl} Place 1 Univers min 7-07 tablet ity of (VITAMIN 00:00: under the [facility] B-12) 1,000 00 tongue Medica l mcg daily. Branch sublingual tablet lisinopril Yes [id number] 10mg Take 1 Un chevy 10 mg 7-07 tablet by ity of tablet 00:00: mouth [place] 00 daily. Medical Branch Cyanocobala Yes [id number] 1{tbl} Place 1 Univers min 7-07 tablet ity of (VITAMIN 00:00: under the [facility]12) 1,000 00 tongue Medica l mcg daily. Branch sublingual tablet ASPIRIN 81 Yes 1 daily Univ ers MG ORAL 9-09 ity of CHEW 00:00: [place] [facility] ASPIRIN 81 Yes 1 daily Univ ers MG ORAL 9-09 ity of CHEW 00:00: [place] 00 [facility] Immunizations Ordered Filled Immunization Date Status Comments [facility] e Immunization Name Name Influenza High Dose 2015-03-25 Completed Unive rsity of 00:00:00 [facility] Influenza High Dose 2015-03-25 Completed Unive rsity of 00:00:00 [facility] Influenza High Dose 2014-03-25 Completed Unive rsity of 00:00:00 [facility] Influenza High Dose 2014-03-25 Completed Unive rsity of 00:00:00 [facility] Influenza Virus 2013-02-28 Completed Universit y of Vaccine 00:00:00 [facility] Influenza Virus 2013-02-28 Completed Universit y of Vaccine 00:00:00 [facility] Influenza High Dose 2012-02-08 Completed Unive rsity of 00:00:00 [facility] Influenza High Dose 2012-02-08 Completed Unive rsity of 00:00:00 [facility] TDAP 2011-08-29 Completed University of 00:00:00 [facility] TDAP 2011-08-29 Completed University of 00:00:00 [facility] Influenza Virus 2010-06-26 Completed Universit y of Vaccine 00:00:00 [facility] Influenza Virus 2010-06-26 Completed Universit y of Vaccine 00:00:00 [facility] Influenza Virus 2008-03-20 Completed Universit y of Vaccine 00:00:00 [facility] Influenza Virus 2008-03-20 Completed Universit y of Vaccine 00:00:00 [facility] Influenza Virus 2007-03-14 Completed Universit y of Vaccine 00:00:00 [facility] Influenza Virus 2007-03-14 Completed Universit y of Vaccine 00:00:00 [facility] Influenza Virus 2006-03-02 Completed Universit y of Vaccine 00:00:00 [facility] Influenza Virus 2006-03-02 Completed Universit y of Vaccine 00:00:00 [facility] Pneumococcal 2004-03-27 Completed University o f Polysaccharide, 00:00:00 [place] [facility] ical PPSV23 (PNEUMOVAX) Branch Pneumococcal 2004-03-27 Completed University o f Polysaccharide, 00:00:00 [place] [facility] ical PPSV23 (PNEUMOVAX) [place] Vital Signs Vital Name Observation Time Observation Value Comments Source Systolic blood 2021-08-31 18:51:00 147 mm[Hg] Univer sity of pressure [facility] Diastolic blood 2021-08-31 18:51:00 75 mm[Hg] Unive rsity of [facility] Heart rate 2021-08-31 18:50:00 86 /min [facility] Body temperature 2021-08-31 18:50:[address] [facility] rate 2021-08-31 18:50:00 18 /min [facility] Body height 2021-08-31 18:50:00 160 cm [facility] Body weight 2021-08-31 18:50:00 57.607 kg [facility] BMI 2021-08-31 18:50:00 22.50 kg/m2 [facility] WEIGHT 2021-04-08 19:45:00 56.609 kg WEIGHT 2021-04-08 19:45:00 56.609 kg Procedures Procedure Date / Time Performed Performing Clinician Ronald johnson [id number] 2020-01-16 00:00:00 [facility] [id number] 2020-01-16 00:00:00 [facility] [id number] 2020-01-16 00:00:00 [facility] Encounters Start End Encounter Admission Attending Care Care Encounter Source Date/Time Date/Time Type Type Clinicians Facility Department ID 2021-06-01 Outpatient [id number] ENCWO OT [id number] ENC[facility] 11:14:30 [id number] 2021-06-01 Outpatient [id number] E[facility] REF [id number] E[facility] 11:06:40 [id number] 2021-05-31 Out[place], STLMLC STLMLC [id number] Common 14:35:16 Miriam [facility] 2021-05-31 Outpatient [place], STLMLC STLMLC [id number] Common 14:00:49 Miriam 88522 [facility] 2021-05-31 Outpatient [place], STLMLC STLMLC [id number] Common 13:59:47 Miriam [id number] [facility] 2021-05-31 Outpatient [place], STLMLC STLMLC [id number] Common 13:21:54 Miriam 27588 [facility] 2021-05-31 Outpatient [place], STLMLC STLMLC [id number] Common 12:38:19 Miriam 82217 [facility] 2021-05-31 Outpatient [place], STLMLC STLMLC [id number] Common 12:16:42 Miriam 09833 [facility] 2021-05-31 Outpatient Alberto Julio STLMLC STLMLC [id number] Common 12:06:37 [id number] [facility] 2021-05-31 Outpatient Alberto Julio STLMLC STLMLC [id number] Common 11:59:53 [id number] [facility] 2021-05-31 Outpatient Alberto Julio STLMLC STLMLC [id number] Common 11:59:34 [id number] [facility] 2021-05-31 Outpatient [place], STLMLC STLMLC [id number] Common 11:46:31 Mary 03951 [facility] 2021-05-31 Outpatient [place], STLMLC STLMLC [id number] Common 11:13:20 Mary [id number] [facility] 2021-05-31 Outpatient Rolanender, STLMLC STLMLC [id number] Common 11:12:41 Mary 55056 [facility] 2021-05-31 Outpatient Rolan[place], STLMLC STLMLC [id number] Common 11:09:10 Mary 97716 [facility] 2020-01-30 Inpatient Pollack, HCAMN HCAMN [id number] [facility] 08:45:00 Edward [address]25 [facility] 2020-01-15 Inpatient EL Pollack, HCAMN REHA [id number] [facility] 18:07:00 Edward 78865 [facility] 2021-08-31 2021-08-31 Office Radhames Roblero [facility] [id number] Univers 13:30:00 14:11:54 Visit Patrick VAN [id number] [facility] [id number] Adolfo WHITE [id number] Ri [address] 2021-08-31 2021-08-31 Outpatient R RADHAMES ROBLERO [facility] [id number] Univers 13:30:00 14:11:54 ity [facility] 2021-07-31 2021-07-31 ambulatory STLMLC STLMLC [id number] Common 00:00:00 00:00:00 [facility] 2021-06-27 2021-06-27 ambulatory STLMLC STLMLC [id number] Common 00:00:00 00:00:00 [facility] 2021-06-21 2021-06-21 ambulatory STLMLC STLMLC [id number] Common 00:00:00 00:00:00 [facility] 2021-05-30 2021-05-30 ambulatory STLMLC STLMLC [id number] Common 00:00:00 00:00:00 [facility] 2021-05-08 2021-05-08 ambulatory STLMLC STLMLC [id number] Common 00:00:00 00:00:00 [facility] 2021-04-21 2021-04-21 ambulatory STLMLC STLMLC [id number] Common 00:00:00 00:00:00 [facility] 2021-04-19 2021-04-19 ambulatory STLMLC STLMLC [id number] Common 00:00:00 00:00:00 [facility] 2021-04-19 2021-04-19 ambulatory STLMLC STLMLC [id number] Common 00:00:00 00:00:00 [facility] 2021-04-08 2021-04-10 Inpatient ER ADENIKE, SLE Neurology [id number] [facility] 18:40:00 11:20:00 NAJAMUS 2020-11-17 2020-11-17 Outpatient STLMLC STLMLC [id number] Common 00:00:00 00:00:00 [facility] 2020-08-15 2020-08-15 Outpatient STLMLC STLMLC [id number] Common 00:00:00 00:00:00 [facility] 2020-07-05 2020-07-05 Outpatient STLMLC STLMLC [id number] Common 00:00:00 00:00:00 [facility] 2020-04-08 2020-04-08 Outpatient STLMLC STLMLC [id number] Common 00:00:00 00:00:00 [facility] 2020-04-08 2020-04-08 Outpatient STLMLC STLMLC [id number] Common 00:00:00 00:00:00 [facility] 2020-03-25 2020-03-25 Outpatient STLMLC STLMLC [id number] Common 00:00:00 00:00:00 [facility] 2020-03-10 2020-03-10 Outpatient STLMLC STLMLC [id number] Common 00:00:00 00:00:00 [facility] 2020-03-02 2020-03-02 Outpatient STLMLC STLMLC [id number] Common 00:00:00 00:00:00 [facility] 2020-02-26 2020-02-26 Outpatient STLMLC STLMLC [id number] Common 00:00:00 00:00:00 [facility] 2020-02-17 2020-02-17 Outpatient STLMLC STLMLC [id number] Common 00:00:00 00:00:00 [facility] 2020-02-11 2020-02-11 Appointmen ALIA ALEGRIA UTP [id number] [place] 13:15:00 13:15:00 t; JUAN ALEGRIA, Ph Susan Sosa M.D. 2020-02-09 2020-02-09 Outpatient STLMLC STLMLC [id number] Common 00:00:00 00:00:00 [facility] 2020-01-16 2020-01-16 Outpatient RICH Pollack LABO [id number] [facility] 18:44:00 18:44:[address] 2020-01-13 2020-01-13 AppointALIA Murphy UTP [id number] [place] 12:30:00 12:30:00 t; JUAN ALEGRIA, Ph Susan Sosa M.D. 2019-12-03 2019-12-03 [facility] [id number] Common 14:10:00 14:10:00 t [facility] 2019-11-25 2019-11-25 Telephone Davon, [facility] [id number] 00:00:00 00:00:00 [facility] [id number] [place] [id number] Professio [id number] nal 044 Office [address] 2019-11-24 2019-11-24 Laboratory Lab, Adc [facility] [id number] 16:22:36 16:42:36 Only Fam Pob I Health [id number] [place] [id number] Professio [id number] nal 044 Office [address] 2019-10-30 2019-10-30 [facility] [id number] Common 17:45:00 17:45:00 [facility] 2019-10-29 2019-10-29 [facility] [id number] Common 11:01:00 11:01:00 t [address] [facility] 2019-10-16 2019-10-16 [facility] [id number] Common 11:00:00 11:00:[address] [facility] 2019-09-29 2019-09-29 [facility] [id number] Common 16:42:00 16:42:[address] [facility] 2019-07-15 2019-07-15 [facility] [id number] Common 15:00:00 15:00:00 [address] [facility] 2019-07-14 2019-07-14 Office Radhames Roblero [facility] [id number] 14:24:44 15:18:57 Visit Patrick Van [id number] Shailesh [id number] [facility] [id number] [address] 2019-01-29 2019-01-29 [facility] [id number] Common 14:40:00 14:40:00 t [facility] [address] [facility] 2018-09-15 2018-09-15 [facility] [id number] Common 14:25:00 14:25:00 t [facility] [address] [facility] 2018-09-15 2018-09-15 [facility] [id number] Common 11:40:00 11:40:00 t [facility] [address] [facility] 2018-08-14 2018-08-14 [facility] [id number] Common 15:00:00 15:00:00 t [address] [facility] 2018-05-20 2018-05-20 [facility] [id number] Common 16:00:00 16:00:[address] [facility] 2018-02-03 2018-02-03 [facility] [id number] Common 11:36:00 11:36:[address] [facility] 2018-02-03 2018-02-03 [facility] [id number] Common 11:00:00 11:00:[address] [facility] 2018 2018 [facility] [id number] Common 16:27:00 16:27:[address] [facility] 2017-12-25 2017-12-25 [facility] [id number] Common 15:22:00 15:22:[address] [facility] 2017-12-23 2017-12-23 [facility] [id number] Common 23:12:00 23:12:[address] [facility] 2017-12-23 2017-12-23 [facility] [id number] Common 11:00:00 11:00:[address] [facility] 2017-11-19 2017-11-19 [facility] [id number] Common 10:30:00 10:30:[address] [facility] 2017-09-24 2017-09-24 [facility] [id number] Common 14:21:00 14:21:[address] [facility] 2017-09-02 2017-09-02 Out[facility] [id number] Common 11:32:00 11:32:[address] [facility] 2017-08-29 2017-08-29 Out[facility] [id number] Common 14:30:00 14:30:[address] [facility] Results Test Description Test Time Test Comments Results Result Comments Source BLOOD CULTURE 2021-04-14 12:00:43 Test Item Value Reference Range Interpretation Comme nts CULTURE (BEAKER) (test code = 1095) No growth in 5 days POCT-GLUCOSE [id number] 08:40:25 Test Item Value Reference Range Interpretation Comments POC-GLUCOSE METER 134 mg/dL 70-110 H : Notified RN/MD: (BEAKER) (test code = TESTED AT [facility] [id number]) MARLON SOLOMON [facility], [id number]: Folding Machine Feeder/Techni gregory ID = [id number] for Jimena (contract)Jared CBC W/PLT COUNT & AUTO [id number] 04:38:54 Test Item Value Reference Range Interpretation Comments WHITE BLOOD CELL COUNT (BEAKER) 7.6 K/ L 3.5-10.5 (test code = 775) RED BLOOD CELL COUNT (BEAKER) 3.59 M/ L 3.93-5.22 L (test code = 761) HEMOGLOBIN (BEAKER) (test code = 11.2 GM/DL 11.2-15.7 410) HEMATOCRIT (BEAKER) (test code = 34.8 % 34.1-44.9 411) MEAN CORPUSCULAR VOLUME (BEAKER) 96.9 fL 79.4-94.8 H (test code = 753) MEAN CORPUSCULAR HEMOGLOBIN 31.2 pg 25.6-32.2 (BEAKER) (test code = 751) MEAN CORPUSCULAR HEMOGLOBIN CONC 32.2 GM/DL 32.2-35.5 (BEAKER) (test code = 752) RED CELL DISTRIBUTION WIDTH 12.9 % 11.7-14.4 (BEAKER) (test code = 412) PLATELET COUNT (BEAKER) (test 198 K/CU MM 150-450 code = 756) MEAN PLATELET VOLUME (BEAKER) 11.4 fL 9.4-12.3 (test code = 754) NUCLEATED RED BLOOD CELLS 0 /100 WBC 0-0 (BEAKER) (test code = 413) NEUTROPHILS RELATIVE PERCENT 59 % (BEAKER) (test code = 429) LYMPHOCYTES RELATIVE PERCENT 28 % (BEAKER) (test code = 430) MONOCYTES RELATIVE PERCENT 9 % (BEAKER) (test code = 431) EOSINOPHILS RELATIVE PERCENT 3 % (BEAKER) (test code = 432) BASOPHILS RELATIVE PERCENT 0 % (BEAKER) (test code = 437) NEUTROPHILS ABSOLUTE COUNT 4.48 K/ L 1.56-6.13 (BEAKER) (test code = 670) LYMPHOCYTES ABSOLUTE COUNT 2.15 K/ L 1.18-3.74 (BEAKER) (test code = 414) MONOCYTES ABSOLUTE COUNT (BEAKER) 0.68 K/ L 0.24-0.36 H (test code = 415) EOSINOPHILS ABSOLUTE COUNT 0.23 K/ L 0.04-0.36 (BEAKER) (test code = 416) BASOPHILS ABSOLUTE COUNT (BEAKER) 0.02 K/ L 0.01-0.08 (test code = 417) IMMATURE GRANULOCYTES-RELATIVE 0 % 0-1 PERCENT (BEAKER) (test code = 2801) POCT-GLUCOSE [id number] 21:16:01 Test Item Value Reference Range Interpretation Comments POC-GLUCOSE METER 112 mg/dL 70-110 H : Notified RN/MD: ([facility]) (test code = TESTED AT [place] [address] 1538) [facility], [address]: Folding Machine Feeder/Techni gregory ID = [id number] for ABIOLA CALLCURT WEEKS POCT-GLUCOSE [id number] 17:12:09 Test Item Value Reference Range Interpretation Comments POC-GLUCOSE METER 134 mg/dL 70-110 H : TESTED A T [place] [address] ([facility]) (test code = [facility], 1538) [address]: Folding Machine Feeder/Techni gregory ID = [id number] for JORGE SOTO TTJuan URINALYSIS W/ REFLEX URINE [id number] 17:09:47 Test Item Value Reference Range Interpretation Comments COLOR (BEAKER) (test code = 470) Yellow CLARITY (BEAKER) (test code = 469) Clear SPECIFIC GRAVITY UA (BEAKER) (test 1.012 1.001-1.035 code = 468) PH UA (BEAKER) (test code = 467) 6.0 5.0-8.0 PROTEIN UA (BEAKER) (test code = Negative Negative 464) GLUCOSE UA (BEAKER) (test code = Negative Negative 365) KETONES UA (BEAKER) (test code = Negative Negative 371) BILIRUBIN UA (BEAKER) (test code = Negative Negative 462) BLOOD UA (BEAKER) (test code = 461) Negative Negative NITRITE UA (BEAKER) (test code = Negative Negative 465) LEUKOCYTE ESTERASE UA (BEAKER) Negative Negative (test code = 466) UROBILINOGEN UA (BEAKER) (test code 0.2 mg/dL 0.2-1.0 = 463) RBC UA (BEAKER) (test code = 519) 1 /HPF WBC UA (BEAKER) (test code = 520) 1 /HPF BACTERIA (BEAKER) (test code = 517) None Seen HYALINE CASTS (BEAKER) (test code = 1 /LPF 514) CRYSTALS, URINE (BEAKER) (test code None Seen = 1521) SOURCE(BEAKER) (test code = 2795) Folding Machine Feeder ID - [auto]Folding Machine Feeder ID - techPOCT-GLUCOSE [id number] 11:17:27 Test Item Value Reference Range Interpretation Comments POC-GLUCOSE METER 138 mg/dL 70-110 H : TESTED A T [facility] 6720 (BEAKER) (test code = [facility], 1538) [address]: Folding Machine Feeder/Techni gregory ID = [id number] for JORGE SOTO TTE POCT-GLUCOSE [id number] 09:12:10 Test Item Value Reference Range Interpretation Comments POC-GLUCOSE METER 86 mg/dL 70-110 : TESTED A T [facility] 6720 (BEAKER) (test code = [facility], 1538) [address]: Folding Machine Feeder/Techni gregory ID = [id number] for RAISA RODRIGUEZ POCT-GLUCOSE [id number] 08:49:24 Test Item Value Reference Range Interpretation Comments POC-GLUCOSE METER 65 mg/dL 70-110 L : TESTED A T [facility] 6720 (BEAKER) (test code = [facility], 1538) [address]: Folding Machine Feeder/Techni gregory ID = [id number] for GYPSY WILLOUGHBYDERAISA URINALYSIS [id number] 05:47:49 Test Item Value Reference Range Interpretation Comments RBC UA (BEAKER) (test code = 519) 8 /HPF WBC UA (BEAKER) (test code = 520) 137 /HPF BACTERIA (BEAKER) (test code = 517) None Seen MUCUS (BEAKER) (test code = 1574) Rare SQUAMOUS EPITHELIAL (BEAKER) (test 45 /HPF code = 516) CRYSTALS, URINE (BEAKER) (test code None Seen = 1521) AMORPHOUS CRYSTALS (BEAKER) (test Rare code = 1584) Folding Machine Feeder ID - techURINALYSIS WITH MICROSCOPIC IF [id number] 05:47:48 Test Item Value Reference Range Interpretation Comments COLOR (BEAKER) (test code = 470) Yellow CLARITY (BEAKER) (test code = 469) Hazy SPECIFIC GRAVITY UA (BEAKER) (test 1.015 1.001-1.035 code = 468) PH UA (BEAKER) (test code = 467) 7.0 5.0-8.0 PROTEIN UA (BEAKER) (test code = 10 mg/dL Negative A 464) GLUCOSE UA (BEAKER) (test code = Negative Negative 365) KETONES UA (BEAKER) (test code = Negative Negative 371) BILIRUBIN UA (BEAKER) (test code = Negative Negative 462) BLOOD UA (BEAKER) (test code = 461) Negative Negative NITRITE UA (BEAKER) (test code = Negative Negative 465) LEUKOCYTE ESTERASE UA (BEAKER) Large Negative A (test code = 466) UROBILINOGEN UA (BEAKER) (test code 0.2 mg/dL 0.2-1.0 = 463) SOURCE(BEAKER) (test code = 2795) Folding Machine Feeder ID - [auto]Folding Machine Feeder ID - techBASIC METABOLIC [id number] 02:57:18 Test Item Value Reference Range Interpretation Comments SODIUM (BEAKER) (test 139 meq/L 136-145 code = 381) POTASSIUM (BEAKER) 4.1 meq/L 3.5-5.1 (test code = 379) CHLORIDE (BEAKER) 105 meq/L 98-107 (test code = 382) CO2 (BEAKER) (test 27 meq/L 22-29 code = 355) BLOOD UREA NITROGEN 14 mg/dL 7-21 (BEAKER) (test code = 354) CREATININE (BEAKER) 0.73 mg/dL 0.57-1.25 (test code = 358) GLUCOSE RANDOM 87 mg/dL 70-105 (BEAKER) (test code = 652) CALCIUM (BEAKER) 8.5 mg/dL 8.4-10.2 (test code = 697) EGFR (BEAKER) (test INSUFFIC IENT CLINICAL code = 1092) DATA TO CALCULA TE ESTIMATED GFR. Folding Machine Feeder ID - GT WHIGH SENSITIVITY TROPONIN [id number] 02:54:39 Test Item Value Reference Range Interpretation Comments HIGH SENSITIVITY 25 pg/ml See_Comment H [Automated message] TROPONIN I (test code = The system which [id number]) generated this result transmitted ref erence range: <=17. Th e reference range was not used to int erpret this result as normal/abnormal . Folding Machine Feeder ID - GT WThe MOTOR RACER STAT High Sensitivity Troponin-I results should be used in conjunction with other diagnostic information such as ECG, clinical observations and information, and patient symptoms to aid in the diagnosis of ND.[id number] 02:53:01 Test Item Value Reference Range Interpretation Comments MAGNESIUM (BEAKER) (test code = 2.1 mg/dL 1.6-2.6 627) Folding Machine Feeder ID Dov DEL REAL WHEPATIC FUNCTION [id number] 02:53:01 Test Item Value Reference Range Interpretation Comments TOTAL PROTEIN (BEAKER) (test code = 7.1 gm/dL 6.0-8.3 770) ALBUMIN (BEAKER) (test code = 1145) 3.4 g/dL 3.5-5.0 L BILIRUBIN TOTAL (BEAKER) (test code 1.0 mg/dL 0.2-1.2 = 377) BILIRUBIN DIRECT (BEAKER) (test 0.4 mg/dL 0.1-0.5 code = 706) ALKALINE PHOSPHATASE (BEAKER) (test 47 U/L 40-150 code = 346) AST (SGOT) (BEAKER) (test code = 20 U/L 5-34 353) ALT (SGPT) (BEAKER) (test code = 13 U/L 6-55 347) Folding Machine Feeder ID Dov DEL REAL WCBC W/PLT COUNT & AUTO [id number] 02:25:35 Test Item Value Reference Range Interpretation Comments WHITE BLOOD CELL COUNT (BEAKER) 9.8 K/ L 3.5-10.5 (test code = 775) RED BLOOD CELL COUNT (BEAKER) 3.89 M/ L 3.93-5.22 L (test code = 761) HEMOGLOBIN (BEAKER) (test code = 12.0 GM/DL 11.2-15.7 410) HEMATOCRIT (BEAKER) (test code = 36.3 % 34.1-44.9 411) MEAN CORPUSCULAR VOLUME (BEAKER) 93.3 fL 79.4-94.8 (test code = 753) MEAN CORPUSCULAR HEMOGLOBIN 30.8 pg 25.6-32.2 (BEAKER) (test code = 751) MEAN CORPUSCULAR HEMOGLOBIN CONC 33.1 GM/DL 32.2-35.5 (BEAKER) (test code = 752) RED CELL DISTRIBUTION WIDTH 12.6 % 11.7-14.4 (BEAKER) (test code = 412) PLATELET COUNT (BEAKER) (test 235 K/CU MM 150-450 code = 756) MEAN PLATELET VOLUME (BEAKER) 11.2 fL 9.4-12.3 (test code = 754) NUCLEATED RED BLOOD CELLS 0 /100 WBC 0-0 (BEAKER) (test code = 413) NEUTROPHILS RELATIVE PERCENT 65 % (BEAKER) (test code = 429) LYMPHOCYTES RELATIVE PERCENT 25 % (BEAKER) (test code = 430) MONOCYTES RELATIVE PERCENT 8 % (BEAKER) (test code = 431) EOSINOPHILS RELATIVE PERCENT 2 % (BEAKER) (test code = 432) BASOPHILS RELATIVE PERCENT 0 % (BEAKER) (test code = 437) NEUTROPHILS ABSOLUTE COUNT 6.37 K/ L 1.56-6.13 H (BEAKER) (test code = 670) LYMPHOCYTES ABSOLUTE COUNT 2.46 K/ L 1.18-3.74 (BEAKER) (test code = 414) MONOCYTES ABSOLUTE COUNT (BEAKER) 0.77 K/ L 0.24-0.36 H (test code = 415) EOSINOPHILS ABSOLUTE COUNT 0.15 K/ L 0.04-0.36 (BEAKER) (test code = 416) BASOPHILS ABSOLUTE COUNT (BEAKER) 0.03 K/ L 0.01-0.08 (test code = 417) IMMATURE GRANULOCYTES-RELATIVE 0 % 0-1 PERCENT (BEAKER) (test code = 2801) POCT-GLUCOSE [id number] 23:24:09 Test Item Value Reference Range Interpretation Comments POC-GLUCOSE METER 90 mg/dL 70-110 : TESTED A T [facility] 6720 (BEAKER) (test code = [place], 1538) [address]: Folding Machine Feeder/Techni gregory ID = [id number] for OREL DENNIS, CHASITY COMPREHENSIVE METABOLIC [id number] 23:21:44 Test Item Value Reference Range Interpretation Comments TOTAL PROTEIN 7.7 gm/dL 6.0-8.3 (BEAKER) (test code = 770) ALBUMIN (BEAKER) 3.6 g/dL 3.5-5.0 (test code = 1145) ALKALINE PHOSPHATASE 51 U/L 40-150 (BEAKER) (test code = 346) BILIRUBIN TOTAL 0.9 mg/dL 0.2-1.2 (BEAKER) (test code = 377) SODIUM (BEAKER) (test 138 meq/L 136-145 code = 381) POTASSIUM (BEAKER) 3.8 meq/L 3.5-5.1 (test code = 379) CHLORIDE (BEAKER) 103 meq/L 98-107 (test code = 382) CO2 (BEAKER) (test 25 meq/L 22-29 code = 355) BLOOD UREA NITROGEN 13 mg/dL 7-21 (BEAKER) (test code = 354) CREATININE (BEAKER) 0.77 mg/dL 0.57-1.25 (test code = 358) GLUCOSE RANDOM 87 mg/dL 70-105 (BEAKER) (test code = 652) CALCIUM (BEAKER) 8.5 mg/dL 8.4-10.2 (test code = 697) AST (SGOT) (BEAKER) 21 U/L 5-34 (test code = 353) ALT (SGPT) (BEAKER) 9 U/L 6-55 (test code = 347) EGFR (BEAKER) (test INSUFFIC IENT CLINICAL code = 1092) DATA TO CALCULA TE ESTIMATED GFR. Folding Machine Feeder ID - DBHIGH SENSITIVITY TROPONIN [id number] 23:19:27 Test Item Value Reference Range Interpretation Comments HIGH SENSITIVITY 27 pg/ml See_Comment H [Automated message] TROPONIN I (test code = The system which [id number]) generated this result transmitted ref erence range: <=17. Th e reference range was not used to int erpret this result as normal/abnormal . Folding Machine Feeder ID - DBThe MOTOR RACER STAT High Sensitivity Troponin-I results should be used in conjunctionwith other diagnostic information such as ECG, clinical observations and information, and patient symptoms to aid in the diagnosis of ND.[id number] 23:16:06 Test Item Value Reference Range Interpretation Comments MAGNESIUM (BEAKER) (test code = 2.1 mg/dL 1.6-2.6 627) Folding Machine Feeder ID - DBCBC W/PLT COUNT & AUTO [id number] 22:45:20 Test Item Value Reference Range Interpretation Comments WHITE BLOOD CELL COUNT (BEAKER) 10.9 K/ L 3.5-10.5 H (test code = 775) RED BLOOD CELL COUNT (BEAKER) 4.00 M/ L 3.93-5.22 (test code = 761) HEMOGLOBIN (BEAKER) (test code = 12.4 GM/DL 11.2-15.7 410) HEMATOCRIT (BEAKER) (test code = 37.2 % 34.1-44.9 411) MEAN CORPUSCULAR VOLUME (BEAKER) 93.0 fL 79.4-94.8 (test code = 753) MEAN CORPUSCULAR HEMOGLOBIN 31.0 pg 25.6-32.2 (BEAKER) (test code = 751) MEAN CORPUSCULAR HEMOGLOBIN CONC 33.3 GM/DL 32.2-35.5 (BEAKER) (test code = 752) RED CELL DISTRIBUTION WIDTH 12.6 % 11.7-14.4 (BEAKER) (test code = 412) PLATELET COUNT (BEAKER) (test 226 K/CU MM 150-450 code = 756) MEAN PLATELET VOLUME (BEAKER) 11.4 fL 9.4-12.3 (test code = 754) NUCLEATED RED BLOOD CELLS 0 /100 WBC 0-0 (BEAKER) (test code = 413) NEUTROPHILS RELATIVE PERCENT 67 % (BEAKER) (test code = 429) LYMPHOCYTES RELATIVE PERCENT 24 % (BEAKER) (test code = 430) MONOCYTES RELATIVE PERCENT 7 % (BEAKER) (test code = 431) EOSINOPHILS RELATIVE PERCENT 1 % (BEAKER) (test code = 432) BASOPHILS RELATIVE PERCENT 1 % (BEAKER) (test code = 437) NEUTROPHILS ABSOLUTE COUNT 7.34 K/ L 1.56-6.13 H (BEAKER) (test code = 670) LYMPHOCYTES ABSOLUTE COUNT 2.57 K/ L 1.18-3.74 (BEAKER) (test code = 414) MONOCYTES ABSOLUTE COUNT (BEAKER) 0.79 K/ L 0.24-0.36 H (test code = 415) EOSINOPHILS ABSOLUTE COUNT 0.11 K/ L 0.04-0.36 (BEAKER) (test code = 416) BASOPHILS ABSOLUTE COUNT (BEAKER) 0.05 K/ L 0.01-0.08 (test code = 417) IMMATURE GRANULOCYTES-RELATIVE 0 % 0-1 PERCENT (BEAKER) (test code = 2801) COMPREHENSIVE METABOLIC [id number] 08:42:00 Test Item Value Reference Range Interpretation Comments SODIUM (test code = NA) 139 mmol/l 134.0-147.0 N POTASSIUM (test code = K) 3.9 mmol/L 3.6-5.2 N CHLORIDE (test code = CL) 105 mmol/l 98.0-107.0 N CARBON DIOXIDE (test code = CO2) 24.7 mmol/l 21.0-33.0 N ANION GAP (test code = GAP) 13.2 0-20 N GLUCOSE (test code = GLU) 89 mg/dl 70.0-110.0 N BLOOD UREA NITROGEN (test code = 25 mg/dl 7.0-18.0 H BUN) CREATININE (test code = CREAT) 0.70 mg/dL 0.60-1.30 N GFR NON BLACK (test code = 85 mL/min 70-80 H GFRNONBLACK) GFR BLACK (test code = GFRBLACK) 103 mL/min 85-97 H TOTAL PROTEIN (test code = PROT) 8.0 gm/dL 6.4-8.2 N ALBUMIN (test code = ALB) 2.8 gm/dl 3.2-4.7 L CALCIUM (test code = CA) 8.8 mg/dl 8.0-10.5 N BILIRUBIN TOTAL (test code = 0.4 mg/dl 0.0-1.0 N BILT) SGOT/AST (test code = AST) 18 Units/L 15.0-37.0 N SGPT/ALT (test code = ALT) 19 Units/L 12.0-78.0 N ALKALINE PHOSPHATASE TOTAL (test 85 Units/L 50.0-136.0 N code = ALKP) [id number] 08:42:00 Test Item Value Reference Range Interpretation Comments MAGNESIUM (test code = MAG) 2.4 mg/dl 1.8-2.4 N CBC W/AUTO [id number] 08:11:00 Test Item Value Reference Range Interpretation [...] N NRBC#) UA RFLX MICR CULT IF [id number] 10:19:00 Test Item Value Reference Range Interpretation [...] Description: CLEAN CATCHUA RFLX MICR CULT IF [id number] 10:15:00 Test Item Value Reference Range Interpretation [...] no other srcSpecimen Description: CLEAN CATCHCBC W/O [id number] 07:08:00 Test Item Value Reference Range Interpretation [...] 10.2 fl 7.4-10.4 N MPV) CBC W/AUTO [id number] 00:43:00 Test Item Value Reference Range Interpretation [...] (test code = INCREASED PLTEST) BASIC METABOLIC [id number] 19:31:00 Test Item Value Reference Range Interpretation [...] CA) 8.7 mg/dl 8.0-10.5 N CBC W/AUTO [id number] 19:21:00 Test Item Value Reference Range Interpretation [...] X10 3uL 0.00-0.01 N NRBC#) CBC W/AUTO [id number] 07:44:00 Test Item Value Reference Range Interpretation [...] X10 3uL 0.00-0.01 N NRBC#) COMPREHENSIVE METABOLIC [id number] 07:18:00 Test Item Value Reference Range Interpretation [...] 87 Units/L 50.0-136.0 N code = ALKP) [id number] 00:49:00 Test Item Value Reference Range Interpretation Comments GLUBED (test code = GLUBED) 145 mg/dL 70-110 H VITAMIN [id number] 08:28:00 Test Item Value Reference Range Interpretation Comments VITAMIN B12 (test code = VITB12) 393 pg/mL 193-986 N THYROID STIMULATING [id number] 08:28:00 Test Item Value Reference Range Interpretation Comments THYROID STIMULATING 1.39 IU/ML 0.47-5.01 N Result i s in HORMONE (test code = Interna tional TSH) Units/millilite r COMPREHENSIVE METABOLIC [id number] 07:59:00 Test Item Value Reference Range Interpretation [...] 50.0-136.0 N code = ALKP) Specimen comments: .[id number] 07:59:00 Test Item Value Reference Range Interpretation Comments MAGNESIUM (test code = MAG) 2.2 mg/dl 1.8-2.4 N Specimen comments: .[id number] 07:49:00 Test Item Value Reference Range Interpretation Comments AMMONIA (test code = AMM) 7.0 MCMOL/L 11.0-32.0 L CBC W/AUTO [id number] 07:26:00 Test Item Value Reference Range Interpretation [...] 0.00 X10 3uL 0.00-0.01 N NRBC#) URINALYSIS [id number] 23:44:00 Test Item Value Reference Range Interpretation [...] cath if unable to obtain Clean CatchURINALYSIS [id number] 23:20:00 Test Item Value Reference Range Interpretation [...] if unable to obtain Clean CatchCOMPREHENSIVE METABOLIC [id number] 16:01:00 Test Item Value Reference Range Interpretation [...] 85 Units/L 50.0-136.0 N code = ALKP) [id number] 16:01:00 Test Item Value Reference Range Interpretation Comments TROPONIN-I (test <0.02 NG/ML 0.00-0.06 N REFERENCE R MALCOLM code = TROPI) TROPONIN I HEA LTHY INDIVIDUALS: < 0.06 ng/mL R/O ISCHE GREGORIO: 0.07 - 0.60 ng/ mL CUT-OFF RANGE F OR AMI: 0.60 - 1.5 ng/m L COMPREHENSIVE METABOLIC [id number] 15:50:00 Test Item Value Reference Range Interpretation [...] TOTAL (test Units/L 50.0-136.0 code = ALKP) [id number] 15:50:00 Test Item Value Reference Range Interpretation Comments TROPONIN-I (test code = TROPI) NG/ML 0.00-0.06 CBC W/AUTO [id number] 15:46:00 Test Item Value Reference Range Interpretation [...] K/mm3 0.0-0.2 N - XR ELBOW 3+V [id number] 15:44:00 FAX: Art Rodriguez MD [place]: St: REG Name: [facility] [place] [facility] : 1940 Age/S: 78/F [address] [facility] Unit#: [id number] [place]: [place] [address] Acct: [id number] Dis Date: Status: REG ER PHONE #: [phone] Exam Date: 08/01/2018 1526 FAX #: [phone] Reason: FALL - ELBOW INJURY EXAMS: CPT CODE: [id number] XR ELBOW 3+V [place] [address] Location: U19. RIGHT ELBOW 3 VIEWSHISTORY: FALL - ELBOW INJURY FINDINGS: No fracture, dislocation, soft tis alma swelling or joint effusion. Calcification seen along the lateral epicondyle. IMPRESSION: No fracture or dislocation. at 8168 Reported and signed by: Vincenzo Peters M.D. CC: Art Rodriguez MD Technologist: KODY MARIN Trnarrd Date/Time/By: 08/01/2018 (1540) : By: [email or web address] PAGE 1 Signed Report FAX: Art Rodriguez MD [place]: St: REG -- Name: ER[facility]STO [facility] : 1940 Age/S: 78/F[address] Unit #: [id number] Loc: [place], [place]: [place] [address] Acct: [id number] Dis Date: Status: REG ER PHONE #: [phone] Exam Date: 08/01/2018 1526 FAX #: [phone] Reason: FALL - ELBOW INJURY EXAMS: CPT CODE: [id number] XR ELBOW 3+V RT 69185 <Continued> Orig Print D/T: S: 08/01/2018 (7540) PAGE 2 Signed Report- XR HAND 3 + V [id number] 15:33:00 FAX: Art Rodriguez MD [place]: St: REG Name: [facility]NESTO [facility] [place] [facility] : 1940 Age/S: 78/F [address] [facility] [id number] Loc: [place], [place]: [place] [address] Acct: [id number] Dis Date: Status: REG ER PHONE #: [phone] Exam Date: 08/01/2018 1526 FAX #: [phone] Reason: FALL HAND INJURY EXAMS: CPT CODE: [id number] XR HAND 3 + [place] LT [address] LOCATION: T18 EXAM: LEFT HAND 3 VIEWS INDICATION: Left hand injury COMPARISON: None. TECHNIQUE: PA, lateral and oblique radiographs of the left hand FINDINGS: No acute fractures identified. Carpal bones are normal in alignment. Peripheral soft tissues are normal. IMPRESSION: No acute bony abnormality. at 1533 Reported and signed by: Jeffery Quintana M.D.CC: Art Rodriguez MD Technologist: KODY MARIN Trnkatelynnrd Date/Time/By: 08/01/2018 (5416) : By: [email or web address] PAGE 1 Signed Report FAX: Art Rodriguez MD [place]: St: REG -- Name: ERNESTO [facility] : 1940 Age/S: 78/F [address] Unit #: [id number] Loc: [place], [place]: [place] [address] Acct: [id number] Dis Date: Status: REG ER PHONE #: [phone] Exam Date: 08/01/2018 [facility] FAX #: [phone] Reason: FALL HANDINJURY EXAMS: CPT CODE: [id number] XR HAND 3 + [place] [address] <Continued> Orig Print D/T: S: 08/01/2018 (5094) PAGE 2 Signed Report- XR CHEST 1 V 2018-08-01 15:31:00 FAX: Art Rodriguez MD [place]: St: REG Name: ERNESTO [facility] : 1940 Age/S: 78/F [address] Unit#: [id number] Loc: [place], [place]: [place] [address] Acct: [id number] Dis Date: Status: REG ER PHONE #: [phone] Exam Date: 08/01/2018 1526 FAX #: [phone] Reason: FALL EXAMS: CPT CODE: [id number] XR CHEST 1 V 10464 LOCATION: T18 EXAM: CHEST 1 VIEW INDICATION: [...] MD Technologist: KODY MARIN Trnscrd Date/Time/By: 08/01/2018 (4051) : By: [email or web address] PAGE 1 Signed Report FAX: Art Rodriguez MD [place]: St: REG Name: ERNESTO [facility] : 1940 Age/S: 78/F [address] [facility] Unit #: [id number] Loc: [place], [place]: [place] [address] Acct: [id number] Dis Date: Status: REG ER PHONE #: [phone] Exam Date: 08/01/2018 1526 FAX #: [phone] Reason: FALL EXAMS: CPT CODE: [id number] XR CHEST 1 V 30061 <Continued> Orig Print D/T: S: 08/01/2018 (0517) PAGE 2 Signed Report- CT MAXIFAC W/O [id number] 15:20:00 FAX: Art Rodriguez MD [place]: St: REG Name: ERNESTO [facility] : 1940 Age/S: 78/F [address] [facility] Unit: [id number] Loc: [place], [place]: [place] [address] Acct: [id number] Dis Date: Status: REG ER PHONE #: [phone] Exam Date: 08/01/2018 6276 FAX #: [phone] Reason: FALL - FACIAL INJURY EXAMS: CPT CODE: [id number] CT MAXIFAC W/O CONTRAST 26148 CT maxillofacial bones without contrast Location Code: [...] PAGE 1 Signed Report- CT C-SPINE W/O [id number] 15:18:00 FAX: Art Rodriguez MD [place]: St: REG Name: ERNESTO [facility]DW[facility] : 1940 Age/S: 78/F [address] [facility] Unit: [id number] Loc: [place], [place]: [place] [address] Acct: [id number] Dis Date: Status: REG ER PHONE #: [phone] Exam Date: 08/01/2018 1457 FAX #: [phone] Reason: FALL - HEAD INJURY EXAMS: CPT CODE: [id number] CT C-SPINE W/O CONT 16845 CT CERVICAL SPINE WITHOUT CONTRAST; SAGITTAL AND [...] 1 Sign ed Report- CT HEAD/BRAIN W/O [id number] 15:14:00 FAX: Art Rodriguez MD [place]: St: REG Name: ERNESTO [facility]DW[facility] [place] [facility] : 1940 Age/S: 78/F [address] Unit: [id number] Loc: R[place], [place]: [place] [address] Acct: [id number] Dis Date: Status: REG ER PHONE #: [phone] Exam Date: 08/01/2018 1458 FAX #: [phone] Reason: FALL - HEAD INJURY EXAMS: CPT CODE: [id number] CT HEAD/BRAIN W/O CONT 56834 EXAM: CT Head without contrast Location code:J9 [...] PAGE1 Signed Report- XR KNEE 3 V [id number] 14:49:00 FAX: Art Rodriguez MD [place]: St: PRE Name: ERNESTO BALDWIN [facility] [place] [facility] : 1940 Age/S: 78[facility]F [address] [facility] [id number] Loc: [place], [place]: [place] [address] Acct: [id number] Dis Date: Status: PRE ER PHONE #: [phone] Exam Date: 08/01/2018 1443 FAX #: [phone] Reason: KNEE PAIN EXAMS: CPT CODE: [id number] XR KNEE 3 [place] [address] Location: U19. RIGHT KNEE 3 VIEWS HISTORY: Right knee pain FINDINGS: Anterior soft tissue swelling. No fracture or dislocation. Mild osteophyte formation seen in the patellofemoral compartment. Vascular calcifications. No fracture or dislocation. IMPRESSION: Anterior soft tissue swelling without a fracture or dislocation. at 1449 Reported and signed by: Vincenzo Peters M.D. CC: Art Rodriguez MD Technologist: SHAN GAN Trnarrd Date/Time/By: 08/01/2018 (6236) : By: [email or web address] PAGE 1 Signed Report FAX: Art Rodriguez MD [place]: St: PRE -- Name: ERNESTO BALDWIN [facility] [place] [facility] : 1940 Age/S: 78/F [address] [facility] Unit #: [id number] Loc: [place], [place] Phys: [place] [address] Acct: [id number] Dis Date: Status: PRE ER PHONE #: [phone] Exam Date: 08/01/2018 1443 FAX #: [phone] Reason: KNEE PAIN EXAMS: CPT CODE: [id number] XR KNEE 3 V RT 92792 <Continued> Orig PrintD/T: S: 08/01/2018 (5459) PAGE 2 Signed Report
--- NOTE | 2021-09-13 20:21 | ER ---
Nurse's Notes [facility] [place] Name: Marilin Leblanc Age: 81 yrs Sex: Female : 1940 Arrival Date: 09/13/2021 Time: 18:21 Bed Waiting Private MD: Diagnosis: Presentation: 09/13 18:41 Chief complaint: Patient's son or daughter states: She fell at 0120 this morning, jl7 unsure if she hit her head, pt is A\T\Ox2 to self and place and baseline, pt unable to remember if she hit her head. Pt denies pain. Coronavirus screen: At this time, the client does not indicate any symptoms associated with coronavirus-19. Ebola Screen: No symptoms or risks identified at this time. Initial Sepsis Screen: Does the patient meet any 2 criteria? No. Patient's initial sepsis screen is negative. Does the patient have a suspected source of infection? No. Patient's initial sepsis screen is negative. Risk Assessment: Do you want to hurt yourself or someone else? Patient reports no desire to harm self or others. Onset of symptoms was September 13, 2021 at 01:20. 18:41 Method Of Arrival: Ambulatory jl7 18:41 Acuity: BUNNY 3 jl7 Triage Assessment: 18:45 General: Appears in no apparent distress. comfortable, Behavior is calm, cooperative, jl7 appropriate for age. Pain: Denies pain. Historical: - Allergies: 18:45 Morphine; jl7 18:45 Oxycodone HCl; jl7 18:45 Promethazine; jl7 18:45 Sulfa (Sulfonamide Antibiotics); jl7 18:45 Tramadol HCl; jl7 18:45 Vicodin; jl7 - PMHx: 18:45 Alzheimers; Breast Cancer Right side; Dementia; Hypertension; jl7 - Immunization history:: Adult Immunizations up to date. - Social history:: Smoking status: Patient denies any tobacco usage or history of. Vital Signs: 18:41 BP 153 / 67; Pulse 61; Resp 17; Temp 98.1; Pulse Ox 95% on R/A; Weight 57.61 kg; Height jl7 5 ft. 3 in. (160.02 cm); Pain 0/10; 18:41 Body Mass Index 22.50 (57.61 kg, 160.02 cm) jl7 ED Course: 18:21 Patient arrived in ED. mr 18:45 Triage completed. jl7 18:45 Arm band placed on right wrist. jl7 Administered Medications: No medications were administered Outcome: 20:21 Patient left the ED. ld1 Signatures: Shaniqua Fernando mr SmithThomas, RN RN jl7 Alma Murillo RN RN ld1 Corrections: (The following items were deleted from the chart) 18:47 18:45 PSHx: Mastoidectomy; destiny dixon
[2021-09-13 21:38] VITALS: BP 153/67; TEMP 98.1; O2SAT 95
== END 2021-09-13 20:21 | disposition left against medical advice (07) ==
LOC: ER 18:18
DX: Z53.21 Procedure and treatment not carried out due to patient leaving prior to being seen by health care provider (principal)
CPT/HCPCS: 99281

== ENCOUNTER → 2023-06-09 | Emergency (ER) | payer OTHER ==
--- NOTE | 2023-06-09 14:05 | RAD REPORT ---
EXAM DESCRIPTION: CT - Head C Spine Mpr Wo Con - 06/09/2023 1:47 pm CLINICAL HISTORY: Head and neck injury status post fall. Head and neck pain COMPARISON: 2020 TECHNIQUE: Computed axial tomography of the head and cervical spine was obtained. Sagittal and coronal reconstruction was performed. All CT scans are performed using dose optimization technique as appropriate and may include automated exposure control or mA/KV adjustment according to patient size. FINDINGS: An intracranial bleed is not seen. The ventricles are normal in caliber. Prominent bilateral frontal lobe atrophy An extra-axial fluid collection is not noted. Fluid within the visualized sinuses and mastoids is not seen Images of the cervical spine are significantly degraded by patient motion artifact No gross fracture seen. No dislocation is noted. IMPRESSION: No acute intracranial abnormality is seen. Images of the cervical spine are significantly degraded by patient motion artifact. No gross cervical fracture seen
--- NOTE | 2023-06-09 14:11 | ER ---
Nurse's Notes [facility] [place] Name: Marilin Leblanc Age: 83 yrs Sex: Female : 1940 Arrival Date: 06/09/2023 Time: 11:57 Bed 15 Private MD: Diagnosis: Unspecified injury of head, initial encounter;Contusion of scalp;Fall on same level from slipping, tripping and stumbling without subsequent striking against object Presentation: 06/09 12:09 Chief complaint: EMS states: EMS reports family summoned help due to patient fall. tl4 Family reports fall was unwitnessed but pt broke a small table in the fall. Pt is at baseline mental status. Pt initially complained of posterior head and right elbow pain. Pt is currently being treated for a UTI with unknown antibiotic. Coronavirus screen: At this time, the client does not indicate any symptoms associated with coronavirus-19. Ebola Screen: No symptoms or risks identified at this time. Initial Sepsis Screen: Does the patient meet any 2 criteria? No. Patient's initial sepsis screen is negative. Does the patient have a suspected source of infection? No. Patient's initial sepsis screen is negative. Risk Assessment: Do you want to hurt yourself or someone else? Patient reports no desire to harm self or others. Onset of symptoms was June 09, 2023. 12:09 Method Of Arrival: EMS: [facility] tl4 12:09 Acuity: BUNNY 3 tl4 12:15 Chief complaint:. tl4 Triage Assessment: 12:13 General: Appears in no apparent distress. Behavior is calm, cooperative. Pain: tl4 Complains of pain in right arm. EENT: No deficits noted. No signs and/or symptoms were reported regarding the EENT system. Neuro: No deficits noted. Cardiovascular: No deficits noted. Denies chest pain, palpitations. Respiratory: No deficits noted. Denies cough, shortness of breath. GI: No deficits noted. No signs and/or symptoms were reported involving the gastrointestinal system. : No deficits noted. No signs and/or symptoms were reported regarding the genitourinary system. Derm: No deficits noted. No signs and/or symptoms reported regarding the dermatologic system. Historical: - Allergies: 12:12 Morphine; tl4 12:12 Oxycodone HCl; tl4 12:12 Promethazine; tl4 12:12 Sulfa (Sulfonamide Antibiotics); tl4 12:12 Tramadol HCl; tl4 12:12 Vicodin; tl4 - PMHx: 12:12 Alzheimers; Breast Cancer Right side; Dementia; Hypertension; tl4 - Immunization history:: Adult Immunizations unknown. - Social history:: Smoking status: Patient denies any tobacco usage or history of. Screenin:15 [facility] ED Fall Risk Assessment (Adult) History of falling in the last 3 months, bp including since admission No falls in past 3 months (0 pts). Abuse screen: Denies threats or abuse. Denies injuries from another. Nutritional screening: No deficits noted. Tuberculosis screening: No symptoms or risk factors identified. Assessment: 12:15 General: SEE TRIAGE NOTE. bp 13:00 Reassessment: No changes from previously documented assessment. Patient is alert, bp oriented x 3, equal unlabored respirations, skin warm/dry/pink. 14:00 Reassessment: Patient appears in no apparent distress at this time. Patient is alert, bp oriented x 3, equal unlabored respirations, skin warm/dry/pink. 14:42 Reassessment: DC ON HOLD FOR FAMILY TRANSPORT. bp Vital Signs: 12:01 BP 150 / 71 LA; Pulse 56; Resp 12; Temp 97.7(O); Pulse Ox 100% on R/A; jg11 13:00 BP 153 / 83; Pulse 55; Resp 16; Pulse Ox 100% ; bp 14:16 BP 166 / 66; Pulse 57; Resp 16; Pulse Ox 100% ; bp ED Course: 12:00 Patient arrived in ED. mg5 12:08 Kennedy Dumont, RN is Primary Nurse. bp 12:12 Triage completed. tl4 12:15 Patient has correct armband on for positive identification. bp 12:16 Arm band placed on Patient placed in an exam room, on a stretcher. tl4 12:25 Kati Domingo FNP-C is PHCP. snw 12:26 Fernando Plaza MD is Attending Physician. snw 13:49 CT Head C Spine In Process Unspecified. EDMS 14:42 No provider procedures requiring assistance completed. Patient did not have IV access bp during this emergency room visit. Administered Medications: No medications were administered Outcome: 14:10 Discharge ordered by . snw 14:42 Discharged to home via wheelchair, with family, bp 14:42 Condition: stable 14:42 Discharge instructions given to patient, family, Instructed on discharge instructions, follow up and referral plans. wound care, Demonstrated understanding of instructions, follow-up care, wound care, 15:21 Patient left the ED. bp Signatures: Dispatcher [employer] EDMS Kati Domingo, EVANS-C ARCHITECTURAL WOOD MODEL MAKER-[place] Kennedy Dumont RN RN Joselyn Guerrero mg5 [facility], [place] tl4 Rodney Blackman jg11 Corrections: (The following items were deleted from the chart) 12:16 12:09 Chief complaint: EMS states: EMS reports family summoned help due to patient tl4 fall. Family reports fall was unwitnessed but pt broke a small table in the fall. Pt is at baseline mental status. Pt initially complained of posterior head and right elbow pain. tl4
--- NOTE | 2023-06-09 14:11 | EDPHYS ---
Physician Documentation [facility] Name: Marilin Leblanc Age: 83 yrs Sex: Female : 1940 Arrival Date: 06/09/2023 Time: 11:57 Bed 15 Private MD: ED Physician Fernando Plaza HPI: 06/09 13:33 This 83 yrs old Female presents to ER via EMS with complaints of Fall Injury. snw 13:33 Details of fall: The patient fell from an upright position, while standing. Onset: The snw symptoms/episode began/occurred suddenly, just prior to arrival. Associated injuries: The patient sustained injury to the head, contusion, skin tear to left forearm. Severity of symptoms: At their worst the symptoms were very mild. The patient has experienced similar episodes in the past. The patient has been recently seen by a physician: with different complaint(s), taking liquid dementia medications. Historical: - Allergies: 12:12 Morphine; tl4 12:12 Oxycodone HCl; tl4 12:12 Promethazine; tl4 12:12 Sulfa (Sulfonamide Antibiotics); tl4 12:12 Tramadol HCl; tl4 12:12 Vicodin; tl4 - PMHx: 12:12 Alzheimers; Breast Cancer Right side; Dementia; Hypertension; tl4 - Immunization history:: Adult Immunizations unknown. - Social history:: Smoking status: Patient denies any tobacco usage or history of. ROS: 13:32 Eyes: Negative for injury, pain, redness, and discharge, ENT: Negative for injury, snw pain, and discharge, Neck: Negative for injury, pain, and swelling, Cardiovascular: Negative for chest pain, palpitations, and edema, Respiratory: Negative for shortness of breath, cough, wheezing, and pleuritic chest pain, Abdomen/GI: Negative for abdominal pain, nausea, vomiting, diarrhea, and constipation, Back: Negative for injury and pain, : Negative for injury, bleeding, discharge, and swelling, MS/Extremity: Negative for injury and deformity, Psych: Negative for depression, anxiety, suicide ideation, homicidal ideation, and hallucinations, 13:32 Constitutional: Positive for fall from standing onto carpet, no LOC. contusion to occiput, 13:32 Skin: Positive for abrasion(s), 13:32 Neuro: Positive for dementia, Negative for loss of consciousness, Exam: 13:30 Eyes: Pupils equal round and reactive to light, extra-ocular motions intact. Lids and snw lashes normal. Conjunctiva and sclera are non-icteric and not injected. Cornea within normal limits. Periorbital areas with no swelling, redness, or edema. ENT: Nares patent. No nasal discharge, no septal abnormalities noted. Tympanic membranes are normal and external auditory canals are clear. Oropharynx with no redness, swelling, or masses, exudates, or evidence of obstruction, uvula midline. Mucous membranes moist. Neck: Trachea midline, no thyromegaly or masses palpated, and no cervical lymphadenopathy. Supple, full range of motion without nuchal rigidity, or vertebral point tenderness. No Meningismus. Chest/axilla: Normal chest wall appearance and motion. Nontender with no deformity. No lesions are appreciated. Cardiovascular: Regular rate and rhythm with a normal S1 and S2. No gallops, murmurs, or rubs. Normal PMI, no JVD. No pulse deficits. Respiratory: Lungs have equal breath sounds bilaterally, clear to auscultation and percussion. No rales, rhonchi or wheezes noted. No increased work of breathing, no retractions or nasal flaring. Abdomen/GI: Soft, non-tender, with normal bowel sounds. No distension or tympany. No guarding or rebound. No evidence of tenderness throughout. Back: No spinal tenderness. No costovertebral tenderness. Full range of motion. MS/ Extremity: Pulses equal, no cyanosis. Neurovascular intact. Full, normal range of motion. Neuro: Awake and alert, oriented to person. Cranial nerves II-XII grossly intact. Motor strength 5/5 in all extremities. Sensory grossly intact. Psych: Awake, alert, with orientation to person, place and time. Behavior, mood, and affect are within normal limits. 13:30 Constitutional: The patient appears awake, dementia 13:30 Head/face: Noted is contusion, that is superficial, of the right side of the back of head, 13:30 Skin: injury, avulsion(s), a very small skin tear to left forearm, Vital Signs: 12:01 BP 150 / 71 LA; Pulse 56; Resp 12; Temp 97.7(O); Pulse Ox 100% on R/A; jg11 13:00 BP 153 / 83; Pulse 55; Resp 16; Pulse Ox 100% ; bp 14:16 BP 166 / 66; Pulse 57; Resp 16; Pulse Ox 100% ; bp MDM: 12:26 Patient medically screened. snw 14:08 Differential diagnosis: closed head injury, contusion, fracture. Data reviewed: vital snw signs, nurses notes, radiologic studies, CT scan. Historians other than the Patient: Daughter/Son: Daughter. Counseling: I had a detailed discussion with the patient and/or guardian regarding the historical points, exam findings, and any diagnostic results supporting the discharge/admit diagnosis, the presence of at least one elevated blood pressure reading (>120/80) during this emergency department visit, radiology results, the need for outpatient follow up, for definitive care, to return to the emergency department if symptoms worsen or persist or if there are any questions or concerns that arise at home. 06/09 13:08 Order name: CT Head C Spine; Complete Time: 14:08 snw 06/09 13:08 Order name: Wound Care; Complete Time: 14:42 snw Administered Medications: No medications were administered Disposition Summary: 06/09/23 14:10 Discharge Ordered Notes: Location: Home snw Condition: Stable snw Diagnosis - Unspecified injury of head, initial encounter snw - Contusion of scalp snw - Fall on same level from slipping, tripping and stumbling without subsequent snw striking against object Followup: snw - With: Emergency Department - When: As needed - Reason: Worsening of condition Followup: snw - With: Private Physician - When: 5 - 6 days - Reason: Recheck today's complaints, Continuance of care, Re-evaluation by your physician Discharge Instructions: - Discharge Summary Sheet snw - Head Injury, Adult snw - Fall Prevention in the Home, Adult snw - Skin Tear snw Forms: - Medication Reconciliation Form snw - Thank You Letter snw - Antibiotic Education snw - Prescription Opioid Use snw - Patient Portal Instructions snw - Leadership Thank You Letter snw Signatures: Dispatcher [employer] aKti Grayson FNP-C DIRECTOR OF ENTERPRISE STRATEGY-Csnw Logdacoral, [place] tl4
[2023-06-09 16:00] VITALS: BP 166/66; TEMP 97.7; O2SAT 100
== END ==
LOC: ER 11:57
DX: S00.03XA Contusion of scalp, initial encounter (principal); W01.0XXA Fall on same level from slipping, tripping and stumbling without subsequent striking against object, initial encounter; G30.9 Alzheimer's disease, unspecified; F02.80 Dementia in other diseases classified elsewhere, unspecified severity, without behavioral disturbance, psychotic disturbance, mood disturbance, and anxiety; I10 Essential (primary) hypertension; Z88.2 Allergy status to sulfonamides; Z88.5 Allergy status to narcotic agent
CPT/HCPCS: 70450; 72125

== ENCOUNTER 2023-08-31 09:02 | Emergency (ER) | payer OTHER ==
[2023-08-31] MEDS ORDERED: ACETAMINOPHEN 500 MG TAB ONE (09:27)
[2023-08-31] MEDS ORDERED: ACETAMINOPHEN 160 MG/5 ML UCUP ONE (09:36)
--- NOTE | 2023-08-31 10:30 | RAD REPORT ---
EXAM DESCRIPTION: CT - Head C Spine Cap Wo Con - 08/31/2023 9:58 am CLINICAL HISTORY: Trauma, head and neck injury. Chest, abdomen and pelvis pain. TRAUMA COMPARISON: Facial Bones W/ Mpr dated 04/08/2021; Head C Spine Mpr Wo Con dated 04/08/2021 TECHNIQUE: CT head without contrast. CT cervical spine without contrast with coronal and sagittal reformatted images. CT chest, abdomen and pelvis without contrast with coronal and sagittal reformatted images of the spi ne. All CT scans are performed using dose optimization technique as appropriate and may include automated exposure control or mA/KV adjustment according to patient size. FINDINGS: CT HEAD WITHOUT CONTRAST: There is a 6 mm hyperdensity in the anterior left temporal lobe suspicious for a small hemorrhagic co rtical contusion. Moderate brain atrophy is present No areas of brain edema or midline shift. The paranasal sinuses and mastoids are clear. The calvarium is intact. Large posterior scalp hematoma superiorly. CT CERVICAL SPINE WITHOUT CONTRAST: No fracture or subluxation. Mild lower cervical spondylosis. The prevertebral soft tissues are normal in thickness. CT CHEST, ABDOMEN, PELVIS WITHOUT CONTRAST: NOTE: Lack of contrast is a significant limitation in the assessment of trauma related findings. Spec ifically, solid organ, vascular and bowel evaluation is significantly limited. The lungs are clear.No pneumothorax or pericardial/pleural fluid. No evidence of intra-abdominal visceral injury, free fluid or free air is seen within the above detai led limitations. Fat containing right lower quadrant paramidline hernia centrally. Prominent sigmoid diverticulosis coli. Left total hip arthroplasty. No concerning pelvic findings. No fractures. IMPRESSION: 6 mm hyperdensity left anterior temporal lobe likely a small cortical contusion. Moderate posterior scalp hematoma.
--- NOTE | 2023-08-31 10:43 | ER ---
[facility] Name: Marilin Leblanc Age: 83 yrs Sex: Female : 1940 Arrival Date: 08/31/2023 Time: 09:02 Bed 13 Private MD: Diagnosis: cerebral contusion s/p fall Presentation: 08/30 09:04 Chief complaint: EMS states: MECHANICAL FALL. FELL BACK AND HIT HEAD. HAS SMALL db CONTROLLED BLEEDING FROM OCCIPITAL AREA. PER FAMILY PATIENT LOSS CONTROL. Care prior to arrival: None. Mechanism of Injury: Fall from standing position. Trauma event details: Injury occurred in the [facility]. 09:04 Acuity: BUNNY 3 db 09:04 Method Of Arrival: EMS: [facility] db 09:04 Coronavirus screen: Client denies travel out of the [place] in the last 14 days. At this db time, the client does not indicate any symptoms associated with coronavirus-19. Ebola Screen: Patient negative for fever greater than or equal to 101.5 degrees Fahrenheit, and additional compatible Ebola Virus Disease symptoms Patient denies exposure to infectious person. Patient denies travel to an Ebola-affected area in the 21 days before illness onset. No symptoms or risks identified at this time. Initial Sepsis Screen: Does the patient meet any 2 criteria? No. Patient's initial sepsis screen is negative. Does the patient have a suspected source of infection? No. Patient's initial sepsis screen is negative. Risk Assessment: Do you want to hurt yourself or someone else? Patient reports no desire to harm self or others. Onset of symptoms was August 31, 2023. Triage Assessment: 09:20 General: Appears in no apparent distress. comfortable, Behavior is calm, cooperative. db Pain: Complains of pain in right occipital area. Neuro: Level of Consciousness is awake, alert, obeys commands, Oriented to person, place, time, situation. Respiratory: Airway is patent Respiratory effort is even, unlabored, Respiratory pattern is regular, symmetrical. 09:20 Injury Description: Laceration sustained to scalp and right occipital area. db Trauma Activation: Not Applicable Physician: ED Physician; Name: ; Notified At: ; Arrived At: Physician: General Surgeon; Name: ; Notified At: ; Arrived At: Physician: Radiology; Name: ; Notified At: ; Arrived At: Physician: Respiratory; Name: ; Notified At: ; Arrived At: Physician: Lab; Name: ; Notified At: ; Arrived At: Historical: - Allergies: 09:20 Morphine; db 09:20 Oxycodone HCl; db 09:20 Promethazine; db 09:20 Sulfa (Sulfonamide Antibiotics); db 09:20 Tramadol HCl; db 09:20 Vicodin; db - PMHx: 09:20 Alzheimers; Breast Cancer Right side; Dementia; Hypertension; db - Immunization history: Last tetanus immunization: unknown. - Infectious Disease History:: Denies. - Social history:: Smoking status: Patient denies any tobacco usage or history of. Screenin:04 Abuse screen: Denies threats or abuse. Denies injuries from another. Tuberculosis db screening: No symptoms or risk factors identified. 09:04 Fall risk At risk due to injury, age, prior history of falls. db 12:15 [facility] ED Fall Risk Assessment (Adult) History of falling in the last 3 months, db including since admission Yes- fall prone (multiple falls) (3 pts) Confusion or Disorientation Yes (5 pts) Intoxicated or Sedated No (0 pts) Impaired Gait Yes (1 pt) Mobility Assist Device Used Yes (1 pt) Altered Elimination No (0 pt) Score/Fall Risk Level 3 or more points = High Risk Oriented to surroundings, Maintained a safe environment. Nutritional screening: No deficits noted. Primary Survey: :04 NO uncontrolled hemorrhage observed. A: The client is awake and alert. The airway is db patent. The client is alert. Airway: patent. Breathing/Chest: Spontaneous respiratory effort, equal unlabored respirations, breath sounds clear bilaterally, regular pattern, symmetrical chest rise and fall. Respiratory effort: spontaneous, unlabored, Breath sounds: clear, Respiratory pattern: regular. Circulation: No external hemorrhage present. Regular and strong central pulse, skin warm/dry/normal color. Disability Client is alert. Exposure/Environment: There is no evidence of uncontrolled external bleeding. A warming method has been applied: A warm blanket has been provided to the patient. Reassessment Alertness and Airway: Awake and alert. The airway is patent. Breathing: Spontaneous respiratory effort, equal unlabored respirations, breath sounds clear bilaterally, regular pattern with symmetrical chest rise and fall. Circulation: No external hemorrhage noted. Regular and strong central pulse, skin warm/dry/normal color. Disability: Alert. Assessment: 09:04 Reassessment: Patient appears in no apparent distress at this time. Patient and/or db family updated on plan of care and expected duration. Pain level reassessed. General: Appears in no apparent distress. comfortable, Behavior is calm, cooperative, appropriate for age, DEMENTIA AT NORMAL MENTATION FOR PATIENT. Pain: Complains of pain in scalp. Neuro: Level of Consciousness is awake, alert, obeys commands, Oriented to person. Cardiovascular: No deficits noted. Respiratory: No deficits noted. Airway is patent Respiratory effort is even, unlabored, Respiratory pattern is regular, symmetrical. Injury Description: Laceration sustained to right occipital area. 09:22 Reassessment: SEE TRIAGE FOR INITIAL ASSESSMENT. db 09:31 Reassessment: REFUSED TYLENOL PILLS DUE TO PT UNABLE TO SWALLOW PILLS. db 11:00 Reassessment: PATIENT AND FAMILY REFUSED GOWN. db 11:13 Reassessment: Patient appears in no apparent distress at this time. Patient and/or db family updated on plan of care and expected duration. Pain level reassessed. General: Appears in no apparent distress. comfortable. Neuro: Level of Consciousness is awake, alert, obeys commands, Oriented to person. 11:13 Reassessment: CALLED [facility] TO GIVE PATIENT REPORT FOR TRANSFER. db 11:22 Reassessment: CALLED 2ND TIME TO [facility] TO GIVE PATIENT REPORT. db 11:26 Reassessment: REPORT GIVEN TO SUNDEEP RECINOS AT RECEIVING [facility]. db 12:10 Reassessment: EMS ARRIVED FOR PATIENT TRANSPORT. REPORT GIVEN TO EMS. db 12:15 Reassessment: Patient appears in no apparent distress at this time. Patient and/or db family updated on plan of care and expected duration. Pain level reassessed. Vital Signs: 09:04 BP 200 / 80; Pulse 62; Resp 18; Temp 97.9(O); Pulse Ox 99% ; Weight 51 kg (M); db 10:44 BP 190 / 81; sb4 11:00 BP 185 / 74; Pulse 58; Resp 18; Pulse Ox 100% on R/A; db 12:00 BP 145 / 77; Pulse 59; Resp 18; Temp 97.9; Pulse Ox 99% ; db [place] Coma Score: 09:04 Eye Response: spontaneous(4). Motor Response: obeys commands(6). Verbal Response: db confused(4). Total: 14. Trauma Score (Adult): 09:04 Eye Response: spontaneous(1); Verbal Response: confused(1); Motor Response: obeys db commands(2); Systolic BP: > 89 mm Hg(4); Respiratory Rate: 10 to 29 per min(4); [place] Score: 14; Trauma Score: 12 ED Course: 09:04 Patient has correct armband on for positive identification. Bed in low position. Call db light in reach. Side rails up X2. 09:11 Patient arrived in ED. jr12 09:12 Joy Davis PA-C is PHCP. sb4 09:12 Alvarado Calvo MD is Attending Physician. sb4 09:12 Kateryna Gomez RN is Primary Nurse. db 09:17 Triage completed. db 09:20 Arm band placed on Patient placed in an exam room. db 09:[address] via stretcher. db 10:00 CT Traumagram (Head C Spine CAP wo con) In Process Unspecified. EDMS 10:58 \T\[id number] initiated a transfer with Luis from the [facility] Transfer [place]/ \T\1050 eb connected the trauma team chemical radiation technician for [facility] with Joy WASH[place]URN for patient transfer consultation/ \T\1052 administrative approval given by Luis Claros Rn/ patient has been accepted to [facility] ER/ Dr. Maycol Longoria has accepted the patient in transfer/ report to be called to [phone]. 11:05 Initial lab(s) drawn, by la, sent to lab. Inserted saline lock: 22 gauge in left db antecubital area, using aseptic technique. Blood collected. 11:33 Report given to [facility]. db 11:57 SUNDEEP MATTSON. db 12:10 Dressings: Kerlix X 1; right occipital area 4X4s. db 12:15 Provided Education on: TRANSFER. db 12:15 No provider procedures requiring assistance completed. Patient transferred, IV remains db in place. 12:17 O2 via ROOM AIR. db 12:18 Thermoregulation: warm blanket given to patient. db Administered Medications: 09:30 Not Given (Patient Refused): [id number] mg PO once db 09:40 Drug: Acetaminophen PO Liquid 10 mg/kg PO once; not to exceed 1000 mg Route: PO; db 11:14 Follow up: Response: No adverse reaction; Pain is decreased db Medication: 12:15 VIS not applicable for this client. db Intake: 12:17 PO: 0ml; Total: 0ml. db Outcome: 10:43 ER care complete, transfer ordered by sb4 12:15 Transferred by ground EMS to [facility], Transfer form completed. X-rays sent db w/ patient. 12:15 Condition: stable 12:15 Instructed on the need for transfer, 12:17 Patient's length of stay in the Emergency Department was greater than 2 hours. PENDING db TRANSFERPatient's length of stay extended due to 12:18 Patient left the ED. db Signatures: Dispatcher [employer] EDMS Neeta Guzman Danielle, RN RN Joy Mackenzie, PA-C PADovC sb4 Macrina Arenas jr12 Corrections: (The following items were deleted from the chart) 11:13 09:04 Reassessment: Patient appears in no apparent distress at this time. Patient db and/or family updated on plan of care and expected duration. Pain level reassessed. Patient is alert, oriented x 3, equal unlabored respirations, skin warm/dry/pink. db
--- NOTE | 2023-08-31 10:43 | EDPHYS ---
Physician Documentation [facility] Name: Marilin Leblanc Age: 83 yrs Sex: Female : 1940 Arrival Date: 08/31/2023 Time: 09:02 Bed 13 Private MD: ED Physician Alvarado Calvo HPI: 08/30 09:14 This 83 yrs old Female presents to ER via Unassigned with complaints of fall. sb4 09:14 Details of fall: The patient fell from an upright position, and struck a carpeted sb4 surface. Onset: The symptoms/episode began/occurred just prior to arrival. Associated injuries: The patient sustained injury to the head, contusion, pain. The patient has experienced similar episodes in the past, a few times. The patient has not recently seen a physician. 09:17 family states patient tripped over her feet this morning and fell backwards, first sb4 hitting her back then her head. she did not lose consciousness, has not vomited. patient has dementia, mental status is currently similar to her baseline. Historical: - Allergies: 09:20 Morphine; db 09:20 Oxycodone HCl; db 09:20 Promethazine; db 09:20 Sulfa (Sulfonamide Antibiotics); db 09:20 Tramadol HCl; db 09:20 Vicodin; db - PMHx: 09:20 Alzheimers; Breast Cancer Right side; Dementia; Hypertension; db - Immunization history: Last tetanus immunization: unknown. - Infectious Disease History:: Denies. - Social history:: Smoking status: Patient denies any tobacco usage or history of. ROS: 09:14 Constitutional: Negative for fever, chills, and weight loss, sb4 09:14 Neuro: Positive for headache, 09:14 All other systems are negative, Exam: 09:14 Cardiovascular: Regular rate and rhythm with a normal S1 and S2. Respiratory: Lungs sb4 have equal breath sounds bilaterally, clear to auscultation and percussion. No rales, rhonchi or wheezes noted. No increased work of breathing, no retractions or nasal flaring. Abdomen/GI: Soft, non-tender, no distension. Skin: Warm, dry with normal turgor. Normal color with no rashes, no lesions, and no evidence of cellulitis. MS/ Extremity: Pulses equal, no cyanosis. Neurovascular intact. Full, normal range of motion. 09:14 Constitutional: The patient appears in no acute distress, alert, awake, 09:14 Head/face: Noted is contusion, that is superficial, of the right occipital area, hematoma, that is moderate, of the right occipital area, 09:14 Eyes: Pupils: pinpoint, bilaterally, Extraocular movements: intact throughout, Vital Signs: 09:04 BP 200 / 80; Pulse 62; Resp 18; Temp 97.9(O); Pulse Ox 99% ; Weight 51 kg (M); db 10:44 BP 190 / 81; sb4 11:00 BP 185 / 74; Pulse 58; Resp 18; Pulse Ox 100% on R/A; db 12:00 BP 145 / 77; Pulse 59; Resp 18; Temp 97.9; Pulse Ox 99% ; db [place] Coma Score: 09:04 Eye Response: spontaneous(4). Motor Response: obeys commands(6). Verbal Response: db confused(4). Total: 14. Trauma Score (Adult): 09:04 Eye Response: spontaneous(1); Verbal Response: confused(1); Motor Response: obeys db commands(2); Systolic BP: > 89 mm Hg(4); Respiratory Rate: 10 to 29 per min(4); Ivet Score: 14; Trauma Score: 12 MDM: 09:12 Patient medically screened. sb4 09:14 Differential diagnosis: skull fracture, subdural bleed, epidural bleed, contusion, sb4 hematoma, concussion. Historians other than the Patient: EMS: EMS. granddaughter. 10:41 Data reviewed: vital signs, nurses notes, radiologic studies, I have discussed the sb4 patient's presentation/case with the attending Emergency Department Physician;. 08/30 10:42 Order name: Basic Metabolic Panel; Complete Time: : sb4 08/30 10:42 Order name: CBC with Diff; Complete Time: : sb4 08/30 10:42 Order name: PT-INR; Complete Time: 11: sb4 08/30 10:42 Order name: Ptt, Activated; Complete Time: : sb4 08/30 09:12 Order name: CT Traumagram (Head C Spine CAP wo con); Complete Time: 10:31 sb4 08/30 10:42 Order name: Labs collected and sent; Complete Time: 11:14 sb4 Administered Medications: 09:30 Not Given (Patient Refused): [id number] mg PO once db 09:40 Drug: Acetaminophen PO Liquid 10 mg/kg PO once; not to exceed 1000 mg Route: PO; db 11:14 Follow up: Response: No adverse reaction; Pain is decreased db Disposition Summary: 08/31/23 10:43 Transfer Ordered Notes: Transfer Location: [facility] sb4 Reason: Higher level of care sb4 Condition: Fair sb4 Problem: new sb4 Symptoms: are unchanged sb4 Accepting Physician: ER(08/31/23 12:18) db Diagnosis - cerebral contusion s/p fall sb4 Forms: - Medication Reconciliation Form sb4 - SBAR form sb4 Signatures: Dispatcher [employer] Kateryna Mosley RN RN Joy Mackenzie PA-C PASherin sb4 Corrections: (The following items were deleted from the chart) 09:13 09:13 Head C Spine Cap Wo Con+CT.RAD.BRZ ordered. EDMS EDMS 12:18 10:43 ER sb4 db
[2023-08-31 11:14] LABS: Absolute Basophils 0.1 K/uL (0-0.5); Absolute Eosinophils 0.1 K/uL (0-0.5); Absolute Lymphocytes (CBC) 1.8 K/uL (0.7-4.9); Absolute Monocytes 0.8 K/uL (0.1-1.3); Absolute Neutrophil 10.5 K/uL (1.8-8.0); Basophils % 0.5 % (0-1.3); Eosinophils % 0.8 % (0-4.4); Hematocrit 40.1 % (36.0-45.0); Lymphocytes % 13.5 % (15.3-44.8); MCH 30.6 pg (27.0-35.0); MCHC 32.3 g/dL (32.0-36.0); MCV 94.6 fL (80-100); MPV 9.9 fL (7.6-11.3); Monocytes % 6.3 % (3.3-12.3); Neutrophils % 78.9 % (41.7-73.7); Platelets 264 thou/uL (152-406); RBC Red Blood Cell Count 4.24 M/uL (3.86-4.86); Red Cell Distribution Width 14.6 % (12.1-15.2)
[2023-08-31 11:21] LABS: PT Prothrombin Time 11.1 SECONDS (9.5-12.5); PTT, Activated Partial Thromb 29.7 SECONDS (24.3-36.9); Protime INR 1.01
[2023-08-31 11:27] LABS: Anion Gap 5.8 mEq/L (5.0-15.0); Potassium 3.8 mEq/L (3.5-5.1)
[2023-08-31 12:29] VITALS: BP 145/77; TEMP 97.9; O2SAT 99
== END 2023-08-31 12:18 | disposition short-term general hospital (02) ==
LOC: ER 09:02
DX: S06.330A Contusion and laceration of cerebrum, unspecified, without loss of consciousness, initial encounter (principal); W18.00XA Striking against unspecified object with subsequent fall, initial encounter; G30.9 Alzheimer's disease, unspecified; F02.80 Dementia in other diseases classified elsewhere, unspecified severity, without behavioral disturbance, psychotic disturbance, mood disturbance, and anxiety; Z88.2 Allergy status to sulfonamides; Z88.5 Allergy status to narcotic agent; Z88.8 Allergy status to other drugs, medicaments and biological substances
CPT/HCPCS: 36415; 70450; 71250; 72125; 80048; 85025; 85610; 85730

== ENCOUNTER 2023-10-28 08:31 | Emergency (ER) | payer OTHER ==
[2023-10-28 10:03] LABS: Absolute Eosinophils 0.1 K/uL (0-0.5); Absolute Lymphocytes (CBC) 1.7 K/uL (0.7-4.9); Absolute Monocytes 0.8 K/uL (0.1-1.3); Absolute Neutrophil 10.7 K/uL (1.8-8.0); Basophils % 0.3 % (0-1.3); Eosinophils % 0.4 % (0-4.4); Hematocrit 38.8 % (36.0-45.0); Hemoglobin 12.7 g/dL (12.0-15.0); MCHC 32.8 g/dL (32.0-36.0); MCV 94.7 fL (80-100); MPV 9.5 fL (7.6-11.3); Monocytes % 6.4 % (3.3-12.3); Neutrophils % 79.9 % (41.7-73.7); Platelets 283 thou/uL (152-406); Red Cell Distribution Width 14.5 % (12.1-15.2)
[2023-10-28 10:14] LABS: Anion Gap 5.7 mEq/L (5.0-15.0); Potassium 4.7 mEq/L (3.5-5.1)
--- NOTE | 2023-10-28 10:44 | RAD REPORT ---
EXAM DESCRIPTION: CT - Head C Spine Cap Wo Con - 10/28/2023 9:08 am CLINICAL HISTORY: TRAUMA COMPARISON: Head C Spine Cap Wo Con dated 08/31/2023 TECHNIQUE: Head and cervical spine CT images were obtained without IV contrast. Chest, abdomen, and pelvis CT images were obtained without IV contrast. Multiplanar reformats were generated and reviewed . All CT scans are performed using dose optimization technique as appropriate and may include automated exposure control or mA/KV adjustment according to patient size. FINDINGS: CT HEAD: No intracranial hemorrhage, mass effect, or edema. No evidence of acute territorial infarct. No midli ne shift or abnormal fluid collection. The ventricles are normal in caliber and configuration for age . Basal cisterns are patent. Mastoid aircells and paranasal sinuses are clear. No acute skull fractur e. CT CERVICAL SPINE: No acute cervical spine fracture or subluxation. Vertebral body heights are well maintained. Facet rafal ints are normal in alignment. No hyperattenuating canal hematoma. Prevertebral and paraspinous soft t issues are unremarkable. CT CHEST: No pneumothorax, pulmonary contusion or pleural fluid collection. No mediastinal hematoma and the aor ta and pulmonary arteries are unremarkable. No chest will mass or abnormal axillary finding. No displ aced rib fracture or other significant bony finding. CT ABDOMEN/ PELVIS: No evidence of traumatic injury to solid abdominal viscera. Gallbladder and biliary tree are unremark able. Prominent sigmoid diverticulosis. Vaginal diaphragm in place. Right periumbilical fat containin g hernia with narrow neck, with hernia sac measuring 4.9 x 2.1 cm. No bowel injury or significant fin ding. No free air, free fluid or abnormal fat stranding. No urinary bladder abnormality. No significant bony finding. IMPRESSION: No acute traumatic findings. Incidental findings as above.
--- NOTE | 2023-10-28 10:56 | EDPHYS ---
Physician Documentation [facility] Name: Marilin Leblanc Age: 83 yrs Sex: Female : 1940 Arrival Date: 10/28/2023 Time: 08:31 Bed 18 Private MD: ED Physician Himanshu Sequeira HPI: 10/27 08:41 This 83 yrs old Female presents to ER via Unassigned with complaints of fall. sb4 08:42 Family states that they saw patient fell around midnight but did not get to her until sb4 about 6 this morning and called ambulance. Hematoma noted to the back of the head. Patient has no complaints at this time. Denies any pain. Patient is confused at baseline. She is oriented x 1 currently. Historical: - Allergies: 10:41 Morphine; ph 10:41 Oxycodone HCl; ph 10:41 Promethazine; ph 10:41 Sulfa (Sulfonamide Antibiotics); ph 10:41 Tramadol HCl; ph 10:41 Vicodin; ph - PMHx: 10:41 Alzheimers; Breast Cancer Right side; Dementia; Hypertension; ph - Immunization history:: Adult Immunizations unknown. - Infectious Disease History:: Denies. - Social history:: Smoking status: unknown. ROS: 08:42 Constitutional: Negative for fever, chills, and weight loss, sb4 08:42 All other systems are negative, Exam: 08:42 Eyes: Extra-ocular motions intact. Periorbital areas with no swelling, redness, or sb4 edema. ENT: Mucous membranes moist. Cardiovascular: Regular rate and rhythm with a normal S1 and S2. Respiratory: Lungs have equal breath sounds bilaterally, clear to auscultation and percussion. No rales, rhonchi or wheezes noted. No increased work of breathing, no retractions or nasal flaring. Abdomen/GI: Soft, non-tender, no distension. 08:42 Constitutional: The patient appears in no acute distress, alert, awake, frail, 08:42 Head/face: Noted is hematoma, that is mild, of the right occipital area, 08:42 Skin: small skin tear left forearm. 08:42 Neuro: Orientation: no acute changes, per family, to person, Not oriented to place, time, situation, Mentation: responsive to voice lucid, able to follow commands, Motor: moves all fours, Sensation: is normal, Vital Signs: 08:37 BP 126 / 70; Pulse 67; Resp 18; Temp 97.9; Pulse Ox 99% on R/A; Weight 40.82 kg; ph 10:41 BP 133 / 72; Pulse 68; Resp 18; Pulse Ox 99% on R/A; ph 11:37 BP 129 / 78; Pulse 69; Resp 18; Temp 97.5; Pulse Ox 99% on R/A; ph [place] Coma Score: 10:41 Eye Response: spontaneous(4). Motor Response: obeys commands(6). Verbal Response: ph confused(4). Total: 14. 11:37 Eye Response: spontaneous(4). Motor Response: obeys commands(6). Verbal Response: ph confused(4). Total: 14. MDM: 08:32 Patient medically screened. sb4 10:54 Data reviewed: vital signs, nurses notes, EMS record, lab test result(s), radiologic sb4 studies, and as a result, I will discharge patient. Counseling: I had a detailed discussion with the patient and/or guardian regarding the historical points, exam findings, and any diagnostic results supporting the discharge/admit diagnosis, lab results, radiology results, to return to the emergency department if symptoms worsen or persist or if there are any questions or concerns that arise at home. 10/27 08:37 Order name: CBC with Diff; Complete Time: 10:10 sb4 10/27 08:37 Order name: BMP; Complete Time: 10:19 sb4 10/27 08:37 Order name: CK; Complete Time: 10:19 sb4 10/27 08:40 Order name: Head C Spine Cap Wo Con; Complete Time: 10:47 EDMS Administered Medications: No medications were administered Disposition: 11:57 Co-signature as Attending Physician, Himanshu Sequeira MD I reviewed the patient's care rt provided by the Advanced Practice Provider and agree with the diagnosis and treatment plan. Disposition Summary: 10/28/23 10:55 Discharge Ordered Notes: Location: Home sb4 Problem: new sb4 Symptoms: have improved sb4 Condition: Stable sb4 Diagnosis - Fall on same level, unspecified sb4 - Unspecified injury of head, initial encounter sb4 Followup: sb4 - With: Emergency Department - When: As needed - Reason: Trouble breathing, Worsening of condition Discharge Instructions: - Discharge Summary Sheet sb4 - Fall Prevention in the Home, Adult, [id number] sb4 - Head Injury, Adult, [id number] sb4 Forms: - Patient Portal Instructions sb4 - Leadership Thank You Letter sb4 Signatures: Dispatcher [employer] Gunjan Gary RN RN ph Ryan, Joy, PADovC PASherin sb4 Himanshu Sequeira MD MD rt Corrections: (The following items were deleted from the chart) 08:55 08:55 Head C Spine Cap Wo Con+CT.RAD.BRZ ordered. EDMS EDMS 08:56 08:56 CBC+H.LAB.BRZ ordered. EDMS EDMS 08:56 08:56 BASIC METABOLIC PANEL+C.LAB.BRZ ordered. EDMS EDMS 08:56 08:56 CREATINE PHOSPHOKINASE+C.LAB.BRZ ordered. EDMS EDMS 08:56 08:56 Urinalysis W/Microscopic+U.LAB.BRZ ordered. EDMS EDMS
--- NOTE | 2023-10-28 10:56 | ER ---
Nurse's Notes [facility] [place] Name: Marilin Leblanc Age: 83 yrs Sex: Female : 1940 Arrival Date: 10/28/2023 Time: 08:31 Bed 18 Private MD: Diagnosis: Fall on same level, unspecified;Unspecified injury of head, initial encounter Presentation: 10/27 08:37 Chief complaint: EMS states: Family called EMS for fall, states that they found pt on ph ground, cameras showed that she fell at approx midnight, unknown LOC, does not take blood thinners, confused at baseline, hx of demetia. Coronavirus screen: Vaccine status: Patient reports receiving the 2nd dose of the covid vaccine. Ebola Screen: No symptoms or risks identified at this time. Initial Sepsis Screen: Does the patient meet any 2 criteria? No. Patient's initial sepsis screen is negative. Does the patient have a suspected source of infection? No. Patient's initial sepsis screen is negative. Risk Assessment: Do you want to hurt yourself or someone else? Patient reports no desire to harm self or others. Onset of symptoms was October 28, 2023. 08:37 Method Of Arrival: EMS: [facility] ph 08:37 Acuity: BUNNY 3 ph Triage Assessment: 08:43 General: Appears in no apparent distress. Behavior is calm, cooperative. Pain: Denies ph pain. Neuro: Level of Consciousness is awake, alert, Oriented to person. Respiratory: Airway is patent Respiratory effort is even, unlabored. Derm: Skin is pink, warm \T\ dry. Musculoskeletal: Circulation, motion, and sensation intact. Injury Description: Abrasion sustained to dorsal aspect of left forearm is skin tear. Historical: - Allergies: 10:41 Morphine; ph 10:41 Oxycodone HCl; ph 10:41 Promethazine; ph 10:41 Sulfa (Sulfonamide Antibiotics); ph 10:41 Tramadol HCl; ph 10:41 Vicodin; ph - PMHx: 10:41 Alzheimers; Breast Cancer Right side; Dementia; Hypertension; ph - Immunization history:: Adult Immunizations unknown. - Infectious Disease History:: Denies. - Social history:: Smoking status: unknown. Screenin:40 [facility] ED Fall Risk Assessment (Adult) History of falling in the last 3 months, ph including since admission Yes- fall prone (multiple falls) (3 pts) Confusion or Disorientation Yes (5 pts) Intoxicated or Sedated No (0 pts) Impaired Gait Yes (1 pt) Mobility Assist Device Used Yes (1 pt) Altered Elimination Yes (1 pt) Score/Fall Risk Level 3 or more points = High Risk Oriented to surroundings, Maintained a safe environment, Assessed \T\ reinforced patient's understanding of fall precautions, Hourly rounding (assess needs \T\ fall precautionary measures) done, Used ambulatory aids as needed (educated on \T\ assisted with), Utilized family, sitter, or virtual electron beam machine welder setter as indicated. Abuse screen: Denies threats or abuse. Denies injuries from another. Nutritional screening: No deficits noted. Tuberculosis screening: No symptoms or risk factors identified. Assessment: 09:00 General: SEE TRIAGE ASSESSMENT. ph 11:37 Reassessment: Patient appears in no apparent distress at this time. Patient and/or ph family updated on plan of care and expected duration. Pain level reassessed. Pt d/c home w/ family. Vital Signs: 08:37 BP 126 / 70; Pulse 67; Resp 18; Temp 97.9; Pulse Ox 99% on R/A; Weight 40.82 kg; ph 10:41 BP 133 / 72; Pulse 68; Resp 18; Pulse Ox 99% on R/A; ph 11:37 BP 129 / 78; Pulse 69; Resp 18; Temp 97.5; Pulse Ox 99% on R/A; ph Ivet Coma Score: 10:41 Eye Response: spontaneous(4). Motor Response: obeys commands(6). Verbal Response: ph confused(4). Total: 14. 11:37 Eye Response: spontaneous(4). Motor Response: obeys commands(6). Verbal Response: ph confused(4). Total: 14. ED Course: 08:32 Patient arrived in ED. sb4 08:32 Joy Davis PA-C is PHCP. sb4 08:32 Himanshu Sequeira MD is Attending Physician. sb4 08:37 Gunjan Yap RN is Primary Nurse. ph 08:43 Triage completed. ph 08:44 Arm band placed on Patient placed in an exam room, on a stretcher. ph 09:10 Head C Spine Cap Wo Con In Process Unspecified. EDMS 09:50 Initial lab(s) drawn, by me, sent to lab. Missed attempt(s): 24 gauge in left ph antecubital area. Bleeding controlled, band aid applied, catheter tip intact. Missed attempt(s): 24 gauge in left forearm. Bleeding controlled, band aid applied, catheter tip intact. 10:41 Patient has correct armband on for positive identification. Placed in gown. Bed in low ph position. Call light in reach. Side rails up X2. Pulse ox on. NIBP on. Door closed. Noise minimized. Warm blanket given. 10:41 No provider procedures requiring assistance completed. ph 11:17 Provided Education on: fall risk and wound care. ap3 11:17 Patient did not have IV access during this emergency room visit. ap3 Administered Medications: No medications were administered Medication: 10:41 VIS not applicable for this client. ph Outcome: 10:55 Discharge ordered by . sb4 11:17 Condition: good ap3 11:17 Discharge instructions given to family, Instructed on discharge instructions, follow up and referral plans. wound care, Demonstrated understanding of instructions, follow-up care, wound care, 11:37 Patient left the ED. ph Signatures: Dispatcher [employer] Gunjan Gary RN RN ph Prema Cage RN RN ap3 Joy Davis, PA-C PA-C sb4
[2023-10-28 18:55] VITALS: BP 129/78; TEMP 97.5; O2SAT 99
== END 2023-10-28 11:37 | disposition home or self-care (01) ==
LOC: ER 08:31
DX: S00.83XA Contusion of other part of head, initial encounter (principal); W18.30XA Fall on same level, unspecified, initial encounter; G30.9 Alzheimer's disease, unspecified; F02.80 Dementia in other diseases classified elsewhere, unspecified severity, without behavioral disturbance, psychotic disturbance, mood disturbance, and anxiety
CPT/HCPCS: 36415; 70450; 71250; 72125; 80048; 82550; 85025